=== PATIENT | female | born 1930 | race Caucasian/White ===

== ENCOUNTER 2017-07-15 10:01 | Inpatient (IN) | payer MEDICARE, BC ==
[~2017-07-15] VITALS: Ht 157.5 cm; Wt 65.0 kg
[2017-07-15 10:48] VITALS: BP 175/85
[2017-07-15] MEDS ORDERED: METHYL SALICYLATE/MENTHOL TOPICAL OINTMENT 29GM TUBE. TP PRN (11:00)
[2017-07-15] MEDS ORDERED: MAG HYDROX/AL HYDROX/SIMETH 30 ML ORAL.SUSP PO PRN (11:00)
[2017-07-15] MEDS ORDERED: MAGNESIUM HYDROXIDE 2,400 MG/30 ML ORAL.SUSP. PO PRN (11:00)
[2017-07-15] MEDS ORDERED: ACETAMINOPHEN 325 MG TABLET PO PRN (11:00)
[2017-07-15 11:19] LABS: BASO # 0.1 x10^3/uL (0.0-0.2); BASO % 1 % (0-3); EOS # 0.1 x10^3/uL (0.0-0.7); EOS % 3 % (0-3); HEMOGLOBIN 14.7 g/dL (12.0-15.5); LYMPH # 0.6 x10^3/uL (1.0-4.8); LYMPH % 11 % (24-48); MEAN CORPUSCULAR HEMOGLOBIN 31 pg (25-35); MEAN CORPUSCULAR HGB CONC 35 g/dL (31-37); MEAN CORPUSCULAR VOLUME 88 fL (79-100); MONO # 0.6 x10^3/uL (0.0-1.1); MONO % 12 % (0-9); NEUT % 74 % (31-73); PLATELET COUNT 193 x10^3/uL (140-400); RED BLOOD COUNT 4.79 x10^6/uL (3.50-5.40); RED CELL DISTRIBUTION WIDTH 14.1 % (11.5-14.5); WHITE BLOOD COUNT 5.5 x10^3/uL (4.0-11.0)
[2017-07-15] MEDS ORDERED: ATOR40TA59 PO (11:47)
[2017-07-15] MEDS ORDERED: CALC-157 PO (11:47)
[2017-07-15] MEDS ORDERED: VALS320T2 PO (11:47)
[2017-07-15] MEDS ORDERED: HYDR12.58 PO (11:47)
[2017-07-15] MEDS ORDERED: METO-247 PO (11:47)
[2017-07-15] MEDS ORDERED: RISE35TA3 PO (11:47)
[2017-07-15] MEDS ORDERED: SUCR1TAB PO (11:47)
[2017-07-15] MEDS ORDERED: VENL37.56 PO (11:47)
[2017-07-15] MEDS ORDERED: CLON0.5T3 PO (11:47)
[2017-07-15] MEDS ORDERED: CELE200C PO (11:47)
[2017-07-15] MEDS ORDERED: ASPI-630 PO (11:47)
[2017-07-15] MEDS ORDERED: DICL100G18 TP (11:47)
[2017-07-15] MEDS ORDERED: ACET500T68 PO (11:47)
--- NOTE | 2017-07-15 11:55 | NUR ---
Admission Note with Justification for Admission to [facility] Patient admitted to [facility] for protective oversight for emergency stabilization of acute psychiatric crisis. Pt admitted from: Home where she lives alone, with home health services. Mode of arrival: POV accompanied by grand daughter who is a nurse. Accompanied By: Family grand daughter and son came later. Precipitating behaviors that initiated intake and admission: Patient has been not eating, contributing to weight loss. Also "zoning out", obsessed with dying and staring at wall. Patient is "afraid to " and has not been sleeping well, staying up all night. This morning patient called an ambulance and was transported to [facility] where she was treated for stomach pain and released. Family is concerned that patient is not taking her medications appropriately. Patient is seen by Dr. Kothari in private practice and her PCP is Dr. Hancock. Description of failure of out patient attempts at stabilization in previous setting list behavior and medication trials: medication change, home health services in the home. Behaviors and assessment findings upon admission: Patient arrived in [facility], having just come from [facility]. Accompanied by grand daughter. Patient is alert and oriented x4, signed her own consents. Physical exam WNL, patient has pacemaker and history of osteoarthritis. Denies pain, vital signs obtained. Medication list provided by family member. Meal ordered and belongings inventoried. Patient calm and appropriate. Plan: Admit for protective oversight for adjustment and stabilization of medications, behaviors and mood. Intense treatment regimen including groups, medication adjustments, therapy, consistent regimen for ADL's, self care, and sleep hygiene. Daily monitoring by Inpatient staff, Psychiatry, and Medical Physician.
[2017-07-15 12:15] LABS: ALBUMIN 3.8 g/dL (3.4-5.0); ALBUMIN/GLOBULIN RATIO 1.2 (1.0-1.7); CALCIUM 9.1 mg/dL (8.5-10.1); CREATININE 0.9 mg/dL (0.6-1.0); GFR 59.1; POTASSIUM 3.5 mmol/L (3.5-5.1); TOTAL BILIRUBIN 0.4 mg/dL (0.2-1.0)
--- NOTE | 2017-07-15 12:35 | PDOC1 ---
History of Present Illness Reason for Visit: Behaviors History of Present Illness Pt was seen on 07/15/17 over the lunchtime. Discussed w/ nursing staff. She was brought to [facility] ER this morning with concerns of worsening depression and "feeling like I'm going to ." Pt is a longstanding patient of Dr. Miller alvarez, and was contacted by pt's daughter regarding the concerns. Pt was medically cleared in the ER at [facility] and sent for evaluation of depression at [facility] unit. Pt has no complaints and is currently eating lunch. Per nursing she had been complaining of losing her appetite. Allergies: Coded Allergies: No Known Drug Allergies (Unverified , 07/15/17) Review of Systems Review Of Systems Fourteen system , review of systems has been reviewed. See HPI for pertinent positives and negative responses, other ramsey all other systems are negative, non pertinent or non contributory Allergies: Coded Allergies: No Known Drug Allergies (Unverified , 07/15/17) Medications Current Medications Acetaminophen (Tylenol) 650 mg PRN Q6HRS PRN PO PAIN / TEMP; Start 07/15/17 at 11:00 Multi-Ingredient Ointment (Analgesic [place]) 1 navin PRN QID PRN TP MUSCLE PAIN; Start 07/15/17 at 11:00 Al Hydroxide/Mg Hydroxide (Mylanta Plus Xs) 15 ml PRN AFTMEALHC PRN PO DYSPEPSIA; Start 07/15/17 at 11:00 Magnesium Hydroxide (Milk Of Magnesia) 2,400 mg PRN QHS PRN PO CONSTIPATION; Start 07/15/17 at 11:00 Clonazepam (KlonoPIN) 0.5 mg PRN DAILY PRN PO ANXIETY / AGITATION; Start at 12:00 Venlafaxine HCl (Effexor) 37.5 mg DAILY PO ; Start 07/16/17 at 09:00 Active Scripts Active Reported Venlafaxine Hcl 37.5 Mg Tablet 37.5 Mg PO DAILY Diovan (Valsartan) 320 Mg Tablet 320 Mg PO DAILY Actonel (Risedronate Sodium) 35 Mg Tablet 35 Mg PO WEEKLY Metoprolol Succinate ( Xl ) (Metoprolol Succinate) 100 Mg Tab.er.24h 100 Mg PO DAILY Hydrochlorothiazide Tablet (Hydrochlorothiazide) 12.5 Mg Tablet 12.5 Mg PO DAILY Voltaren (Diclofenac Sodium) 100 Gm Gel..gram. 100 Gm TP PRN QID PRN Clonazepam 0.5 Mg Tablet 0.5 Mg PO PRN DAILY PRN Celebrex (Celecoxib) 200 Mg Capsule 200 Mg PO DAILY Calcium 500 + Vit D 200 Tablet (Calcium Carbonate/Vitamin D3) 1 Each Tablet 1 Each PO DAILY Atorvastatin Calcium 40 Mg Tablet 40 Mg PO DAILY Aspirin 81 Mg Tab.chew 81 Mg PO DAILY Sucralfate 1 Gm Tablet 1 Gm PO QIDACHS Acetaminophen 500 Mg Tablet 500 Mg PO PRN Q6HRS PRN Exam Vital Signs Vital Signs Date Time Temp Pulse Resp B/P (MAP) Pulse Ox O2 Delivery O2 Flow Rate FiO2 07/15/17 10:48 97.9 99 20 175/85 (115) 97 Room Air General Appearance: Alert, Cooperative, No acute distress HEENT: Atraumatic, PERRLA, EOMI, Mucous membr. moist/pink Respiratory: Clear to auscultation, Normal air movement Heart: Regular rate, Normal S1, Normal S2, No murmurs Abdominal: Soft, No tenderness, No hepatospenomegaly, No masses Extremities: No edema, Normal pulses Skin: No rashes Neuro: Normal tone, Cranial nerves 3-12 NL Psych/Mental Status: Other (Stable psych exam) Assessment/Plan Assessment/Plan 1. Depression, acute, severe: Per Dr. Kothari 2. Osteoarthritis: Cont home meds. 3. DVT proph: Pt ambulatory, no indication for Lovenox. 4. HTN: Cont home meds. 5. GERD: Continue carafate. COURSE Allergies Coded Allergies Type Severity Reaction Last Updated Verified No Known Drug Allergies 07/15/17 No Laboratory Tests Test 07/15/17 11:07 White Blood Count 5.5 x10^3/uL (4.0-11.0) Red Blood Count 4.79 x10^6/uL (3.50-5.40) Hemoglobin 14.7 g/dL (12.0-15.5) Hematocrit 42.0 % (36.0-47.0) Mean Corpuscular Volume 88 fL (79-100) Mean Corpuscular Hemoglobin 31 pg (25-35) Mean Corpuscular Hemoglobin Concent 35 g/dL (31-37) Red Cell Distribution Width 14.1 % (11.5-14.5) Platelet Count 193 x10^3/uL (140-400) Neutrophils (%) (Auto) 74 % (31-73) Lymphocytes (%) (Auto) 11 % (24-48) Monocytes (%) (Auto) 12 % (0-9) Eosinophils (%) (Auto) 3 % (0-3) Basophils (%) (Auto) 1 % (0-3) Neutrophils # (Auto) 4.0 x10^3uL (1.8-7.7) Lymphocytes # (Auto) 0.6 x10^3/uL (1.0-4.8) Monocytes # (Auto) 0.6 x10^3/uL (0.0-1.1) Eosinophils # (Auto) 0.1 x10^3/uL (0.0-0.7) Basophils # (Auto) 0.1 x10^3/uL (0.0-0.2) Sodium Level 131 mmol/L (136-145) Potassium Level 3.5 mmol/L (3.5-5.1) Chloride Level 93 mmol/L (98-107) Carbon Dioxide Level 28 mmol/L (21-32) Anion Gap 10 (6-14) Blood Urea Nitrogen 13 mg/dL (7-20) Creatinine 0.9 mg/dL (0.6-1.0) Estimated GFR (Cockcroft-Gault) 59.1 BUN/Creatinine Ratio 14 (6-20) Glucose Level 115 mg/dL (70-99) Calcium Level 9.1 mg/dL (8.5-10.1) Total Bilirubin 0.4 mg/dL (0.2-1.0) Aspartate Amino Transf (AST/SGOT) 22 U/L (15-37) Alanine Aminotransferase (ALT/SGPT) 30 U/L (14-59) Alkaline Phosphatase 80 U/L (46-116) Total Protein 7.0 g/dL (6.4-8.2) Albumin 3.8 g/dL (3.4-5.0) Albumin/Globulin Ratio 1.2 (1.0-1.7) Current Medications Medications (Trade) Dose Ordered Sig/John Route PRN Reason Start Time Stop Time Status Last Admin Dose Admin Acetaminophen (Tylenol) 650 mg PRN Q6HRS PRN PO PAIN / TEMP 07/15/17 11:00 Multi-Ingredient Ointment (Analgesic [place]) 1 navin PRN QID PRN TP MUSCLE PAIN 07/15/17 11:00 Al Hydroxide/Mg Hydroxide (Mylanta Plus Xs) 15 ml PRN AFTMEALHC PRN PO DYSPEPSIA 07/15/17 11:00 Magnesium Hydroxide (Milk Of Magnesia) 2,400 mg PRN QHS PRN PO CONSTIPATION 07/15/17 11:00 Clonazepam (KlonoPIN) 0.5 mg PRN DAILY PRN PO ANXIETY / AGITATION 07/15/17 12:00 Venlafaxine HCl (Effexor) 37.5 mg DAILY PO 07/16/17 09:00 Vital Signs Date Time Temp Pulse Resp B/P (MAP) Pulse Ox O2 Delivery O2 Flow Rate FiO2 07/15/17 10:48 97.9 99 20 175/85 (115) 97 Room Air ANALI RUBIN MD Jul 15, 2017 12:35
[2017-07-15] MEDS ORDERED: DICLOFENAC SODIUM 1% TOPICAL GEL 100GM TUBE. TP PRN (12:45)
[2017-07-15 13:47] LABS: THYROID STIM HORMONE (TSH) 1.35 uIU/mL (0.358-3.740)
[2017-07-15 15:53] VITALS: BP 142/78
[2017-07-15] MEDS: SUCRALFATE 1 GM TABLET. PO SCH ×2 (17:17→20:52)
--- NOTE | 2017-07-15 17:45 | NUR ---
patients son, Paolo Escalante, asked for exception to visiting hours due to his profession. Allowed to come [phone] today. Advised him to ask social work if he needs further accommodation.
--- NOTE | 2017-07-15 17:47 | NUR ---
Behavior Intervention Response and Plan: BIRP Note: Behavior: Assumed Care of patient, patient located in Patient Room at shift change. Patient exhibited the following behavior Withdrawn, Calm, Cooperative. Brief assessment on rounds of vital signs, medication needs, lab studies, and pain. Treatment plan problems 1 and 2. Intervention: Patient assessed and the following interventions initiated safety checks 15 Minute Checks Cognitive Assessment , Head to toe Assessment , Medications. Response: After interactions and interventions patient responded in the following manner, Calm , Appropriate ,Cooperative. Continue to assess behaviors and condition will continue to monitor throughout the shift as needed. Patient educated on ADL's, and hand hygiene. Plan: Continue to monitor Master Treatment Plan for patient's progress toward short term goals of Decreased Anxiety, Improved Mood, senior care goals to return to previous living setting vs placement. Continue to assess patient for changes in above assessment. Monitor for medication needs, pain, and safety concerns. Hourly rounding performed to ensure safe environment.
[2017-07-15] MEDS ORDERED: traZODone 50 MG TABLET. PO PRN (19:15)
[2017-07-15] MEDS ORDERED: traZODone 50 MG TABLET. PO SCH (19:15)
--- NOTE | 2017-07-15 20:25 | PDOC ---
Exam Note: Aj Note: Please also refer to the separate dictated note~for this date of service dictated separately.~Patient seen individually. Discussed the patient with Nursing staff reviewed the chart.~Reviewed interim history and current functioning. Reviewed vital signs,~Labs/ Radiology~and current medications noted below. Continue current treatment with the changes noted in the dictated addendum note Assessment: Vital Signs: Vital Signs Date Time Temp Pulse Resp B/P (MAP) Pulse Ox O2 Delivery O2 Flow Rate FiO2 07/15/17 15:53 97.1 99 20 142/78 (99) 99 07/15/17 10:48 Room Air Labs: Laboratory Tests Test 07/15/17 11:07 White Blood Count 5.5 x10^3/uL (4.0-11.0) Red Blood Count 4.79 x10^6/uL (3.50-5.40) Hemoglobin 14.7 g/dL (12.0-15.5) Hematocrit 42.0 % (36.0-47.0) Mean Corpuscular Volume 88 fL (79-100) Mean Corpuscular Hemoglobin 31 pg (25-35) Mean Corpuscular Hemoglobin Concent 35 g/dL (31-37) Red Cell Distribution Width 14.1 % (11.5-14.5) Platelet Count 193 x10^3/uL (140-400) Neutrophils (%) (Auto) 74 % (31-73) H Lymphocytes (%) (Auto) 11 % (24-48) L Monocytes (%) (Auto) 12 % (0-9) H Eosinophils (%) (Auto) 3 % (0-3) Basophils (%) (Auto) 1 % (0-3) Neutrophils # (Auto) 4.0 x10^3uL (1.8-7.7) Lymphocytes # (Auto) 0.6 x10^3/uL (1.0-4.8) L Monocytes # (Auto) 0.6 x10^3/uL (0.0-1.1) Eosinophils # (Auto) 0.1 x10^3/uL (0.0-0.7) Basophils # (Auto) 0.1 x10^3/uL (0.0-0.2) Sodium Level 131 mmol/L (136-145) L Potassium Level 3.5 mmol/L (3.5-5.1) Chloride Level 93 mmol/L (98-107) L Carbon Dioxide Level 28 mmol/L (21-32) Anion Gap 10 (6-14) Blood Urea Nitrogen 13 mg/dL (7-20) Creatinine 0.9 mg/dL (0.6-1.0) Estimated GFR (Cockcroft-Gault) 59.1 BUN/Creatinine Ratio 14 (6-20) Glucose Level 115 mg/dL (70-99) H Calcium Level 9.1 mg/dL (8.5-10.1) Iron Level 82 ug/dL (50-170) Total Iron Binding Capacity 278 ug/dL (250-450) Iron Saturation 29 % (15-34) Total Bilirubin 0.4 mg/dL (0.2-1.0) Aspartate Amino Transferase (AST) 22 U/L (15-37) Alanine Aminotransferase (ALT) 30 U/L (14-59) Alkaline Phosphatase 80 U/L (46-116) Total Protein 7.0 g/dL (6.4-8.2) Albumin 3.8 g/dL (3.4-5.0) Albumin/Globulin Ratio 1.2 (1.0-1.7) Triglycerides Level 81 mg/dL (0-150) Cholesterol Level 137 mg/dL (0-200) LDL Cholesterol, Calculated 50 mg/dL (0-100) VLDL Cholesterol, Calculated 16 mg/dL (0-40) Non-HDL Cholesterol Calculated 66 mg/dL (0-129) HDL Cholesterol 71 mg/dL (40-60) H Cholesterol/HDL Ratio 1.0 Vitamin B12 Level 553 pg/mL (247-911) 25-Hydroxy Vitamin D Total 24.5 ng/mL (30-100) L Thyroid Stimulating Hormone (TSH) 1.350 uIU/mL (0.358-3.740) Current Medications: Meds: Current Medications Acetaminophen (Tylenol) 650 mg PRN Q6HRS PRN PO PAIN / TEMP; Start 07/15/17 at 11:00; Stop 07/15/17 at 19:09; Status DC Multi-Ingredient Ointment (Analgesic [place]) 1 navin PRN QID PRN TP MUSCLE PAIN; Start 07/15/17 at 11:00 Al Hydroxide/Mg Hydroxide (Mylanta Plus Xs) 15 ml PRN AFTMEALHC PRN PO DYSPEPSIA; Start 07/15/17 at 11:00 Magnesium Hydroxide (Milk Of Magnesia) 2,400 mg PRN QHS PRN PO CONSTIPATION; Start 07/15/17 at 11:00 Clonazepam (KlonoPIN) 0.5 mg PRN DAILY PRN PO ANXIETY / AGITATION; Start at 12:00 Venlafaxine HCl (Effexor) 37.5 mg DAILY PO ; Start 07/16/17 at 09:00; Stop 07/16 at 09:00; Status DC Acetaminophen (Tylenol) 500 mg PRN Q6HRS PRN PO PAIN; Start 07/15/17 at 12:45 Aspirin (Children'S Aspirin) 81 mg DAILY PO ; Start 07/16/17 at 09:00 Calcium Carbonate/ Glycine (Oscal) 500 mg DAILY PO ; Start 07/16/17 at 09:00 Celecoxib (CeleBREX) 200 mg DAILY PO ; Start 07/16/17 at 09:00 Diclofenac Sodium (Voltaren) 100 navin PRN QID PRN TP MUSCLE PAIN; Start at 12:45 Sucralfate (Carafate) 1 gm QIDACHS PO Last administered on 07/15/17t 17:17; Start 07/15/17 at 16:30 Atorvastatin Calcium (Lipitor) 40 mg DAILY PO ; Start 07/16/17 at 09:00 Metoprolol Succinate (Toprol Xl) 100 mg DAILY PO ; Start 07/16/17 at 09:00 Alendronate Sodium (Fosamax) 70 mg Q7D PO ; Start 07/22/17 at 06:00 Losartan Potassium (Cozaar) 100 mg DAILY PO ; Start 07/16/17 at 09:00 Duloxetine HCl (Cymbalta) 30 mg DAILY PO ; Start 07/16/17 at 09:00 Trazodone HCl (Desyrel) 25 mg PRN QHS PRN PO INSOMNIA, MAY REPEAT X1; Start at 19:15 Trazodone HCl (Desyrel) 25 mg PRN QHS PO ; Start 07/15/17 at 19:15; Status UNV Active Scripts Active Reported Venlafaxine Hcl 37.5 Mg Tablet 37.5 Mg PO DAILY Diovan (Valsartan) 320 Mg Tablet 320 Mg PO DAILY Actonel (Risedronate Sodium) 35 Mg Tablet 35 Mg PO WEEKLY Metoprolol Succinate ( Xl ) (Metoprolol Succinate) 100 Mg Tab.er.24h 100 Mg PO DAILY Hydrochlorothiazide Tablet (Hydrochlorothiazide) 12.5 Mg Tablet 12.5 Mg PO DAILY Voltaren (Diclofenac Sodium) 100 Gm Gel..gram. 100 Gm TP PRN QID PRN Clonazepam 0.5 Mg Tablet 0.5 Mg PO PRN DAILY PRN Celebrex (Celecoxib) 200 Mg Capsule 200 Mg PO DAILY Calcium 500 + Vit D 200 Tablet (Calcium Carbonate/Vitamin D3) 1 Each Tablet 1 Each PO DAILY Atorvastatin Calcium 40 Mg Tablet 40 Mg PO DAILY Aspirin 81 Mg Tab.chew 81 Mg PO DAILY Sucralfate 1 Gm Tablet 1 Gm PO QIDACHS Acetaminophen 500 Mg Tablet 500 Mg PO PRN Q6HRS PRN I have reviewed the current psychotropics carefully including drug interactions. Risk benefit ratio favors no change other than as noted in my dictated progress note. Diagnosis: Problems: (1) LISSET (generalized anxiety disorder) (2) MDD (major depressive disorder) CHANTELLE HECTOR MD Jul 15, 2017 20:25
[2017-07-15 23:10] LABS: HEMOGLOBIN A1C 5.7 % (4.8-5.6)
--- NOTE | 2017-07-16 02:10 | NUR ---
Behavior Intervention Response and Plan: BIRP Note: Behavior: Assumed Care of patient, patient located in Patient Room at shift change. Patient exhibited the following behavior Withdrawn, Calm, Compliant. Brief assessment on rounds of vital signs, medication needs, lab studies, and pain. Treatment plan problems Altered Nutrition, Sleep Pattern Disturbance, Fall Risk. Intervention: Patient assessed and the following interventions initiated safety checks 15 Minute Checks Cognitive Assessment , Medications , Oral Hydration. Response: After interactions and interventions patient responded in the following manner, Calm , Compliant ,Withdrawn. Continue to assess behaviors and condition will continue to monitor throughout the shift as needed. Patient educated on ADL's, and hand hygiene. 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 Continue to assess patient for changes in above assessment. Monitor for medication needs, pain, and safety concerns. Hourly rounding performed to ensure safe environment.
[2017-07-16 06:08] VITALS: BP 176/82
[2017-07-16] MEDS: SUCRALFATE 1 GM TABLET. PO SCH ×4 (08:32→19:55)
[2017-07-16] MEDS: CELECOXIB 200 MG CAPSULE PO SCH (08:32)
[2017-07-16] MEDS: LOSARTAN 50 MG TABLET. PO SCH (08:33)
[2017-07-16] MEDS: METOPROLOL SUCC 24HR ER 50 MG TAB.ER.24H. PO SCH (08:34)
[2017-07-16] MEDS: DULoxetine HCL 30 MG CAPSULE.DR PO SCH (08:34)
[2017-07-16] MEDS: CALCIUM CARBONATE 500 MG TABLET PO SCH (08:34)
[2017-07-16] MEDS: ASPIRIN 81 MG TAB.CHEW PO SCH (08:34)
[2017-07-16] MEDS: ATORVASTATIN CALCIUM 20 MG TABLET PO SCH (08:34)
[2017-07-16] MEDS ORDERED: VENLAFAXINE 37.5 MG TABLET. PO SCH (09:00)
[2017-07-16 09:08] LABS: T3 TOTAL 73 ng/dL (71-180); THYROXINE 7.1 ug/dL (4.5-12.0)
--- NOTE | 2017-07-16 11:12 | NUR ---
Behavior Intervention Response and Plan: BIRP Note: Behavior: Assumed Care of patient, patient located in Hallway at time of vital signs, medication needs, lab studies, and pain. Treatment plan problems Depression, Sleep Pattern Disturbance, Fall Risk. Intervention: Patient assessed and the following interventions initiated safety checks 15 Minute Checks Cognitive Assessment , Medications , Oral Hydration. Response: After interactions and interventions patient responded in the following manner, Anxious , Compliant ,Withdrawn. Continue to assess behaviors and condition will continue to monitor throughout the shift as needed. Patient educated on ADL's, and hand hygiene. 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 Continue to assess patient for changes in above assessment. Monitor for medication needs, pain, and safety concerns. Hourly rounding performed to ensure safe environment.
--- NOTE | 2017-07-16 13:06 | EKG ---
[address] [address] Test Date: 2017-07-15 Test Time: 16:38:21 Pat Name: NANCY DE LEON Department: Room: [facility] Gender: Carbonizer Tester: : [id number] Requested By: CHANTELLE HECTOR Order Number: [id number] Reading MD: Sawyer Block MD Measurements Intervals [place] Rate: P: [place]: QRS: QRSD: T: QT: QTc: Interpretive Statements SR Electronically Signed On 07-20-2017 16:46:21 HOT BALLER by Sawyer Block MD
--- NOTE | 2017-07-16 16:00 | NUR ---
Damaris Escalante Admitted: 25 Jul 2017Assessed: 16 Jul 2017 @1600 Activity Therapy Assessment: Based on observation and interview. Patient is able to remember where she is from family, current location, and age. Patient was well organized and her appearance was clean while she sat upright in her bed. Her impulses and temper were controlled and she had a very calm presentation. Client stated that she uses both the wheel chair and walker to be ambulatory. Patient enjoys music, shopping, bingo, and massages her body whenever it aches to relieve stress. Initial treatment goal will be aimed to increase her and maintain her socialization, time management, and leisure awareness by attending one group per day.
[2017-07-16 16:30] VITALS: BP 175/86
--- NOTE | 2017-07-16 21:50 | PDOC ---
Exam Note: Aj Note: Please also refer to the separate dictated note~for this date of service dictated separately.~Patient seen individually. Discussed the patient with Nursing staff reviewed the chart.~Reviewed interim history and current functioning. Reviewed vital signs,~Labs/ Radiology~and current medications noted below. Continue current treatment with the changes noted in the dictated addendum note Assessment: Vital Signs: Vital Signs Date Time Temp Pulse Resp B/P (MAP) Pulse Ox O2 Delivery O2 Flow Rate FiO2 07/16/17 16:30 97.2 73 18 175/86 (115) 96 07/15/17 10:48 Room Air I&O Intake and Output 07/16/17 07:00 Intake Total 480 ml Balance 480 ml Intake Oral 480 ml Current Medications: Meds: Current Medications Acetaminophen (Tylenol) 650 mg PRN Q6HRS PRN PO PAIN / TEMP; Start 07/15/17 at 11:00; Stop 07/15/17 at 19:09; Status DC Multi-Ingredient Ointment (Analgesic [place]) 1 navin PRN QID PRN TP MUSCLE PAIN; Start 07/15/17 at 11:00 Al Hydroxide/Mg Hydroxide (Mylanta Plus Xs) 15 ml PRN AFTMEALHC PRN PO DYSPEPSIA; Start 07/15/17 at 11:00 Magnesium Hydroxide (Milk Of Magnesia) 2,400 mg PRN QHS PRN PO CONSTIPATION; Start 07/15/17 at 11:00 Clonazepam (KlonoPIN) 0.5 mg PRN DAILY PRN PO ANXIETY / AGITATION; Start at 12:00 Venlafaxine HCl (Effexor) 37.5 mg DAILY PO ; Start 07/16/17 at 09:00; Stop 07/16 at 09:00; Status DC Acetaminophen (Tylenol) 500 mg PRN Q6HRS PRN PO PAIN; Start 07/15/17 at 12:45 Aspirin (Children'S Aspirin) 81 mg DAILY PO Last administered on 07/16/17 08: 34; Start 07/16/17 at 09:00 Calcium Carbonate/ Glycine (Oscal) 500 mg DAILY PO Last administered on 08:34; Start 07/16/17 at 09:00 Celecoxib (CeleBREX) 200 mg DAILY PO Last administered on 07/16/17 08:32; Start 07/16/17 at 09:00 Diclofenac Sodium (Voltaren) 100 navin PRN QID PRN TP MUSCLE PAIN; Start at 12:45 Sucralfate (Carafate) 1 gm QIDACHS PO Last administered on 07/16/17 19:55; Start 07/15/17 at 16:30 Atorvastatin Calcium (Lipitor) 40 mg DAILY PO Last administered on 07/16/17 08 :34; Start 07/16/17 at 09:00 Metoprolol Succinate (Toprol Xl) 100 mg DAILY PO Last administered on 08:34; Start 07/16/17 at 09:00 Alendronate Sodium (Fosamax) 70 mg Q7D PO ; Start 07/22/17 at 06:00 Losartan Potassium (Cozaar) 100 mg DAILY PO Last administered on 07/16/17 08: 33; Start 07/16/17 at 09:00 Duloxetine HCl (Cymbalta) 30 mg DAILY PO Last administered on 07/16/17 08:34; Start 07/16/17 at 09:00 Trazodone HCl (Desyrel) 25 mg PRN QHS PRN PO INSOMNIA, MAY REPEAT X1; Start at 19:15 Trazodone HCl (Desyrel) 25 mg PRN QHS PO ; Start 07/15/17 at 19:15; Status UNV Active Scripts Active Reported Venlafaxine Hcl 37.5 Mg Tablet 37.5 Mg PO DAILY Diovan (Valsartan) 320 Mg Tablet 320 Mg PO DAILY Actonel (Risedronate Sodium) 35 Mg Tablet 35 Mg PO WEEKLY Metoprolol Succinate ( Xl ) (Metoprolol Succinate) 100 Mg Tab.er.24h 100 Mg PO DAILY Hydrochlorothiazide Tablet (Hydrochlorothiazide) 12.5 Mg Tablet 12.5 Mg PO DAILY Voltaren (Diclofenac Sodium) 100 Gm Gel..gram. 100 Gm TP PRN QID PRN Clonazepam 0.5 Mg Tablet 0.5 Mg PO PRN DAILY PRN Celebrex (Celecoxib) 200 Mg Capsule 200 Mg PO DAILY Calcium 500 + Vit D 200 Tablet (Calcium Carbonate/Vitamin D3) 1 Each Tablet 1 Each PO DAILY Atorvastatin Calcium 40 Mg Tablet 40 Mg PO DAILY Aspirin 81 Mg Tab.chew 81 Mg PO DAILY Sucralfate 1 Gm Tablet 1 Gm PO QIDACHS Acetaminophen 500 Mg Tablet 500 Mg PO PRN Q6HRS PRN I have reviewed the current psychotropics carefully including drug interactions. Risk benefit ratio favors no change other than as noted in my dictated progress note. Diagnosis: Problems: (1) LISSET (generalized anxiety disorder) (2) MDD (major depressive disorder) CHANTELLE HECTOR MD Jul 16, 2017 21:50
[2017-07-16 22:11] LABS: BACTERIA,URINE 0 /HPF (0-FEW); BILIRUBIN,URINE NEG (NEG); CLARITY,URINE CLEAR; COLOR,URINE STRAW; GLUCOSE,URINE NEG (NEG); NITRITE,URINE NEG (NEG); RBC,URINE OCC /HPF (0-2); SQUAMOUS EPITHELIAL CELL,UR FEW /LPF; UROBILINOGEN,URINE 0.2 mg/dL (0.2 mg/dL)
--- NOTE | 2017-07-17 00:16 | NUR ---
Behavior Intervention Response and Plan: BIRP Note: Behavior: Assumed Care of patient, patient located in Patient Room at shift change. Patient exhibited the following behavior Calm, Withdrawn, Cooperative. Brief assessment on rounds of vital signs, medication needs, lab studies, and pain. Treatment plan problems 1 and 2. Intervention: Patient assessed and the following interventions initiated safety checks 15 Minute Checks Cognitive Assessment , Head to toe Assessment , Medications. Response: After interactions and interventions patient responded in the following manner, Calm , Compliant ,Cooperative. Continue to assess behaviors and condition will continue to monitor throughout the shift as needed. Patient educated on ADL's, and hand hygiene. 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 Continue to assess patient for changes in above assessment. Monitor for medication needs, pain, and safety concerns. Hourly rounding performed to ensure safe environment.
[2017-07-17 05:55] VITALS: BP 141/73
[2017-07-17] MEDS: CELECOXIB 200 MG CAPSULE PO SCH (08:07)
[2017-07-17] MEDS: CALCIUM CARBONATE 500 MG TABLET PO SCH (08:07)
[2017-07-17] MEDS: METOPROLOL SUCC 24HR ER 50 MG TAB.ER.24H. PO SCH (08:07)
[2017-07-17] MEDS: SUCRALFATE 1 GM TABLET. PO SCH ×4 (08:07→20:08)
[2017-07-17] MEDS: ASPIRIN 81 MG TAB.CHEW PO SCH (08:08)
[2017-07-17] MEDS: LOSARTAN 50 MG TABLET. PO SCH (08:08)
[2017-07-17] MEDS: ATORVASTATIN CALCIUM 20 MG TABLET PO SCH (08:08)
[2017-07-17] MEDS: DULoxetine HCL 30 MG CAPSULE.DR PO SCH (08:08)
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
--- NOTE | 2017-07-17 14:01 | HP ---
ADMIT DATE: 07/15/2017 PSYCHIATRIC ADMISSION HISTORY/EVALUATION IDENTIFYING DATA: The patient is an 86-year-old female, who I had followed at my office for the past 15 or 20 years for diagnoses of depression, anxiety. She is referred to us for inpatient psychiatric stabilization from the Emergency Room at [facility] in [facility]. After she presented there once she called the ambulance on account of being afraid she is going to . She refused eating, was depressed, obsessed with dying, marked insomnia, staring at the patel, having panic attacks. The patient's daughter from [place] had called in and was extremely concerned about the patient's welfare. Fact that she lives by herself in her home, unable to function, having failed outpatient psychiatric treatment for her marked worsening of depression, anxiety. She was admitted for inpatient psychiatric stabilization. CHIEF COMPLAINT: "I am just getting worse." HISTORY OF PRESENT ILLNESS: The patient has a long history of depression, but has been stable for the past many years on Effexor. Over the past several weeks, she has been increasingly depressed, feeling hopeless, helpless, worthless with marked insomnia, preoccupied with and dying, extremely anxious, having panic attacks, marked somatic symptoms. She has been seeing a primary care physician, Dr. Hancock for somatic symptoms and Ultram and reportedly other medications were added with no relief. No clear history of bipolar disorder. She denies active suicidal ideation, but has passive suicidal ideation, no homicidal ideation. No clear psychotic symptoms. PAST PSYCHIATRIC HISTORY: As above. MEDICAL HISTORY: Osteoarthritis, hard of hearing, pacemaker in place, hypertension. ACCU-CHEKS: None. DRUG ALLERGIES: Negative. Walks with a walker. UA collected sent for testing. CURRENT PSYCHOTROPICS: Effexor ER 75 mg a day, Klonopin 0.5 mg daily p.r.n., trazodone 25 mg at bedtime p.r.n., may repeat x 1. Slept 6-1/4 hours previous evening. REVIEW OF SYSTEMS: Hard of hearing. Ambulation impaired with walker. Complains of heartburn. No CV, , pulmonary, eye system symptoms on review. MENTAL STATUS EXAM: The patient was seen individually evening of 07/15/2017. She is well oriented, hard of hearing. Speech is coherent, depressed, hopeless, helpless, worthless, extremely anxious, restless. Cognitively reasonably intact, well oriented. No active suicidal or homicidal ideation. Mood is depressed, anxious. Affect is mood congruent. Attention span short. Language function intact. LABORATORY DATA: Reviewed. IMPRESSION: Major depressive disorder, recurrent, severe panic disorder with agoraphobia, anxiety disorder, unspecified. Rest as above. PLAN: Admit to Geropsychiatry Unit at [facility]. I will see the patient daily individually. Medical followup with Dr. Galeano/Dr. Tom. Continue the patient on her current psychotropics. We will change the Effexor to Cymbalta 30 mg a day, which might also help some of her pain symptoms and somatic preoccupation. Make further adjustments as clinically indicated. MAN Val HECTOR MD DR: CONOR/valente JOB#: [id number] / [id number]
--- NOTE | 2017-07-17 16:10 | NUR ---
Behavior Intervention Response and Plan: BIRP Note: Behavior: Assumed Care of patient, patient located in cafeteria at time of vital signs, medication needs, lab studies, and pain. Treatment plan problems Depression, Sleep Pattern Disturbance, Fall Risk. Intervention: Patient assessed and the following interventions initiated safety checks 15 Minute Checks Cognitive Assessment , Medications , Oral Hydration. Response: After interactions and interventions patient responded in the following manner, calm , Compliant ,interactive. Continue to assess behaviors and condition will continue to monitor throughout the shift as needed. Patient educated on ADL's, and hand hygiene. Plan: Continue to monitor Master Treatment Plan for patient's progress toward short term goals of Decreased Anxiety, Improved Mood, intermodal customer service goals to return to previous living setting vs placement. Continue to assess patient for changes in above assessment. Monitor for medication needs, pain, and safety concerns. Hourly rounding performed to ensure safe environment.
[2017-07-17 16:15] VITALS: BP 122/70
--- NOTE | 2017-07-17 19:16 | PN ---
DATE: 07/16/2017 This is a late entry 07/16/2017 covers elements not covered in my initial note 07/16/2017. I met with the patient evening of 07/16/2017, she slept 6-1/4 hours previous evening, still complains of heartburn from her medications, anxious, restless, complains of insomnia due to her washing machine being turned on next to her room most of the previous evening. Still anxious, depressed. REVIEW OF SYSTEMS: Hard of hearing. Impaired ambulation. No CV, , pulmonary, eye system symptoms on review. MENTAL STATUS EXAM: Reasonably oriented. Speech is coherent, abstraction fair, computation impaired, language function intact. Mood and affect depressed, anxious, withdrawn. No active suicidal or homicidal ideation, but passive suicidal ideations are evident. IMPRESSION: Major depressive disorder, recurrent. Panic disorder with agoraphobia. Anxiety disorder, unspecified. Rest unchanged from admission. PLAN: Continue Cymbalta 30 mg a day, trazodone p.r.n., Klonopin p.r.n. May need to increase Cymbalta. Consider Seroquel only if needed to augment the Cymbalta. Rest unchanged from initial note. CHANTELLE HECTOR MD DR: CONOR/valente JOB#: [id number] / [id number]
--- NOTE | 2017-07-17 20:05 | PDOC ---
Exam Note: Aj Note: Please also refer to the separate dictated note~for this date of service dictated separately.~Patient seen individually. Discussed the patient with Nursing staff reviewed the chart.~Reviewed interim history and current functioning. Reviewed vital signs,~Labs/ Radiology~and current medications noted below. Continue current treatment with the changes noted in the dictated addendum note Assessment: Vital Signs: Vital Signs Date Time Temp Pulse Resp B/P (MAP) Pulse Ox O2 Delivery O2 Flow Rate FiO2 07/17/17 16:15 98.3 84 18 122/70 (87) 98 07/15/17 10:48 Room Air I&O Intake and Output 07/17/17 07:00 Intake Total 820 ml Balance 820 ml Intake Oral 820 ml Current Medications: Meds: Current Medications Acetaminophen (Tylenol) 650 mg PRN Q6HRS PRN PO PAIN / TEMP; Start 07/15/17 at 11:00; Stop 07/15/17 at 19:09; Status DC Multi-Ingredient Ointment (Analgesic [place]) 1 navin PRN QID PRN TP MUSCLE PAIN; Start 07/15/17 at 11:00 Al Hydroxide/Mg Hydroxide (Mylanta Plus Xs) 15 ml PRN AFTMEALHC PRN PO DYSPEPSIA; Start 07/15/17 at 11:00 Magnesium Hydroxide (Milk Of Magnesia) 2,400 mg PRN QHS PRN PO CONSTIPATION; Start 07/15/17 at 11:00 Clonazepam (KlonoPIN) 0.5 mg PRN DAILY PRN PO ANXIETY / AGITATION; Start at 12:00 Venlafaxine HCl (Effexor) 37.5 mg DAILY PO ; Start 07/16/17 at 09:00; Stop 07/16 at 09:00; Status DC Acetaminophen (Tylenol) 500 mg PRN Q6HRS PRN PO PAIN; Start 07/15/17 at 12:45 Aspirin (Children'S Aspirin) 81 mg DAILY PO Last administered on 07/17/17 08: 08; Start 07/16/17 at 09:00 Calcium Carbonate/ Glycine (Oscal) 500 mg DAILY PO Last administered on 08:07; Start 07/16/17 at 09:00 Celecoxib (CeleBREX) 200 mg DAILY PO Last administered on 07/17/17 08:07; Start 07/16/17 at 09:00 Diclofenac Sodium (Voltaren) 100 navin PRN QID PRN TP MUSCLE PAIN; Start at 12:45 Sucralfate (Carafate) 1 gm QIDACHS PO Last administered on 07/17/17 16:30; Start 07/15/17 at 16:30 Atorvastatin Calcium (Lipitor) 40 mg DAILY PO Last administered on 07/17/17 08 :08; Start 07/16/17 at 09:00 Metoprolol Succinate (Toprol Xl) 100 mg DAILY PO Last administered on 08:07; Start 07/16/17 at 09:00 Alendronate Sodium (Fosamax) 70 mg Q7D PO ; Start 07/22/17 at 06:00 Losartan Potassium (Cozaar) 100 mg DAILY PO Last administered on 07/17/17 08: 08; Start 07/16/17 at 09:00 Duloxetine HCl (Cymbalta) 30 mg DAILY PO Last administered on 07/17/17 08:08; Start 07/16/17 at 09:00 Trazodone HCl (Desyrel) 25 mg PRN QHS PRN PO INSOMNIA, MAY REPEAT X1 Last administered on 07/16/17 23:04; Start 07/15/17 at 19:15 Trazodone HCl (Desyrel) 25 mg PRN QHS PO ; Start 07/15/17 at 19:15; Status UNV Active Scripts Active Reported Venlafaxine Hcl 37.5 Mg Tablet 37.5 Mg PO DAILY Diovan (Valsartan) 320 Mg Tablet 320 Mg PO DAILY Actonel (Risedronate Sodium) 35 Mg Tablet 35 Mg PO WEEKLY Metoprolol Succinate ( Xl ) (Metoprolol Succinate) 100 Mg Tab.er.24h 100 Mg PO DAILY Hydrochlorothiazide Tablet (Hydrochlorothiazide) 12.5 Mg Tablet 12.5 Mg PO DAILY Voltaren (Diclofenac Sodium) 100 Gm Gel..gram. 100 Gm TP PRN QID PRN Clonazepam 0.5 Mg Tablet 0.5 Mg PO PRN DAILY PRN Celebrex (Celecoxib) 200 Mg Capsule 200 Mg PO DAILY Calcium 500 + Vit D 200 Tablet (Calcium Carbonate/Vitamin D3) 1 Each Tablet 1 Each PO DAILY Atorvastatin Calcium 40 Mg Tablet 40 Mg PO DAILY Aspirin 81 Mg Tab.chew 81 Mg PO DAILY Sucralfate 1 Gm Tablet 1 Gm PO QIDACHS Acetaminophen 500 Mg Tablet 500 Mg PO PRN Q6HRS PRN I have reviewed the current psychotropics carefully including drug interactions. Risk benefit ratio favors no change other than as noted in my dictated progress note. Diagnosis: Problems: (1) LISSET (generalized anxiety disorder) (2) MDD (major depressive disorder) CHANTELLE HECTOR MD Jul 17, 2017 20:05
--- NOTE | 2017-07-18 00:07 | NUR ---
Behavior Intervention Response and Plan: BIRP Note: Behavior: Assumed Care of patient, patient located in Patient Room at shift change. Patient exhibited the following behavior Calm, Cooperative, Withdrawn. Brief assessment on rounds of vital signs, medication needs, lab studies, and pain. Treatment plan problems 1 and 2. Intervention: Patient assessed and the following interventions initiated safety checks 15 Minute Checks Cognitive Assessment , Head to toe Assessment , Medications. Response: After interactions and interventions patient responded in the following manner, Calm , Compliant ,Cooperative. Continue to assess behaviors and condition will continue to monitor throughout the shift as needed. Patient educated on ADL's, and hand hygiene. Plan: Continue to monitor Master Treatment Plan for patient's progress toward short term goals of Improved Mood, Decreased Anxiety, half-way goals to return to previous living setting vs placement. Continue to assess patient for changes in above assessment. Monitor for medication needs, pain, and safety concerns. Hourly rounding performed to ensure safe environment.
[2017-07-18] MEDS: ACETAMINOPHEN 500 MG TABLET PO PRN (05:25)
[2017-07-18 05:56] VITALS: BP 161/84
[2017-07-18] MEDS: CELECOXIB 200 MG CAPSULE PO SCH (07:59)
[2017-07-18] MEDS: ATORVASTATIN CALCIUM 20 MG TABLET PO SCH (07:59)
[2017-07-18] MEDS: DULoxetine HCL 30 MG CAPSULE.DR PO SCH (08:01)
[2017-07-18] MEDS: CALCIUM CARBONATE 500 MG TABLET PO SCH (08:01)
[2017-07-18] MEDS: SUCRALFATE 1 GM TABLET. PO SCH ×4 (08:01→19:45)
[2017-07-18] MEDS: LOSARTAN 50 MG TABLET. PO SCH (08:01)
[2017-07-18] MEDS: METOPROLOL SUCC 24HR ER 50 MG TAB.ER.24H. PO SCH (08:02)
[2017-07-18] MEDS: ASPIRIN 81 MG TAB.CHEW PO SCH (08:02)
--- NOTE | 2017-07-18 09:20 | NUR ---
Behavior Intervention Response and Plan: BIRP Note: Behavior: Assumed Care of patient, patient located in Patient Room at shift change. Patient exhibited the following behavior Restless, Disorganized, Withdrawn. Brief assessment on rounds of vital signs, medication needs, lab studies, and pain. Treatment plan problems 1 & 2. Intervention: Patient assessed and the following interventions initiated safety checks 15 Minute Checks Cognitive Assessment , Head to toe Assessment , Medications. Response: After interactions and interventions patient responded in the following manner, Calm , Appropriate ,Compliant. Continue to assess behaviors and condition will continue to monitor throughout the shift as needed. Patient educated on ADL's, and hand hygiene. Plan: Continue to monitor Master Treatment Plan for patient's progress toward short term goals of Decreased Anxiety, No harm To self/ others, terminal superintendent goals to return to previous living setting vs placement. Continue to assess patient for changes in above assessment. Monitor for medication needs, pain, and safety concerns. Hourly rounding performed to ensure safe environment.
--- NOTE | 2017-07-18 11:30 | NUR ---
Patient complains of increased anxiety with no cause. Assisted patient to her room and provided PRN meds as per eMAR. Will continue to monitor.
[2017-07-18] MEDS: clonazePAM 0.5 MG TABLET PO PRN (11:33)
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
--- NOTE | 2017-07-18 12:15 | NUR ---
Patient states she is feeling much better. Will continue to monitor. patient states she is missing several items of clothing. All items located except a pair of flakita pants that are not on her inventory.
[2017-07-18 16:01] VITALS: BP 183/86
[2017-07-18] MEDS ORDERED: CHOLECALCIFEROL (VITAMIN D3) 50,000 UNIT CAPSULE PO SCH (20:00)
--- NOTE | 2017-07-18 20:02 | PDOC ---
Exam Note: Aj Note: Please also refer to the separate dictated note~for this date of service dictated separately.~Patient seen individually. Discussed the patient with Nursing staff reviewed the chart.~Reviewed interim history and current functioning. Reviewed vital signs,~Labs/ Radiology~and current medications noted below. Continue current treatment with the changes noted in the dictated addendum note Assessment: Vital Signs: Vital Signs Date Time Temp Pulse Resp B/P (MAP) Pulse Ox O2 Delivery O2 Flow Rate FiO2 07/18/17 16:01 97.2 76 18 183/86 (118) 95 07/15/17 10:48 Room Air I&O Intake and Output 07/18/17 07:00 Intake Total 1200 ml Balance 1200 ml Intake Oral 1200 ml Current Medications: Meds: Current Medications Acetaminophen (Tylenol) 650 mg PRN Q6HRS PRN PO PAIN / TEMP; Start 07/15/17 at 11:00; Stop 07/15/17 at 19:09; Status DC Multi-Ingredient Ointment (Analgesic [place]) 1 navin PRN QID PRN TP MUSCLE PAIN; Start 07/15/17 at 11:00 Al Hydroxide/Mg Hydroxide (Mylanta Plus Xs) 15 ml PRN AFTMEALHC PRN PO DYSPEPSIA; Start 07/15/17 at 11:00 Magnesium Hydroxide (Milk Of Magnesia) 2,400 mg PRN QHS PRN PO CONSTIPATION Last administered on 07/17/17 22:04; Start 07/15/17 at 11:00 Clonazepam (KlonoPIN) 0.5 mg PRN DAILY PRN PO ANXIETY / AGITATION Last administered on 07/18/17 11:33; Start 07/15/17 at 12:00 Venlafaxine HCl (Effexor) 37.5 mg DAILY PO ; Start 07/16/17 at 09:00; Stop 07/16 at 09:00; Status DC Acetaminophen (Tylenol) 500 mg PRN Q6HRS PRN PO PAIN Last administered on 05:25; Start 07/15/17 at 12:45 Aspirin (Children'S Aspirin) 81 mg DAILY PO Last administered on 07/18/17 08: 02; Start 07/16/17 at 09:00 Calcium Carbonate/ Glycine (Oscal) 500 mg DAILY PO Last administered on 08:01; Start 07/16/17 at 09:00 Celecoxib (CeleBREX) 200 mg DAILY PO Last administered on 07/18/17 07:59; Start 07/16/17 at 09:00 Diclofenac Sodium (Voltaren) 100 navin PRN QID PRN TP MUSCLE PAIN; Start at 12:45 Sucralfate (Carafate) 1 gm QIDACHS PO Last administered on 07/18/17 19:45; Start 07/15/17 at 16:30 Atorvastatin Calcium (Lipitor) 40 mg DAILY PO Last administered on 07/18/17 07 :59; Start 07/16/17 at 09:00 Metoprolol Succinate (Toprol Xl) 100 mg DAILY PO Last administered on 08:02; Start 07/16/17 at 09:00 Alendronate Sodium (Fosamax) 70 mg Q7D PO ; Start 07/22/17 at 06:00 Losartan Potassium (Cozaar) 100 mg DAILY PO Last administered on 07/18/17 08: 01; Start 07/16/17 at 09:00 Duloxetine HCl (Cymbalta) 30 mg DAILY PO Last administered on 07/18/17 08:01; Start 07/16/17 at 09:00 Trazodone HCl (Desyrel) 25 mg PRN QHS PRN PO INSOMNIA, MAY REPEAT X1 Last administered on 07/16/17 23:04; Start 07/15/17 at 19:15 Trazodone HCl (Desyrel) 25 mg PRN QHS PO ; Start 07/15/17 at 19:15; Status UNV Vitamin D (Vitamin D3) 50,000 unit WEEKLY PO Last administered on 07/18/17 19: 45; Start 07/18/17 at 20:00 Docusate Calcium (Surfak) 240 mg DAILY PO ; Start 07/19/17 at 09:00 Active Scripts Active Reported Venlafaxine Hcl 37.5 Mg Tablet 37.5 Mg PO DAILY Diovan (Valsartan) 320 Mg Tablet 320 Mg PO DAILY Actonel (Risedronate Sodium) 35 Mg Tablet 35 Mg PO WEEKLY Metoprolol Succinate ( Xl ) (Metoprolol Succinate) 100 Mg Tab.er.24h 100 Mg PO DAILY Hydrochlorothiazide Tablet (Hydrochlorothiazide) 12.5 Mg Tablet 12.5 Mg PO DAILY Voltaren (Diclofenac Sodium) 100 Gm Gel..gram. 100 Gm TP PRN QID PRN Clonazepam 0.5 Mg Tablet 0.5 Mg PO PRN DAILY PRN Celebrex (Celecoxib) 200 Mg Capsule 200 Mg PO DAILY Calcium 500 + Vit D 200 Tablet (Calcium Carbonate/Vitamin D3) 1 Each Tablet 1 Each PO DAILY Atorvastatin Calcium 40 Mg Tablet 40 Mg PO DAILY Aspirin 81 Mg Tab.chew 81 Mg PO DAILY Sucralfate 1 Gm Tablet 1 Gm PO QIDACHS Acetaminophen 500 Mg Tablet 500 Mg PO PRN Q6HRS PRN I have reviewed the current psychotropics carefully including drug interactions. Risk benefit ratio favors no change other than as noted in my dictated progress note. Diagnosis: Problems: (1) LISSET (generalized anxiety disorder) (2) MDD (major depressive disorder) CHANTELLE HECTOR MD Jul 18, 2017 20:02
--- NOTE | 2017-07-18 21:13 | NUR ---
Behavior Intervention Response and Plan: BIRP Note: Behavior: Assumed Care of patient, patient located in Patient Room at shift change. Patient exhibited the following behavior Calm, Interactive, Able to Focus on Task. Brief assessment on rounds of vital signs, medication needs, lab studies, and pain. Treatment plan problems .1&2 Intervention: Patient assessed and the following interventions initiated safety checks 15 Minute Checks Cognitive Assessment , Head to toe Assessment , Medications. Response: After interactions and interventions patient responded in the following manner, Appropriate , Compliant ,Cooperative. Continue to assess behaviors and condition will continue to monitor throughout the shift as needed. Patient educated on ADL's, and hand hygiene. Plan: Continue to monitor Master Treatment Plan for patient's progress toward short term goals of Decreased Anxiety, Improved Mood, fpc goals to return to previous living setting vs placement. Continue to assess patient for changes in above assessment. Monitor for medication needs, pain, and safety concerns. Hourly rounding performed to ensure safe environment.
[2017-07-19 06:27] VITALS: BP 152/77
--- NOTE | 2017-07-19 07:06 | PN ---
DATE: 07/17/2017 PSYCHIATRIC PROGRESS NOTE This late entry for 07/17/2017 covers elements not covered in my initial note of 07/17/2017. SUBJECTIVE: I met with the patient evening of 07/17/2017. The patient slept 5-3/4 hours previous evening, has had a good day, fairly pleasant, still anxious. Her son visited. REVIEW OF SYSTEMS: Hard of hearing. No CV, , pulmonary, eye system symptoms on review. MENTAL STATUS EXAM: Reasonably oriented. Speech coherent, abstraction fair, computation impaired, language function intact, attention span short. Mood and affect quite anxious at times, dysphoric. No suicidal or homicidal ideation. LABORATORY DATA: Reviewed. IMPRESSION: Unchanged from initial note. PLAN: Continue psychotropics mentioned in my initial note. MAN Val HECTOR MD DR: CONOR/valente JOB#: [id number] / [id number]
[2017-07-19] MEDS: ATORVASTATIN CALCIUM 20 MG TABLET PO SCH (07:35)
[2017-07-19] MEDS: CELECOXIB 200 MG CAPSULE PO SCH (07:36)
[2017-07-19] MEDS: DULoxetine HCL 30 MG CAPSULE.DR PO SCH (07:36)
[2017-07-19] MEDS: LOSARTAN 50 MG TABLET. PO SCH (07:36)
[2017-07-19] MEDS: SUCRALFATE 1 GM TABLET. PO SCH ×4 (07:37→19:40)
[2017-07-19] MEDS: CALCIUM CARBONATE 500 MG TABLET PO SCH (07:37)
[2017-07-19] MEDS: METOPROLOL SUCC 24HR ER 50 MG TAB.ER.24H. PO SCH (07:37)
[2017-07-19] MEDS: ASPIRIN 81 MG TAB.CHEW PO SCH (07:37)
[2017-07-19] MEDS: DOCUSATE CALCIUM 240 MG CAPSULE PO SCH (07:40)
--- NOTE | 2017-07-19 08:30 | NUR ---
Behavior Intervention Response and Plan: BIRP Note: Behavior: Assumed Care of patient, patient located in Dining Room at shift change. Patient exhibited the following behavior Withdrawn, Disorganized, Interactive. Brief assessment on rounds of vital signs, medication needs, lab studies, and pain. Treatment plan problems 1 & 2. Intervention: Patient assessed and the following interventions initiated safety checks 15 Minute Checks Cognitive Assessment , Head to toe Assessment , Medications. Response: After interactions and interventions patient responded in the following manner, Calm , Appropriate ,Compliant. Continue to assess behaviors and condition will continue to monitor throughout the shift as needed. Patient educated on ADL's, and hand hygiene. Plan: Continue to monitor Master Treatment Plan for patient's progress toward short term goals of Decreased Anxiety, Improved Mood, terminal operations supervisor goals to return to previous living setting vs placement. Continue to assess patient for changes in above assessment. Monitor for medication needs, pain, and safety concerns. Hourly rounding performed to ensure safe environment.
[2017-07-19 15:13] VITALS: BP 163/78
--- NOTE | 2017-07-19 16:09 | NUR ---
SW met with pt one on one, pt states she has assistance at home and at times she "feels really down", however then talked about having friends come by and see her, pt states she also has individuals in the home 7 days a week and her son has been coming by at least daily. Pt was very general in her discussion with SW and when asked if something was bothering her, she would rub her hip stating that is the cause of her pain. Pt states she has a "fear", however did not discuss this with this tech writer at this time. GILLIAN will continue to meet with pt one on one.
--- NOTE | 2017-07-19 20:02 | PDOC ---
Exam Note: Aj Note: Please also refer to the separate dictated note~for this date of service dictated separately.~Patient seen individually. Discussed the patient with Nursing staff reviewed the chart.~Reviewed interim history and current functioning. Reviewed vital signs,~Labs/ Radiology~and current medications noted below. Continue current treatment with the changes noted in the dictated addendum note Assessment: Vital Signs: Vital Signs Date Time Temp Pulse Resp B/P (MAP) Pulse Ox O2 Delivery O2 Flow Rate FiO2 07/19/17 15:13 97.5 83 18 163/78 (106) 98 07/15/17 10:48 Room Air I&O Intake and Output 07/19/17 07:00 Intake Total 1200 ml Balance 1200 ml Intake Oral 1200 ml Current Medications: Meds: Current Medications Acetaminophen (Tylenol) 650 mg PRN Q6HRS PRN PO PAIN / TEMP; Start 07/15/17 at 11:00; Stop 07/15/17 at 19:09; Status DC Multi-Ingredient Ointment (Analgesic [place]) 1 navin PRN QID PRN TP MUSCLE PAIN; Start 07/15/17 at 11:00 Al Hydroxide/Mg Hydroxide (Mylanta Plus Xs) 15 ml PRN AFTMEALHC PRN PO DYSPEPSIA; Start 07/15/17 at 11:00 Magnesium Hydroxide (Milk Of Magnesia) 2,400 mg PRN QHS PRN PO CONSTIPATION Last administered on 07/17/17 22:04; Start 07/15/17 at 11:00 Clonazepam (KlonoPIN) 0.5 mg PRN DAILY PRN PO ANXIETY / AGITATION Last administered on 07/18/17 11:33; Start 07/15/17 at 12:00 Venlafaxine HCl (Effexor) 37.5 mg DAILY PO ; Start 07/16/17 at 09:00; Stop 07/16 at 09:00; Status DC Acetaminophen (Tylenol) 500 mg PRN Q6HRS PRN PO PAIN Last administered on 05:25; Start 07/15/17 at 12:45 Aspirin (Children'S Aspirin) 81 mg DAILY PO Last administered on 07/19/17 07: 37; Start 07/16/17 at 09:00 Calcium Carbonate/ Glycine (Oscal) 500 mg DAILY PO Last administered on 07:37; Start 07/16/17 at 09:00 Celecoxib (CeleBREX) 200 mg DAILY PO Last administered on 07/19/17 07:36; Start 07/16/17 at 09:00 Diclofenac Sodium (Voltaren) 100 navin PRN QID PRN TP MUSCLE PAIN; Start at 12:45 Sucralfate (Carafate) 1 gm QIDACHS PO Last administered on 07/19/17 19:40; Start 07/15/17 at 16:30 Atorvastatin Calcium (Lipitor) 40 mg DAILY PO Last administered on 07/19/17 07 :35; Start 07/16/17 at 09:00 Metoprolol Succinate (Toprol Xl) 100 mg DAILY PO Last administered on 07:37; Start 07/16/17 at 09:00 Alendronate Sodium (Fosamax) 70 mg Q7D PO ; Start 07/22/17 at 06:00 Losartan Potassium (Cozaar) 100 mg DAILY PO Last administered on 07/19/17 07: 36; Start 07/16/17 at 09:00 Duloxetine HCl (Cymbalta) 30 mg DAILY PO Last administered on 07/19/17 07:36; Start 07/16/17 at 09:00 Trazodone HCl (Desyrel) 25 mg PRN QHS PRN PO INSOMNIA, MAY REPEAT X1 Last administered on 07/16/17 23:04; Start 07/15/17 at 19:15 Trazodone HCl (Desyrel) 25 mg PRN QHS PO ; Start 07/15/17 at 19:15; Status UNV Vitamin D (Vitamin D3) 50,000 unit WEEKLY PO Last administered on 07/18/17 19: 45; Start 07/18/17 at 20:00 Docusate Calcium (Surfak) 240 mg DAILY PO Last administered on 07/19/17 07:40 ; Start 07/19/17 at 09:00 Active Scripts Active Reported Venlafaxine Hcl 37.5 Mg Tablet 37.5 Mg PO DAILY Diovan (Valsartan) 320 Mg Tablet 320 Mg PO DAILY Actonel (Risedronate Sodium) 35 Mg Tablet 35 Mg PO WEEKLY Metoprolol Succinate ( Xl ) (Metoprolol Succinate) 100 Mg Tab.er.24h 100 Mg PO DAILY Hydrochlorothiazide Tablet (Hydrochlorothiazide) 12.5 Mg Tablet 12.5 Mg PO DAILY Voltaren (Diclofenac Sodium) 100 Gm Gel..gram. 100 Gm TP PRN QID PRN Clonazepam 0.5 Mg Tablet 0.5 Mg PO PRN DAILY PRN Celebrex (Celecoxib) 200 Mg Capsule 200 Mg PO DAILY Calcium 500 + Vit D 200 Tablet (Calcium Carbonate/Vitamin D3) 1 Each Tablet 1 Each PO DAILY Atorvastatin Calcium 40 Mg Tablet 40 Mg PO DAILY Aspirin 81 Mg Tab.chew 81 Mg PO DAILY Sucralfate 1 Gm Tablet 1 Gm PO QIDACHS Acetaminophen 500 Mg Tablet 500 Mg PO PRN Q6HRS PRN I have reviewed the current psychotropics carefully including drug interactions. Risk benefit ratio favors no change other than as noted in my dictated progress note. Diagnosis: Problems: (1) LISSET (generalized anxiety disorder) (2) MDD (major depressive disorder) CHANTELLE HECTOR MD Jul 19, 2017 20:02
--- NOTE | 2017-07-19 20:44 | NUR ---
Behavior Intervention Response and Plan: BIRP Note: Behavior: Assumed Care of patient, patient located in Patient Room at shift change. Patient exhibited the following behavior Calm, Interactive, Able to Focus on Task. Brief assessment on rounds of vital signs, medication needs, lab studies, and pain. Treatment plan problems .1&2 Intervention: Patient assessed and the following interventions initiated safety checks 15 Minute Checks Cognitive Assessment , Head to toe Assessment , Medications. Response: After interactions and interventions patient responded in the following manner, Appropriate , Compliant ,Cooperative. Continue to assess behaviors and condition will continue to monitor throughout the shift as needed. Patient educated on ADL's, and hand hygiene. Plan: Continue to monitor Master Treatment Plan for patient's progress toward short term goals of Improved Mood, Decreased Anxiety, shelter goals to return to previous living setting vs placement. Continue to assess patient for changes in above assessment. Monitor for medication needs, pain, and safety concerns. Hourly rounding performed to ensure safe environment.
[2017-07-20] MEDS: ACETAMINOPHEN 500 MG TABLET PO PRN ×2 (04:11→14:40)
[2017-07-20 06:32] VITALS: BP 134/73
[2017-07-20] MEDS: ATORVASTATIN CALCIUM 20 MG TABLET PO SCH (07:59)
[2017-07-20] MEDS: DOCUSATE CALCIUM 240 MG CAPSULE PO SCH (07:59)
[2017-07-20] MEDS: METOPROLOL SUCC 24HR ER 50 MG TAB.ER.24H. PO SCH (08:00)
[2017-07-20] MEDS: LOSARTAN 50 MG TABLET. PO SCH (08:00)
[2017-07-20] MEDS: DULoxetine HCL 30 MG CAPSULE.DR PO SCH (08:00)
[2017-07-20] MEDS: SUCRALFATE 1 GM TABLET. PO SCH ×4 (08:00→19:58)
[2017-07-20] MEDS: CALCIUM CARBONATE 500 MG TABLET PO SCH (08:00)
[2017-07-20] MEDS: CELECOXIB 200 MG CAPSULE PO SCH (08:01)
[2017-07-20] MEDS: ASPIRIN 81 MG TAB.CHEW PO SCH (08:01)
--- NOTE | 2017-07-20 09:30 | NUR ---
Behavior Intervention Response and Plan: BIRP Note: Behavior: Assumed Care of patient, patient located in Patient Room at shift change. Patient exhibited the following behavior Disorganized, Withdrawn, Interactive. Brief assessment on rounds of vital signs, medication needs, lab studies, and pain. Treatment plan problems 1 & 2. Intervention: Patient assessed and the following interventions initiated safety checks 15 Minute Checks Cognitive Assessment , Head to toe Assessment , Medications. Response: After interactions and interventions patient responded in the following manner, Calm , Appropriate ,Compliant. Continue to assess behaviors and condition will continue to monitor throughout the shift as needed. Patient educated on ADL's, and hand hygiene. 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 Continue to assess patient for changes in above assessment. Monitor for medication needs, pain, and safety concerns. Hourly rounding performed to ensure safe environment.
--- NOTE | 2017-07-20 09:59 | NUR ---
SWS spoke one on one with pt in her room. Pt said her hip was hurting this morning, but other than that she is doing well and is ready to go back home. Pt said she has two women who come into her home to assist with psychology assistant and medication. SWS will follow up with pt later to discuss different hobbies or activities for pt to engage in when at home.
--- NOTE | 2017-07-20 12:20 | PN ---
DATE: 07/18/2017 PSYCHIATRIC PROGRESS NOTE This is a late entry for 07/18/2017 covers elements not covered in my initial of 07/18/2017. SUBJECTIVE: I met with the patient evening of 07/18/2017. The patient has been withdrawn, somewhat more anxious at 11:30, but better by lunch time. REVIEW OF SYSTEMS: Hard of hearing, had to talk loudly into her ear, but this typical for her. Ambulation somewhat impaired with a walker, wheelchair at times. REVIEW OF SYSTEMS: No CV, , pulmonary, eye system symptoms on review. MENTAL STATUS EXAM: Reasonably oriented. Speech coherent, abstraction fair, computation somewhat impaired, language function intact, attention span short. Mood and affect still withdrawn, depressed, anxious, but better than before. IMPRESSION: Unchanged from initial note. PLAN: Continue psychotropics mentioned in my initial note, may need to increase Cymbalta in due course. CHANTELLE HECTOR MD DR: CONOR/valente JOB#: [id number] / [id number]
--- NOTE | 2017-07-20 14:40 | NUR ---
Patient complains of hip pain; prn med provided per eMAR. notified that PRN is not providing adequate relief.
--- NOTE | 2017-07-20 15:00 | NUR ---
WEEKLY THERAPEUTIC RECREATION NOTE Date of Admission: 07/15/2017 Date of AT Assessment: 07/16/2017 Goal aimed: to increase her and maintain her socialization, time management, and leisure awareness Initial goal: Pt. will participate in at least one group a day Weekly progress towards goal: did not achieve Group participation level: minimal but increasing as the week is going on Behaviors observed: in room alone most of time, turns down invitiation, pleasant to talk to Plan: no changes to goal at this time. Potentially change goal to: Pt. will participate in all groups she is invited to.
[2017-07-20 16:31] VITALS: BP 151/83
--- NOTE | 2017-07-20 20:46 | NUR ---
Behavior Intervention Response and Plan: BIRP Note: Behavior: Assumed Care of patient, patient located in Patient Room at shift change. Patient exhibited the following behavior Able to Focus on Task, Withdrawn, Interactive. Brief assessment on rounds of vital signs, medication needs, lab studies, and pain. Treatment plan problems .1&2 Intervention: Patient assessed and the following interventions initiated safety checks 15 Minute Checks Cognitive Assessment , Head to toe Assessment , Medications. Response: After interactions and interventions patient responded in the following manner, Appropriate , Compliant ,Cooperative. Continue to assess behaviors and condition will continue to monitor throughout the shift as needed. Patient educated on ADL's, and hand hygiene. 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 Continue to assess patient for changes in above assessment. Monitor for medication needs, pain, and safety concerns. Hourly rounding performed to ensure safe environment.
--- NOTE | 2017-07-20 21:13 | PDOC ---
Exam Note: Aj Note: Please also refer to the separate dictated note~for this date of service dictated separately.~Patient seen individually. Discussed the patient with Nursing staff reviewed the chart.~Reviewed interim history and current functioning. Reviewed vital signs,~Labs/ Radiology~and current medications noted below. Continue current treatment with the changes noted in the dictated addendum note Assessment: Vital Signs: Vital Signs Date Time Temp Pulse Resp B/P (MAP) Pulse Ox O2 Delivery O2 Flow Rate FiO2 07/20/17 16:31 97.3 82 18 151/83 (105) 96 Room Air I&O Intake and Output 07/20/17 07:00 Intake Total 960 ml Balance 960 ml Intake Oral 960 ml Current Medications: Meds: Current Medications Acetaminophen (Tylenol) 650 mg PRN Q6HRS PRN PO PAIN / TEMP; Start 07/15/17 at 11:00; Stop 07/15/17 at 19:09; Status DC Multi-Ingredient Ointment (Analgesic [place]) 1 navin PRN QID PRN TP MUSCLE PAIN; Start 07/15/17 at 11:00 Al Hydroxide/Mg Hydroxide (Mylanta Plus Xs) 15 ml PRN AFTMEALHC PRN PO DYSPEPSIA; Start 07/15/17 at 11:00 Magnesium Hydroxide (Milk Of Magnesia) 2,400 mg PRN QHS PRN PO CONSTIPATION Last administered on 07/17/17 22:04; Start 07/15/17 at 11:00 Clonazepam (KlonoPIN) 0.5 mg PRN DAILY PRN PO ANXIETY / AGITATION Last administered on 07/18/17 11:33; Start 07/15/17 at 12:00 Venlafaxine HCl (Effexor) 37.5 mg DAILY PO ; Start 07/16/17 at 09:00; Stop 07/16 at 09:00; Status DC Acetaminophen (Tylenol) 500 mg PRN Q6HRS PRN PO PAIN Last administered on 14:40; Start 07/15/17 at 12:45 Aspirin (Children'S Aspirin) 81 mg DAILY PO Last administered on 07/20/17 08: 01; Start 07/16/17 at 09:00 Calcium Carbonate/ Glycine (Oscal) 500 mg DAILY PO Last administered on 08:00; Start 07/16/17 at 09:00 Celecoxib (CeleBREX) 200 mg DAILY PO Last administered on 07/20/17 08:01; Start 07/16/17 at 09:00 Diclofenac Sodium (Voltaren) 100 navin PRN QID PRN TP MUSCLE PAIN; Start at 12:45 Sucralfate (Carafate) 1 gm QIDACHS PO Last administered on 07/20/17 19:58; Start 07/15/17 at 16:30 Atorvastatin Calcium (Lipitor) 40 mg DAILY PO Last administered on 07/20/17 07 :59; Start 07/16/17 at 09:00 Metoprolol Succinate (Toprol Xl) 100 mg DAILY PO Last administered on 08:00; Start 07/16/17 at 09:00 Alendronate Sodium (Fosamax) 70 mg Q7D PO ; Start 07/22/17 at 06:00 Losartan Potassium (Cozaar) 100 mg DAILY PO Last administered on 07/20/17 08: 00; Start 07/16/17 at 09:00 Duloxetine HCl (Cymbalta) 30 mg DAILY PO Last administered on 07/20/17 08:00; Start 07/16/17 at 09:00; Stop 07/20/17 at 18:42; Status DC Trazodone HCl (Desyrel) 25 mg PRN QHS PRN PO INSOMNIA, MAY REPEAT X1 Last administered on 07/16/17 23:04; Start 07/15/17 at 19:15 Trazodone HCl (Desyrel) 25 mg PRN QHS PO ; Start 07/15/17 at 19:15; Status UNV Vitamin D (Vitamin D3) 50,000 unit WEEKLY PO Last administered on 07/18/17 19: 45; Start 07/18/17 at 20:00 Docusate Calcium (Surfak) 240 mg DAILY PO Last administered on 07/20/17 07:59 ; Start 07/19/17 at 09:00 Meloxicam (Mobic) 7.5 mg DAILY PO ; Start 07/21/17 at 09:00 Duloxetine HCl (Cymbalta) 40 mg DAILY PO ; Start 07/21/17 at 09:00 Active Scripts Active Reported Venlafaxine Hcl 37.5 Mg Tablet 37.5 Mg PO DAILY Diovan (Valsartan) 320 Mg Tablet 320 Mg PO DAILY Actonel (Risedronate Sodium) 35 Mg Tablet 35 Mg PO WEEKLY Metoprolol Succinate ( Xl ) (Metoprolol Succinate) 100 Mg Tab.er.24h 100 Mg PO DAILY Hydrochlorothiazide Tablet (Hydrochlorothiazide) 12.5 Mg Tablet 12.5 Mg PO DAILY Voltaren (Diclofenac Sodium) 100 Gm Gel..gram. 100 Gm TP PRN QID PRN Clonazepam 0.5 Mg Tablet 0.5 Mg PO PRN DAILY PRN Celebrex (Celecoxib) 200 Mg Capsule 200 Mg PO DAILY Calcium 500 + Vit D 200 Tablet (Calcium Carbonate/Vitamin D3) 1 Each Tablet 1 Each PO DAILY Atorvastatin Calcium 40 Mg Tablet 40 Mg PO DAILY Aspirin 81 Mg Tab.chew 81 Mg PO DAILY Sucralfate 1 Gm Tablet 1 Gm PO QIDACHS Acetaminophen 500 Mg Tablet 500 Mg PO PRN Q6HRS PRN I have reviewed the current psychotropics carefully including drug interactions. Risk benefit ratio favors no change other than as noted in my dictated progress note. Diagnosis: Problems: (1) LISSET (generalized anxiety disorder) (2) MDD (major depressive disorder) CHANTELLE HECTOR MD Jul 20, 2017 21:13
[2017-07-21 05:54] VITALS: BP 178/83
--- NOTE | 2017-07-21 07:10 | PN ---
DATE: 07/19/2017 This is a late entry for date of service 07/19/2017 and covers elements not covered in my initial note of 07/19/2017. I met with the patient in her room at some length. The patient has been somewhat withdrawn, spends much time in her room, but less anxious. She came out for the [employer] in the evening. REVIEW OF SYSTEMS: Hard of hearing. No CV, , pulmonary, eye system symptoms on review. MENTAL STATUS EXAM: Oriented to herself and situation. Speech is coherent, abstraction fair, computation impaired, language function intact, still somewhat anxious, dysphoric, but improved. No suicidal or homicidal ideation. LABORATORY DATA: Reviewed. IMPRESSION: Unchanged from initial note. PLAN: Continue current psychotropics, may need to increase Cymbalta in due course. MAN Val HECTOR MD DR: CONOR/valente JOB#: [id number] / [id number]
[2017-07-21] MEDS: SUCRALFATE 1 GM TABLET. PO SCH ×4 (07:30→19:52)
[2017-07-21 08:26] LABS: BASO # 0.1 x10^3/uL (0.0-0.2); BASO % 1 % (0-3); EOS # 0.5 x10^3/uL (0.0-0.7); EOS % 7 % (0-3); HEMATOCRIT 40.7 % (36.0-47.0); LYMPH # 0.8 x10^3/uL (1.0-4.8); LYMPH % 11 % (24-48); MEAN CORPUSCULAR HEMOGLOBIN 31 pg (25-35); MEAN CORPUSCULAR HGB CONC 34 g/dL (31-37); MEAN CORPUSCULAR VOLUME 89 fL (79-100); MONO # 0.6 x10^3/uL (0.0-1.1); MONO % 9 % (0-9); NEUT # 5.1 x10^3uL (1.8-7.7); NEUT % 72 % (31-73); PLATELET COUNT 250 x10^3/uL (140-400); RED BLOOD COUNT 4.57 x10^6/uL (3.50-5.40); RED CELL DISTRIBUTION WIDTH 14.6 % (11.5-14.5); WHITE BLOOD COUNT 7.2 x10^3/uL (4.0-11.0)
[2017-07-21 08:39] LABS: ALBUMIN 3.6 g/dL (3.4-5.0); CALCIUM 9.3 mg/dL (8.5-10.1); GFR 52.3; MAGNESIUM 1.6 mg/dL (1.8-2.4); POTASSIUM 4.4 mmol/L (3.5-5.1); TOTAL BILIRUBIN 0.4 mg/dL (0.2-1.0); TOTAL PROTEIN 7.1 g/dL (6.4-8.2)
[2017-07-21] MEDS ORDERED: MELOXICAM 7.5 MG TABLET PO SCH (09:00)
[2017-07-21] MEDS: CALCIUM CARBONATE 500 MG TABLET PO SCH (10:57)
[2017-07-21] MEDS: ASPIRIN 81 MG TAB.CHEW PO SCH (10:57)
[2017-07-21] MEDS: ATORVASTATIN CALCIUM 20 MG TABLET PO SCH (10:57)
[2017-07-21] MEDS: METOPROLOL SUCC 24HR ER 50 MG TAB.ER.24H. PO SCH (10:57)
[2017-07-21] MEDS: CELECOXIB 200 MG CAPSULE PO SCH (10:58)
[2017-07-21] MEDS: LOSARTAN 50 MG TABLET. PO SCH (10:58)
[2017-07-21] MEDS: DOCUSATE CALCIUM 240 MG CAPSULE PO SCH (10:58)
[2017-07-21] MEDS: DULoxetine HCL 20 MG CAPSULE.DR PO SCH (10:59)
--- NOTE | 2017-07-21 11:40 | NUR ---
SWS and pt talked as pt was walking in the [place]. Pt said she was feeling anxious so she wanted to get up and take a walk. Pt said she might be anxious from reading a sad article in a magazine. Pt is looking forward to leaving and spending time with her son. SWS provided pt with more positive and light hearted magazines.
[2017-07-21] MEDS: ACETAMINOPHEN 325 MG TABLET PO SCH ×2 (14:40→19:52)
--- NOTE | 2017-07-21 15:31 | NUR ---
Behavior Intervention Response and Plan: BIRP Note: Behavior: Assumed Care of patient, patient located in Patient Room at shift change. Patient exhibited the following behavior Calm, Interactive, Able to Focus on Task. Brief assessment on rounds of vital signs, medication needs, lab studies, and pain. Treatment plan problems 1-2. Intervention: Patient assessed and the following interventions initiated safety checks 15 Minute Checks Cognitive Assessment , Head to toe Assessment , Medications. Response: After interactions and interventions patient responded in the following manner, Calm , Compliant ,Cooperative. Continue to assess behaviors and condition will continue to monitor throughout the shift as needed. Patient educated on ADL's, and hand hygiene. Plan: Continue to monitor Master Treatment Plan for patient's progress toward short term goals of No harm To self/ others, Improved Mood, retirement goals to return to previous living setting vs placement. Continue to assess patient for changes in above assessment. Monitor for medication needs, pain, and safety concerns. Hourly rounding performed to ensure safe environment.
[2017-07-21 16:12] VITALS: BP 147/94
--- NOTE | 2017-07-21 19:56 | PDOC ---
Exam Note: Aj Note: Please also refer to the separate dictated note~for this date of service dictated separately.~Patient seen individually. Discussed the patient with Nursing staff reviewed the chart.~Reviewed interim history and current functioning. Reviewed vital signs,~Labs/ Radiology~and current medications noted below. Continue current treatment with the changes noted in the dictated addendum note Assessment: Vital Signs: Vital Signs Date Time Temp Pulse Resp B/P (MAP) Pulse Ox O2 Delivery O2 Flow Rate FiO2 07/21/17 16:34 97.0 76 16 07/21/17 16:12 147/94 (111) 07/21/17 05:54 98 Room Air I&O Intake and Output 07/21/17 07:00 Intake Total 1080 ml Balance 1080 ml Intake Oral 1080 ml Labs: Laboratory Tests Test 07/21/17 08:03 White Blood Count 7.2 x10^3/uL (4.0-11.0) Red Blood Count 4.57 x10^6/uL (3.50-5.40) Hemoglobin 14.0 g/dL (12.0-15.5) Hematocrit 40.7 % (36.0-47.0) Mean Corpuscular Volume 89 fL (79-100) Mean Corpuscular Hemoglobin 31 pg (25-35) Mean Corpuscular Hemoglobin Concent 34 g/dL (31-37) Red Cell Distribution Width 14.6 % (11.5-14.5) H Platelet Count 250 x10^3/uL (140-400) Neutrophils (%) (Auto) 72 % (31-73) Lymphocytes (%) (Auto) 11 % (24-48) L Monocytes (%) (Auto) 9 % (0-9) Eosinophils (%) (Auto) 7 % (0-3) H Basophils (%) (Auto) 1 % (0-3) Neutrophils # (Auto) 5.1 x10^3uL (1.8-7.7) Lymphocytes # (Auto) 0.8 x10^3/uL (1.0-4.8) L Monocytes # (Auto) 0.6 x10^3/uL (0.0-1.1) Eosinophils # (Auto) 0.5 x10^3/uL (0.0-0.7) Basophils # (Auto) 0.1 x10^3/uL (0.0-0.2) Sodium Level 139 mmol/L (136-145) Potassium Level 4.4 mmol/L (3.5-5.1) Chloride Level 102 mmol/L (98-107) Carbon Dioxide Level 29 mmol/L (21-32) Anion Gap 8 (6-14) Blood Urea Nitrogen 17 mg/dL (7-20) Creatinine 1.0 mg/dL (0.6-1.0) Estimated GFR (Cockcroft-Gault) 52.3 BUN/Creatinine Ratio 17 (6-20) Glucose Level 103 mg/dL (70-99) H Calcium Level 9.3 mg/dL (8.5-10.1) Magnesium Level 1.6 mg/dL (1.8-2.4) L Total Bilirubin 0.4 mg/dL (0.2-1.0) Aspartate Amino Transferase (AST) 22 U/L (15-37) Alanine Aminotransferase (ALT) 31 U/L (14-59) Alkaline Phosphatase 71 U/L (46-116) Total Protein 7.1 g/dL (6.4-8.2) Albumin 3.6 g/dL (3.4-5.0) Albumin/Globulin Ratio 1.0 (1.0-1.7) Current Medications: Meds: Current Medications Acetaminophen (Tylenol) 650 mg PRN Q6HRS PRN PO PAIN / TEMP; Start 07/15/17 at 11:00; Stop 07/15/17 at 19:09; Status DC Multi-Ingredient Ointment (Analgesic [place]) 1 navin PRN QID PRN TP MUSCLE PAIN; Start 07/15/17 at 11:00 Al Hydroxide/Mg Hydroxide (Mylanta Plus Xs) 15 ml PRN AFTMEALHC PRN PO DYSPEPSIA; Start 07/15/17 at 11:00 Magnesium Hydroxide (Milk Of Magnesia) 2,400 mg PRN QHS PRN PO CONSTIPATION Last administered on 07/17/17 22:04; Start 07/15/17 at 11:00 Clonazepam (KlonoPIN) 0.5 mg PRN DAILY PRN PO ANXIETY / AGITATION Last administered on 07/18/17 11:33; Start 07/15/17 at 12:00 Venlafaxine HCl (Effexor) 37.5 mg DAILY PO ; Start 07/16/17 at 09:00; Stop 07/16 at 09:00; Status DC Acetaminophen (Tylenol) 500 mg PRN Q6HRS PRN PO PAIN Last administered on 14:40; Start 07/15/17 at 12:45 Aspirin (Children'S Aspirin) 81 mg DAILY PO Last administered on 07/21/17 10: 57; Start 07/16/17 at 09:00 Calcium Carbonate/ Glycine (Oscal) 500 mg DAILY PO Last administered on 10:57; Start 07/16/17 at 09:00 Celecoxib (CeleBREX) 200 mg DAILY PO Last administered on 07/21/17 10:58; Start 07/16/17 at 09:00; Stop 07/21/17 at 13:29; Status DC Diclofenac Sodium (Voltaren) 100 navin PRN QID PRN TP MUSCLE PAIN; Start at 12:45 Sucralfate (Carafate) 1 gm QIDACHS PO Last administered on 07/21/17 19:52; Start 07/15/17 at 16:30 Atorvastatin Calcium (Lipitor) 40 mg DAILY PO Last administered on 07/21/17 10 :57; Start 07/16/17 at 09:00 Metoprolol Succinate (Toprol Xl) 100 mg DAILY PO Last administered on 10:57; Start 07/16/17 at 09:00 Alendronate Sodium (Fosamax) 70 mg Q7D PO ; Start 07/22/17 at 06:00 Losartan Potassium (Cozaar) 100 mg DAILY PO Last administered on 07/21/17 10: 58; Start 07/16/17 at 09:00 Duloxetine HCl (Cymbalta) 30 mg DAILY PO Last administered on 07/20/17 08:00; Start 07/16/17 at 09:00; Stop 07/20/17 at 18:42; Status DC Trazodone HCl (Desyrel) 25 mg PRN QHS PRN PO INSOMNIA, MAY REPEAT X1 Last administered on 07/16/17 23:04; Start 07/15/17 at 19:15 Trazodone HCl (Desyrel) 25 mg PRN QHS PO ; Start 07/15/17 at 19:15; Status UNV Vitamin D (Vitamin D3) 50,000 unit WEEKLY PO Last administered on 07/18/17 19: 45; Start 07/18/17 at 20:00 Docusate Calcium (Surfak) 240 mg DAILY PO Last administered on 07/21/17 10:58 ; Start 07/19/17 at 09:00 Meloxicam (Mobic) 7.5 mg DAILY PO Last administered on 07/21/17 11:00; Start 07/21/17 at 09:00; Stop 07/21/17 at 13:29; Status DC Duloxetine HCl (Cymbalta) 40 mg DAILY PO Last administered on 07/21/17 10:59; Start 07/21/17 at 09:00 Acetaminophen (Tylenol) 650 mg TID PO Last administered on 07/21/17 19:52; Start 07/21/17 at 14:00 Active Scripts Active Reported Venlafaxine Hcl 37.5 Mg Tablet 37.5 Mg PO DAILY Diovan (Valsartan) 320 Mg Tablet 320 Mg PO DAILY Actonel (Risedronate Sodium) 35 Mg Tablet 35 Mg PO WEEKLY Metoprolol Succinate ( Xl ) (Metoprolol Succinate) 100 Mg Tab.er.24h 100 Mg PO DAILY Hydrochlorothiazide Tablet (Hydrochlorothiazide) 12.5 Mg Tablet 12.5 Mg PO DAILY Voltaren (Diclofenac Sodium) 100 Gm Gel..gram. 100 Gm TP PRN QID PRN Clonazepam 0.5 Mg Tablet 0.5 Mg PO PRN DAILY PRN Celebrex (Celecoxib) 200 Mg Capsule 200 Mg PO DAILY Calcium 500 + Vit D 200 Tablet (Calcium Carbonate/Vitamin D3) 1 Each Tablet 1 Each PO DAILY Atorvastatin Calcium 40 Mg Tablet 40 Mg PO DAILY Aspirin 81 Mg Tab.chew 81 Mg PO DAILY Sucralfate 1 Gm Tablet 1 Gm PO QIDACHS Acetaminophen 500 Mg Tablet 500 Mg PO PRN Q6HRS PRN I have reviewed the current psychotropics carefully including drug interactions. Risk benefit ratio favors no change other than as noted in my dictated progress note. Diagnosis: Problems: (1) LISSET (generalized anxiety disorder) (2) MDD (major depressive disorder) CHANTELLE HECTOR MD Jul 21, 2017 19:56
--- NOTE | 2017-07-21 22:36 | NUR ---
Behavior Intervention Response and Plan: BIRP Note: Behavior: Assumed Care of patient, patient located in Day Room at shift change. Patient exhibited the following behavior Calm, Interactive, Social. Brief assessment on rounds of vital signs, medication needs, lab studies, and pain. Treatment plan problems 1 and 2. Intervention: Patient assessed and the following interventions initiated safety checks 15 Minute Checks Cognitive Assessment , Head to toe Assessment , Medications. Response: After interactions and interventions patient responded in the following manner, Calm , Compliant ,Cooperative. Continue to assess behaviors and condition will continue to monitor throughout the shift as needed. Patient educated on ADL's, and hand hygiene. Plan: Continue to monitor Master Treatment Plan for patient's progress toward short term goals of Improved Mood, Decreased Anxiety, intermediate goals to return to previous living setting vs placement. Continue to assess patient for changes in above assessment. Monitor for medication needs, pain, and safety concerns. Hourly rounding performed to ensure safe environment.
--- NOTE | 2017-07-21 22:59 | PN ---
DATE: 07/20/2017 This late entry for 07/20/2017 covers elements not covered in my initial note of 07/20/2017. SUBJECTIVE: I met with the patient in the evening of 07/20/2017 in her room. Overall, she complains of pain in her left hip and is quite hard of hearing. She was started on Mobic for the pain consequent to Dr. Tom. REVIEW OF SYSTEMS: Otherwise, no CV, , pulmonary, eye system symptoms on review. MENTAL STATUS EXAM: Reasonably oriented. Speech coherent, abstraction fair, computation impaired, language function intact. Mood and affect still somewhat anxious, but less depressed. No active suicidal or homicidal ideation. Attention span short. Language function intact. Intellect average. Insight good. Judgment intact. LABORATORY DATA: Reviewed. IMPRESSION: Major depressive disorder, recurrent and generalized anxiety disorder. Rest unchanged. PLAN: Continue current psychotropics, increase Cymbalta from 30 mg a day to 40 mg a day. Maintain trazodone along with Klonopin p.r.n. Adjust further as clinically indicated. CHANTELLE HECTOR MD DR: CONOR/valente JOB#: [id number] / [id number]
[2017-07-22 05:48] VITALS: BP 172/90
[2017-07-22] MEDS ORDERED: ALENDRONATE SODIUM 35 MG TABLET PO SCH (06:00)
[2017-07-22] MEDS: SUCRALFATE 1 GM TABLET. PO SCH ×4 (07:51→20:01)
[2017-07-22] MEDS: ASPIRIN 81 MG TAB.CHEW PO SCH (08:33)
[2017-07-22] MEDS: ATORVASTATIN CALCIUM 20 MG TABLET PO SCH (08:33)
[2017-07-22] MEDS: DOCUSATE CALCIUM 240 MG CAPSULE PO SCH (08:33)
[2017-07-22] MEDS: METOPROLOL SUCC 24HR ER 50 MG TAB.ER.24H. PO SCH (08:33)
[2017-07-22] MEDS: DULoxetine HCL 20 MG CAPSULE.DR PO SCH (08:33)
[2017-07-22] MEDS: CALCIUM CARBONATE 500 MG TABLET PO SCH (08:34)
[2017-07-22] MEDS: LOSARTAN 50 MG TABLET. PO SCH (08:34)
[2017-07-22] MEDS: ACETAMINOPHEN 325 MG TABLET PO SCH ×5 (08:34→21:00)
--- NOTE | 2017-07-22 10:31 | NUR ---
Behavior Intervention Response and Plan: BIRP Note: Behavior: Assumed Care of patient, patient located in Dining Room at shift change. Patient exhibited the following behavior Calm, Compliant, Cooperative. Brief assessment on rounds of vital signs, medication needs, lab studies, and pain. Treatment plan problems 1-2. Intervention: Patient assessed and the following interventions initiated safety checks 15 Minute Checks Cognitive Assessment , Head to toe Assessment , Medications. Response: After interactions and interventions patient responded in the following manner, Calm , Able to Focus on Task ,Compliant. Continue to assess behaviors and condition will continue to monitor throughout the shift as needed. Patient educated on ADL's, and hand hygiene. 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 Continue to assess patient for changes in above assessment. Monitor for medication needs, pain, and safety concerns. Hourly rounding performed to ensure safe environment.
--- NOTE | 2017-07-22 14:22 | NUR ---
[facility] Social Work Discharge Planning Form Patient Name NANCY DE LEON Admit Date: 07/15/17 DISCHARGE PLAN Discharge Destination: Home Care Assessment: Not Needed Transportation:Son Special Instructions/Notes: PCP: Dr. Hancock Psychiatrist: Dr. Kothari DISCHARGE TO HOME: Address: [address] [place] [address] Responsible Democrat: Self Pharmacy [facility] [place] Contact Information [phone] Psychiatrist/Mental Health Follow Up with Dr. Kothari 09/22/17 Primary Care Follow Up with Dr. Hancock August 01 at 1:15 pm Contact [phone]
--- NOTE | 2017-07-22 15:47 | NUR ---
GILLIAN weekly note: Pt will return home with services, pt son is a support to pt. Pt has in- home caregivers, as well as individuals who clean her house. Pt will have follow up appts with her PCP as well as Dr. Kothari for outpt services.
[2017-07-22 16:06] VITALS: BP 153/84
--- NOTE | 2017-07-22 19:53 | PDOC ---
Exam Note: Aj Note: Please also refer to the separate dictated note~for this date of service dictated separately.~Patient seen individually. Discussed the patient with Nursing staff reviewed the chart.~Reviewed interim history and current functioning. Reviewed vital signs,~Labs/ Radiology~and current medications noted below. Continue current treatment with the changes noted in the dictated addendum note Assessment: Vital Signs: Vital Signs Date Time Temp Pulse Resp B/P (MAP) Pulse Ox O2 Delivery O2 Flow Rate FiO2 07/22/17 16:06 98.4 79 20 153/84 (107) 99 07/21/17 05:54 Room Air I&O Intake and Output 07/22/17 07:00 Intake Total 860 ml Balance 860 ml Intake Oral 860 ml # Voids 1 # Bowel Movements 3 Current Medications: Meds: Current Medications Acetaminophen (Tylenol) 650 mg PRN Q6HRS PRN PO PAIN / TEMP; Start 07/15/17 at 11:00; Stop 07/15/17 at 19:09; Status DC Multi-Ingredient Ointment (Analgesic Stem) 1 navin PRN QID PRN TP MUSCLE PAIN; Start 07/15/17 at 11:00 Al Hydroxide/Mg Hydroxide (Mylanta Plus Xs) 15 ml PRN AFTMEALHC PRN PO DYSPEPSIA; Start 07/15/17 at 11:00 Magnesium Hydroxide (Milk Of Magnesia) 2,400 mg PRN QHS PRN PO CONSTIPATION Last administered on 07/17/17 22:04; Start 07/15/17 at 11:00 Clonazepam (KlonoPIN) 0.5 mg PRN DAILY PRN PO ANXIETY / AGITATION Last administered on 07/18/17 11:33; Start 07/15/17 at 12:00 Venlafaxine HCl (Effexor) 37.5 mg DAILY PO ; Start 07/16/17 at 09:00; Stop 07/16 at 09:00; Status DC Acetaminophen (Tylenol) 500 mg PRN Q6HRS PRN PO PAIN Last administered on 14:40; Start 07/15/17 at 12:45 Aspirin (Children'S Aspirin) 81 mg DAILY PO Last administered on 07/22/17 08: 33; Start 07/16/17 at 09:00 Calcium Carbonate/ Glycine (Oscal) 500 mg DAILY PO Last administered on 08:34; Start 07/16/17 at 09:00 Celecoxib (CeleBREX) 200 mg DAILY PO Last administered on 07/21/17 10:58; Start 07/16/17 at 09:00; Stop 07/21/17 at 13:29; Status DC Diclofenac Sodium (Voltaren) 100 navin PRN QID PRN TP MUSCLE PAIN; Start at 12:45 Sucralfate (Carafate) 1 gm QIDACHS PO Last administered on 07/22/17 16:20; Start 07/15/17 at 16:30 Atorvastatin Calcium (Lipitor) 40 mg DAILY PO Last administered on 07/22/17 08 :33; Start 07/16/17 at 09:00 Metoprolol Succinate (Toprol Xl) 100 mg DAILY PO Last administered on 08:33; Start 07/16/17 at 09:00 Alendronate Sodium (Fosamax) 70 mg Q7D PO Last administered on 07/22/17 05:27 ; Start 07/22/17 at 06:00 Losartan Potassium (Cozaar) 100 mg DAILY PO Last administered on 07/22/17 08: 34; Start 07/16/17 at 09:00 Duloxetine HCl (Cymbalta) 30 mg DAILY PO Last administered on 07/20/17 08:00; Start 07/16/17 at 09:00; Stop 07/20/17 at 18:42; Status DC Trazodone HCl (Desyrel) 25 mg PRN QHS PRN PO INSOMNIA, MAY REPEAT X1 Last administered on 07/16/17 23:04; Start 07/15/17 at 19:15 Trazodone HCl (Desyrel) 25 mg PRN QHS PO ; Start 07/15/17 at 19:15; Status UNV Vitamin D (Vitamin D3) 50,000 unit WEEKLY PO Last administered on 07/18/17 19: 45; Start 07/18/17 at 20:00 Docusate Calcium (Surfak) 240 mg DAILY PO Last administered on 07/22/17 08:33 ; Start 07/19/17 at 09:00 Meloxicam (Mobic) 7.5 mg DAILY PO Last administered on 07/21/17 11:00; Start 07/21/17 at 09:00; Stop 07/21/17 at 13:29; Status DC Duloxetine HCl (Cymbalta) 40 mg DAILY PO Last administered on 07/22/17 08:33; Start 07/21/17 at 09:00 Acetaminophen (Tylenol) 650 mg TID PO Last administered on 07/22/17 08:34; Start 07/21/17 at 14:00 Active Scripts Active Reported Venlafaxine Hcl 37.5 Mg Tablet 37.5 Mg PO DAILY Diovan (Valsartan) 320 Mg Tablet 320 Mg PO DAILY Actonel (Risedronate Sodium) 35 Mg Tablet 35 Mg PO WEEKLY Metoprolol Succinate ( Xl ) (Metoprolol Succinate) 100 Mg Tab.er.24h 100 Mg PO DAILY Hydrochlorothiazide Tablet (Hydrochlorothiazide) 12.5 Mg Tablet 12.5 Mg PO DAILY Voltaren (Diclofenac Sodium) 100 Gm Gel..gram. 100 Gm TP PRN QID PRN Clonazepam 0.5 Mg Tablet 0.5 Mg PO PRN DAILY PRN Celebrex (Celecoxib) 200 Mg Capsule 200 Mg PO DAILY Calcium 500 + Vit D 200 Tablet (Calcium Carbonate/Vitamin D3) 1 Each Tablet 1 Each PO DAILY Atorvastatin Calcium 40 Mg Tablet 40 Mg PO DAILY Aspirin 81 Mg Tab.chew 81 Mg PO DAILY Sucralfate 1 Gm Tablet 1 Gm PO QIDACHS Acetaminophen 500 Mg Tablet 500 Mg PO PRN Q6HRS PRN I have reviewed the current psychotropics carefully including drug interactions. Risk benefit ratio favors no change other than as noted in my dictated progress note. Diagnosis: Problems: (1) LISSET (generalized anxiety disorder) (2) MDD (major depressive disorder) CHANTELLE HECTOR MD Jul 22, 2017 19:53
--- NOTE | 2017-07-22 21:14 | NUR ---
Behavior Intervention Response and Plan: BIRP Note: Behavior: Assumed Care of patient, patient located in Patient Room at shift change. Patient exhibited the following behavior Calm, Cooperative, Withdrawn. Brief assessment on rounds of vital signs, medication needs, lab studies, and pain. Treatment plan problems 1 and 2. Intervention: Patient assessed and the following interventions initiated safety checks 15 Minute Checks Cognitive Assessment , Head to toe Assessment , Medications. Response: After interactions and interventions patient responded in the following manner, Calm , Compliant ,Cooperative. Continue to assess behaviors and condition will continue to monitor throughout the shift as needed. Patient educated on ADL's, and hand hygiene. Plan: Continue to monitor Master Treatment Plan for patient's progress toward short term goals of Decreased Anxiety, Improved Mood, senior living goals to return to previous living setting vs placement. Continue to assess patient for changes in above assessment. Monitor for medication needs, pain, and safety concerns. Hourly rounding performed to ensure safe environment.
[2017-07-22] MEDS ORDERED: ACET325T9 PO (21:40)
[2017-07-22] MEDS ORDERED: CHOL500021 PO (21:41)
[2017-07-22] MEDS ORDERED: DOCU240C13 PO (21:42)
[2017-07-22] MEDS ORDERED: TRAZ50TA15 PO (21:43)
[2017-07-22] MEDS ORDERED: DULO20CA50 PO (21:43)
--- NOTE | 2017-07-23 04:27 | PN ---
DATE: 07/21/2017 PSYCHIATRIC PROGRESS NOTE This late entry 07/21/2017, covers elements not covered in my initial note 07/21/2017. I met with the patient evening of 07/21/2017. The patient was staffed at a treatment team meeting with the entire team morning of 07/21/2017. Overall, the patient remains somewhat depressed, withdrawn, but better than before, less anxious. REVIEW OF SYSTEMS: Hard of hearing. No CV, , pulmonary, eye system symptoms on review. I had to talk loudly to communicate with her. MENTAL STATUS EXAM: Reasonably oriented. Speech is coherent, has some latency, abstraction fair, computation impaired, language function intact, attention span short. Mood and affect still depressed, anxious, but better than before. No active suicidal or homicidal ideation. LABORATORY DATA: Reviewed. IMPRESSION: Unchanged from initial note. PLAN: Continue current psychotropics including Cymbalta 40 mg a day. Adjust further as clinically indicated. CHANTELLE HECTOR MD DR: CONOR/valente JOB#: [id number] / [id number]
[2017-07-23 05:56] VITALS: BP 188/83
[2017-07-23] MEDS: ACETAMINOPHEN 325 MG TABLET PO SCH (06:08)
[2017-07-23] MEDS: CALCIUM CARBONATE 500 MG TABLET PO SCH (07:49)
[2017-07-23] MEDS: DOCUSATE CALCIUM 240 MG CAPSULE PO SCH (07:49)
[2017-07-23] MEDS: DULoxetine HCL 20 MG CAPSULE.DR PO SCH (07:49)
[2017-07-23] MEDS: METOPROLOL SUCC 24HR ER 50 MG TAB.ER.24H. PO SCH (07:49)
[2017-07-23] MEDS: ATORVASTATIN CALCIUM 20 MG TABLET PO SCH (07:49)
[2017-07-23] MEDS: SUCRALFATE 1 GM TABLET. PO SCH (07:49)
[2017-07-23] MEDS: ASPIRIN 81 MG TAB.CHEW PO SCH (07:49)
[2017-07-23 07:50] VITALS: BP 188/83
[2017-07-23] MEDS: LOSARTAN 50 MG TABLET. PO SCH (07:50)
--- NOTE | 2017-07-23 08:00 | NUR ---
Behavior Intervention Response and Plan: BIRP Note: Behavior: Assumed Care of patient, patient located in Patient Room at shift change. Patient exhibited the following behavior Calm, Interactive, Able to Focus on Task. Brief assessment on rounds of vital signs, medication needs, lab studies, and pain. Treatment plan problems . Intervention: Patient assessed and the following interventions initiated safety checks 15 Minute Checks Head to toe Assessment , Cognitive Assessment , Medications. Response: After interactions and interventions patient responded in the following manner, Compliant , Cooperative ,Anxious. Continue to assess behaviors and condition will continue to monitor throughout the shift as needed. Patient educated on ADL's, and hand hygiene. 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 Continue to assess patient for changes in above assessment. Monitor for medication needs, pain, and safety concerns. Hourly rounding performed to ensure safe environment.
[2017-07-23] MEDS ORDERED: CALC500T PO (09:22)
[2017-07-23] MEDS: clonazePAM 0.5 MG TABLET PO PRN (10:42)
--- NOTE | 2017-07-23 11:15 | NUR ---
Transition Record was faxed to follow-up provider with the following elements: Reason for admission, procedures, tests, principal diagnosis, pending studies, patient instructions, 07/03 contact information for unit, phone number to obtain pending test results, plan for follow-up care, physician follow-up, advanced directive information, and medication list with dose, duration and instructions. This information was included in the following documents: History and physical, lab results, study results, progress notes, social work planning form, DC instruction form, patient visit summary, and medication reconciliation form. Date & time record faxed: 07/23/17 [id number] Record faxed to: Dr. Bingham's office Record discussed with/ report given to: Patients
--- NOTE | 2017-07-23 18:54 | PDOC ---
Exam Note: Aj Note: Please also refer to the separate dictated note~for this date of service dictated separately.~Patient seen individually. Discussed the patient with Nursing staff reviewed the chart.~Reviewed interim history and current functioning. Reviewed vital signs,~Labs/ Radiology~and current medications noted below. Continue current treatment with the changes noted in the dictated addendum note Assessment: Vital Signs: Vital Signs Date Time Temp Pulse Resp B/P (MAP) Pulse Ox O2 Delivery O2 Flow Rate FiO2 07/23/17 07:50 73 188/83 07/23/17 05:56 97.2 16 95 Room Air I&O Intake and Output 07/23/17 07:00 Intake Total 840 ml Balance 840 ml Intake Oral 840 ml # Voids 1 Current Medications: Meds: Current Medications Acetaminophen (Tylenol) 650 mg PRN Q6HRS PRN PO PAIN / TEMP; Start 07/15/17 at 11:00; Stop 07/15/17 at 19:09; Status DC Multi-Ingredient Ointment (Analgesic [place]) 1 navin PRN QID PRN TP MUSCLE PAIN; Start 07/15/17 at 11:00; Stop 07/23/17 at 11:28; Status DC Al Hydroxide/Mg Hydroxide (Mylanta Plus Xs) 15 ml PRN AFTMEALHC PRN PO DYSPEPSIA; Start 07/15/17 at 11:00; Stop 07/23/17 at 11:28; Status DC Magnesium Hydroxide (Milk Of Magnesia) 2,400 mg PRN QHS PRN PO CONSTIPATION Last administered on 07/17/17 22:04; Start 07/15/17 at 11:00; Stop 07/23/17 at 11:28; Status DC Clonazepam (KlonoPIN) 0.5 mg PRN DAILY PRN PO ANXIETY / AGITATION Last administered on 07/23/17 10:42; Start 07/15/17 at 12:00; Stop 07/23/17 at 11:28 ; Status DC Venlafaxine HCl (Effexor) 37.5 mg DAILY PO ; Start 07/16/17 at 09:00; Stop 07/16 at 09:00; Status DC Acetaminophen (Tylenol) 500 mg PRN Q6HRS PRN PO PAIN Last administered on 14:40; Start 07/15/17 at 12:45; Stop 07/23/17 at 11:28; Status DC Aspirin (Children'S Aspirin) 81 mg DAILY PO Last administered on 07/23/17 07: 49; Start 07/16/17 at 09:00; Stop 07/23/17 at 11:28; Status DC Calcium Carbonate/ Glycine (Oscal) 500 mg DAILY PO Last administered on 07:49; Start 07/16/17 at 09:00; Stop 07/23/17 at 11:28; Status DC Celecoxib (CeleBREX) 200 mg DAILY PO Last administered on 07/21/17 10:58; Start 07/16/17 at 09:00; Stop 07/21/17 at 13:29; Status DC Diclofenac Sodium (Voltaren) 100 navin PRN QID PRN TP MUSCLE PAIN; Start at 12:45; Stop 07/23/17 at 11:28; Status DC Sucralfate (Carafate) 1 gm QIDACHS PO Last administered on 07/23/17 07:49; Start 07/15/17 at 16:30; Stop 07/23/17 at 11:28; Status DC Atorvastatin Calcium (Lipitor) 40 mg DAILY PO Last administered on 07/23/17 07 :49; Start 07/16/17 at 09:00; Stop 07/23/17 at 11:28; Status DC Metoprolol Succinate (Toprol Xl) 100 mg DAILY PO Last administered on 07:49; Start 07/16/17 at 09:00; Stop 07/23/17 at 11:28; Status DC Alendronate Sodium (Fosamax) 70 mg Q7D PO Last administered on 07/22/17 05:27 ; Start 07/22/17 at 06:00; Stop 07/23/17 at 11:28; Status DC Losartan Potassium (Cozaar) 100 mg DAILY PO Last administered on 07/23/17 07: 50; Start 07/16/17 at 09:00; Stop 07/23/17 at 11:28; Status DC Duloxetine HCl (Cymbalta) 30 mg DAILY PO Last administered on 07/20/17 08:00; Start 07/16/17 at 09:00; Stop 07/20/17 at 18:42; Status DC Trazodone HCl (Desyrel) 25 mg PRN QHS PRN PO INSOMNIA, MAY REPEAT X1 Last administered on 07/16/17 23:04; Start 07/15/17 at 19:15; Stop 07/23/17 at 11:28 ; Status DC Trazodone HCl (Desyrel) 25 mg PRN QHS PO ; Start 07/15/17 at 19:15; Status UNV Vitamin D (Vitamin D3) 50,000 unit WEEKLY PO Last administered on 07/18/17 19: 45; Start 07/18/17 at 20:00; Stop 07/23/17 at 11:28; Status DC Docusate Calcium (Surfak) 240 mg DAILY PO Last administered on 07/23/17 07:49 ; Start 07/19/17 at 09:00; Stop 07/23/17 at 11:28; Status DC Meloxicam (Mobic) 7.5 mg DAILY PO Last administered on 07/21/17 11:00; Start 07/21/17 at 09:00; Stop 07/21/17 at 13:29; Status DC Duloxetine HCl (Cymbalta) 40 mg DAILY PO Last administered on 07/23/17 07:49; Start 07/21/17 at 09:00; Stop 07/23/17 at 11:28; Status DC Acetaminophen (Tylenol) 650 mg TID PO Last administered on 07/23/17 06:08; Start 07/21/17 at 14:00; Stop 07/23/17 at 11:28; Status DC Active Scripts Active Reported Calcium Carbonate 500 Mg Tablet 500 Mg PO DAILY Trazodone Hcl 50 Mg Tablet 25 Mg PO PRN QHS PRN Cymbalta (Duloxetine Hcl) 20 Mg Capsule.dr 40 Mg PO DAILY Docusate Calcium 240 Mg Capsule 240 Mg PO DAILY D3-50 (Cholecalciferol (Vitamin D3)) 50,000 Unit Capsule 50,000 Unit PO WEEKLY Tylenol (Acetaminophen) 325 Mg Tablet 650 Mg PO TID Diovan (Valsartan) 320 Mg Tablet 320 Mg PO DAILY Actonel (Risedronate Sodium) 35 Mg Tablet 35 Mg PO WEEKLY Metoprolol Succinate ( Xl ) (Metoprolol Succinate) 100 Mg Tab.er.24h 100 Mg PO DAILY Clonazepam 0.5 Mg Tablet 0.5 Mg PO PRN DAILY PRN Atorvastatin Calcium 40 Mg Tablet 40 Mg PO DAILY Aspirin 81 Mg Tab.chew 81 Mg PO DAILY Sucralfate 1 Gm Tablet 1 Gm PO QIDACHS I have reviewed the current psychotropics carefully including drug interactions. Risk benefit ratio favors no change other than as noted in my dictated progress note. Diagnosis: Problems: (1) MDD (major depressive disorder) (2) LISSET (generalized anxiety disorder) CHANTELLE HECTOR MD Jul 23, 2017 18:54
--- NOTE | 2017-07-24 10:54 | DS ---
DATE OF DISCHARGE: 07/23/2017 DISCHARGE SUMMARY/PSYCHIATRIC PROGRESS NOTE This late entry, 07/23/2017, covers elements not covered in my initial note of 07/23/2017. REASON FOR ADMISSION: Please refer to the admission history for details. Briefly, the patient is an 86-year-old female referred to us from [facility] Emergency Room where she presented after she called the ambulance on account of worsening anxiety, being afraid she would , staring at the wall, not eating, obsessed with dying, marked insomnia. She had failed significant outpatient intensive treatment with hi and her primary care physician, Dr. Hancock. Daughter called me as an emergency and she was admitted for inpatient psychiatric stabilization. SIGNIFICANT FINDINGS AND CLINICAL COURSE: Following admission, the patient was seen daily individually by myself, followed medically per Dr. Galeano/Dr Tom. The patient remained quite depressed, withdrawn, anxious. Being hard of hearing further compromised her communication. Adjustments were made in her psychotropics. She seemed to respond to a combination of Cymbalta 40 mg a day, Klonopin p.r.n., trazodone 25 mg at bedtime p.r.n., may repeat x 1. Gradually mood appeared to improve. No suicidal or homicidal ideation. She was more comfortable returning back home to outpatient treatment and discharged on 07/23/2017. REVIEW OF SYSTEMS: Prior to discharge, hard of hearing, impaired ambulation with walker. No CV, , pulmonary, eye system symptoms on review. MENTAL STATUS EXAM: Reasonably oriented. Speech coherent, has some latency, often responses monosyllabic. Abstraction fair, computation impaired, language function intact. Mood and affect showing improvement, less anxious. No suicidal or homicidal ideation. FINAL DIAGNOSES: Major depressive disorder, recurrent, in partial remission, panic disorder, anxiety disorder, unspecified, hard of hearing. Rest diagnoses unchanged from admission. DISCHARGE MEDICATIONS: Please refer to the MRAD. DISCHARGE INSTRUCTIONS: Outpatient psychiatric followup with myself at the office, medical followup with her primary care physician, Dr. Hancock. Time for discharge day management greater than 30 minutes. MAN Val HECTOR MD DR: CONOR/valente JOB#: [id number] / [id number]
--- NOTE | 2017-07-24 13:41 | PN ---
DATE: 07/22/2017 PSYCHIATRIC PROGRESS NOTE This is a late entry 07/22/2017, covers elements not covered in my initial note 07/22/2017. SUBJECTIVE: I met with the patient the evening of 07/22/2017. Per nursing report, the patient has been anxious about discharge plans. As I met with her, she was questioning whether she needed the Carafate on a regular basis, wants just discontinued, but we will defer this to her outpatient primary care physician, Dr. Hancock. REVIEW OF SYSTEMS: Hard of hearing, impaired ambulation with walker. No CV, , pulmonary, eye system symptoms on review. MENTAL STATUS EXAM: Reasonably oriented. Speech has some latency, coherent. Abstraction fair, computation impaired, language function intact, still somewhat depressed, anxious, but better than before. No suicidal or homicidal ideation. IMPRESSION: Unchanged from initial note. PLAN: Continue psychotropics mentioned in my initial note. Transition home to outpatient treatment starting 07/23/2017. CHANTELLE HECTOR MD DR: CONOR/valente JOB#: [id number] / [id number]
== END 2017-07-23 11:15 | disposition home health service (06) | DRG 885 ==
LOC: GEROPSY 10:01
PROVIDERS: ADMIT Psychiatry & Neurology Psychiatry; ATTEND Psychiatry & Neurology Psychiatry
DX: F33.2 Major depressive disorder, recurrent severe without psychotic features (principal); F40.01 Agoraphobia with panic disorder; F41.1 Generalized anxiety disorder; G47.00 Insomnia, unspecified; H91.90 Unspecified hearing loss, unspecified ear; I10 Essential (primary) hypertension; K21.9 Gastro-esophageal reflux disease without esophagitis; R12 Heartburn; K59.00 Constipation, unspecified; M19.90 Unspecified osteoarthritis, unspecified site; Z95.0 Presence of cardiac pacemaker
CPT/HCPCS: 36415; 80053; 80061; 81001; 82306; 82607; 83036; 83540; 83550; 83735; 84436; 84443; 84480; 85025; 86592; 86593; 87086; 93005; 97110; 97530; 97535

== ENCOUNTER 2017-10-14 20:44 | Inpatient (IN) | payer MEDICARE, BC ==
[~2017-10-14] VITALS: Ht 157.5 cm; Wt 58.1 kg
[~2017-10-14 20:44] MED LIST: ACET325T9 PO; ACET500T68 PO; ASPI-630 PO; ATOR40TA59 PO; CALC-157 PO; CALC500T PO; CELE200C PO; CHOL500021 PO; CLON0.5T3 PO; DICL100G18 TP; DOCU240C13 PO; DULO20CA50 PO; HYDR12.58 PO; METO-247 PO; RISE35TA3 PO; SUCR1TAB PO; TRAZ50TA15 PO; VALS320T2 PO; VENL37.56 PO
[2017-10-14] MEDS ORDERED: METOPROLOL TARTRATE 5 MG/5 ML VIAL. IV ONE (21:15)
--- NOTE | 2017-10-14 21:36 | PHYS DOC ---
General Chief Complaint: HYPERTENSION Stated Complaint: PHSYCH EVAL,POSS UTI AND DEHYDRATION Time Seen by MD: 21:04 Source: patient, family (patient's son), old records Exam Limitations: clinical condition Problems: History of Present Illness Initial Comments 78-year-old female brought to the ED by her son for psychiatric evaluation and elevated blood pressure. Patient's son states that the patient resides at [facility], states that she's had some recent behavior changes. She's been refusing to eat or drink as well as to take her medications and apparently had no blood pressure medications today. She's been paranoid expressing suspicion regarding the nursing staff complaining of seeing spots. In the emergency department I observed the patient to be hallucinating and talking to individuals not actually present. The patient is alert to self and understands that she's in a healthcare facility if she's unaware of the date or the name of the president. When asked she denies any physical complaints, BP markedly elevated on arrival at 201/104 and Lopressor 5 mg IV given. Timing/Duration: other Severity: severe Modifying Factors: improves with other Associated Symptoms: denies symptoms Allergies: Coded Allergies: No Known Drug Allergies (Unverified , 07/15/17) Past Medical History Medical History: other (depression, hypertension, osteoarthritis, hyperlipidemia, GERD, hard of hearing, anxiety, dementia) Surgical History: other (pacemaker) Social History Smoker: non-smoker Alcohol: none Drugs: none Review of Systems All Other Systems: Reviewed and Negative (review of systems is as per history of present illness, patient is a poor historian) Physical Exam General Appearance: WD/WN, no apparent distress Ear, Nose, Throat: normal ENT inspection (hard of hearing), normal pharynx, other (normocephalic atraumatic negative Galvez sign negative raccoon eyes no ear or nose discharge no fluid behind TMs) Neck: non-tender, supple Respiratory: normal breath sounds, no respiratory distress Cardiovascular: normal peripheral pulses, regular rate, rhythm Gastrointestinal: non tender, soft Back: no CVA tenderness, no vertebral tenderness Extremities: non-tender, normal inspection Neurologic/Psychiatric: jinriksha driver II-XII nml as tested, no motor/sensory deficits, alert, other (mildly anxious on arrival but does settle down, confused, at times hallucinating) Skin: normal color, warm/dry Orders, Labs, Meds EKG: Normal sinus rhythm at 81 bpm, incomplete right bundle branch block no ST segment elevation interpreted by me. An additional 0.1 mg clonidine given by mouth, blood pressure improved to 132/ 68 and the patient remains asymptomatic of physical complaints. Labs and urine studies are unremarkable AP chest: Pacemaker noted, no acute cardiopulmonary process interpreted by me. [facility] reports that they will accept the patient pending negative CT of the head. They report that the patient apparently fell at the alf yesterday, the patient did not reveal this information and the patient's son was unaware as well. CT ordered and pending. PATIENT: NANCY DE LEON ACCOUNT: [id number] : 1930 LOCATION: ER AGE: 86 SEX: F EXAM STATUS: REG ER ORD. PHYSICIAN: ROBERTH JOSE DO REASON: FALL, ams PROCEDURE: CT HEAD AND CERVICAL SPINE WO CT HEAD AND CERVICAL SPINE WO dated 10/15/2017 12:58 AM Indication: Head and neck pain, fallFall, AMS. Unable to remove earrings due to pt mental status. Comparison: No comparison is available. Technique: Contiguous axial imaging the head was performed from skull base to vertex. No contrast administered. In addition, axial imaging of the cervical spine acquired with thin cut coronal and sagittal reconstruction. One or more of the following individualized dose reduction techniques were utilized for this examination: 1. Automated exposure control 2. Adjustment of the mA and/or kV according to patient size 3. Use of iterative reconstruction technique Findings: Ventricles and sulci are mildly prominent for age. No midline shift or mass effect. Moderate patchy low density in the deep/subcortical periventricular white matter. No hemorrhage or extra-axial collection. Posterior fossa and brainstem unremarkable. Mild mucosal thickening right maxillary sinus. The visually paranasal sinuses and mastoid air cells are otherwise clear. No apparent calvarial abnormality. Images of the cervical spine were acquired skull base to T2. Slight anterolisthesis of C4 on C5 and C5 on C6. Sagittal alignment is otherwise anatomic. Vertebral body heights are maintained. No prevertebral soft tissue swelling. Posterior elements are intact. No apparent fracture. Mild hypertrophic change of the endplates with multilevel uncovertebral spurring. Moderate disc space narrowing at C5-C6 with moderate to severe bilateral facet arthropathy. Severe right foraminal stenosis at C4-C5 and C5-C6 with milder degrees of foraminal narrowing at the remaining levels. No apparent central canal compromise. Visualized soft tissue structures unremarkable. Limited images of lung apices are clear. IMPRESSION HEAD: 1. No evidence of acute intracranial abnormality. Impression cervical spine: 1. No evidence of fracture or malalignment. 2. Moderate to severe multilevel spondylosis. Electronically signed by: Bj Catherine MD (10/15/2017 1:43 AM) [id number] DICTATED AND SIGNED BY: BJ CATHERINE MD DATE: 10/15/17 0140 CC: ROBERTH JOSE DO; TARIQ MCLEOD MD ~ Patient accepted for [facility] admission Impressions: Delirium unspecified Uncontrolled hypertension (patient refused meds today) Medical clearance for psychiatric admission Departure Time of Disposition: 02:39 Disposition: 09 ADMITTED INPATIENT Condition: IMPROVED ROBERTH JOSE DO Oct 14, 2017 21:36
[2017-10-14 21:39] LABS: BASO # 0.1 x10^3/uL (0.0-0.2); BASO % 1 % (0-3); EOS # 0.5 x10^3/uL (0.0-0.7); EOS % 7 % (0-3); HEMOGLOBIN 14.8 g/dL (12.0-15.5); LYMPH % 13 % (24-48); MEAN CORPUSCULAR HEMOGLOBIN 32 pg (25-35); MEAN CORPUSCULAR HGB CONC 34 g/dL (31-37); MEAN CORPUSCULAR VOLUME 92 fL (79-100); MONO # 0.6 x10^3/uL (0.0-1.1); MONO % 8 % (0-9); NEUT # 5.5 x10^3uL (1.8-7.7); NEUT % 71 % (31-73); PLATELET COUNT 231 x10^3/uL (140-400); RED BLOOD COUNT 4.69 x10^6/uL (3.50-5.40); RED CELL DISTRIBUTION WIDTH 13.5 % (11.5-14.5); WHITE BLOOD COUNT 7.6 x10^3/uL (4.0-11.0)
[2017-10-14 21:53] LABS: ALBUMIN 3.8 g/dL (3.4-5.0); ALBUMIN/GLOBULIN RATIO 1.2 (1.0-1.7); CALCIUM 8.9 mg/dL (8.5-10.1); CREATININE 0.9 mg/dL (0.6-1.0); GFR 59.1; TOTAL BILIRUBIN 0.4 mg/dL (0.2-1.0); TOTAL PROTEIN 6.9 g/dL (6.4-8.2)
[2017-10-14 21:54] LABS: POTASSIUM 3.6 mmol/L (3.5-5.1)
[2017-10-14] MEDS ORDERED: cloNIDine HCL 0.1 MG TABLET PO ONE (23:00)
[2017-10-14 23:53] LABS: BACTERIA,URINE FEW /HPF (0-FEW); BILIRUBIN,URINE NEG (NEG); CLARITY,URINE CLEAR; COLOR,URINE STRAW; GLUCOSE,URINE NEG (NEG); NITRITE,URINE NEG (NEG); RBC,URINE RARE /HPF (0-2); SQUAMOUS EPITHELIAL CELL,UR FEW /LPF; UROBILINOGEN,URINE 0.2 mg/dL (0.2 mg/dL); WBC,URINE 0 /HPF (0-4)
--- NOTE | 2017-10-15 01:46 | RAD ---
CT HEAD AND CERVICAL SPINE WO dated 10/15/2017 12:58 AM Indication: Head and neck pain, fallFall, AMS. Unable to remove earrings due to pt mental status. Comparison: No comparison is available. Technique: Contiguous axial imaging the head was performed from skull base to vertex. No contrast administered. In addition, axial imaging of the cervical spine acquired with thin cut coronal and sagittal reconstruction. One or more of the following individualized dose reduction techniques were utilized for this examination: 1. Automated exposure control 2. Adjustment of the mA and/or kV according to patient size 3. Use of iterative reconstruction technique Findings: Ventricles and sulci are mildly prominent for age. No midline shift or mass effect. Moderate patchy low density in the deep/subcortical periventricular white matter. No hemorrhage or extra-axial collection. Posterior fossa and brainstem unremarkable. Mild mucosal thickening right maxillary sinus. The visually paranasal sinuses and mastoid air cells are otherwise clear. No apparent calvarial abnormality. Images of the cervical spine were acquired skull base to T2. Slight anterolisthesis of C4 on C5 and C5 on C6. Sagittal alignment is otherwise anatomic. Vertebral body heights are maintained. No prevertebral soft tissue swelling. Posterior elements are intact. No apparent fracture. Mild hypertrophic change of the endplates with multilevel uncovertebral spurring. Moderate disc space narrowing at C5-C6 with moderate to severe bilateral facet arthropathy. Severe right foraminal stenosis at C4-C5 and C5-C6 with milder degrees of foraminal narrowing at the remaining levels. No apparent central canal compromise. Visualized soft tissue structures unremarkable. Limited images of lung apices are clear. IMPRESSION HEAD: 1. No evidence of acute intracranial abnormality. Impression cervical spine: 1. No evidence of fracture or malalignment. 2. Moderate to severe multilevel spondylosis. Electronically signed by: Bj Catherine MD (10/15/2017 1:43 AM) [facility]
[2017-10-15] MEDS ORDERED: ACET500T33 PO (02:15)
[2017-10-15] MEDS ORDERED: CALC600T23 PO (02:15)
[2017-10-15] MEDS ORDERED: CARB15DR58 EACH EAR (02:15)
[2017-10-15] MEDS ORDERED: CLON0.5T3 PO (02:15)
[2017-10-15] MEDS ORDERED: DOCU-109 PO (02:15)
[2017-10-15] MEDS ORDERED: LOPE2CAP88 PO (02:15)
[2017-10-15] MEDS ORDERED: GUAI237L83 PO (02:15)
[2017-10-15] MEDS ORDERED: PHEN26CR RC (02:15)
[2017-10-15] MEDS ORDERED: SUCR1ORA5 PO (02:15)
[2017-10-15] MEDS ORDERED: MAGN400O7 PO (02:15)
[2017-10-15] MEDS ORDERED: LIDO1ADH51 TP (02:15)
[2017-10-15] MEDS ORDERED: MAG HYDROX/AL HYDROX/SIMETH 30 ML ORAL.SUSP PO PRN (02:30)
[2017-10-15] MEDS ORDERED: METHYL SALICYLATE/MENTHOL TOPICAL OINTMENT 29GM TUBE. TP PRN (02:30)
[2017-10-15] MEDS ORDERED: traZODone 50 MG TABLET. PO PRN (02:30)
[2017-10-15] MEDS ORDERED: clonazePAM 0.5 MG TABLET PO PRN (02:30)
[2017-10-15 02:39] VITALS: BP 189/83
[2017-10-15] MEDS ORDERED: LOPERAMIDE 2 MG CAPSULE PO PRN (02:45)
[2017-10-15] MEDS ORDERED: PHENYLEPHRINE SUPP.RECT. PR PRN (02:45)
[2017-10-15] MEDS ORDERED: guaiFENesin DM 200MG/20MG 10 ML SYRUP PO PRN (02:45)
[2017-10-15] MEDS ORDERED: MAGNESIUM HYDROXIDE 2,400 MG/30 ML ORAL.SUSP. PO PRN (02:45)
[2017-10-15] MEDS: METOPROLOL SUCC 24HR ER 50 MG TAB.ER.24H. PO SCH (05:30)
[2017-10-15] MEDS: LOSARTAN 50 MG TABLET. PO SCH (05:31)
[2017-10-15 06:34] VITALS: BP 210/108
[2017-10-15] MEDS: SUCRALFATE 1 GM/10 ML ORAL.SUSP. PO SCH ×4 (07:59→20:59)
[2017-10-15] MEDS: clonazePAM 0.5 MG TABLET PO SCH (08:00)
[2017-10-15] MEDS: DULoxetine HCL 20 MG CAPSULE.DR PO SCH (08:00)
[2017-10-15] MEDS: ASPIRIN 81 MG TAB.CHEW PO SCH ×2 (08:00→09:00)
[2017-10-15] MEDS: ACETAMINOPHEN 500 MG TABLET PO SCH ×3 (08:00→20:59)
[2017-10-15] MEDS: DOCUSATE SODIUM 100 MG CAPSULE PO SCH ×2 (08:00→09:00)
[2017-10-15] MEDS: CALCIUM CARBONATE 500 MG TABLET PO SCH (08:00)
--- NOTE | 2017-10-15 08:22 | RAD ---
Portable AP upright view CXR: Clinical indications: Hypertension. Comparison: June 06, 2006 Findings: Chronic scarring of the right lung base is seen. No acute lung infiltrate or pleural effusion or pulmonary edema or lung mass or pneumothorax is seen. Atrial-ventricular pacemaker is again evident. The heart size, pulmonary vasculature, mediastinum and both smitha are stable. Impression: No acute radiographic abnormality is seen.
[2017-10-15] MEDS ORDERED: LOSARTAN 50 MG TABLET. PO SCH (09:00)
[2017-10-15] MEDS ORDERED: METOPROLOL SUCC 24HR ER 50 MG TAB.ER.24H. PO SCH (09:00)
[2017-10-15 13:16] LABS: T3 TOTAL 87 ng/dL (71-180); THYROXINE 7.8 ug/dL (4.5-12.0)
[2017-10-15 16:41] VITALS: BP 155/65
--- NOTE | 2017-10-15 21:08 | PDOC ---
Exam Note: Aj Note: Please also refer to the separate dictated note~for this date of service dictated separately.~Patient seen individually. Discussed the patient with Nursing staff reviewed the chart.~Reviewed interim history and current functioning. Reviewed vital signs,~Labs/ Radiology~and current medications noted below. Continue current treatment with the changes noted in the dictated addendum note Assessment: Vital Signs: Vital Signs Date Time Temp Pulse Resp B/P (MAP) Pulse Ox O2 Delivery O2 Flow Rate FiO2 10/15/17 16:41 97.7 77 18 155/65 (95) 98 Room Air Labs: Laboratory Tests Test 10/14/17 21:16 10/14/17 23:35 10/15/17 07:00 White Blood Count 7.6 x10^3/uL (4.0-11.0) Red Blood Count 4.69 x10^6/uL (3.50-5.40) Hemoglobin 14.8 g/dL (12.0-15.5) Hematocrit 43.0 % (36.0-47.0) Mean Corpuscular Volume 92 fL (79-100) Mean Corpuscular Hemoglobin 32 pg (25-35) Mean Corpuscular Hemoglobin Concent 34 g/dL (31-37) Red Cell Distribution Width 13.5 % (11.5-14.5) Platelet Count 231 x10^3/uL (140-400) Neutrophils (%) (Auto) 71 % (31-73) Lymphocytes (%) (Auto) 13 % (24-48) L Monocytes (%) (Auto) 8 % (0-9) Eosinophils (%) (Auto) 7 % (0-3) H Basophils (%) (Auto) 1 % (0-3) Neutrophils # (Auto) 5.5 x10^3uL (1.8-7.7) Lymphocytes # (Auto) 1.0 x10^3/uL (1.0-4.8) Monocytes # (Auto) 0.6 x10^3/uL (0.0-1.1) Eosinophils # (Auto) 0.5 x10^3/uL (0.0-0.7) Basophils # (Auto) 0.1 x10^3/uL (0.0-0.2) Prothrombin Time 10.5 SEC (9.4-11.4) Prothrombin Time INR 1.0 (0.9-1.1) PTT 24 SEC (23-33) Sodium Level 140 mmol/L (136-145) Potassium Level 3.6 mmol/L (3.5-5.1) Chloride Level 101 mmol/L (98-107) Carbon Dioxide Level 29 mmol/L (21-32) Anion Gap 10 (6-14) Blood Urea Nitrogen 17 mg/dL (7-20) Creatinine 0.9 mg/dL (0.6-1.0) Estimated GFR (Cockcroft-Gault) 59.1 BUN/Creatinine Ratio 19 (6-20) Glucose Level 176 mg/dL (70-99) H Calcium Level 8.9 mg/dL (8.5-10.1) Total Bilirubin 0.4 mg/dL (0.2-1.0) Aspartate Amino Transferase (AST) 26 U/L (15-37) Alanine Aminotransferase (ALT) 27 U/L (14-59) Alkaline Phosphatase 60 U/L (46-116) Troponin I Quantitative < 0.017 ng/mL (0-0.055) DS-Lit-N-Type Natriuretic Peptide 224 pg/mL (0-449) Total Protein 6.9 g/dL (6.4-8.2) Albumin 3.8 g/dL (3.4-5.0) Albumin/Globulin Ratio 1.2 (1.0-1.7) Urine Collection Type Unknown Urine Color Straw Urine Clarity Clear Urine pH 7.0 Urine Specific Eugene 1.015 Urine Protein Trace (NEG-TRACE) Urine Glucose (UA) Neg mg/dL (NEG) Urine Ketones (Stick) Neg mg/dL (NEG) Urine Blood Neg (NEG) Urine Nitrite Neg (NEG) Urine Bilirubin Neg (NEG) Urine Urobilinogen Dipstick 0.2 mg/dL (0.2 mg/dL) Urine Leukocyte Esterase Neg (NEG) Urine RBC Rare /HPF (0-2) Urine WBC 0 /HPF (0-4) Urine Squamous Epithelial Cells Few /LPF Urine Bacteria Few /HPF (0-FEW) Magnesium Level 1.8 mg/dL (1.8-2.4) Iron Level 63 ug/dL (50-170) Total Iron Binding Capacity 291 ug/dL (250-450) Iron Saturation 22 % (15-34) Triglycerides Level 120 mg/dL (0-150) Cholesterol Level 169 mg/dL (0-200) LDL Cholesterol, Calculated 60 mg/dL (0-100) VLDL Cholesterol, Calculated 24 mg/dL (0-40) Non-HDL Cholesterol Calculated 84 mg/dL (0-129) HDL Cholesterol 85 mg/dL (40-60) H Cholesterol/HDL Ratio 1.0 Thyroid Stimulating Hormone (TSH) 1.724 uIU/mL (0.358-3.740) Thyroxine (T4) 7.8 ug/dL (4.5-12.0) Total Triiodothyronine (TT3) 87 ng/dL (71-180) Rapid Plasma Reagin Pending Current Medications: Meds: Current Medications Metoprolol Tartrate (Lopressor Vial) 5 mg 1X ONCE IV Last administered on at 21:21; Start 10/14/17 at 21:15; Stop 10/14/17 at 21:16; Status DC Clonidine HCl (Catapres) 0.1 mg 1X ONCE PO Last administered on 10/14/17at 22:51 ; Start 10/14/17 at 23:00; Stop 10/14/17 at 23:01; Status DC Multi-Ingredient Ointment (Analgesic [place]) 1 tonya PRN QID PRN TP MUSCLE PAIN; Start 10/15/17 at 02:30 Al Hydroxide/Mg Hydroxide (Mylanta Plus Xs) 15 ml PRN AFTMEALHC PRN PO DYSPEPSIA; Start 10/15/17 at 02:30 Clonazepam (KlonoPIN) 0.5 mg PRN DAILY PRN PO ANXIETY / AGITATION; Start at 02:30 Clonazepam (KlonoPIN) 0.5 mg QHS PO Last administered on 10/15/17at 08:00; Start 10/15/17 at 21:00 Duloxetine HCl (Cymbalta) 40 mg DAILY PO Last administered on 10/15/17at 08:00; Start 10/15/17 at 09:00 Trazodone HCl (Desyrel) 50 mg PRN QHS PRN PO INSOMNIA; Start 10/15/17 at 02:30 Acetaminophen (Tylenol) 1,000 mg BID PO Last administered on 10/15/17at 20:59; Start 10/15/17 at 09:00 Acetaminophen (Tylenol) 650 mg PRN Q4HRS PRN PO MILD PAIN / TEMP; Start at 02:45 Aspirin (Children'S Aspirin) 81 mg DAILY PO ; Start 10/15/17 at 09:00 Carbamide Peroxide (Debrox) 5 drop WEEKLY AU ; Start 10/15/17 at 21:00 Docusate Sodium (Colace) 100 mg DAILY PO ; Start 10/15/17 at 09:00 Loperamide HCl (Imodium) 2 mg PRN Q4HRS PRN PO DIARRHEA; Start 10/15/17 at 02:45 Magnesium Hydroxide (Milk Of Magnesia) 2,400 mg PRN QHS PRN PO CONSTIPATION; Start 10/15/17 at 02:45 Sucralfate (Carafate) 1 gm QIDACHS PO Last administered on 10/15/17at 20:59; Start 10/15/17 at 07:30 Atorvastatin Calcium (Lipitor) 40 mg QHS PO ; Start 10/15/17 at 21:00 Calcium Carbonate/ Glycine (Oscal) 500 mg DAILYWBKFT PO ; Start 10/15/17 at 08:00 Guaifenesin (Robitussin Dm) 10 ml PRN Q6HRS PRN PO COUGH; Start 10/15/17 at 02: 45 Lidocaine (Lidoderm) 1 patch PRN DAILY PRN TD CHRONIC PAIN; Start 10/15/17 at 09 :00 Metoprolol Succinate (Toprol Xl) 100 mg DAILY PO ; Start 10/15/17 at 09:00; Stop 10/15/17 at 09:00; Status DC Phenylephrine HCl (Hemorrhoidal) 1 supp PRN Q6HRS PRN CO RECTAL PAIN; Start 10/15/17 at 02:45 Alendronate Sodium (Fosamax) 70 mg WEEKLYAC PO ; Start 10/16/17 at 07:00 Losartan Potassium (Cozaar) 100 mg DAILY PO ; Start 10/15/17 at 09:00; Stop at 09:00; Status DC Losartan Potassium (Cozaar) 100 mg DAILY PO Last administered on 10/15/17at 05:31 ; Start 10/15/17 at 05:30 Metoprolol Succinate (Toprol Xl) 100 mg DAILY PO Last administered on 10/15/17at 05:30; Start 10/15/17 at 05:30 Active Scripts Active Reported Icy Hot 4%-1% Patch (Lidocaine/Menthol) 1 Each Adh..patch 1 Patch TP PRN DAILY PRN Robitussin Cough-Chest Dm Liq (Guaifenesin/Dextromethorphan) 237 Ml Liquid 10 Ml PO PRN Q4HRS PRN Carbamide Peroxide 15 Ml Drops 5 Drop EACH EAR WEEKLY Carafate (Sucralfate) 1 Gm/10 Ml Oral.susp 1 Gm PO QIDACHS Tylenol Extra Strength (Acetaminophen) 500 Mg Tablet 1,000 Mg PO BID Clonazepam 0.5 Mg Tablet 0.5 Mg PO QHS Preparation H Cream (Phenyleph/Pramoxin/Glycr/W.pet) 26 Gm Cream..g. 1 Tonya RC PRN Q6HRS PRN Colace (Docusate Sodium) 100 Mg Capsule 100 Mg PO DAILY Imodium A-D (Loperamide HCl) 2 Mg Capsule 2 Mg PO PRN Q4HRS PRN Milk Of Magnesia (Magnesium Hydroxide) 400 Mg/5 Ml Oral.susp 2,400 Mg PO PRN QHS PRN Calcium Carbonate 600 Mg Tablet 600 Mg PO DAILY Trazodone Hcl 50 Mg Tablet 50 Mg PO PRN QHS PRN Cymbalta (Duloxetine Hcl) 20 Mg Capsule.dr 40 Mg PO DAILY Tylenol (Acetaminophen) 325 Mg Tablet 650 Mg PO PRN Q4HRS PRN Diovan (Valsartan) 320 Mg Tablet 320 Mg PO DAILY Actonel (Risedronate Sodium) 35 Mg Tablet 35 Mg PO WEEKLY Metoprolol Succinate ( Xl ) (Metoprolol Succinate) 100 Mg Tab.er.24h 100 Mg PO DAILY Clonazepam 0.5 Mg Tablet 0.5 Mg PO PRN DAILY PRN Atorvastatin Calcium 40 Mg Tablet 40 Mg PO QHS Aspirin 81 Mg Tab.chew 81 Mg PO DAILY I have reviewed the current psychotropics carefully including drug interactions. Risk benefit ratio favors no change other than as noted in my dictated progress note. Diagnosis: Problems: (1) LISSET (generalized anxiety disorder) (2) MDD (major depressive disorder) (3) Hypertensive urgency (4) Medical clearance for psychiatric admission (5) Delirium CHANTELLE HECTOR MD Oct 15, 2017 21:08
[2017-10-15] MEDS: QUEtiapine 25 MG TABLET. PO SCH (21:16)
[2017-10-15] MEDS: CARBAMIDE PEROXIDE 6.5% OTIC SOLUTION 15ML BOTTLE. AU SCH (21:16)
[2017-10-15] MEDS: ATORVASTATIN CALCIUM 20 MG TABLET PO SCH (21:16)
--- NOTE | 2017-10-15 22:51 | CONS ---
DATE OF CONSULTATION: 10/15/2017 REASON FOR CONSULTATION: Medical management. HISTORY OF PRESENT ILLNESS: The patient is an 86-year-old female patient, a resident at [facility] [place], who was brought by her son to the Emergency Room on the account of increasing confusion, psychosis, agitation, hallucination, refusing to eat, paranoid, thinks the facility is burning here, thinks the staff cut her phone line, all this in a background of dementia. She apparently was here in July of last year. At that time she was admitted on the account of being afraid, she is going to . She refused eating, she was depressed, obsessed with dying, marked insomnia, staring at the patel, having panic attack. PAST MEDICAL HISTORY: Significant for osteoarthritis, sensorineural deafness, sick sinus syndrome, and hypertension. PAST SURGICAL HISTORY: Significant for pacemaker placement. ALLERGIES: She has no known drug allergies. MEDICATIONS: She was on the following medications: Tylenol 650 mg every 4 hours as needed, aspirin 81 mg once a day, atorvastatin calcium 40 mg at bedtime, calcium carbonate 600 mg daily, Debrox 5 drops to both ears weekly, clonazepam 0.5 mg daily, clonazepam 0.5 mg at bedtime, docusate sodium 100 mg daily, duloxetine for Cymbalta 40 mg daily, Robitussin-DM 10 mL every 4 hours as needed for dry cough, patch topically daily p.r.n. for chronic pain. She is on loperamide 2 mg every 4 hours as needed, milk of magnesia 30 mL p.o. daily p.r.n. for constipation, metoprolol succinate 100 mg once a day, Preparation-H cream applied rectally p.r.n. every 6 hours for hemorrhoids and bleeding, risedronate sodium Actonel 35 mg weekly, sucralfate 1 g 4 times a day for gastroesophageal reflux disease, trazodone 50 mg at bedtime daily for insomnia, and valsartan 320 mg once a day. FAMILY HISTORY: Unremarkable. SOCIAL HISTORY: She is a resident at [facility]. She apparently does not smoke, drink alcohol or use any recreational drugs. REVIEW OF SYSTEMS: As per history of present illness. PHYSICAL EXAMINATION GENERAL: When I saw her this afternoon, she was sitting in the dining room, looked well nourished, well developed, in no apparent respiratory distress. She was pale, but no jaundice, cyanosis, or thyromegaly. No jugular venous distension. No lower limb edema. VITAL SIGNS: Her heart rate was 68, blood pressure 155/65, temperature was 97.7, respiratory rate was 18, and oxygen saturation was 98% on room air. HEAD, EYES, EARS, NOSE AND THROAT: Showed normocephalic, atraumatic. NECK: Supple. HEART: Showed normal first and second heart sounds. No gallop, rub or murmur. CHEST: Clear to auscultation. No crepitation or rhonchi. ABDOMEN: Distended, soft, nontender. No guarding or rigidity. No organomegaly. Hernial orifices intact. Bowel sounds normal. NEUROLOGIC: She is awake, alert, confused. All her cranial nerves are intact. She ambulates without assistance or assistive devices. LABORATORY DATA: On arrival showed her white cell count to be 7600, hemoglobin 15, hematocrit 43, MCV 92, and platelet count 231,000, with normal manual differential. Her chemistry showed that her serum sodium was 140, potassium 3.6, chloride 101, bicarbonate 29, anion gap of 10, BUN 17, creatinine 0.9, estimated GFR was 59 mL per minute. Her glucose 176, calcium was 8.9. Total bilirubin, AST, ALT, alkaline phosphatase were normal. Her total protein was 6.9, albumin 3.8. Her TSH, total T4, and total T3 are within normal range. Her triglycerides were 120. Total cholesterol 169, LDL cholesterol was 60, VLDL was 20, and HDL cholesterol was 85, and the ratio 1. Her magnesium was 1.8. Serum iron 63, TIBC was 291, and percent saturation was 22. IMPRESSION: In summary, this is an 86-year-old female patient with a past medical history significant for dementia as well as depression, who was admitted with increasing confusion, psychosis, agitation, hallucination, refusing to eat, paranoia, thinks the facility is burning here, thinks the staff cut her phone line. She is here for inpatient psychiatric stabilization. She has multiple medical problems including osteoporosis, hypertension, hyperlipidemia, Raynaud's syndrome, gastroesophageal reflux disease, chronic constipation, and vitamin deficiency. All in all, the patient seems to be stable except that her blood pressure is suboptimally controlled. She should continue on her metoprolol and Diovan. If better control is not achieved, they might have to start a clonidine patch. Thank you again, Dr. Kothari for allowing me to participate in the care of this patient. TYRONE ZIMMERMAN MD DR: MARIA A/valente JOB#: [id number] / [id number]
[2017-10-16 00:06] LABS: HEMOGLOBIN A1C 4.8 % (4.8-5.6)
[2017-10-16] MEDS: ALENDRONATE SODIUM 35 MG TABLET PO SCH (05:44)
[2017-10-16 06:26] VITALS: BP 140/80
[2017-10-16] MEDS: SUCRALFATE 1 GM/10 ML ORAL.SUSP. PO SCH ×4 (07:31→19:32)
[2017-10-16] MEDS: METOPROLOL SUCC 24HR ER 50 MG TAB.ER.24H. PO SCH (07:32)
[2017-10-16] MEDS: ASPIRIN 81 MG TAB.CHEW PO SCH (07:32)
[2017-10-16] MEDS: CALCIUM CARBONATE 500 MG TABLET PO SCH (07:32)
[2017-10-16] MEDS: DULoxetine HCL 20 MG CAPSULE.DR PO SCH (07:32)
[2017-10-16] MEDS: ACETAMINOPHEN 500 MG TABLET PO SCH ×2 (07:32→19:34)
[2017-10-16] MEDS: DOCUSATE SODIUM 100 MG CAPSULE PO SCH (07:32)
[2017-10-16] MEDS: LOSARTAN 50 MG TABLET. PO SCH (07:33)
[2017-10-16] MEDS: clonazePAM 0.5 MG TABLET PO SCH (07:38)
--- NOTE | 2017-10-16 10:59 | HP ---
ADMIT DATE: 10/15/2017 This is a late entry for 10/15/2017 and covers elements not covered in my initial note of 10/15/2017. IDENTIFYING DATA: The patient is an 86-year-old female who was brought to the Emergency Room from [facility] by her son on account of worsening confusion, psychosis, agitation, hallucinations, worsening symptoms of depression, refusing to eat, paranoid thinking staff were poisoning her, thinking staff cutting out her phone line. The patient has been unmanageable, nonfunctional at the facility, as a consequence of this has failed outpatient psychiatric interventions; due to her dangerous behaviors, admitted for inpatient psychiatric stabilization. CHIEF COMPLAINT: "Yes, They have been doing this." The patient is quite hard of hearing, I had to talk loudly into her ear. HISTORY OF PRESENT ILLNESS: The patient has a history of major depressive disorder, but in the recent past, she has been appearing more confused, paranoid. She has had sleep and appetite changes, convinced people trying to poison her. No active suicidal or homicidal ideation. She is progressively appeared more confused as well. No clear symptoms of bipolar disorder. PAST PSYCHIATRIC HISTORY: As above. MEDICAL HISTORY: Osteoporosis, hypertension, hyperlipidemia, Raynaud's syndrome, hallux rigidus, GERD, dysphagia, CA of colon, chronic constipation, spondylolisthesis, vitamin D deficiency. Diet is regular. Takes her medications whole. Ambulates by herself. DRUG ALLERGIES: Negative. CODE STATUS: Full code. FAMILY HISTORY: Noncontributory. CURRENT PSYCHOTROPICS: Cymbalta 40 mg a day, trazodone 50 mg at bedtime, Klonopin 0.5 mg daily p.r.n. plus 0.5 mg daily. SOCIAL HISTORY: The patient lives at [facility]. Her lives in the area and is involved in her care and her daughter is in [place] and talks with the patient almost daily on the telephone. No alcohol or drug abuse, physical, sexual or elder abuse history is noted. Not known to be a perpetrator. MENTAL STATUS EXAMINATION: The patient was seen individually evening of 10/15/2017. I have known the patient for several years and she was a little confused, unsure who I was at one point, later able to recognize me. She is quite anxious, restless, extremely hard of hearing, I had to talk loudly into her. Speech has moderate latency. Abstraction fair, computation impaired, language function intact. Attention span short. No active suicidal or homicidal ideation. Intellect average. LABORATORY DATA: Reviewed. IMPRESSION: Major depressive disorder with psychotic features; cognitive disorder, unspecified versus delirium, unspecified; anxiety disorder, unspecified; impulse control disorder, unspecified; hard of hearing. Rest diagnoses as above. PLAN: Admit to geropsychiatry unit at [facility]. I will see the patient daily individually from a psychiatric standpoint, medical followup per Dr. Galeano/Dr. Tom. Continue current psychotropics, observe the patient's baseline, then adjust as clinically indicated. MAN Val HECTOR MD DR: CONOR/nts JOB#: [id number] / [id number]
--- NOTE | 2017-10-16 11:23 | EKG ---
[address] [address] Test Date: 2017-10-14 Test Time: 21:20:27 Pat Name: NANCY DE LEON Department: Room: [address] [place] [address] Gender: F [employer] Clerk: NELLI : [id number] Requested By: ROBERTH JOSE Order Number: [id number] Reading MD: Francisco Pascual Measurements Intervals [place] Rate: 81 P: 32 CT: 174 QRS: 4 QRSD: 88 T: 28 QT: 370 QTc: 435 Interpretive Statements SINUS RHYTHM INCOMPLETE RIGHT BUNDLE BRANCH BLOCK Electronically Signed On 10-28-2017 13:50:25 CDT by Francisco Pascual
[2017-10-16 16:14] VITALS: BP 149/82
[2017-10-16] MEDS: ATORVASTATIN CALCIUM 20 MG TABLET PO SCH (19:32)
[2017-10-16] MEDS: QUEtiapine 25 MG TABLET. PO SCH (19:35)
--- NOTE | 2017-10-16 20:11 | PDOC ---
Exam Note: Aj Note: Please also refer to the separate dictated note~for this date of service dictated separately.~Patient seen individually. Discussed the patient with Nursing staff reviewed the chart.~Reviewed interim history and current functioning. Reviewed vital signs,~Labs/ Radiology~and current medications noted below. Continue current treatment with the changes noted in the dictated addendum note Assessment: Vital Signs: Vital Signs Date Time Temp Pulse Resp B/P (MAP) Pulse Ox O2 Delivery O2 Flow Rate FiO2 10/16/17 16:14 96.8 87 18 149/82 (104) 93 10/15/17 16:41 Room Air I&O Intake and Output 10/16/17 07:00 Intake Total 640 ml Balance 640 ml Intake Oral 640 ml Current Medications: Meds: Current Medications Metoprolol Tartrate (Lopressor Vial) 5 mg 1X ONCE IV Last administered on at 21:21; Start 10/14/17 at 21:15; Stop 10/14/17 at 21:16; Status DC Clonidine HCl (Catapres) 0.1 mg 1X ONCE PO Last administered on 10/14/17at 22:51 ; Start 10/14/17 at 23:00; Stop 10/14/17 at 23:01; Status DC Multi-Ingredient Ointment (Analgesic [place]) 1 tonya PRN QID PRN TP MUSCLE PAIN; Start 10/15/17 at 02:30 Al Hydroxide/Mg Hydroxide (Mylanta Plus Xs) 15 ml PRN AFTMEALHC PRN PO DYSPEPSIA; Start 10/15/17 at 02:30 Clonazepam (KlonoPIN) 0.5 mg PRN DAILY PRN PO ANXIETY / AGITATION; Start at 02:30 Clonazepam (KlonoPIN) 0.5 mg QHS PO Last administered on 10/16/17at 07:38; Start 10/15/17 at 21:00 Duloxetine HCl (Cymbalta) 40 mg DAILY PO Last administered on 10/16/17at 07:32; Start 10/15/17 at 09:00 Trazodone HCl (Desyrel) 50 mg PRN QHS PRN PO INSOMNIA; Start 10/15/17 at 02:30 Acetaminophen (Tylenol) 1,000 mg BID PO Last administered on 10/16/17at 19:34; Start 10/15/17 at 09:00 Acetaminophen (Tylenol) 650 mg PRN Q4HRS PRN PO MILD PAIN / TEMP; Start at 02:45 Aspirin (Children'S Aspirin) 81 mg DAILY PO Last administered on 10/16/17 07:32 ; Start 10/15/17 at 09:00 Carbamide Peroxide (Debrox) 5 drop WEEKLY AU Last administered on 10/15/17at 21: 16; Start 10/15/17 at 21:00 Docusate Sodium (Colace) 100 mg DAILY PO Last administered on 10/16/17at 07:32; Start 10/15/17 at 09:00 Loperamide HCl (Imodium) 2 mg PRN Q4HRS PRN PO DIARRHEA; Start 10/15/17 at 02:45 Magnesium Hydroxide (Milk Of Magnesia) 2,400 mg PRN QHS PRN PO CONSTIPATION; Start 10/15/17 at 02:45 Sucralfate (Carafate) 1 gm QIDACHS PO Last administered on 10/16/17at 19:32; Start 10/15/17 at 07:30 Atorvastatin Calcium (Lipitor) 40 mg QHS PO Last administered on 10/16/17 19:32 ; Start 10/15/17 at 21:00 Calcium Carbonate/ Glycine (Oscal) 500 mg DAILYWBKFT PO Last administered on 10/16/17at 07:32; Start 10/15/17 at 08:00 Guaifenesin (Robitussin Dm) 10 ml PRN Q6HRS PRN PO COUGH; Start 10/15/17 at 02: 45 Lidocaine (Lidoderm) 1 patch PRN DAILY PRN TD CHRONIC PAIN; Start 10/15/17 at 09 :00 Metoprolol Succinate (Toprol Xl) 100 mg DAILY PO ; Start 10/15/17 at 09:00; Stop 10/15/17 at 09:00; Status DC Phenylephrine HCl (Hemorrhoidal) 1 supp PRN Q6HRS PRN [place] RECTAL PAIN; Start 10/15/17 at 02:45 Alendronate Sodium (Fosamax) 70 mg WEEKLYAC PO Last administered on 10/16/17at 05 :44; Start 10/16/17 at 07:00 Losartan Potassium (Cozaar) 100 mg DAILY PO ; Start 10/15/17 at 09:00; Stop at 09:00; Status DC Losartan Potassium (Cozaar) 100 mg DAILY PO Last administered on 10/16/17at 07:33 ; Start 10/15/17 at 05:30 Metoprolol Succinate (Toprol Xl) 100 mg DAILY PO Last administered on 10/16/17at 07:32; Start 10/15/17 at 05:30 Quetiapine Fumarate (SEROquel) 12.5 mg QHS PO Last administered on 10/16/17at 19: 35; Start 10/15/17 at 21:00 Active Scripts Active Reported Icy Hot 4%-1% Patch (Lidocaine/Menthol) 1 Each Adh..patch 1 Patch TP PRN DAILY PRN Robitussin Cough-Chest Dm Liq (Guaifenesin/Dextromethorphan) 237 Ml Liquid 10 Ml PO PRN Q4HRS PRN Carbamide Peroxide 15 Ml Drops 5 Drop EACH EAR WEEKLY Carafate (Sucralfate) 1 Gm/10 Ml Oral.susp 1 Gm PO QIDACHS Tylenol Extra Strength (Acetaminophen) 500 Mg Tablet 1,000 Mg PO BID Clonazepam 0.5 Mg Tablet 0.5 Mg PO QHS Preparation H Cream (Phenyleph/Pramoxin/Glycr/W.pet) 26 Gm Cream..g. 1 Tonya RC PRN Q6HRS PRN Colace (Docusate Sodium) 100 Mg Capsule 100 Mg PO DAILY Imodium A-D (Loperamide HCl) 2 Mg Capsule 2 Mg PO PRN Q4HRS PRN Milk Of Magnesia (Magnesium Hydroxide) 400 Mg/5 Ml Oral.susp 2,400 Mg PO PRN QHS PRN Calcium Carbonate 600 Mg Tablet 600 Mg PO DAILY Trazodone Hcl 50 Mg Tablet 50 Mg PO PRN QHS PRN Cymbalta (Duloxetine Hcl) 20 Mg Capsule.dr 40 Mg PO DAILY Tylenol (Acetaminophen) 325 Mg Tablet 650 Mg PO PRN Q4HRS PRN Diovan (Valsartan) 320 Mg Tablet 320 Mg PO DAILY Actonel (Risedronate Sodium) 35 Mg Tablet 35 Mg PO WEEKLY Metoprolol Succinate ( Xl ) (Metoprolol Succinate) 100 Mg Tab.er.24h 100 Mg PO DAILY Clonazepam 0.5 Mg Tablet 0.5 Mg PO PRN DAILY PRN Atorvastatin Calcium 40 Mg Tablet 40 Mg PO QHS Aspirin 81 Mg Tab.chew 81 Mg PO DAILY I have reviewed the current psychotropics carefully including drug interactions. Risk benefit ratio favors no change other than as noted in my dictated progress note. Diagnosis: Problems: (1) Delirium (2) LISSET (generalized anxiety disorder) (3) Hypertensive urgency (4) MDD (major depressive disorder) (5) Mild cognitive disorder (6) Medical clearance for psychiatric admission CHANTELLE HECTOR MD Oct 16, 2017 20:11
[2017-10-17] MEDS: ACETAMINOPHEN 325 MG TABLET PO PRN (00:59)
[2017-10-17 06:26] VITALS: BP 185/75
[2017-10-17] MEDS: SUCRALFATE 1 GM/10 ML ORAL.SUSP. PO SCH ×4 (09:08→21:00)
[2017-10-17] MEDS: METOPROLOL SUCC 24HR ER 50 MG TAB.ER.24H. PO SCH (09:09)
[2017-10-17] MEDS: ASPIRIN 81 MG TAB.CHEW PO SCH (09:09)
[2017-10-17] MEDS: LOSARTAN 50 MG TABLET. PO SCH (09:09)
[2017-10-17] MEDS: CALCIUM CARBONATE 500 MG TABLET PO SCH (09:09)
[2017-10-17] MEDS: DULoxetine HCL 20 MG CAPSULE.DR PO SCH (09:09)
[2017-10-17] MEDS: ACETAMINOPHEN 500 MG TABLET PO SCH ×2 (09:09→19:19)
[2017-10-17] MEDS: DOCUSATE SODIUM 100 MG CAPSULE PO SCH (09:09)
[2017-10-17 16:26] VITALS: BP 157/80
[2017-10-17] MEDS: QUEtiapine 25 MG TABLET. PO SCH (19:19)
[2017-10-17] MEDS: clonazePAM 0.5 MG TABLET PO SCH (19:20)
[2017-10-17] MEDS: ATORVASTATIN CALCIUM 20 MG TABLET PO SCH (19:21)
[2017-10-17] MEDS: MIRTAZAPINE 7.5 MG TABLET. PO SCH (19:31)
--- NOTE | 2017-10-17 20:00 | PDOC ---
Exam Note: Aj Note: Please also refer to the separate dictated note~for this date of service dictated separately.~Patient seen individually. Discussed the patient with Nursing staff reviewed the chart.~Reviewed interim history and current functioning. Reviewed vital signs,~Labs/ Radiology~and current medications noted below. Continue current treatment with the changes noted in the dictated addendum note Assessment: Vital Signs: Vital Signs Date Time Temp Pulse Resp B/P (MAP) Pulse Ox O2 Delivery O2 Flow Rate FiO2 10/17/17 16:26 97.7 78 18 157/80 (105) 97 10/15/17 16:41 Room Air I&O Intake and Output 10/17/17 07:00 Intake Total 1440 ml Balance 1440 ml Intake Oral 1440 ml Current Medications: Meds: Current Medications Metoprolol Tartrate (Lopressor Vial) 5 mg 1X ONCE IV Last administered on at 21:21; Start 10/14/17 at 21:15; Stop 10/14/17 at 21:16; Status DC Clonidine HCl (Catapres) 0.1 mg 1X ONCE PO Last administered on 10/14/17at 22:51 ; Start 10/14/17 at 23:00; Stop 10/14/17 at 23:01; Status DC Multi-Ingredient Ointment (Analgesic [place]) 1 tonya PRN QID PRN TP MUSCLE PAIN; Start 10/15/17 at 02:30 Al Hydroxide/Mg Hydroxide (Mylanta Plus Xs) 15 ml PRN AFTMEALHC PRN PO DYSPEPSIA; Start 10/15/17 at 02:30 Clonazepam (KlonoPIN) 0.5 mg PRN DAILY PRN PO ANXIETY / AGITATION; Start at 02:30 Clonazepam (KlonoPIN) 0.5 mg QHS PO Last administered on 10/16/17at 07:38; Start 10/15/17 at 21:00; Stop 10/17/17 at 18:11; Status DC Duloxetine HCl (Cymbalta) 40 mg DAILY PO Last administered on 10/17/17at 09:09; Start 10/15/17 at 09:00 Trazodone HCl (Desyrel) 50 mg PRN QHS PRN PO INSOMNIA; Start 10/15/17 at 02:30 Acetaminophen (Tylenol) 1,000 mg BID PO Last administered on 10/17/17 19:19; Start 10/15/17 at 09:00 Acetaminophen (Tylenol) 650 mg PRN Q4HRS PRN PO MILD PAIN / TEMP Last administered on 10/17/17 00:59; Start 10/15/17 at 02:45 Aspirin (Children'S Aspirin) 81 mg DAILY PO Last administered on 10/17/17 09:09 ; Start 10/15/17 at 09:00 Carbamide Peroxide (Debrox) 5 drop WEEKLY AU Last administered on 10/15/17 21: 16; Start 10/15/17 at 21:00 Docusate Sodium (Colace) 100 mg DAILY PO Last administered on 10/17/17 09:09; Start 10/15/17 at 09:00 Loperamide HCl (Imodium) 2 mg PRN Q4HRS PRN PO DIARRHEA; Start 10/15/17 at 02:45 Magnesium Hydroxide (Milk Of Magnesia) 2,400 mg PRN QHS PRN PO CONSTIPATION; Start 10/15/17 at 02:45 Sucralfate (Carafate) 1 gm QIDACHS PO Last administered on 10/17/17 16:26; Start 10/15/17 at 07:30 Atorvastatin Calcium (Lipitor) 40 mg QHS PO Last administered on 10/17/17 19:21 ; Start 10/15/17 at 21:00 Calcium Carbonate/ Glycine (Oscal) 500 mg DAILYWBKFT PO Last administered on 09:09; Start 10/15/17 at 08:00 Guaifenesin (Robitussin Dm) 10 ml PRN Q6HRS PRN PO COUGH; Start 10/15/17 at 02: 45 Lidocaine (Lidoderm) 1 patch PRN DAILY PRN TD CHRONIC PAIN; Start 10/15/17 at 09 :00 Metoprolol Succinate (Toprol Xl) 100 mg DAILY PO ; Start 10/15/17 at 09:00; Stop 10/15/17 at 09:00; Status DC Phenylephrine HCl (Hemorrhoidal) 1 supp PRN Q6HRS PRN [place] RECTAL PAIN; Start 10/15/17 at 02:45 Alendronate Sodium (Fosamax) 70 mg WEEKLYAC PO Last administered on 10/16/17at 05 :44; Start 10/16/17 at 07:00 Losartan Potassium (Cozaar) 100 mg DAILY PO ; Start 10/15/17 at 09:00; Stop at 09:00; Status DC Losartan Potassium (Cozaar) 100 mg DAILY PO Last administered on 10/17/17at 09:09 ; Start 10/15/17 at 05:30 Metoprolol Succinate (Toprol Xl) 100 mg DAILY PO Last administered on 10/17/17at 09:09; Start 10/15/17 at 05:30 Quetiapine Fumarate (SEROquel) 12.5 mg QHS PO Last administered on 10/17/17 19: 19; Start 10/15/17 at 21:00 Clonazepam (KlonoPIN) 0.25 mg QHS PO Last administered on 10/17/17 19:20; Start 10/17/17 at 21:00; Stop 10/19/17 at 21:00 Mirtazapine (Remeron) 7.5 mg QHS PO Last administered on 10/17/17at 19:31; Start 10/17/17 at 21:00 Active Scripts Active Reported Icy Hot 4%-1% Patch (Lidocaine/Menthol) 1 Each Adh..patch 1 Patch TP PRN DAILY PRN Robitussin Cough-Chest Dm Liq (Guaifenesin/Dextromethorphan) 237 Ml Liquid 10 Ml PO PRN Q4HRS PRN Carbamide Peroxide 15 Ml Drops 5 Drop EACH EAR WEEKLY Carafate (Sucralfate) 1 Gm/10 Ml Oral.susp 1 Gm PO QIDACHS Tylenol Extra Strength (Acetaminophen) 500 Mg Tablet 1,000 Mg PO BID Clonazepam 0.5 Mg Tablet 0.5 Mg PO QHS Preparation H Cream (Phenyleph/Pramoxin/Glycr/W.pet) 26 Gm Cream..g. 1 Tonya RC PRN Q6HRS PRN Colace (Docusate Sodium) 100 Mg Capsule 100 Mg PO DAILY Imodium A-D (Loperamide HCl) 2 Mg Capsule 2 Mg PO PRN Q4HRS PRN Milk Of Magnesia (Magnesium Hydroxide) 400 Mg/5 Ml Oral.susp 2,400 Mg PO PRN QHS PRN Calcium Carbonate 600 Mg Tablet 600 Mg PO DAILY Trazodone Hcl 50 Mg Tablet 50 Mg PO PRN QHS PRN Cymbalta (Duloxetine Hcl) 20 Mg Capsule.dr 40 Mg PO DAILY Tylenol (Acetaminophen) 325 Mg Tablet 650 Mg PO PRN Q4HRS PRN Diovan (Valsartan) 320 Mg Tablet 320 Mg PO DAILY Actonel (Risedronate Sodium) 35 Mg Tablet 35 Mg PO WEEKLY Metoprolol Succinate ( Xl ) (Metoprolol Succinate) 100 Mg Tab.er.24h 100 Mg PO DAILY Clonazepam 0.5 Mg Tablet 0.5 Mg PO PRN DAILY PRN Atorvastatin Calcium 40 Mg Tablet 40 Mg PO QHS Aspirin 81 Mg Tab.chew 81 Mg PO DAILY I have reviewed the current psychotropics carefully including drug interactions. Risk benefit ratio favors no change other than as noted in my dictated progress note. Diagnosis: Problems: (1) Delirium (2) LISSET (generalized anxiety disorder) (3) Hypertensive urgency (4) MDD (major depressive disorder) (5) Medical clearance for psychiatric admission (6) Mild cognitive disorder CHANTELLE HECTOR MD Oct 17, 2017 20:00
[2017-10-18] MEDS: ACETAMINOPHEN 325 MG TABLET PO PRN (04:56)
[2017-10-18] MEDS: LIDOCAINE (700MG/PATCH) PATCH. TD PRN (04:56)
[2017-10-18] MEDS: LOSARTAN 50 MG TABLET. PO SCH (05:07)
[2017-10-18] MEDS: METOPROLOL SUCC 24HR ER 50 MG TAB.ER.24H. PO SCH (05:08)
[2017-10-18 06:06] VITALS: BP 200/94
[2017-10-18] MEDS: CALCIUM CARBONATE 500 MG TABLET PO SCH (08:32)
[2017-10-18] MEDS: DOCUSATE SODIUM 100 MG CAPSULE PO SCH (08:32)
[2017-10-18] MEDS: DULoxetine HCL 20 MG CAPSULE.DR PO SCH (08:32)
[2017-10-18] MEDS: ACETAMINOPHEN 500 MG TABLET PO SCH ×2 (08:32→20:56)
[2017-10-18] MEDS: ASPIRIN 81 MG TAB.CHEW PO SCH (08:32)
[2017-10-18] MEDS: SUCRALFATE 1 GM/10 ML ORAL.SUSP. PO SCH ×4 (08:34→20:56)
[2017-10-18 08:50] VITALS: BP 191/71
--- NOTE | 2017-10-18 09:36 | PN ---
DATE: 10/16/2017 This is a late entry for 10/16/2017, covers elements not covered in my initial note of 10/16/2017. SUBJECTIVE: I met with the patient the evening of 10/16/2017. Overall, per nursing report, the patient is doing better, seems more lucid. BP was somewhat high. I will defer to Dr. Galeano/Dr. Tom. CT head showed no acute changes. She has had some stressors in the recent past including losing a close friend of hers, which might have prompted a relapse in her mood symptoms and confusion. REVIEW OF SYSTEMS: Hard of hearing, had to talk loudly into her ear. Impaired ambulation. No CV, , pulmonary, eye system symptoms on review. MENTAL STATUS EXAMINATION: Oriented to herself and situation. Speech is coherent, has some latency. Abstraction fair, computation impaired, language function intact, attention span short. Mood and affect still depressed, anxious, but showing improvement. LABORATORY DATA: Reviewed. 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 PLAN: Continue psychotropics mentioned in my initial note, Cymbalta, Seroquel, Klonopin p.r.n. and scheduled and we may discontinue the scheduled Klonopin as it could worsen her cognition. CHANTELLE HECTOR MD DR: CONOR/valente JOB#: [id number] / [id number]
[2017-10-18] MEDS ORDERED: cloNIDine HCL 0.1 MG TABLET PO ONE (13:45)
[2017-10-18] MEDS ORDERED: cloNIDine HCL 0.1 MG TABLET PO PRN (13:45)
[2017-10-18 13:46] VITALS: BP 179/91
[2017-10-18] MEDS: amLODIPine BESYLATE 10 MG TABLET PO SCH (13:47)
[2017-10-18 15:56] VITALS: BP 111/72
--- NOTE | 2017-10-18 19:55 | PDOC ---
Exam Note: Aj Note: Please also refer to the separate dictated note~for this date of service dictated separately.~Patient seen individually. Discussed the patient with Nursing staff reviewed the chart.~Reviewed interim history and current functioning. Reviewed vital signs,~Labs/ Radiology~and current medications noted below. Continue current treatment with the changes noted in the dictated addendum note Assessment: Vital Signs: Vital Signs Date Time Temp Pulse Resp B/P (MAP) Pulse Ox O2 Delivery O2 Flow Rate FiO2 10/18/17 15:56 97.6 73 18 111/72 (85) 96 10/15/17 16:41 Room Air I&O Intake and Output 10/18/17 07:00 Intake Total 920 ml Balance 920 ml Intake Oral 920 ml # Voids 1 Current Medications: Meds: Current Medications Metoprolol Tartrate (Lopressor Vial) 5 mg 1X ONCE IV Last administered on at 21:21; Start 10/14/17 at 21:15; Stop 10/14/17 at 21:16; Status DC Clonidine HCl (Catapres) 0.1 mg 1X ONCE PO Last administered on 10/14/17at 22:51 ; Start 10/14/17 at 23:00; Stop 10/14/17 at 23:01; Status DC Multi-Ingredient Ointment (Analgesic [place]) 1 tonya PRN QID PRN TP MUSCLE PAIN; Start 10/15/17 at 02:30 Al Hydroxide/Mg Hydroxide (Mylanta Plus Xs) 15 ml PRN AFTMEALHC PRN PO DYSPEPSIA; Start 10/15/17 at 02:30 Clonazepam (KlonoPIN) 0.5 mg PRN DAILY PRN PO ANXIETY / AGITATION; Start at 02:30 Clonazepam (KlonoPIN) 0.5 mg QHS PO Last administered on 10/16/17at 07:38; Start 10/15/17 at 21:00; Stop 10/17/17 at 18:11; Status DC Duloxetine HCl (Cymbalta) 40 mg DAILY PO Last administered on 10/18/17at 08:32; Start 10/15/17 at 09:00 Trazodone HCl (Desyrel) 50 mg PRN QHS PRN PO INSOMNIA; Start 10/15/17 at 02:30 Acetaminophen (Tylenol) 1,000 mg BID PO Last administered on 10/18/17 08:32; Start 10/15/17 at 09:00 Acetaminophen (Tylenol) 650 mg PRN Q4HRS PRN PO MILD PAIN / TEMP Last administered on 10/18/17 04:56; Start 10/15/17 at 02:45 Aspirin (Children'S Aspirin) 81 mg DAILY PO Last administered on 10/18/17 08:32 ; Start 10/15/17 at 09:00 Carbamide Peroxide (Debrox) 5 drop WEEKLY AU Last administered on 10/15/17 21: 16; Start 10/15/17 at 21:00 Docusate Sodium (Colace) 100 mg DAILY PO Last administered on 10/18/17 08:32; Start 10/15/17 at 09:00 Loperamide HCl (Imodium) 2 mg PRN Q4HRS PRN PO DIARRHEA; Start 10/15/17 at 02:45 Magnesium Hydroxide (Milk Of Magnesia) 2,400 mg PRN QHS PRN PO CONSTIPATION; Start 10/15/17 at 02:45 Sucralfate (Carafate) 1 gm QIDACHS PO Last administered on 10/18/17 17:03; Start 10/15/17 at 07:30 Atorvastatin Calcium (Lipitor) 40 mg QHS PO Last administered on 10/17/17 19:21 ; Start 10/15/17 at 21:00 Calcium Carbonate/ Glycine (Oscal) 500 mg DAILYWBKFT PO Last administered on 08:32; Start 10/15/17 at 08:00 Guaifenesin (Robitussin Dm) 10 ml PRN Q6HRS PRN PO COUGH; Start 10/15/17 at 02: 45 Lidocaine (Lidoderm) 1 patch PRN DAILY PRN TD CHRONIC PAIN Last administered on 10/18/17 04:56; Start 10/15/17 at 09:00 Metoprolol Succinate (Toprol Xl) 100 mg DAILY PO ; Start 10/15/17 at 09:00; Stop 10/15/17 at 09:00; Status DC Phenylephrine HCl (Hemorrhoidal) 1 supp PRN Q6HRS PRN [place] RECTAL PAIN; Start 10/15/17 at 02:45 Alendronate Sodium (Fosamax) 70 mg WEEKLYAC PO Last administered on 10/16/17at 05 :44; Start 10/16/17 at 07:00 Losartan Potassium (Cozaar) 100 mg DAILY PO ; Start 10/15/17 at 09:00; Stop at 09:00; Status DC Losartan Potassium (Cozaar) 100 mg DAILY PO Last administered on 10/18/17at 05:07 ; Start 10/15/17 at 05:30 Metoprolol Succinate (Toprol Xl) 100 mg DAILY PO Last administered on 10/18/17at 05:08; Start 10/15/17 at 05:30 Quetiapine Fumarate (SEROquel) 12.5 mg QHS PO Last administered on 10/17/17at 19: 19; Start 10/15/17 at 21:00; Stop 10/18/17 at 18:06; Status DC Clonazepam (KlonoPIN) 0.25 mg QHS PO Last administered on 10/17/17at 19:20; Start 10/17/17 at 21:00; Stop 10/19/17 at 21:00 Mirtazapine (Remeron) 7.5 mg QHS PO Last administered on 10/17/17at 19:31; Start 10/17/17 at 21:00 Vitamin D (Vitamin D3) 2,000 unit DAILY PO ; Start 10/19/17 at 09:00 Amlodipine Besylate (Norvasc) 10 mg DAILY PO Last administered on 10/18/17at 13: 47; Start 10/18/17 at 13:30 Clonidine HCl (Catapres) 0.1 mg PRN Q1HR PRN PO HYPERTENSION, SEE COMMENTS; Start 10/18/17 at 13:45 Clonidine HCl (Catapres) 0.1 mg 1X ONCE PO Last administered on 10/18/17at 13:47 ; Start 10/18/17 at 13:45; Stop 10/18/17 at 13:46; Status DC Quetiapine Fumarate (SEROquel) 25 mg QHS PO ; Start 10/18/17 at 21:00 Active Scripts Active Reported Icy Hot 4%-1% Patch (Lidocaine/Menthol) 1 Each Adh..patch 1 Patch TP PRN DAILY PRN Robitussin Cough-Chest Dm Liq (Guaifenesin/Dextromethorphan) 237 Ml Liquid 10 Ml PO PRN Q4HRS PRN Carbamide Peroxide 15 Ml Drops 5 Drop EACH EAR WEEKLY Carafate (Sucralfate) 1 Gm/10 Ml Oral.susp 1 Gm PO QIDACHS Tylenol Extra Strength (Acetaminophen) 500 Mg Tablet 1,000 Mg PO BID Clonazepam 0.5 Mg Tablet 0.5 Mg PO QHS Preparation H Cream (Phenyleph/Pramoxin/Glycr/W.pet) 26 Gm Cream..g. 1 Tonya RC PRN Q6HRS PRN Colace (Docusate Sodium) 100 Mg Capsule 100 Mg PO DAILY Imodium A-D (Loperamide HCl) 2 Mg Capsule 2 Mg PO PRN Q4HRS PRN Milk Of Magnesia (Magnesium Hydroxide) 400 Mg/5 Ml Oral.susp 2,400 Mg PO PRN QHS PRN Calcium Carbonate 600 Mg Tablet 600 Mg PO DAILY Trazodone Hcl 50 Mg Tablet 50 Mg PO PRN QHS PRN Cymbalta (Duloxetine Hcl) 20 Mg Capsule.dr 40 Mg PO DAILY Tylenol (Acetaminophen) 325 Mg Tablet 650 Mg PO PRN Q4HRS PRN Diovan (Valsartan) 320 Mg Tablet 320 Mg PO DAILY Actonel (Risedronate Sodium) 35 Mg Tablet 35 Mg PO WEEKLY Metoprolol Succinate ( Xl ) (Metoprolol Succinate) 100 Mg Tab.er.24h 100 Mg PO DAILY Clonazepam 0.5 Mg Tablet 0.5 Mg PO PRN DAILY PRN Atorvastatin Calcium 40 Mg Tablet 40 Mg PO QHS Aspirin 81 Mg Tab.chew 81 Mg PO DAILY I have reviewed the current psychotropics carefully including drug interactions. Risk benefit ratio favors no change other than as noted in my dictated progress note. Diagnosis: Problems: (1) Medical clearance for psychiatric admission (2) Mild cognitive disorder CHANTELLE HECTOR MD Oct 18, 2017 19:55
[2017-10-18] MEDS: clonazePAM 0.5 MG TABLET PO SCH (20:55)
[2017-10-18] MEDS: MIRTAZAPINE 7.5 MG TABLET. PO SCH (20:56)
[2017-10-18] MEDS: ATORVASTATIN CALCIUM 20 MG TABLET PO SCH (20:56)
[2017-10-18] MEDS: QUEtiapine 25 MG TABLET. PO SCH (21:01)
[2017-10-19 06:15] VITALS: BP 200/79
[2017-10-19 08:32] VITALS: BP 169/87
[2017-10-19] MEDS: DOCUSATE SODIUM 100 MG CAPSULE PO SCH (08:33)
[2017-10-19] MEDS: ASPIRIN 81 MG TAB.CHEW PO SCH (08:33)
[2017-10-19] MEDS: CALCIUM CARBONATE 500 MG TABLET PO SCH (08:33)
[2017-10-19] MEDS: DULoxetine HCL 20 MG CAPSULE.DR PO SCH (08:33)
[2017-10-19] MEDS: ACETAMINOPHEN 500 MG TABLET PO SCH ×2 (08:34→19:24)
[2017-10-19] MEDS: LOSARTAN 50 MG TABLET. PO SCH (08:34)
[2017-10-19] MEDS: METOPROLOL SUCC 24HR ER 50 MG TAB.ER.24H. PO SCH (08:35)
[2017-10-19] MEDS: amLODIPine BESYLATE 10 MG TABLET PO SCH (08:35)
[2017-10-19] MEDS: SUCRALFATE 1 GM/10 ML ORAL.SUSP. PO SCH ×4 (08:36→19:25)
[2017-10-19] MEDS: CHOLECALCIFEROL (VITAMIN D3) 1,000 UNIT TABLET PO SCH (08:38)
--- NOTE | 2017-10-19 09:10 | PN ---
DATE: 10/17/2017 This is a late entry, 10/17/2017, covers the elements not covered in my initial note, 10/17/2017. SUBJECTIVE: I met with the patient evening of 10/17/2017. I also met with the patient's son, discussed the circumstances prompting admission, the patient's diagnosis, treatment plan. The patient slept 6-3/4 hours previous evening quite hard of hearing, I met with her in her room, more confused. Appetite fair, wandering, exit seeking, wanting to be discharged and I processed this with her. MENTAL STATUS EXAM: Oriented to herself. Insight, judgment, recent memory is impaired. Language function intact. Attention span short. Mood and affect somewhat anxious, labile. LABORATORY DATA: Reviewed. IMPRESSION: Major depressive disorder with psychotic features; cognitive disorder, unspecified. Rest unchanged. PLAN: Taper and stop the Klonopin 0.5 mg at bedtime. We will reduce to 0.25 mg at bedtime for 2 days, and discontinue; start Remeron 7.5 mg at bedtime to help with the insomnia in place of the Klonopin. Continue Cymbalta, Seroquel for now along with trazodone as needed. CHANTELLE HECTOR MD DR: CONOR/valente JOB#: [id number] / [id number]
[2017-10-19 16:22] VITALS: BP 136/72
[2017-10-19] MEDS: QUEtiapine 25 MG TABLET. PO SCH (19:21)
[2017-10-19] MEDS: MIRTAZAPINE 7.5 MG TABLET. PO SCH (19:22)
[2017-10-19] MEDS: ATORVASTATIN CALCIUM 20 MG TABLET PO SCH (19:24)
[2017-10-19] MEDS: clonazePAM 0.5 MG TABLET PO SCH (19:27)
--- NOTE | 2017-10-19 19:57 | PDOC ---
Exam Note: Aj Note: Please also refer to the separate dictated note~for this date of service dictated separately.~Patient seen individually. Discussed the patient with Nursing staff reviewed the chart.~Reviewed interim history and current functioning. Reviewed vital signs,~Labs/ Radiology~and current medications noted below. Continue current treatment with the changes noted in the dictated addendum note Assessment: Vital Signs: Vital Signs Date Time Temp Pulse Resp B/P (MAP) Pulse Ox O2 Delivery O2 Flow Rate FiO2 10/19/17 16:22 98.4 78 20 136/72 (93) 95 10/15/17 16:41 Room Air I&O Intake and Output 10/19/17 07:00 Intake Total 960 ml Balance 960 ml Intake Oral 960 ml # Voids 1 Current Medications: Meds: Current Medications Metoprolol Tartrate (Lopressor Vial) 5 mg 1X ONCE IV Last administered on at 21:21; Start 10/14/17 at 21:15; Stop 10/14/17 at 21:16; Status DC Clonidine HCl (Catapres) 0.1 mg 1X ONCE PO Last administered on 10/14/17at 22:51 ; Start 10/14/17 at 23:00; Stop 10/14/17 at 23:01; Status DC Multi-Ingredient Ointment (Analgesic [place]) 1 tonya PRN QID PRN TP MUSCLE PAIN; Start 10/15/17 at 02:30 Al Hydroxide/Mg Hydroxide (Mylanta Plus Xs) 15 ml PRN AFTMEALHC PRN PO DYSPEPSIA; Start 10/15/17 at 02:30 Clonazepam (KlonoPIN) 0.5 mg PRN DAILY PRN PO ANXIETY / AGITATION; Start at 02:30 Clonazepam (KlonoPIN) 0.5 mg QHS PO Last administered on 10/16/17at 07:38; Start 10/15/17 at 21:00; Stop 10/17/17 at 18:11; Status DC Duloxetine HCl (Cymbalta) 40 mg DAILY PO Last administered on 10/19/17at 08:33; Start 10/15/17 at 09:00 Trazodone HCl (Desyrel) 50 mg PRN QHS PRN PO INSOMNIA; Start 10/15/17 at 02:30 Acetaminophen (Tylenol) 1,000 mg BID PO Last administered on 10/19/17 19:24; Start 10/15/17 at 09:00 Acetaminophen (Tylenol) 650 mg PRN Q4HRS PRN PO MILD PAIN / TEMP Last administered on 10/18/17 04:56; Start 10/15/17 at 02:45 Aspirin (Children'S Aspirin) 81 mg DAILY PO Last administered on 10/19/17 08:33 ; Start 10/15/17 at 09:00 Carbamide Peroxide (Debrox) 5 drop WEEKLY AU Last administered on 10/15/17 21: 16; Start 10/15/17 at 21:00 Docusate Sodium (Colace) 100 mg DAILY PO Last administered on 10/19/17 08:33; Start 10/15/17 at 09:00 Loperamide HCl (Imodium) 2 mg PRN Q4HRS PRN PO DIARRHEA; Start 10/15/17 at 02:45 Magnesium Hydroxide (Milk Of Magnesia) 2,400 mg PRN QHS PRN PO CONSTIPATION; Start 10/15/17 at 02:45 Sucralfate (Carafate) 1 gm QIDACHS PO Last administered on 10/19/17 19:25; Start 10/15/17 at 07:30 Atorvastatin Calcium (Lipitor) 40 mg QHS PO Last administered on 10/19/17 19:24 ; Start 10/15/17 at 21:00 Calcium Carbonate/ Glycine (Oscal) 500 mg DAILYWBKFT PO Last administered on 08:33; Start 10/15/17 at 08:00 Guaifenesin (Robitussin Dm) 10 ml PRN Q6HRS PRN PO COUGH; Start 10/15/17 at 02: 45 Lidocaine (Lidoderm) 1 patch PRN DAILY PRN TD CHRONIC PAIN Last administered on 10/18/17 04:56; Start 10/15/17 at 09:00 Metoprolol Succinate (Toprol Xl) 100 mg DAILY PO ; Start 10/15/17 at 09:00; Stop 10/15/17 at 09:00; Status DC Phenylephrine HCl (Hemorrhoidal) 1 supp PRN Q6HRS PRN [place] RECTAL PAIN; Start 10/15/17 at 02:45 Alendronate Sodium (Fosamax) 70 mg WEEKLYAC PO Last administered on 10/16/17 05 :44; Start 10/16/17 at 07:00 Losartan Potassium (Cozaar) 100 mg DAILY PO ; Start 10/15/17 at 09:00; Stop at 09:00; Status DC Losartan Potassium (Cozaar) 100 mg DAILY PO Last administered on 10/19/17 08:34 ; Start 10/15/17 at 05:30 Metoprolol Succinate (Toprol Xl) 100 mg DAILY PO Last administered on 10/19/17 08:35; Start 10/15/17 at 05:30 Quetiapine Fumarate (SEROquel) 12.5 mg QHS PO Last administered on 10/17/17 19: 19; Start 10/15/17 at 21:00; Stop 10/18/17 at 18:06; Status DC Clonazepam (KlonoPIN) 0.25 mg QHS PO Last administered on 10/19/17 19:27; Start 10/17/17 at 21:00; Stop 10/19/17 at 21:00 Mirtazapine (Remeron) 7.5 mg QHS PO Last administered on 10/19/17 19:22; Start 10/17/17 at 21:00 Vitamin D (Vitamin D3) 2,000 unit DAILY PO Last administered on 10/19/17 08:38 ; Start 10/19/17 at 09:00 Amlodipine Besylate (Norvasc) 10 mg DAILY PO Last administered on 10/19/17 08: 35; Start 10/18/17 at 13:30 Clonidine HCl (Catapres) 0.1 mg PRN Q1HR PRN PO HYPERTENSION, SEE COMMENTS; Start 10/18/17 at 13:45 Clonidine HCl (Catapres) 0.1 mg 1X ONCE PO Last administered on 10/18/17at 13:47 ; Start 10/18/17 at 13:45; Stop 10/18/17 at 13:46; Status DC Quetiapine Fumarate (SEROquel) 25 mg QHS PO Last administered on 10/19/17 19:21 ; Start 10/18/17 at 21:00 Active Scripts Active Reported Icy Hot 4%-1% Patch (Lidocaine/Menthol) 1 Each Adh..patch 1 Patch TP PRN DAILY PRN Robitussin Cough-Chest Dm Liq (Guaifenesin/Dextromethorphan) 237 Ml Liquid 10 Ml PO PRN Q4HRS PRN Carbamide Peroxide 15 Ml Drops 5 Drop EACH EAR WEEKLY Carafate (Sucralfate) 1 Gm/10 Ml Oral.susp 1 Gm PO QIDACHS Tylenol Extra Strength (Acetaminophen) 500 Mg Tablet 1,000 Mg PO BID Clonazepam 0.5 Mg Tablet 0.5 Mg PO QHS Preparation H Cream (Phenyleph/Pramoxin/Glycr/W.pet) 26 Gm Cream..g. 1 Tonya RC PRN Q6HRS PRN Colace (Docusate Sodium) 100 Mg Capsule 100 Mg PO DAILY Imodium A-D (Loperamide HCl) 2 Mg Capsule 2 Mg PO PRN Q4HRS PRN Milk Of Magnesia (Magnesium Hydroxide) 400 Mg/5 Ml Oral.susp 2,400 Mg PO PRN QHS PRN Calcium Carbonate 600 Mg Tablet 600 Mg PO DAILY Trazodone Hcl 50 Mg Tablet 50 Mg PO PRN QHS PRN Cymbalta (Duloxetine Hcl) 20 Mg Capsule.dr 40 Mg PO DAILY Tylenol (Acetaminophen) 325 Mg Tablet 650 Mg PO PRN Q4HRS PRN Diovan (Valsartan) 320 Mg Tablet 320 Mg PO DAILY Actonel (Risedronate Sodium) 35 Mg Tablet 35 Mg PO WEEKLY Metoprolol Succinate ( Xl ) (Metoprolol Succinate) 100 Mg Tab.er.24h 100 Mg PO DAILY Clonazepam 0.5 Mg Tablet 0.5 Mg PO PRN DAILY PRN Atorvastatin Calcium 40 Mg Tablet 40 Mg PO QHS Aspirin 81 Mg Tab.chew 81 Mg PO DAILY I have reviewed the current psychotropics carefully including drug interactions. Risk benefit ratio favors no change other than as noted in my dictated progress note. Diagnosis: Problems: (1) Delirium (2) LISSET (generalized anxiety disorder) (3) Hypertensive urgency (4) MDD (major depressive disorder) (5) Medical clearance for psychiatric admission (6) Mild cognitive disorder CHANTELLE HECTOR MD Oct 19, 2017 19:57
[2017-10-20 06:13] VITALS: BP 185/89
[2017-10-20] MEDS: ACETAMINOPHEN 500 MG TABLET PO SCH ×2 (07:21→19:46)
[2017-10-20] MEDS: SUCRALFATE 1 GM/10 ML ORAL.SUSP. PO SCH ×4 (07:21→19:46)
[2017-10-20] MEDS: DOCUSATE SODIUM 100 MG CAPSULE PO SCH (08:34)
[2017-10-20] MEDS: CALCIUM CARBONATE 500 MG TABLET PO SCH (08:34)
[2017-10-20] MEDS: ASPIRIN 81 MG TAB.CHEW PO SCH (08:34)
[2017-10-20] MEDS: LOSARTAN 50 MG TABLET. PO SCH (08:35)
[2017-10-20] MEDS: CHOLECALCIFEROL (VITAMIN D3) 1,000 UNIT TABLET PO SCH (08:35)
[2017-10-20] MEDS: DULoxetine HCL 20 MG CAPSULE.DR PO SCH (08:35)
[2017-10-20] MEDS: amLODIPine BESYLATE 10 MG TABLET PO SCH (08:36)
[2017-10-20] MEDS: METOPROLOL SUCC 24HR ER 50 MG TAB.ER.24H. PO SCH (08:36)
--- NOTE | 2017-10-20 11:08 | PN ---
DATE: 10/18/2017 This late entry 10/18/2017 covers elements not covered in my initial note 10/18/2017. Met with the patient in the evening of 10/18/2017. The patient slept 7-1/2 hours previous evening, less obsessive regarding discharge. Compliant with medications, paranoid, confused, quite anxious, has a fear of dying, and at the facility, she was asking the staff whether they arranged a casket for her and told her family that in fact the casket had been arranged in preparation for her passing away. Remains somewhat psychotic. REVIEW OF SYSTEMS: Hard of hearing. No CV, , pulmonary, eye system symptoms on review. MENTAL STATUS EXAM: Oriented to herself and situation. Speech has some latency, coherent. Abstraction fair, computation impaired, language function intact. Mood and affect somewhat withdrawn. LABORATORY DATA: Reviewed. IMPRESSION: Major depressive disorder with psychotic features; cognitive disorder, unspecified. PLAN: Increase Seroquel to 25 mg at bedtime. Continue rest unchanged per initial note. MAN Val HECTOR MD DR: CONOR/valente JOB#: [id number] / [id number]
[2017-10-20] MEDS: LIDOCAINE (700MG/PATCH) PATCH. TD PRN (12:01)
[2017-10-20 16:19] VITALS: BP 145/80
[2017-10-20] MEDS: QUEtiapine 25 MG TABLET. PO SCH (19:46)
[2017-10-20] MEDS: MIRTAZAPINE 7.5 MG TABLET. PO SCH (19:46)
[2017-10-20] MEDS: ATORVASTATIN CALCIUM 20 MG TABLET PO SCH (19:46)
--- NOTE | 2017-10-20 20:01 | PDOC ---
Exam Note: Aj Note: Please also refer to the separate dictated note~for this date of service dictated separately.~Patient seen individually. Discussed the patient with Nursing staff reviewed the chart.~Reviewed interim history and current functioning. Reviewed vital signs,~Labs/ Radiology~and current medications noted below. Continue current treatment with the changes noted in the dictated addendum note Assessment: Vital Signs: Vital Signs Date Time Temp Pulse Resp B/P (MAP) Pulse Ox O2 Delivery O2 Flow Rate FiO2 10/20/17 16:19 98.4 87 18 145/80 (101) 97 10/15/17 16:41 Room Air I&O Intake and Output 10/20/17 07:00 Intake Total 600 ml Balance 600 ml Intake Oral 600 ml Current Medications: Meds: Current Medications Metoprolol Tartrate (Lopressor Vial) 5 mg 1X ONCE IV Last administered on at 21:21; Start 10/14/17 at 21:15; Stop 10/14/17 at 21:16; Status DC Clonidine HCl (Catapres) 0.1 mg 1X ONCE PO Last administered on 10/14/17at 22:51 ; Start 10/14/17 at 23:00; Stop 10/14/17 at 23:01; Status DC Multi-Ingredient Ointment (Analgesic [place]) 1 tonya PRN QID PRN TP MUSCLE PAIN; Start 10/15/17 at 02:30 Al Hydroxide/Mg Hydroxide (Mylanta Plus Xs) 15 ml PRN AFTMEALHC PRN PO DYSPEPSIA; Start 10/15/17 at 02:30 Clonazepam (KlonoPIN) 0.5 mg PRN DAILY PRN PO ANXIETY / AGITATION; Start at 02:30 Clonazepam (KlonoPIN) 0.5 mg QHS PO Last administered on 10/16/17at 07:38; Start 10/15/17 at 21:00; Stop 10/17/17 at 18:11; Status DC Duloxetine HCl (Cymbalta) 40 mg DAILY PO Last administered on 10/20/17at 08:35; Start 10/15/17 at 09:00 Trazodone HCl (Desyrel) 50 mg PRN QHS PRN PO INSOMNIA; Start 10/15/17 at 02:30 Acetaminophen (Tylenol) 1,000 mg BID PO Last administered on 10/20/17 19:46; Start 10/15/17 at 09:00 Acetaminophen (Tylenol) 650 mg PRN Q4HRS PRN PO MILD PAIN / TEMP Last administered on 10/18/17 04:56; Start 10/15/17 at 02:45 Aspirin (Children'S Aspirin) 81 mg DAILY PO Last administered on 10/20/17 08:34 ; Start 10/15/17 at 09:00 Carbamide Peroxide (Debrox) 5 drop WEEKLY AU Last administered on 10/15/17 21: 16; Start 10/15/17 at 21:00 Docusate Sodium (Colace) 100 mg DAILY PO Last administered on 10/20/17 08:34; Start 10/15/17 at 09:00 Loperamide HCl (Imodium) 2 mg PRN Q4HRS PRN PO DIARRHEA; Start 10/15/17 at 02:45 Magnesium Hydroxide (Milk Of Magnesia) 2,400 mg PRN QHS PRN PO CONSTIPATION; Start 10/15/17 at 02:45 Sucralfate (Carafate) 1 gm QIDACHS PO Last administered on 10/20/17 19:46; Start 10/15/17 at 07:30 Atorvastatin Calcium (Lipitor) 40 mg QHS PO Last administered on 10/20/17 19:46 ; Start 10/15/17 at 21:00 Calcium Carbonate/ Glycine (Oscal) 500 mg DAILYWBKFT PO Last administered on 08:34; Start 10/15/17 at 08:00 Guaifenesin (Robitussin Dm) 10 ml PRN Q6HRS PRN PO COUGH; Start 10/15/17 at 02: 45 Lidocaine (Lidoderm) 1 patch PRN DAILY PRN TD CHRONIC PAIN Last administered on 10/20/17 12:01; Start 10/15/17 at 09:00 Metoprolol Succinate (Toprol Xl) 100 mg DAILY PO ; Start 10/15/17 at 09:00; Stop 10/15/17 at 09:00; Status DC Phenylephrine HCl (Hemorrhoidal) 1 supp PRN Q6HRS PRN [place] RECTAL PAIN; Start 10/15/17 at 02:45 Alendronate Sodium (Fosamax) 70 mg WEEKLYAC PO Last administered on 3/4/18at 05 :44; Start 10/16/17 at 07:00 Losartan Potassium (Cozaar) 100 mg DAILY PO ; Start 10/15/17 at 09:00; Stop at 09:00; Status DC Losartan Potassium (Cozaar) 100 mg DAILY PO Last administered on 10/20/17 08:35 ; Start 10/15/17 at 05:30 Metoprolol Succinate (Toprol Xl) 100 mg DAILY PO Last administered on 10/20/17 08:36; Start 10/15/17 at 05:30 Quetiapine Fumarate (SEROquel) 12.5 mg QHS PO Last administered on 10/17/17 19: 19; Start 10/15/17 at 21:00; Stop 10/18/17 at 18:06; Status DC Clonazepam (KlonoPIN) 0.25 mg QHS PO Last administered on 10/19/17 19:27; Start 10/17/17 at 21:00; Stop 10/19/17 at 21:00; Status DC Mirtazapine (Remeron) 7.5 mg QHS PO Last administered on 10/20/17 19:46; Start 10/17/17 at 21:00 Vitamin D (Vitamin D3) 2,000 unit DAILY PO Last administered on 10/20/17 08:35 ; Start 10/19/17 at 09:00 Amlodipine Besylate (Norvasc) 10 mg DAILY PO Last administered on 10/20/17 08: 36; Start 10/18/17 at 13:30 Clonidine HCl (Catapres) 0.1 mg PRN Q1HR PRN PO HYPERTENSION, SEE COMMENTS; Start 10/18/17 at 13:45 Clonidine HCl (Catapres) 0.1 mg 1X ONCE PO Last administered on 10/18/17 13:47 ; Start 10/18/17 at 13:45; Stop 10/18/17 at 13:46; Status DC Quetiapine Fumarate (SEROquel) 25 mg QHS PO Last administered on 10/20/17 19:46 ; Start 10/18/17 at 21:00 Active Scripts Active Reported Icy Hot 4%-1% Patch (Lidocaine/Menthol) 1 Each Adh..patch 1 Patch TP PRN DAILY PRN Robitussin Cough-Chest Dm Liq (Guaifenesin/Dextromethorphan) 237 Ml Liquid 10 Ml PO PRN Q4HRS PRN Carbamide Peroxide 15 Ml Drops 5 Drop EACH EAR WEEKLY Carafate (Sucralfate) 1 Gm/10 Ml Oral.susp 1 Gm PO QIDACHS Tylenol Extra Strength (Acetaminophen) 500 Mg Tablet 1,000 Mg PO BID Clonazepam 0.5 Mg Tablet 0.5 Mg PO QHS Preparation H Cream (Phenyleph/Pramoxin/Glycr/W.pet) 26 Gm Cream..g. 1 Tonya RC PRN Q6HRS PRN Colace (Docusate Sodium) 100 Mg Capsule 100 Mg PO DAILY Imodium A-D (Loperamide HCl) 2 Mg Capsule 2 Mg PO PRN Q4HRS PRN Milk Of Magnesia (Magnesium Hydroxide) 400 Mg/5 Ml Oral.susp 2,400 Mg PO PRN QHS PRN Calcium Carbonate 600 Mg Tablet 600 Mg PO DAILY Trazodone Hcl 50 Mg Tablet 50 Mg PO PRN QHS PRN Cymbalta (Duloxetine Hcl) 20 Mg Capsule.dr 40 Mg PO DAILY Tylenol (Acetaminophen) 325 Mg Tablet 650 Mg PO PRN Q4HRS PRN Diovan (Valsartan) 320 Mg Tablet 320 Mg PO DAILY Actonel (Risedronate Sodium) 35 Mg Tablet 35 Mg PO WEEKLY Metoprolol Succinate ( Xl ) (Metoprolol Succinate) 100 Mg Tab.er.24h 100 Mg PO DAILY Clonazepam 0.5 Mg Tablet 0.5 Mg PO PRN DAILY PRN Atorvastatin Calcium 40 Mg Tablet 40 Mg PO QHS Aspirin 81 Mg Tab.chew 81 Mg PO DAILY I have reviewed the current psychotropics carefully including drug interactions. Risk benefit ratio favors no change other than as noted in my dictated progress note. Diagnosis: Problems: (1) Delirium (2) LISSET (generalized anxiety disorder) (3) Hypertensive urgency (4) MDD (major depressive disorder) (5) Medical clearance for psychiatric admission (6) Mild cognitive disorder CHANTELLE HECTOR MD Oct 20, 2017 20:01
[2017-10-21 06:14] VITALS: BP 173/84
[2017-10-21 07:26] LABS: BASO # 0.1 x10^3/uL (0.0-0.2); BASO % 1 % (0-3); EOS # 0.2 x10^3/uL (0.0-0.7); EOS % 2 % (0-3); HEMATOCRIT 42.4 % (36.0-47.0); HEMOGLOBIN 14.5 g/dL (12.0-15.5); LYMPH # 1.2 x10^3/uL (1.0-4.8); LYMPH % 13 % (24-48); MEAN CORPUSCULAR HEMOGLOBIN 31 pg (25-35); MEAN CORPUSCULAR HGB CONC 34 g/dL (31-37); MEAN CORPUSCULAR VOLUME 92 fL (79-100); MONO # 0.7 x10^3/uL (0.0-1.1); MONO % 7 % (0-9); NEUT # 6.9 x10^3uL (1.8-7.7); NEUT % 76 % (31-73); PLATELET COUNT 282 x10^3/uL (140-400); RED BLOOD COUNT 4.61 x10^6/uL (3.50-5.40); RED CELL DISTRIBUTION WIDTH 13.9 % (11.5-14.5); WHITE BLOOD COUNT 9.1 x10^3/uL (4.0-11.0)
[2017-10-21] MEDS: SUCRALFATE 1 GM/10 ML ORAL.SUSP. PO SCH ×4 (07:37→20:06)
[2017-10-21 07:41] LABS: ALBUMIN 3.7 g/dL (3.4-5.0); ALBUMIN/GLOBULIN RATIO 1.1 (1.0-1.7); CALCIUM 9.2 mg/dL (8.5-10.1); CREATININE 0.9 mg/dL (0.6-1.0); GFR 59.1; MAGNESIUM 1.7 mg/dL (1.8-2.4); TOTAL BILIRUBIN 0.4 mg/dL (0.2-1.0); TOTAL PROTEIN 7.1 g/dL (6.4-8.2)
[2017-10-21] MEDS: ASPIRIN 81 MG TAB.CHEW PO SCH (07:57)
[2017-10-21] MEDS: CALCIUM CARBONATE 500 MG TABLET PO SCH (07:57)
[2017-10-21] MEDS: ACETAMINOPHEN 500 MG TABLET PO SCH ×2 (07:57→20:07)
[2017-10-21] MEDS: DOCUSATE SODIUM 100 MG CAPSULE PO SCH (07:57)
[2017-10-21] MEDS: DULoxetine HCL 20 MG CAPSULE.DR PO SCH (07:57)
[2017-10-21] MEDS: METOPROLOL SUCC 24HR ER 50 MG TAB.ER.24H. PO SCH (07:58)
[2017-10-21] MEDS: CHOLECALCIFEROL (VITAMIN D3) 1,000 UNIT TABLET PO SCH (07:58)
[2017-10-21] MEDS: LOSARTAN 50 MG TABLET. PO SCH (07:59)
[2017-10-21] MEDS: amLODIPine BESYLATE 10 MG TABLET PO SCH (07:59)
[2017-10-21] MEDS ORDERED: POTASSIUM CHLORIDE 20 MEQ TABLET.ER. PO ONE (12:30)
[2017-10-21 16:29] VITALS: BP 136/68
[2017-10-21] MEDS: MAGNESIUM OXIDE 400 MG TABLET PO SCH (16:45)
--- NOTE | 2017-10-21 19:58 | PDOC ---
Exam Note: Aj Note: Please also refer to the separate dictated note~for this date of service dictated separately.~Patient seen individually. Discussed the patient with Nursing staff reviewed the chart.~Reviewed interim history and current functioning. Reviewed vital signs,~Labs/ Radiology~and current medications noted below. Continue current treatment with the changes noted in the dictated addendum note Assessment: Vital Signs: Vital Signs Date Time Temp Pulse Resp B/P (MAP) Pulse Ox O2 Delivery O2 Flow Rate FiO2 10/21/17 16:29 98.1 87 18 136/68 (90) 97 10/15/17 16:41 Room Air I&O Intake and Output 10/21/17 07:00 Intake Total 1140 ml Balance 1140 ml Intake Oral 1140 ml Labs: Laboratory Tests Test 10/21/17 07:11 White Blood Count 9.1 x10^3/uL (4.0-11.0) Red Blood Count 4.61 x10^6/uL (3.50-5.40) Hemoglobin 14.5 g/dL (12.0-15.5) Hematocrit 42.4 % (36.0-47.0) Mean Corpuscular Volume 92 fL (79-100) Mean Corpuscular Hemoglobin 31 pg (25-35) Mean Corpuscular Hemoglobin Concent 34 g/dL (31-37) Red Cell Distribution Width 13.9 % (11.5-14.5) Platelet Count 282 x10^3/uL (140-400) Neutrophils (%) (Auto) 76 % (31-73) H Lymphocytes (%) (Auto) 13 % (24-48) L Monocytes (%) (Auto) 7 % (0-9) Eosinophils (%) (Auto) 2 % (0-3) Basophils (%) (Auto) 1 % (0-3) Neutrophils # (Auto) 6.9 x10^3uL (1.8-7.7) Lymphocytes # (Auto) 1.2 x10^3/uL (1.0-4.8) Monocytes # (Auto) 0.7 x10^3/uL (0.0-1.1) Eosinophils # (Auto) 0.2 x10^3/uL (0.0-0.7) Basophils # (Auto) 0.1 x10^3/uL (0.0-0.2) Sodium Level 141 mmol/L (136-145) Potassium Level 3.0 mmol/L (3.5-5.1) L Chloride Level 103 mmol/L (98-107) Carbon Dioxide Level 30 mmol/L (21-32) Anion Gap 8 (6-14) Blood Urea Nitrogen 18 mg/dL (7-20) Creatinine 0.9 mg/dL (0.6-1.0) Estimated GFR (Cockcroft-Gault) 59.1 BUN/Creatinine Ratio 20 (6-20) Glucose Level 121 mg/dL (70-99) H Calcium Level 9.2 mg/dL (8.5-10.1) Magnesium Level 1.7 mg/dL (1.8-2.4) L Total Bilirubin 0.4 mg/dL (0.2-1.0) Aspartate Amino Transferase (AST) 18 U/L (15-37) Alanine Aminotransferase (ALT) 22 U/L (14-59) Alkaline Phosphatase 60 U/L (46-116) Total Protein 7.1 g/dL (6.4-8.2) Albumin 3.7 g/dL (3.4-5.0) Albumin/Globulin Ratio 1.1 (1.0-1.7) Current Medications: Meds: Current Medications Metoprolol Tartrate (Lopressor Vial) 5 mg 1X ONCE IV Last administered on at 21:21; Start 10/14/17 at 21:15; Stop 10/14/17 at 21:16; Status DC Clonidine HCl (Catapres) 0.1 mg 1X ONCE PO Last administered on 10/14/17at 22:51 ; Start 10/14/17 at 23:00; Stop 10/14/17 at 23:01; Status DC Multi-Ingredient Ointment (Analgesic [place]) 1 tonya PRN QID PRN TP MUSCLE PAIN; Start 10/15/17 at 02:30 Al Hydroxide/Mg Hydroxide (Mylanta Plus Xs) 15 ml PRN AFTMEALHC PRN PO DYSPEPSIA; Start 10/15/17 at 02:30 Clonazepam (KlonoPIN) 0.5 mg PRN DAILY PRN PO ANXIETY / AGITATION; Start at 02:30 Clonazepam (KlonoPIN) 0.5 mg QHS PO Last administered on 3/4/18at 07:38; Start 10/15/17 at 21:00; Stop 10/17/17 at 18:11; Status DC Duloxetine HCl (Cymbalta) 40 mg DAILY PO Last administered on 10/21/17 07:57; Start 10/15/17 at 09:00 Trazodone HCl (Desyrel) 50 mg PRN QHS PRN PO INSOMNIA; Start 10/15/17 at 02:30 Acetaminophen (Tylenol) 1,000 mg BID PO Last administered on 10/21/17 07:57; Start 10/15/17 at 09:00 Acetaminophen (Tylenol) 650 mg PRN Q4HRS PRN PO MILD PAIN / TEMP Last administered on 10/18/17 04:56; Start 10/15/17 at 02:45 Aspirin (Children'S Aspirin) 81 mg DAILY PO Last administered on 10/21/17 07:57 ; Start 10/15/17 at 09:00 Carbamide Peroxide (Debrox) 5 drop WEEKLY AU Last administered on 10/15/17 21: 16; Start 10/15/17 at 21:00 Docusate Sodium (Colace) 100 mg DAILY PO Last administered on 10/21/17 07:57; Start 10/15/17 at 09:00 Loperamide HCl (Imodium) 2 mg PRN Q4HRS PRN PO DIARRHEA; Start 10/15/17 at 02:45 Magnesium Hydroxide (Milk Of Magnesia) 2,400 mg PRN QHS PRN PO CONSTIPATION; Start 10/15/17 at 02:45 Sucralfate (Carafate) 1 gm QIDACHS PO Last administered on 10/21/17 16:45; Start 10/15/17 at 07:30 Atorvastatin Calcium (Lipitor) 40 mg QHS PO Last administered on 10/20/17 19:46 ; Start 10/15/17 at 21:00 Calcium Carbonate/ Glycine (Oscal) 500 mg DAILYWBKFT PO Last administered on 07:57; Start 10/15/17 at 08:00 Guaifenesin (Robitussin Dm) 10 ml PRN Q6HRS PRN PO COUGH; Start 10/15/17 at 02: 45 Lidocaine (Lidoderm) 1 patch PRN DAILY PRN TD CHRONIC PAIN Last administered on 10/20/17at 12:01; Start 10/15/17 at 09:00 Metoprolol Succinate (Toprol Xl) 100 mg DAILY PO ; Start 10/15/17 at 09:00; Stop 10/15/17 at 09:00; Status DC Phenylephrine HCl (Hemorrhoidal) 1 supp PRN Q6HRS PRN [place] RECTAL PAIN; Start 10/15/17 at 02:45 Alendronate Sodium (Fosamax) 70 mg WEEKLYAC PO Last administered on 10/16/17at 05 :44; Start 10/16/17 at 07:00 Losartan Potassium (Cozaar) 100 mg DAILY PO ; Start 10/15/17 at 09:00; Stop at 09:00; Status DC Losartan Potassium (Cozaar) 100 mg DAILY PO Last administered on 10/21/17at 07:59 ; Start 10/15/17 at 05:30 Metoprolol Succinate (Toprol Xl) 100 mg DAILY PO Last administered on 10/21/17at 07:58; Start 10/15/17 at 05:30 Quetiapine Fumarate (SEROquel) 12.5 mg QHS PO Last administered on 10/17/17 19: 19; Start 10/15/17 at 21:00; Stop 10/18/17 at 18:06; Status DC Clonazepam (KlonoPIN) 0.25 mg QHS PO Last administered on 10/19/17at 19:27; Start 10/17/17 at 21:00; Stop 10/19/17 at 21:00; Status DC Mirtazapine (Remeron) 7.5 mg QHS PO Last administered on 10/20/17at 19:46; Start 10/17/17 at 21:00 Vitamin D (Vitamin D3) 2,000 unit DAILY PO Last administered on 10/21/17at 07:58 ; Start 10/19/17 at 09:00 Amlodipine Besylate (Norvasc) 10 mg DAILY PO Last administered on 10/21/17at 07: 59; Start 10/18/17 at 13:30 Clonidine HCl (Catapres) 0.1 mg PRN Q1HR PRN PO HYPERTENSION, SEE COMMENTS; Start 10/18/17 at 13:45 Clonidine HCl (Catapres) 0.1 mg 1X ONCE PO Last administered on 10/18/17at 13:47 ; Start 10/18/17 at 13:45; Stop 10/18/17 at 13:46; Status DC Quetiapine Fumarate (SEROquel) 25 mg QHS PO Last administered on 10/20/17at 19:46 ; Start 10/18/17 at 21:00 Magnesium Oxide (Magnesium Oxide) 400 mg DAILYBFRSUP PO Last administered on 10/21/17at 16:45; Start 10/21/17 at 17:00 Potassium Chloride (Klor-Con) 20 meq BIDACBL PO ; Start 10/22/17 at 07:30 Potassium Chloride (Klor-Con) 40 meq 1X ONCE PO Last administered on 10/21/17at 12:34; Start 10/21/17 at 12:30; Stop 10/21/17 at 12:31; Status DC Active Scripts Active Reported Icy Hot 4%-1% Patch (Lidocaine/Menthol) 1 Each Adh..patch 1 Patch TP PRN DAILY PRN Robitussin Cough-Chest Dm Liq (Guaifenesin/Dextromethorphan) 237 Ml Liquid 10 Ml PO PRN Q4HRS PRN Carbamide Peroxide 15 Ml Drops 5 Drop EACH EAR WEEKLY Carafate (Sucralfate) 1 Gm/10 Ml Oral.susp 1 Gm PO QIDACHS Tylenol Extra Strength (Acetaminophen) 500 Mg Tablet 1,000 Mg PO BID Clonazepam 0.5 Mg Tablet 0.5 Mg PO QHS Preparation H Cream (Phenyleph/Pramoxin/Glycr/W.pet) 26 Gm Cream..g. 1 Tonya RC PRN Q6HRS PRN Colace (Docusate Sodium) 100 Mg Capsule 100 Mg PO DAILY Imodium A-D (Loperamide HCl) 2 Mg Capsule 2 Mg PO PRN Q4HRS PRN Milk Of Magnesia (Magnesium Hydroxide) 400 Mg/5 Ml Oral.susp 2,400 Mg PO PRN QHS PRN Calcium Carbonate 600 Mg Tablet 600 Mg PO DAILY Trazodone Hcl 50 Mg Tablet 50 Mg PO PRN QHS PRN Cymbalta (Duloxetine Hcl) 20 Mg Capsule.dr 40 Mg PO DAILY Tylenol (Acetaminophen) 325 Mg Tablet 650 Mg PO PRN Q4HRS PRN Diovan (Valsartan) 320 Mg Tablet 320 Mg PO DAILY Actonel (Risedronate Sodium) 35 Mg Tablet 35 Mg PO WEEKLY Metoprolol Succinate ( Xl ) (Metoprolol Succinate) 100 Mg Tab.er.24h 100 Mg PO DAILY Clonazepam 0.5 Mg Tablet 0.5 Mg PO PRN DAILY PRN Atorvastatin Calcium 40 Mg Tablet 40 Mg PO QHS Aspirin 81 Mg Tab.chew 81 Mg PO DAILY I have reviewed the current psychotropics carefully including drug interactions. Risk benefit ratio favors no change other than as noted in my dictated progress note. Diagnosis: Problems: (1) LISSET (generalized anxiety disorder) (2) Hypertensive urgency (3) MDD (major depressive disorder) (4) Medical clearance for psychiatric admission (5) Mild cognitive disorder CHANTELLE HECTOR MD Oct 21, 2017 19:58
[2017-10-21] MEDS: MIRTAZAPINE 7.5 MG TABLET. PO SCH (20:07)
[2017-10-21] MEDS: QUEtiapine 25 MG TABLET. PO SCH (20:07)
[2017-10-21] MEDS: ATORVASTATIN CALCIUM 20 MG TABLET PO SCH (20:07)
[2017-10-22] MEDS: ACETAMINOPHEN 325 MG TABLET PO PRN (05:46)
[2017-10-22 07:09] VITALS: BP 190/88
[2017-10-22] MEDS: POTASSIUM CHLORIDE 20 MEQ TABLET.ER. PO SCH ×2 (07:57→12:19)
[2017-10-22] MEDS: SUCRALFATE 1 GM/10 ML ORAL.SUSP. PO SCH ×4 (07:57→19:24)
[2017-10-22] MEDS: CALCIUM CARBONATE 500 MG TABLET PO SCH (08:24)
[2017-10-22] MEDS: DULoxetine HCL 20 MG CAPSULE.DR PO SCH (08:24)
[2017-10-22] MEDS: DOCUSATE SODIUM 100 MG CAPSULE PO SCH (08:24)
[2017-10-22] MEDS: ACETAMINOPHEN 500 MG TABLET PO SCH ×2 (08:25→19:25)
[2017-10-22] MEDS: CHOLECALCIFEROL (VITAMIN D3) 1,000 UNIT TABLET PO SCH (08:25)
[2017-10-22] MEDS: ASPIRIN 81 MG TAB.CHEW PO SCH (08:25)
[2017-10-22] MEDS: amLODIPine BESYLATE 10 MG TABLET PO SCH (08:26)
[2017-10-22] MEDS: LOSARTAN 50 MG TABLET. PO SCH (08:26)
[2017-10-22] MEDS: METOPROLOL SUCC 24HR ER 50 MG TAB.ER.24H. PO SCH (08:26)
[2017-10-22] MEDS: CARBAMIDE PEROXIDE 6.5% OTIC SOLUTION 15ML BOTTLE. AU SCH ×2 (08:42→09:00)
[2017-10-22 16:25] VITALS: BP 130/69
[2017-10-22] MEDS: MAGNESIUM OXIDE 400 MG TABLET PO SCH (16:45)
[2017-10-22] MEDS: MIRTAZAPINE 7.5 MG TABLET. PO SCH (19:24)
[2017-10-22] MEDS: ATORVASTATIN CALCIUM 20 MG TABLET PO SCH (19:24)
[2017-10-22] MEDS: QUEtiapine 50 MG TABLET. PO SCH (19:30)
--- NOTE | 2017-10-22 21:13 | PDOC ---
Exam Note: Aj Note: Please also refer to the separate dictated note~for this date of service dictated separately.~Patient seen individually. Discussed the patient with Nursing staff reviewed the chart.~Reviewed interim history and current functioning. Reviewed vital signs,~Labs/ Radiology~and current medications noted below. Continue current treatment with the changes noted in the dictated addendum note Assessment: Vital Signs: Vital Signs Date Time Temp Pulse Resp B/P (MAP) Pulse Ox O2 Delivery O2 Flow Rate FiO2 10/22/17 16:25 97.6 94 20 130/69 (89) 97 Room Air I&O Intake and Output 10/22/17 07:00 Intake Total 960 ml Balance 960 ml Intake Oral 960 ml Current Medications: Meds: Current Medications Metoprolol Tartrate (Lopressor Vial) 5 mg 1X ONCE IV Last administered on at 21:21; Start 10/14/17 at 21:15; Stop 10/14/17 at 21:16; Status DC Clonidine HCl (Catapres) 0.1 mg 1X ONCE PO Last administered on 10/14/17at 22:51 ; Start 10/14/17 at 23:00; Stop 10/14/17 at 23:01; Status DC Multi-Ingredient Ointment (Analgesic [place]) 1 tonya PRN QID PRN TP MUSCLE PAIN; Start 10/15/17 at 02:30 Al Hydroxide/Mg Hydroxide (Mylanta Plus Xs) 15 ml PRN AFTMEALHC PRN PO DYSPEPSIA; Start 10/15/17 at 02:30 Clonazepam (KlonoPIN) 0.5 mg PRN DAILY PRN PO ANXIETY / AGITATION; Start at 02:30 Clonazepam (KlonoPIN) 0.5 mg QHS PO Last administered on 10/16/17at 07:38; Start 10/15/17 at 21:00; Stop 10/17/17 at 18:11; Status DC Duloxetine HCl (Cymbalta) 40 mg DAILY PO Last administered on 10/22/17at 08:24; Start 10/15/17 at 09:00 Trazodone HCl (Desyrel) 50 mg PRN QHS PRN PO INSOMNIA; Start 10/15/17 at 02:30 Acetaminophen (Tylenol) 1,000 mg BID PO Last administered on 10/22/17at 19:25; Start 10/15/17 at 09:00 Acetaminophen (Tylenol) 650 mg PRN Q4HRS PRN PO MILD PAIN / TEMP Last administered on 10/22/17 05:46; Start 10/15/17 at 02:45 Aspirin (Children'S Aspirin) 81 mg DAILY PO Last administered on 10/22/17 08: 25; Start 10/15/17 at 09:00 Carbamide Peroxide (Debrox) 5 drop WEEKLY AU Last administered on 10/15/17at 21: 16; Start 10/15/17 at 21:00 Docusate Sodium (Colace) 100 mg DAILY PO Last administered on 10/22/17 08:24; Start 10/15/17 at 09:00 Loperamide HCl (Imodium) 2 mg PRN Q4HRS PRN PO DIARRHEA; Start 10/15/17 at 02:45 Magnesium Hydroxide (Milk Of Magnesia) 2,400 mg PRN QHS PRN PO CONSTIPATION; Start 10/15/17 at 02:45 Sucralfate (Carafate) 1 gm QIDACHS PO Last administered on 10/22/17 19:24; Start 10/15/17 at 07:30 Atorvastatin Calcium (Lipitor) 40 mg QHS PO Last administered on 10/22/17 19: 24; Start 10/15/17 at 21:00 Calcium Carbonate/ Glycine (Oscal) 500 mg DAILYWBKFT PO Last administered on 08:24; Start 10/15/17 at 08:00 Guaifenesin (Robitussin Dm) 10 ml PRN Q6HRS PRN PO COUGH; Start 10/15/17 at 02: 45 Lidocaine (Lidoderm) 1 patch PRN DAILY PRN TD CHRONIC PAIN Last administered on 10/20/17 12:01; Start 10/15/17 at 09:00 Metoprolol Succinate (Toprol Xl) 100 mg DAILY PO ; Start 10/15/17 at 09:00; Stop 10/15/17 at 09:00; Status DC Phenylephrine HCl (Hemorrhoidal) 1 supp PRN Q6HRS PRN WI RECTAL PAIN; Start 10/15/17 at 02:45 Alendronate Sodium (Fosamax) 70 mg WEEKLYAC PO Last administered on 10/16/17at 05 :44; Start 10/16/17 at 07:00 Losartan Potassium (Cozaar) 100 mg DAILY PO ; Start 10/15/17 at 09:00; Stop at 09:00; Status DC Losartan Potassium (Cozaar) 100 mg DAILY PO Last administered on 10/22/17 08: 26; Start 10/15/17 at 05:30 Metoprolol Succinate (Toprol Xl) 100 mg DAILY PO Last administered on 08:26; Start 10/15/17 at 05:30 Quetiapine Fumarate (SEROquel) 12.5 mg QHS PO Last administered on 10/17/17 19: 19; Start 10/15/17 at 21:00; Stop 10/18/17 at 18:06; Status DC Clonazepam (KlonoPIN) 0.25 mg QHS PO Last administered on 10/19/17 19:27; Start 10/17/17 at 21:00; Stop 10/19/17 at 21:00; Status DC Mirtazapine (Remeron) 7.5 mg QHS PO Last administered on 10/22/17 19:24; Start 10/17/17 at 21:00 Vitamin D (Vitamin D3) 2,000 unit DAILY PO Last administered on 10/22/17 08:25 ; Start 10/19/17 at 09:00 Amlodipine Besylate (Norvasc) 10 mg DAILY PO Last administered on 10/22/17 08: 26; Start 10/18/17 at 13:30 Clonidine HCl (Catapres) 0.1 mg PRN Q1HR PRN PO HYPERTENSION, SEE COMMENTS; Start 10/18/17 at 13:45 Clonidine HCl (Catapres) 0.1 mg 1X ONCE PO Last administered on 10/18/17at 13:47 ; Start 10/18/17 at 13:45; Stop 10/18/17 at 13:46; Status DC Quetiapine Fumarate (SEROquel) 25 mg QHS PO Last administered on 10/21/17at 20:07 ; Start 10/18/17 at 21:00; Stop 10/22/17 at 16:39; Status DC Magnesium Oxide (Magnesium Oxide) 400 mg DAILYBFRSUP PO Last administered on 06/01at 16:45; Start 10/21/17 at 17:00 Potassium Chloride (Klor-Con) 20 meq BIDACBL PO Last administered on 10/22/17at 12:19; Start 10/22/17 at 07:30 Potassium Chloride (Klor-Con) 40 meq 1X ONCE PO Last administered on 10/21/17at 12:34; Start 10/21/17 at 12:30; Stop 10/21/17 at 12:31; Status DC Quetiapine Fumarate (SEROquel) 50 mg QHS PO Last administered on 10/22/17at 19: 30; Start 10/22/17 at 21:00 Active Scripts Active Reported Icy Hot 4%-1% Patch (Lidocaine/Menthol) 1 Each Adh..patch 1 Patch TP PRN DAILY PRN Robitussin Cough-Chest Dm Liq (Guaifenesin/Dextromethorphan) 237 Ml Liquid 10 Ml PO PRN Q4HRS PRN Carbamide Peroxide 15 Ml Drops 5 Drop EACH EAR WEEKLY Carafate (Sucralfate) 1 Gm/10 Ml Oral.susp 1 Gm PO QIDACHS Tylenol Extra Strength (Acetaminophen) 500 Mg Tablet 1,000 Mg PO BID Clonazepam 0.5 Mg Tablet 0.5 Mg PO QHS Preparation H Cream (Phenyleph/Pramoxin/Glycr/W.pet) 26 Gm Cream..g. 1 Tonya RC PRN Q6HRS PRN Colace (Docusate Sodium) 100 Mg Capsule 100 Mg PO DAILY Imodium A-D (Loperamide HCl) 2 Mg Capsule 2 Mg PO PRN Q4HRS PRN Milk Of Magnesia (Magnesium Hydroxide) 400 Mg/5 Ml Oral.susp 2,400 Mg PO PRN QHS PRN Calcium Carbonate 600 Mg Tablet 600 Mg PO DAILY Trazodone Hcl 50 Mg Tablet 50 Mg PO PRN QHS PRN Cymbalta (Duloxetine Hcl) 20 Mg Capsule.dr 40 Mg PO DAILY Tylenol (Acetaminophen) 325 Mg Tablet 650 Mg PO PRN Q4HRS PRN Diovan (Valsartan) 320 Mg Tablet 320 Mg PO DAILY Actonel (Risedronate Sodium) 35 Mg Tablet 35 Mg PO WEEKLY Metoprolol Succinate ( Xl ) (Metoprolol Succinate) 100 Mg Tab.er.24h 100 Mg PO DAILY Clonazepam 0.5 Mg Tablet 0.5 Mg PO PRN DAILY PRN Atorvastatin Calcium 40 Mg Tablet 40 Mg PO QHS Aspirin 81 Mg Tab.chew 81 Mg PO DAILY I have reviewed the current psychotropics carefully including drug interactions. Risk benefit ratio favors no change other than as noted in my dictated progress note. Diagnosis: Problems: (1) Delirium (2) LISSET (generalized anxiety disorder) (3) Hypertensive urgency (4) MDD (major depressive disorder) (5) Medical clearance for psychiatric admission (6) Mild cognitive disorder CHANTELLE HECTOR MD Oct 22, 2017 21:13
[2017-10-23] MEDS: LIDOCAINE (700MG/PATCH) PATCH. TD PRN (03:58)
[2017-10-23 06:26] VITALS: BP 181/65
[2017-10-23] MEDS: ALENDRONATE SODIUM 35 MG TABLET PO SCH (07:00)
[2017-10-23] MEDS: CALCIUM CARBONATE 500 MG TABLET PO SCH (08:20)
[2017-10-23] MEDS: ASPIRIN 81 MG TAB.CHEW PO SCH (08:20)
[2017-10-23] MEDS: SUCRALFATE 1 GM/10 ML ORAL.SUSP. PO SCH ×4 (08:20→19:40)
[2017-10-23] MEDS: POTASSIUM CHLORIDE 20 MEQ TABLET.ER. PO SCH ×2 (08:20→12:39)
[2017-10-23] MEDS: DOCUSATE SODIUM 100 MG CAPSULE PO SCH (08:20)
[2017-10-23] MEDS: CHOLECALCIFEROL (VITAMIN D3) 1,000 UNIT TABLET PO SCH (08:21)
[2017-10-23] MEDS: METOPROLOL SUCC 24HR ER 50 MG TAB.ER.24H. PO SCH (08:21)
[2017-10-23] MEDS: DULoxetine HCL 20 MG CAPSULE.DR PO SCH (08:21)
[2017-10-23] MEDS: ACETAMINOPHEN 500 MG TABLET PO SCH ×2 (08:21→19:40)
[2017-10-23] MEDS: amLODIPine BESYLATE 10 MG TABLET PO SCH (08:22)
[2017-10-23] MEDS: LOSARTAN 50 MG TABLET. PO SCH (08:22)
--- NOTE | 2017-10-23 14:41 | PN ---
DATE: 10/21/2017 This late entry 10/21/2017 covers elements not covered in my initial note 10/21/2017. Met with the patient evening of 10/21/2017. The patient slept 4-1/4 hours previous evening, spitting her medications at night, paranoid, suspicious, believes staff is trying to kill her. Got out of bed at 2:00 a.m., did receive trazodone to help with insomnia. REVIEW OF SYSTEMS: Hard of hearing, had to talk loudly into her ear. No CV, , pulmonary, eye system symptoms on review. Gait unsteady. MENTAL STATUS EXAM: Oriented to herself, pleasant, smiling, unaware of the year. Speech moderate latency, often responses monosyllabic. Abstraction fair, computation impaired, language function intact. Mood and affect somewhat withdrawn. IMPRESSION: Major depressive disorder with psychotic features; major neurocognitive disorder, Alzheimer, vascular with delusion, depression. PLAN: Continue psychotropics mentioned in my initial note, Cymbalta along with Seroquel, which was adjusted. Klonopin is being tapered. Remeron for insomnia, anxiety. MAN Val HECTOR MD DR: CONOR/valente JOB#: [id number] / [id number]
[2017-10-23 16:20] VITALS: BP 170/76
[2017-10-23] MEDS: MAGNESIUM OXIDE 400 MG TABLET PO SCH (17:26)
[2017-10-23] MEDS: ACETAMINOPHEN 325 MG TABLET PO PRN (17:27)
--- NOTE | 2017-10-23 19:23 | PN ---
DATE: 10/22/2017 This is a late entry for 10/22/2017 and covers the elements not covered in my initial note of 10/22/2017. SUBJECTIVE: I met with the patient in the evening of 10/22/2017. Discussed with Dr. Gonzales, Neurology consult with no acute changes to account for her cognitive decline, which seems to be part of her progressive dementia. Family shared with us that their conversation with the patient as indicated, she is still quite delusional, paranoid, believes there are gangs on the unit, is suspicious, afraid of dying. REVIEW OF SYSTEMS: Hard of hearing. Impaired ambulation. No CV, , pulmonary, eye system symptoms on review. MENTAL STATUS EXAM: Oriented to herself and situation. Speech moderate latency, often responses monosyllabic. Abstraction fair, computation impaired, language function intact, attention span short. Mood and affect withdrawn. IMPRESSION: Unchanged from initial note. PLAN: Continue current psychotropics, increase Seroquel from 25 mg at bedtime to 50 mg at bedtime. Rest unchanged. MAN Val HECTOR MD DR: CONOR/valente JOB#: [id number] / [id number]
[2017-10-23] MEDS: MIRTAZAPINE 7.5 MG TABLET. PO SCH (19:40)
[2017-10-23] MEDS: QUEtiapine 50 MG TABLET. PO SCH (19:40)
[2017-10-23] MEDS: ATORVASTATIN CALCIUM 20 MG TABLET PO SCH (19:41)
--- NOTE | 2017-10-23 21:09 | PDOC ---
Exam Note: Aj Note: Please also refer to the separate dictated note~for this date of service dictated separately.~Patient seen individually. Discussed the patient with Nursing staff reviewed the chart.~Reviewed interim history and current functioning. Reviewed vital signs,~Labs/ Radiology~and current medications noted below. Continue current treatment with the changes noted in the dictated addendum note Assessment: Vital Signs: Vital Signs Date Time Temp Pulse Resp B/P (MAP) Pulse Ox O2 Delivery O2 Flow Rate FiO2 10/23/17 16:20 97.4 70 20 170/76 (107) 96 10/22/17 16:25 Room Air I&O Intake and Output 10/23/17 07:00 Intake Total 560 ml Balance 560 ml Intake Oral 560 ml Current Medications: Meds: Current Medications Metoprolol Tartrate (Lopressor Vial) 5 mg 1X ONCE IV Last administered on at 21:21; Start 10/14/17 at 21:15; Stop 10/14/17 at 21:16; Status DC Clonidine HCl (Catapres) 0.1 mg 1X ONCE PO Last administered on 10/14/17at 22:51 ; Start 10/14/17 at 23:00; Stop 10/14/17 at 23:01; Status DC Multi-Ingredient Ointment (Analgesic [place]) 1 tonya PRN QID PRN TP MUSCLE PAIN; Start 10/15/17 at 02:30 Al Hydroxide/Mg Hydroxide (Mylanta Plus Xs) 15 ml PRN AFTMEALHC PRN PO DYSPEPSIA; Start 10/15/17 at 02:30 Clonazepam (KlonoPIN) 0.5 mg PRN DAILY PRN PO ANXIETY / AGITATION; Start at 02:30 Clonazepam (KlonoPIN) 0.5 mg QHS PO Last administered on 10/16/17at 07:38; Start 10/15/17 at 21:00; Stop 10/17/17 at 18:11; Status DC Duloxetine HCl (Cymbalta) 40 mg DAILY PO Last administered on 10/23/17at 08:21; Start 10/15/17 at 09:00 Trazodone HCl (Desyrel) 50 mg PRN QHS PRN PO INSOMNIA; Start 10/15/17 at 02:30 Acetaminophen (Tylenol) 1,000 mg BID PO Last administered on 10/23/17 19:40; Start 10/15/17 at 09:00 Acetaminophen (Tylenol) 650 mg PRN Q4HRS PRN PO MILD PAIN / TEMP Last administered on 10/23/17 17:27; Start 10/15/17 at 02:45 Aspirin (Children'S Aspirin) 81 mg DAILY PO Last administered on 10/23/17 08: 20; Start 10/15/17 at 09:00 Carbamide Peroxide (Debrox) 5 drop WEEKLY AU Last administered on 10/15/17 21: 16; Start 10/15/17 at 21:00 Docusate Sodium (Colace) 100 mg DAILY PO Last administered on 10/23/17 08:20; Start 10/15/17 at 09:00 Loperamide HCl (Imodium) 2 mg PRN Q4HRS PRN PO DIARRHEA; Start 10/15/17 at 02:45 Magnesium Hydroxide (Milk Of Magnesia) 2,400 mg PRN QHS PRN PO CONSTIPATION; Start 10/15/17 at 02:45 Sucralfate (Carafate) 1 gm QIDACHS PO Last administered on 10/23/17 19:40; Start 10/15/17 at 07:30 Atorvastatin Calcium (Lipitor) 40 mg QHS PO Last administered on 10/23/17 19: 41; Start 10/15/17 at 21:00 Calcium Carbonate/ Glycine (Oscal) 500 mg DAILYWBKFT PO Last administered on 08:20; Start 10/15/17 at 08:00 Guaifenesin (Robitussin Dm) 10 ml PRN Q6HRS PRN PO COUGH; Start 10/15/17 at 02: 45 Lidocaine (Lidoderm) 1 patch PRN DAILY PRN TD CHRONIC PAIN Last administered on 10/23/17 03:58; Start 10/15/17 at 09:00 Metoprolol Succinate (Toprol Xl) 100 mg DAILY PO ; Start 10/15/17 at 09:00; Stop 10/15/17 at 09:00; Status DC Phenylephrine HCl (Hemorrhoidal) 1 supp PRN Q6HRS PRN [place] RECTAL PAIN; Start 10/15/17 at 02:45 Alendronate Sodium (Fosamax) 70 mg WEEKLYAC PO Last administered on 3/4/18at 05 :44; Start 10/16/17 at 07:00; Stop 10/23/17 at 15:50; Status DC Losartan Potassium (Cozaar) 100 mg DAILY PO ; Start 10/15/17 at 09:00; Stop at 09:00; Status DC Losartan Potassium (Cozaar) 100 mg DAILY PO Last administered on 10/23/17at 08: 22; Start 10/15/17 at 05:30 Metoprolol Succinate (Toprol Xl) 100 mg DAILY PO Last administered on at 08:21; Start 10/15/17 at 05:30 Quetiapine Fumarate (SEROquel) 12.5 mg QHS PO Last administered on 10/17/17 19: 19; Start 10/15/17 at 21:00; Stop 10/18/17 at 18:06; Status DC Clonazepam (KlonoPIN) 0.25 mg QHS PO Last administered on 10/19/17at 19:27; Start 10/17/17 at 21:00; Stop 10/19/17 at 21:00; Status DC Mirtazapine (Remeron) 7.5 mg QHS PO Last administered on 10/23/17at 19:40; Start 10/17/17 at 21:00 Vitamin D (Vitamin D3) 2,000 unit DAILY PO Last administered on 10/23/17at 08:21 ; Start 10/19/17 at 09:00 Amlodipine Besylate (Norvasc) 10 mg DAILY PO Last administered on 10/23/17at 08: 22; Start 10/18/17 at 13:30 Clonidine HCl (Catapres) 0.1 mg PRN Q1HR PRN PO HYPERTENSION, SEE COMMENTS; Start 10/18/17 at 13:45 Clonidine HCl (Catapres) 0.1 mg 1X ONCE PO Last administered on 10/18/17at 13:47 ; Start 10/18/17 at 13:45; Stop 10/18/17 at 13:46; Status DC Quetiapine Fumarate (SEROquel) 25 mg QHS PO Last administered on 10/21/17at 20:07 ; Start 10/18/17 at 21:00; Stop 10/22/17 at 16:39; Status DC Magnesium Oxide (Magnesium Oxide) 400 mg DAILYBFRSUP PO Last administered on 07/02at 17:26; Start 10/21/17 at 17:00 Potassium Chloride (Klor-Con) 20 meq BIDACBL PO Last administered on 10/23/17at 12:39; Start 10/22/17 at 07:30 Potassium Chloride (Klor-Con) 40 meq 1X ONCE PO Last administered on 10/21/17at 12:34; Start 10/21/17 at 12:30; Stop 10/21/17 at 12:31; Status DC Quetiapine Fumarate (SEROquel) 50 mg QHS PO Last administered on 10/23/17at 19: 40; Start 10/22/17 at 21:00 Alendronate Sodium (Fosamax) 70 mg WEEKLYAC PO ; Start 10/25/17 at 07:00 Active Scripts Active Reported Icy Hot 4%-1% Patch (Lidocaine/Menthol) 1 Each Adh..patch 1 Patch TP PRN DAILY PRN Robitussin Cough-Chest Dm Liq (Guaifenesin/Dextromethorphan) 237 Ml Liquid 10 Ml PO PRN Q4HRS PRN Carbamide Peroxide 15 Ml Drops 5 Drop EACH EAR WEEKLY Carafate (Sucralfate) 1 Gm/10 Ml Oral.susp 1 Gm PO QIDACHS Tylenol Extra Strength (Acetaminophen) 500 Mg Tablet 1,000 Mg PO BID Clonazepam 0.5 Mg Tablet 0.5 Mg PO QHS Preparation H Cream (Phenyleph/Pramoxin/Glycr/W.pet) 26 Gm Cream..g. 1 Tonya RC PRN Q6HRS PRN Colace (Docusate Sodium) 100 Mg Capsule 100 Mg PO DAILY Imodium A-D (Loperamide HCl) 2 Mg Capsule 2 Mg PO PRN Q4HRS PRN Milk Of Magnesia (Magnesium Hydroxide) 400 Mg/5 Ml Oral.susp 2,400 Mg PO PRN QHS PRN Calcium Carbonate 600 Mg Tablet 600 Mg PO DAILY Trazodone Hcl 50 Mg Tablet 50 Mg PO PRN QHS PRN Cymbalta (Duloxetine Hcl) 20 Mg Capsule.dr 40 Mg PO DAILY Tylenol (Acetaminophen) 325 Mg Tablet 650 Mg PO PRN Q4HRS PRN Diovan (Valsartan) 320 Mg Tablet 320 Mg PO DAILY Actonel (Risedronate Sodium) 35 Mg Tablet 35 Mg PO WEEKLY Metoprolol Succinate ( Xl ) (Metoprolol Succinate) 100 Mg Tab.er.24h 100 Mg PO DAILY Clonazepam 0.5 Mg Tablet 0.5 Mg PO PRN DAILY PRN Atorvastatin Calcium 40 Mg Tablet 40 Mg PO QHS Aspirin 81 Mg Tab.chew 81 Mg PO DAILY I have reviewed the current psychotropics carefully including drug interactions. Risk benefit ratio favors no change other than as noted in my dictated progress note. Diagnosis: Problems: (1) Delirium (2) LISSET (generalized anxiety disorder) (3) Hypertensive urgency (4) MDD (major depressive disorder) (5) Medical clearance for psychiatric admission (6) Mild cognitive disorder CHANTELLE HECTOR MD Oct 23, 2017 21:09
--- NOTE | 2017-10-24 02:13 | PN ---
DATE: 10/19/2017 This is a late entry, 10/19/2017, covers the elements not covered in my initial note, 10/19/2017. SUBJECTIVE: I met with the patient evening of 10/19/2017. I met with her son as well who was visiting her. She slept 7-1/2 hours the previous evening, compliant with medications, did well the previous night, confused, felt the year was 1770, as I asked her, refused dinner, but drank some Boost. REVIEW OF SYSTEMS: Hard of hearing, impaired ambulation with walker. No CV, , pulmonary, eye system symptoms on review. Reliability poor. MENTAL STATUS EXAM: Oriented to herself and situation. Speech moderate latency, often responses monosyllabic. Abstraction fair, computation impaired, language function intact, attention span short. Mood and affect withdrawn, anxious, at times labile. LABORATORY DATA: Reviewed. IMPRESSION: Major neurocognitive disorder, Alzheimer, vascular with delusion, major depressive disorder with psychotic features. PLAN: Continue current psychotropics as mentioned in my initial note, Klonopin is being tapered. We may need to increase the Seroquel. MAN Val HECTOR MD DR: CONOR/valente JOB#: [id number] / [id number]
[2017-10-24 05:57] VITALS: BP 151/66
--- NOTE | 2017-10-24 09:33 | PN ---
DATE: 10/20/2017 This is a late entry, 10/20/2017, covers the elements not covered in my initial note, 10/20/2017. SUBJECTIVE: I met with the patient in the evening of 10/20/2017, staffed at a treatment team meeting with the entire team morning of 10/20/2017, with the patient's daughter, Mara attending. Reviewed the patient's history, progress, level of confusion. Neurology consult has been requested with Dr. Gonzales, sleeping about 6-3/4 hours. Appetite 70%. REVIEW OF SYSTEMS: Hard of hearing. Ambulation with a walker. No CV, , pulmonary, eye system symptoms on review, somewhat withdrawn, compliant with meds, minimal participation, unable to participate with completing slums. Hard of hearing, impaired ambulation with a walker. MENTAL STATUS EXAM: Oriented to herself and situation. Speech moderate latency, often responses monosyllabic. Abstraction fair, computation impaired, language function intact. Mood and affect withdrawn. LABORATORY DATA: Reviewed. IMPRESSION: Major depressive disorder with psychotic features; major neurocognitive disorder, Alzheimer, vascular with delusion, depression. PLAN: Continue psychotropics as mentioned in my initial note, adjust as indicated. CHANTELLE HECTOR MD DR: CONRO/valente JOB#: [id number] / [id number]
[2017-10-24] MEDS: CHOLECALCIFEROL (VITAMIN D3) 1,000 UNIT TABLET PO SCH (09:57)
[2017-10-24] MEDS: amLODIPine BESYLATE 10 MG TABLET PO SCH (09:57)
[2017-10-24] MEDS: ACETAMINOPHEN 500 MG TABLET PO SCH ×3 (09:57→20:19)
[2017-10-24] MEDS: POTASSIUM CHLORIDE 20 MEQ TABLET.ER. PO SCH ×2 (09:58→11:51)
[2017-10-24] MEDS: SUCRALFATE 1 GM/10 ML ORAL.SUSP. PO SCH ×4 (09:58→20:19)
[2017-10-24] MEDS: METOPROLOL SUCC 24HR ER 50 MG TAB.ER.24H. PO SCH (09:58)
[2017-10-24] MEDS: DULoxetine HCL 20 MG CAPSULE.DR PO SCH (09:58)
[2017-10-24] MEDS: LOSARTAN 50 MG TABLET. PO SCH (09:59)
[2017-10-24] MEDS: DOCUSATE SODIUM 100 MG CAPSULE PO SCH (09:59)
[2017-10-24] MEDS: ASPIRIN 81 MG TAB.CHEW PO SCH (09:59)
[2017-10-24] MEDS: CALCIUM CARBONATE 500 MG TABLET PO SCH (09:59)
[2017-10-24 16:09] VITALS: BP 133/70
[2017-10-24] MEDS: MAGNESIUM OXIDE 400 MG TABLET PO SCH (17:27)
[2017-10-24] MEDS: ATORVASTATIN CALCIUM 20 MG TABLET PO SCH (20:19)
[2017-10-24] MEDS: QUEtiapine 50 MG TABLET. PO SCH (20:19)
[2017-10-24] MEDS: MIRTAZAPINE 7.5 MG TABLET. PO SCH (20:19)
--- NOTE | 2017-10-24 20:33 | PDOC ---
Exam Note: Aj Note: Please also refer to the separate dictated note~for this date of service dictated separately.~Patient seen individually. Discussed the patient with Nursing staff reviewed the chart.~Reviewed interim history and current functioning. Reviewed vital signs,~Labs/ Radiology~and current medications noted below. Continue current treatment with the changes noted in the dictated addendum note Assessment: Vital Signs: Vital Signs Date Time Temp Pulse Resp B/P (MAP) Pulse Ox O2 Delivery O2 Flow Rate FiO2 10/24/17 16:09 98.6 73 16 133/70 (91) 96 10/22/17 16:25 Room Air I&O Intake and Output 10/24/17 07:00 Intake Total 960 ml Balance 960 ml Intake Oral 960 ml Current Medications: Meds: Current Medications Metoprolol Tartrate (Lopressor Vial) 5 mg 1X ONCE IV Last administered on at 21:21; Start 10/14/17 at 21:15; Stop 10/14/17 at 21:16; Status DC Clonidine HCl (Catapres) 0.1 mg 1X ONCE PO Last administered on 10/14/17at 22:51 ; Start 10/14/17 at 23:00; Stop 10/14/17 at 23:01; Status DC Multi-Ingredient Ointment (Analgesic [place]) 1 tonya PRN QID PRN TP MUSCLE PAIN; Start 10/15/17 at 02:30 Al Hydroxide/Mg Hydroxide (Mylanta Plus Xs) 15 ml PRN AFTMEALHC PRN PO DYSPEPSIA; Start 10/15/17 at 02:30 Clonazepam (KlonoPIN) 0.5 mg PRN DAILY PRN PO ANXIETY / AGITATION; Start at 02:30 Clonazepam (KlonoPIN) 0.5 mg QHS PO Last administered on 10/16/17at 07:38; Start 10/15/17 at 21:00; Stop 10/17/17 at 18:11; Status DC Duloxetine HCl (Cymbalta) 40 mg DAILY PO Last administered on 10/24/17at 09:58; Start 10/15/17 at 09:00 Trazodone HCl (Desyrel) 50 mg PRN QHS PRN PO INSOMNIA; Start 10/15/17 at 02:30 Acetaminophen (Tylenol) 1,000 mg BID PO Last administered on 10/24/17 20:19; Start 10/15/17 at 09:00 Acetaminophen (Tylenol) 650 mg PRN Q4HRS PRN PO MILD PAIN / TEMP Last administered on 10/23/17 17:27; Start 10/15/17 at 02:45 Aspirin (Children'S Aspirin) 81 mg DAILY PO Last administered on 10/24/17 09: 59; Start 10/15/17 at 09:00 Carbamide Peroxide (Debrox) 5 drop WEEKLY AU Last administered on 10/15/17 21: 16; Start 10/15/17 at 21:00 Docusate Sodium (Colace) 100 mg DAILY PO Last administered on 10/24/17 09:59; Start 10/15/17 at 09:00 Loperamide HCl (Imodium) 2 mg PRN Q4HRS PRN PO DIARRHEA; Start 10/15/17 at 02:45 Magnesium Hydroxide (Milk Of Magnesia) 2,400 mg PRN QHS PRN PO CONSTIPATION; Start 10/15/17 at 02:45 Sucralfate (Carafate) 1 gm QIDACHS PO Last administered on 10/24/17 20:19; Start 10/15/17 at 07:30 Atorvastatin Calcium (Lipitor) 40 mg QHS PO Last administered on 10/24/17 20: 19; Start 10/15/17 at 21:00 Calcium Carbonate/ Glycine (Oscal) 500 mg DAILYWBKFT PO Last administered on 09:59; Start 10/15/17 at 08:00 Guaifenesin (Robitussin Dm) 10 ml PRN Q6HRS PRN PO COUGH; Start 10/15/17 at 02: 45 Lidocaine (Lidoderm) 1 patch PRN DAILY PRN TD CHRONIC PAIN Last administered on 10/23/17 03:58; Start 10/15/17 at 09:00 Metoprolol Succinate (Toprol Xl) 100 mg DAILY PO ; Start 10/15/17 at 09:00; Stop 10/15/17 at 09:00; Status DC Phenylephrine HCl (Hemorrhoidal) 1 supp PRN Q6HRS PRN [place] RECTAL PAIN; Start 10/15/17 at 02:45 Alendronate Sodium (Fosamax) 70 mg WEEKLYAC PO Last administered on 3/4/18at 05 :44; Start 10/16/17 at 07:00; Stop 10/23/17 at 15:50; Status DC Losartan Potassium (Cozaar) 100 mg DAILY PO ; Start 10/15/17 at 09:00; Stop at 09:00; Status DC Losartan Potassium (Cozaar) 100 mg DAILY PO Last administered on 10/24/17at 09: 59; Start 10/15/17 at 05:30 Metoprolol Succinate (Toprol Xl) 100 mg DAILY PO Last administered on at 09:58; Start 10/15/17 at 05:30 Quetiapine Fumarate (SEROquel) 12.5 mg QHS PO Last administered on 10/17/17at 19: 19; Start 10/15/17 at 21:00; Stop 10/18/17 at 18:06; Status DC Clonazepam (KlonoPIN) 0.25 mg QHS PO Last administered on 10/19/17at 19:27; Start 10/17/17 at 21:00; Stop 10/19/17 at 21:00; Status DC Mirtazapine (Remeron) 7.5 mg QHS PO Last administered on 10/24/17 20:19; Start 10/17/17 at 21:00 Vitamin D (Vitamin D3) 2,000 unit DAILY PO Last administered on 10/24/17at 09:57 ; Start 10/19/17 at 09:00 Amlodipine Besylate (Norvasc) 10 mg DAILY PO Last administered on 10/24/17at 09: 57; Start 10/18/17 at 13:30 Clonidine HCl (Catapres) 0.1 mg PRN Q1HR PRN PO HYPERTENSION, SEE COMMENTS; Start 10/18/17 at 13:45 Clonidine HCl (Catapres) 0.1 mg 1X ONCE PO Last administered on 10/18/17at 13:47 ; Start 10/18/17 at 13:45; Stop 10/18/17 at 13:46; Status DC Quetiapine Fumarate (SEROquel) 25 mg QHS PO Last administered on 10/21/17at 20:07 ; Start 10/18/17 at 21:00; Stop 10/22/17 at 16:39; Status DC Magnesium Oxide (Magnesium Oxide) 400 mg DAILYBFRSUP PO Last administered on 08/01at 17:27; Start 10/21/17 at 17:00 Potassium Chloride (Klor-Con) 20 meq BIDACBL PO Last administered on 10/24/17at 11:51; Start 10/22/17 at 07:30 Potassium Chloride (Klor-Con) 40 meq 1X ONCE PO Last administered on 10/21/17at 12:34; Start 10/21/17 at 12:30; Stop 10/21/17 at 12:31; Status DC Quetiapine Fumarate (SEROquel) 50 mg QHS PO Last administered on 10/24/17at 20: 19; Start 10/22/17 at 21:00 Alendronate Sodium (Fosamax) 70 mg WEEKLYAC PO ; Start 10/25/17 at 07:00 Active Scripts Active Reported Icy Hot 4%-1% Patch (Lidocaine/Menthol) 1 Each Adh..patch 1 Patch TP PRN DAILY PRN Robitussin Cough-Chest Dm Liq (Guaifenesin/Dextromethorphan) 237 Ml Liquid 10 Ml PO PRN Q4HRS PRN Carbamide Peroxide 15 Ml Drops 5 Drop EACH EAR WEEKLY Carafate (Sucralfate) 1 Gm/10 Ml Oral.susp 1 Gm PO QIDACHS Tylenol Extra Strength (Acetaminophen) 500 Mg Tablet 1,000 Mg PO BID Clonazepam 0.5 Mg Tablet 0.5 Mg PO QHS Preparation H Cream (Phenyleph/Pramoxin/Glycr/W.pet) 26 Gm Cream..g. 1 Tonya RC PRN Q6HRS PRN Colace (Docusate Sodium) 100 Mg Capsule 100 Mg PO DAILY Imodium A-D (Loperamide HCl) 2 Mg Capsule 2 Mg PO PRN Q4HRS PRN Milk Of Magnesia (Magnesium Hydroxide) 400 Mg/5 Ml Oral.susp 2,400 Mg PO PRN QHS PRN Calcium Carbonate 600 Mg Tablet 600 Mg PO DAILY Trazodone Hcl 50 Mg Tablet 50 Mg PO PRN QHS PRN Cymbalta (Duloxetine Hcl) 20 Mg Capsule.dr 40 Mg PO DAILY Tylenol (Acetaminophen) 325 Mg Tablet 650 Mg PO PRN Q4HRS PRN Diovan (Valsartan) 320 Mg Tablet 320 Mg PO DAILY Actonel (Risedronate Sodium) 35 Mg Tablet 35 Mg PO WEEKLY Metoprolol Succinate ( Xl ) (Metoprolol Succinate) 100 Mg Tab.er.24h 100 Mg PO DAILY Clonazepam 0.5 Mg Tablet 0.5 Mg PO PRN DAILY PRN Atorvastatin Calcium 40 Mg Tablet 40 Mg PO QHS Aspirin 81 Mg Tab.chew 81 Mg PO DAILY I have reviewed the current psychotropics carefully including drug interactions. Risk benefit ratio favors no change other than as noted in my dictated progress note. Diagnosis: Problems: (1) Delirium (2) LISSET (generalized anxiety disorder) (3) Hypertensive urgency (4) MDD (major depressive disorder) (5) Medical clearance for psychiatric admission (6) Mild cognitive disorder CHANTELLE HECTOR MD Oct 24, 2017 20:33
--- NOTE | 2017-10-24 21:59 | PN ---
DATE: 10/23/2017 PSYCHIATRIC PROGRESS NOTE This is a late entry for 10/23/2017, covers elements not covered in my initial note of 10/23/2017. SUBJECTIVE: I met with the patient in the evening of 10/23/2017. The patient has been somewhat withdrawn, less delusional, slept 8-1/4 hours previous evening, confused, unaware of the year or even where she was as I questioned her. REVIEW OF SYSTEMS: Hard of hearing, had to talk loudly into her ear. Impaired ambulation. No CV, , pulmonary, eye system symptoms on review. MENTAL STATUS EXAM: Oriented to herself. Insight, judgment, recent and remote memory, attention, concentration, fund of knowledge poor, consistent with her diagnosis mentioned in my initial note. PLAN: Continue current psychotropics. Adjust as clinically indicated. MAN Val HECTOR MD DR: CONOR/valente JOB#: [id number] / [id number]
[2017-10-25 06:03] VITALS: BP 161/76
[2017-10-25] MEDS: LOSARTAN 50 MG TABLET. PO SCH (09:50)
[2017-10-25] MEDS: DULoxetine HCL 20 MG CAPSULE.DR PO SCH (09:50)
[2017-10-25] MEDS: ACETAMINOPHEN 500 MG TABLET PO SCH (09:50)
[2017-10-25] MEDS: METOPROLOL SUCC 24HR ER 50 MG TAB.ER.24H. PO SCH (09:50)
[2017-10-25] MEDS: ASPIRIN 81 MG TAB.CHEW PO SCH (09:51)
[2017-10-25] MEDS: DOCUSATE SODIUM 100 MG CAPSULE PO SCH (09:51)
[2017-10-25] MEDS: amLODIPine BESYLATE 10 MG TABLET PO SCH (09:51)
[2017-10-25] MEDS: SUCRALFATE 1 GM/10 ML ORAL.SUSP. PO SCH ×4 (09:51→19:41)
[2017-10-25] MEDS: POTASSIUM CHLORIDE 20 MEQ TABLET.ER. PO SCH ×2 (09:51→12:27)
[2017-10-25] MEDS: CHOLECALCIFEROL (VITAMIN D3) 1,000 UNIT TABLET PO SCH (09:51)
[2017-10-25] MEDS: CALCIUM CARBONATE 500 MG TABLET PO SCH (09:51)
[2017-10-25] MEDS: ALENDRONATE SODIUM 35 MG TABLET PO SCH (09:53)
[2017-10-25] MEDS: LIDOCAINE (700MG/PATCH) PATCH. TD PRN (09:58)
[2017-10-25 16:00] VITALS: BP 121/79
[2017-10-25] MEDS: MAGNESIUM OXIDE 400 MG TABLET PO SCH (17:16)
[2017-10-25] MEDS: QUEtiapine 50 MG TABLET. PO SCH (19:42)
[2017-10-25] MEDS: ATORVASTATIN CALCIUM 20 MG TABLET PO SCH (19:42)
[2017-10-25] MEDS: MIRTAZAPINE 7.5 MG TABLET. PO SCH (19:43)
[2017-10-25] MEDS: ACETAMINOPHEN 325 MG TABLET PO PRN (19:52)
--- NOTE | 2017-10-25 22:26 | PDOC ---
Exam Note: Aj Note: Please also refer to the separate dictated note~for this date of service dictated separately.~Patient seen individually. Discussed the patient with Nursing staff reviewed the chart.~Reviewed interim history and current functioning. Reviewed vital signs,~Labs/ Radiology~and current medications noted below. Continue current treatment with the changes noted in the dictated addendum note Assessment: Vital Signs: Vital Signs Date Time Temp Pulse Resp B/P (MAP) Pulse Ox O2 Delivery O2 Flow Rate FiO2 10/25/17 16:00 98.8 90 16 121/79 (93) 97 10/22/17 16:25 Room Air I&O Intake and Output 10/25/17 07:00 Intake Total 740 ml Balance 740 ml Intake Oral 740 ml # Voids 1 Current Medications: Meds: Current Medications Metoprolol Tartrate (Lopressor Vial) 5 mg 1X ONCE IV Last administered on at 21:21; Start 10/14/17 at 21:15; Stop 10/14/17 at 21:16; Status DC Clonidine HCl (Catapres) 0.1 mg 1X ONCE PO Last administered on 10/14/17at 22:51 ; Start 10/14/17 at 23:00; Stop 10/14/17 at 23:01; Status DC Multi-Ingredient Ointment (Analgesic [place]) 1 tonya PRN QID PRN TP MUSCLE PAIN; Start 10/15/17 at 02:30 Al Hydroxide/Mg Hydroxide (Mylanta Plus Xs) 15 ml PRN AFTMEALHC PRN PO DYSPEPSIA; Start 10/15/17 at 02:30 Clonazepam (KlonoPIN) 0.5 mg PRN DAILY PRN PO ANXIETY / AGITATION; Start at 02:30 Clonazepam (KlonoPIN) 0.5 mg QHS PO Last administered on 10/16/17at 07:38; Start 10/15/17 at 21:00; Stop 10/17/17 at 18:11; Status DC Duloxetine HCl (Cymbalta) 40 mg DAILY PO Last administered on 10/25/17at 09:50; Start 10/15/17 at 09:00 Trazodone HCl (Desyrel) 50 mg PRN QHS PRN PO INSOMNIA; Start 10/15/17 at 02:30 Acetaminophen (Tylenol) 1,000 mg BID PO Last administered on 10/25/17 09:50; Start 10/15/17 at 09:00 Acetaminophen (Tylenol) 650 mg PRN Q4HRS PRN PO MILD PAIN / TEMP Last administered on 10/25/17 19:52; Start 10/15/17 at 02:45 Aspirin (Children'S Aspirin) 81 mg DAILY PO Last administered on 10/25/17 09: 51; Start 10/15/17 at 09:00 Carbamide Peroxide (Debrox) 5 drop WEEKLY AU Last administered on 10/15/17 21: 16; Start 10/15/17 at 21:00 Docusate Sodium (Colace) 100 mg DAILY PO Last administered on 10/25/17 09:51; Start 10/15/17 at 09:00 Loperamide HCl (Imodium) 2 mg PRN Q4HRS PRN PO DIARRHEA; Start 10/15/17 at 02:45 Magnesium Hydroxide (Milk Of Magnesia) 2,400 mg PRN QHS PRN PO CONSTIPATION; Start 10/15/17 at 02:45 Sucralfate (Carafate) 1 gm QIDACHS PO Last administered on 10/25/17 19:41; Start 10/15/17 at 07:30 Atorvastatin Calcium (Lipitor) 40 mg QHS PO Last administered on 10/25/17 19: 42; Start 10/15/17 at 21:00 Calcium Carbonate/ Glycine (Oscal) 500 mg DAILYWBKFT PO Last administered on 09:51; Start 10/15/17 at 08:00 Guaifenesin (Robitussin Dm) 10 ml PRN Q6HRS PRN PO COUGH; Start 10/15/17 at 02: 45 Lidocaine (Lidoderm) 1 patch PRN DAILY PRN TD CHRONIC PAIN Last administered on 10/25/17 09:58; Start 10/15/17 at 09:00; Stop 10/25/17 at 15:14; Status DC Metoprolol Succinate (Toprol Xl) 100 mg DAILY PO ; Start 10/15/17 at 09:00; Stop 10/15/17 at 09:00; Status DC Phenylephrine HCl (Hemorrhoidal) 1 supp PRN Q6HRS PRN [place] RECTAL PAIN; Start 10/15/17 at 02:45 Alendronate Sodium (Fosamax) 70 mg WEEKLYAC PO Last administered on 10/16/17 05 :44; Start 10/16/17 at 07:00; Stop 10/23/17 at 15:50; Status DC Losartan Potassium (Cozaar) 100 mg DAILY PO ; Start 10/15/17 at 09:00; Stop at 09:00; Status DC Losartan Potassium (Cozaar) 100 mg DAILY PO Last administered on 10/25/17at 09: 50; Start 10/15/17 at 05:30 Metoprolol Succinate (Toprol Xl) 100 mg DAILY PO Last administered on 09:50; Start 10/15/17 at 05:30 Quetiapine Fumarate (SEROquel) 12.5 mg QHS PO Last administered on 10/17/17 19: 19; Start 10/15/17 at 21:00; Stop 10/18/17 at 18:06; Status DC Clonazepam (KlonoPIN) 0.25 mg QHS PO Last administered on 10/19/17at 19:27; Start 10/17/17 at 21:00; Stop 10/19/17 at 21:00; Status DC Mirtazapine (Remeron) 7.5 mg QHS PO Last administered on 10/25/17 19:43; Start 10/17/17 at 21:00 Vitamin D (Vitamin D3) 2,000 unit DAILY PO Last administered on 10/25/17 09:51 ; Start 10/19/17 at 09:00 Amlodipine Besylate (Norvasc) 10 mg DAILY PO Last administered on 10/25/17 09: 51; Start 10/18/17 at 13:30 Clonidine HCl (Catapres) 0.1 mg PRN Q1HR PRN PO HYPERTENSION, SEE COMMENTS; Start 10/18/17 at 13:45 Clonidine HCl (Catapres) 0.1 mg 1X ONCE PO Last administered on 10/18/17at 13:47 ; Start 10/18/17 at 13:45; Stop 10/18/17 at 13:46; Status DC Quetiapine Fumarate (SEROquel) 25 mg QHS PO Last administered on 10/21/17 20:07 ; Start 10/18/17 at 21:00; Stop 10/22/17 at 16:39; Status DC Magnesium Oxide (Magnesium Oxide) 400 mg DAILYBFRSUP PO Last administered on at 17:16; Start 10/21/17 at 17:00 Potassium Chloride (Klor-Con) 20 meq BIDACBL PO Last administered on 10/25/17at 12:27; Start 10/22/17 at 07:30 Potassium Chloride (Klor-Con) 40 meq 1X ONCE PO Last administered on 10/21/17at 12:34; Start 10/21/17 at 12:30; Stop 10/21/17 at 12:31; Status DC Quetiapine Fumarate (SEROquel) 50 mg QHS PO Last administered on 10/25/17at 19: 42; Start 10/22/17 at 21:00 Alendronate Sodium (Fosamax) 70 mg WEEKLYAC PO Last administered on 10/25/17at 09:53; Start 10/25/17 at 07:00 Lidocaine (Lidoderm) 1 patch DAILY TD ; Start 10/26/17 at 09:00 Active Scripts Active Reported Icy Hot 4%-1% Patch (Lidocaine/Menthol) 1 Each Adh..patch 1 Patch TP PRN DAILY PRN Robitussin Cough-Chest Dm Liq (Guaifenesin/Dextromethorphan) 237 Ml Liquid 10 Ml PO PRN Q4HRS PRN Carbamide Peroxide 15 Ml Drops 5 Drop EACH EAR WEEKLY Carafate (Sucralfate) 1 Gm/10 Ml Oral.susp 1 Gm PO QIDACHS Tylenol Extra Strength (Acetaminophen) 500 Mg Tablet 1,000 Mg PO BID Clonazepam 0.5 Mg Tablet 0.5 Mg PO QHS Preparation H Cream (Phenyleph/Pramoxin/Glycr/W.pet) 26 Gm Cream..g. 1 Tonya RC PRN Q6HRS PRN Colace (Docusate Sodium) 100 Mg Capsule 100 Mg PO DAILY Imodium A-D (Loperamide HCl) 2 Mg Capsule 2 Mg PO PRN Q4HRS PRN Milk Of Magnesia (Magnesium Hydroxide) 400 Mg/5 Ml Oral.susp 2,400 Mg PO PRN QHS PRN Calcium Carbonate 600 Mg Tablet 600 Mg PO DAILY Trazodone Hcl 50 Mg Tablet 50 Mg PO PRN QHS PRN Cymbalta (Duloxetine Hcl) 20 Mg Capsule.dr 40 Mg PO DAILY Tylenol (Acetaminophen) 325 Mg Tablet 650 Mg PO PRN Q4HRS PRN Diovan (Valsartan) 320 Mg Tablet 320 Mg PO DAILY Actonel (Risedronate Sodium) 35 Mg Tablet 35 Mg PO WEEKLY Metoprolol Succinate ( Xl ) (Metoprolol Succinate) 100 Mg Tab.er.24h 100 Mg PO DAILY Clonazepam 0.5 Mg Tablet 0.5 Mg PO PRN DAILY PRN Atorvastatin Calcium 40 Mg Tablet 40 Mg PO QHS Aspirin 81 Mg Tab.chew 81 Mg PO DAILY I have reviewed the current psychotropics carefully including drug interactions. Risk benefit ratio favors no change other than as noted in my dictated progress note. Diagnosis: Problems: (1) LISSET (generalized anxiety disorder) (2) Hypertensive urgency (3) MDD (major depressive disorder) (4) Medical clearance for psychiatric admission (5) Mild cognitive disorder CHANTELLE HECTOR MD Oct 25, 2017 22:26
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
[2017-10-26 06:07] VITALS: BP 156/80
[2017-10-26 07:51] LABS: BASO # 0.1 x10^3/uL (0.0-0.2); BASO % 2 % (0-3); EOS # 0.6 x10^3/uL (0.0-0.7); EOS % 9 % (0-3); HEMATOCRIT 41.8 % (36.0-47.0); HEMOGLOBIN 14.1 g/dL (12.0-15.5); LYMPH # 1.4 x10^3/uL (1.0-4.8); LYMPH % 20 % (24-48); MEAN CORPUSCULAR HEMOGLOBIN 31 pg (25-35); MEAN CORPUSCULAR HGB CONC 34 g/dL (31-37); MEAN CORPUSCULAR VOLUME 92 fL (79-100); MONO # 0.9 x10^3/uL (0.0-1.1); MONO % 12 % (0-9); NEUT # 3.9 x10^3uL (1.8-7.7); NEUT % 57 % (31-73); PLATELET COUNT 259 x10^3/uL (140-400); RED BLOOD COUNT 4.54 x10^6/uL (3.50-5.40); RED CELL DISTRIBUTION WIDTH 13.7 % (11.5-14.5)
[2017-10-26 08:04] LABS: ALBUMIN 3.3 g/dL (3.4-5.0); ALBUMIN/GLOBULIN RATIO 1.1 (1.0-1.7); CALCIUM 8.8 mg/dL (8.5-10.1); CREATININE 0.8 mg/dL (0.6-1.0); GFR 67.7; POTASSIUM 4.3 mmol/L (3.5-5.1); TOTAL BILIRUBIN 0.4 mg/dL (0.2-1.0); TOTAL PROTEIN 6.4 g/dL (6.4-8.2)
[2017-10-26] MEDS: ACETAMINOPHEN 500 MG TABLET PO SCH ×2 (08:27→19:40)
[2017-10-26] MEDS: SUCRALFATE 1 GM/10 ML ORAL.SUSP. PO SCH ×4 (08:27→19:39)
[2017-10-26] MEDS: LOSARTAN 50 MG TABLET. PO SCH (08:28)
[2017-10-26] MEDS: CHOLECALCIFEROL (VITAMIN D3) 1,000 UNIT TABLET PO SCH (08:28)
[2017-10-26] MEDS: METOPROLOL SUCC 24HR ER 50 MG TAB.ER.24H. PO SCH (08:28)
[2017-10-26] MEDS: amLODIPine BESYLATE 10 MG TABLET PO SCH (08:29)
[2017-10-26] MEDS: DOCUSATE SODIUM 100 MG CAPSULE PO SCH (08:29)
[2017-10-26] MEDS: DULoxetine HCL 20 MG CAPSULE.DR PO SCH (08:29)
[2017-10-26] MEDS: ASPIRIN 81 MG TAB.CHEW PO SCH (08:29)
[2017-10-26] MEDS: CALCIUM CARBONATE 500 MG TABLET PO SCH (08:29)
[2017-10-26] MEDS: MAGNESIUM OXIDE 400 MG TABLET PO SCH (08:29)
[2017-10-26] MEDS: POTASSIUM CHLORIDE 20 MEQ TABLET.ER. PO SCH ×2 (08:29→11:44)
[2017-10-26] MEDS: LIDOCAINE (700MG/PATCH) PATCH. TD SCH (08:31)
[2017-10-26] MEDS: SENNOSIDES 8.6 MG TABLET PO PRN (12:30)
[2017-10-26 16:33] VITALS: BP 101/65
[2017-10-26] MEDS: MIRTAZAPINE 7.5 MG TABLET. PO SCH (19:40)
[2017-10-26] MEDS: QUEtiapine 50 MG TABLET. PO SCH (19:40)
[2017-10-26] MEDS: ATORVASTATIN CALCIUM 20 MG TABLET PO SCH (19:40)
--- NOTE | 2017-10-26 20:49 | PDOC ---
Exam Note: Aj Note: Please also refer to the separate dictated note~for this date of service dictated separately.~Patient seen individually. Discussed the patient with Nursing staff reviewed the chart.~Reviewed interim history and current functioning. Reviewed vital signs,~Labs/ Radiology~and current medications noted below. Continue current treatment with the changes noted in the dictated addendum note Assessment: Vital Signs: Vital Signs Date Time Temp Pulse Resp B/P (MAP) Pulse Ox O2 Delivery O2 Flow Rate FiO2 10/26/17 16:33 97.4 95 18 101/65 (77) 94 10/22/17 16:25 Room Air I&O Intake and Output 10/26/17 07:00 Intake Total 480 ml Balance 480 ml Intake Oral 480 ml # Voids 1 Labs: Laboratory Tests Test 10/26/17 07:06 White Blood Count 7.0 x10^3/uL (4.0-11.0) Red Blood Count 4.54 x10^6/uL (3.50-5.40) Hemoglobin 14.1 g/dL (12.0-15.5) Hematocrit 41.8 % (36.0-47.0) Mean Corpuscular Volume 92 fL (79-100) Mean Corpuscular Hemoglobin 31 pg (25-35) Mean Corpuscular Hemoglobin Concent 34 g/dL (31-37) Red Cell Distribution Width 13.7 % (11.5-14.5) Platelet Count 259 x10^3/uL (140-400) Neutrophils (%) (Auto) 57 % (31-73) Lymphocytes (%) (Auto) 20 % (24-48) L Monocytes (%) (Auto) 12 % (0-9) H Eosinophils (%) (Auto) 9 % (0-3) H Basophils (%) (Auto) 2 % (0-3) Neutrophils # (Auto) 3.9 x10^3uL (1.8-7.7) Lymphocytes # (Auto) 1.4 x10^3/uL (1.0-4.8) Monocytes # (Auto) 0.9 x10^3/uL (0.0-1.1) Eosinophils # (Auto) 0.6 x10^3/uL (0.0-0.7) Basophils # (Auto) 0.1 x10^3/uL (0.0-0.2) Sodium Level 138 mmol/L (136-145) Potassium Level 4.3 mmol/L (3.5-5.1) Chloride Level 104 mmol/L (98-107) Carbon Dioxide Level 28 mmol/L (21-32) Anion Gap 6 (6-14) Blood Urea Nitrogen 19 mg/dL (7-20) Creatinine 0.8 mg/dL (0.6-1.0) Estimated GFR (Cockcroft-Gault) 67.7 BUN/Creatinine Ratio 24 (6-20) H Glucose Level 91 mg/dL (70-99) Calcium Level 8.8 mg/dL (8.5-10.1) Magnesium Level 2.0 mg/dL (1.8-2.4) Total Bilirubin 0.4 mg/dL (0.2-1.0) Aspartate Amino Transferase (AST) 20 U/L (15-37) Alanine Aminotransferase (ALT) 22 U/L (14-59) Alkaline Phosphatase 57 U/L (46-116) Total Protein 6.4 g/dL (6.4-8.2) Albumin 3.3 g/dL (3.4-5.0) L Albumin/Globulin Ratio 1.1 (1.0-1.7) Current Medications: Meds: Current Medications Metoprolol Tartrate (Lopressor Vial) 5 mg 1X ONCE IV Last administered on at 21:21; Start 10/14/17 at 21:15; Stop 10/14/17 at 21:16; Status DC Clonidine HCl (Catapres) 0.1 mg 1X ONCE PO Last administered on 10/14/17at 22:51 ; Start 10/14/17 at 23:00; Stop 10/14/17 at 23:01; Status DC Multi-Ingredient Ointment (Analgesic [place]) 1 tonya PRN QID PRN TP MUSCLE PAIN; Start 10/15/17 at 02:30 Al Hydroxide/Mg Hydroxide (Mylanta Plus Xs) 15 ml PRN AFTMEALHC PRN PO DYSPEPSIA; Start 10/15/17 at 02:30 Clonazepam (KlonoPIN) 0.5 mg PRN DAILY PRN PO ANXIETY / AGITATION; Start at 02:30 Clonazepam (KlonoPIN) 0.5 mg QHS PO Last administered on 3/4/18at 07:38; Start 10/15/17 at 21:00; Stop 10/17/17 at 18:11; Status DC Duloxetine HCl (Cymbalta) 40 mg DAILY PO Last administered on 10/26/17 08:29; Start 10/15/17 at 09:00 Trazodone HCl (Desyrel) 50 mg PRN QHS PRN PO INSOMNIA; Start 10/15/17 at 02:30 Acetaminophen (Tylenol) 1,000 mg BID PO Last administered on 10/26/17 19:40; Start 10/15/17 at 09:00 Acetaminophen (Tylenol) 650 mg PRN Q4HRS PRN PO MILD PAIN / TEMP Last administered on 10/25/17 19:52; Start 10/15/17 at 02:45 Aspirin (Children'S Aspirin) 81 mg DAILY PO Last administered on 10/26/17 08: 29; Start 10/15/17 at 09:00 Carbamide Peroxide (Debrox) 5 drop WEEKLY AU Last administered on 10/15/17 21: 16; Start 10/15/17 at 21:00 Docusate Sodium (Colace) 100 mg DAILY PO Last administered on 10/26/17 08:29; Start 10/15/17 at 09:00 Loperamide HCl (Imodium) 2 mg PRN Q4HRS PRN PO DIARRHEA; Start 10/15/17 at 02:45 Magnesium Hydroxide (Milk Of Magnesia) 2,400 mg PRN QHS PRN PO CONSTIPATION; Start 10/15/17 at 02:45 Sucralfate (Carafate) 1 gm QIDACHS PO Last administered on 10/26/17 19:39; Start 10/15/17 at 07:30 Atorvastatin Calcium (Lipitor) 40 mg QHS PO Last administered on 10/26/17 19: 40; Start 10/15/17 at 21:00 Calcium Carbonate/ Glycine (Oscal) 500 mg DAILYWBKFT PO Last administered on 08:29; Start 10/15/17 at 08:00 Guaifenesin (Robitussin Dm) 10 ml PRN Q6HRS PRN PO COUGH; Start 10/15/17 at 02: 45 Lidocaine (Lidoderm) 1 patch PRN DAILY PRN TD CHRONIC PAIN Last administered on 10/25/17at 09:58; Start 10/15/17 at 09:00; Stop 10/25/17 at 15:14; Status DC Metoprolol Succinate (Toprol Xl) 100 mg DAILY PO ; Start 10/15/17 at 09:00; Stop 10/15/17 at 09:00; Status DC Phenylephrine HCl (Hemorrhoidal) 1 supp PRN Q6HRS PRN [place] RECTAL PAIN; Start 10/15/17 at 02:45 Alendronate Sodium (Fosamax) 70 mg WEEKLYAC PO Last administered on 10/16/17at 05 :44; Start 10/16/17 at 07:00; Stop 10/23/17 at 15:50; Status DC Losartan Potassium (Cozaar) 100 mg DAILY PO ; Start 10/15/17 at 09:00; Stop at 09:00; Status DC Losartan Potassium (Cozaar) 100 mg DAILY PO Last administered on 10/26/17at 08: 28; Start 10/15/17 at 05:30 Metoprolol Succinate (Toprol Xl) 100 mg DAILY PO Last administered on at 08:28; Start 10/15/17 at 05:30 Quetiapine Fumarate (SEROquel) 12.5 mg QHS PO Last administered on 10/17/17at 19: 19; Start 10/15/17 at 21:00; Stop 10/18/17 at 18:06; Status DC Clonazepam (KlonoPIN) 0.25 mg QHS PO Last administered on 10/19/17at 19:27; Start 10/17/17 at 21:00; Stop 10/19/17 at 21:00; Status DC Mirtazapine (Remeron) 7.5 mg QHS PO Last administered on 10/26/17at 19:40; Start 10/17/17 at 21:00 Vitamin D (Vitamin D3) 2,000 unit DAILY PO Last administered on 10/26/17at 08:28 ; Start 10/19/17 at 09:00 Amlodipine Besylate (Norvasc) 10 mg DAILY PO Last administered on 10/26/17at 08: 29; Start 10/18/17 at 13:30 Clonidine HCl (Catapres) 0.1 mg PRN Q1HR PRN PO HYPERTENSION, SEE COMMENTS; Start 10/18/17 at 13:45 Clonidine HCl (Catapres) 0.1 mg 1X ONCE PO Last administered on 10/18/17at 13:47 ; Start 10/18/17 at 13:45; Stop 10/18/17 at 13:46; Status DC Quetiapine Fumarate (SEROquel) 25 mg QHS PO Last administered on 10/21/17at 20:07 ; Start 10/18/17 at 21:00; Stop 10/22/17 at 16:39; Status DC Magnesium Oxide (Magnesium Oxide) 400 mg DAILYBFRSUP PO Last administered on 08:29; Start 10/21/17 at 17:00 Potassium Chloride (Klor-Con) 20 meq BIDACBL PO Last administered on 10/26/17at 11:44; Start 10/22/17 at 07:30 Potassium Chloride (Klor-Con) 40 meq 1X ONCE PO Last administered on 10/21/17at 12:34; Start 10/21/17 at 12:30; Stop 10/21/17 at 12:31; Status DC Quetiapine Fumarate (SEROquel) 50 mg QHS PO Last administered on 10/26/17at 19: 40; Start 10/22/17 at 21:00 Alendronate Sodium (Fosamax) 70 mg WEEKLYAC PO Last administered on 10/25/17at 09:53; Start 10/25/17 at 07:00 Lidocaine (Lidoderm) 1 patch DAILY TD Last administered on 10/26/17at 08:31; Start 10/26/17 at 09:00 Sennosides (Senna) 8.6 mg PRN BID PRN PO CONSTIPATION Last administered on 10/26at 12:30; Start 10/26/17 at 12:00 Active Scripts Active Reported Icy Hot 4%-1% Patch (Lidocaine/Menthol) 1 Each Adh..patch 1 Patch TP PRN DAILY PRN Robitussin Cough-Chest Dm Liq (Guaifenesin/Dextromethorphan) 237 Ml Liquid 10 Ml PO PRN Q4HRS PRN Carbamide Peroxide 15 Ml Drops 5 Drop EACH EAR WEEKLY Carafate (Sucralfate) 1 Gm/10 Ml Oral.susp 1 Gm PO QIDACHS Tylenol Extra Strength (Acetaminophen) 500 Mg Tablet 1,000 Mg PO BID Clonazepam 0.5 Mg Tablet 0.5 Mg PO QHS Preparation H Cream (Phenyleph/Pramoxin/Glycr/W.pet) 26 Gm Cream..g. 1 Tonya RC PRN Q6HRS PRN Colace (Docusate Sodium) 100 Mg Capsule 100 Mg PO DAILY Imodium A-D (Loperamide HCl) 2 Mg Capsule 2 Mg PO PRN Q4HRS PRN Milk Of Magnesia (Magnesium Hydroxide) 400 Mg/5 Ml Oral.susp 2,400 Mg PO PRN QHS PRN Calcium Carbonate 600 Mg Tablet 600 Mg PO DAILY Trazodone Hcl 50 Mg Tablet 50 Mg PO PRN QHS PRN Cymbalta (Duloxetine Hcl) 20 Mg Capsule.dr 40 Mg PO DAILY Tylenol (Acetaminophen) 325 Mg Tablet 650 Mg PO PRN Q4HRS PRN Diovan (Valsartan) 320 Mg Tablet 320 Mg PO DAILY Actonel (Risedronate Sodium) 35 Mg Tablet 35 Mg PO WEEKLY Metoprolol Succinate ( Xl ) (Metoprolol Succinate) 100 Mg Tab.er.24h 100 Mg PO DAILY Clonazepam 0.5 Mg Tablet 0.5 Mg PO PRN DAILY PRN Atorvastatin Calcium 40 Mg Tablet 40 Mg PO QHS Aspirin 81 Mg Tab.chew 81 Mg PO DAILY I have reviewed the current psychotropics carefully including drug interactions. Risk benefit ratio favors no change other than as noted in my dictated progress note. Diagnosis: Problems: (1) LISSET (generalized anxiety disorder) (2) Hypertensive urgency (3) MDD (major depressive disorder) (4) Medical clearance for psychiatric admission (5) Mild cognitive disorder (6) Delirium CHANTELLE HECTOR MD Oct 26, 2017 20:49
[2017-10-27 06:22] VITALS: BP 139/69
[2017-10-27 07:28] LABS: HEMATOCRIT 40.4 % (36.0-47.0); HEMOGLOBIN 13.7 g/dL (12.0-15.5); RED BLOOD COUNT 4.39 x10^6/uL (3.50-5.40); RED CELL DISTRIBUTION WIDTH 13.4 % (11.5-14.5); WHITE BLOOD COUNT 7.3 x10^3/uL (4.0-11.0)
[2017-10-27] MEDS: CHOLECALCIFEROL (VITAMIN D3) 1,000 UNIT TABLET PO SCH (07:43)
[2017-10-27] MEDS: DOCUSATE SODIUM 100 MG CAPSULE PO SCH (07:43)
[2017-10-27] MEDS: SUCRALFATE 1 GM/10 ML ORAL.SUSP. PO SCH ×4 (07:43→20:45)
[2017-10-27] MEDS: LOSARTAN 50 MG TABLET. PO SCH (07:43)
[2017-10-27] MEDS: DULoxetine HCL 20 MG CAPSULE.DR PO SCH (07:43)
[2017-10-27] MEDS: amLODIPine BESYLATE 10 MG TABLET PO SCH (07:44)
[2017-10-27] MEDS: ACETAMINOPHEN 500 MG TABLET PO SCH ×2 (07:44→20:46)
[2017-10-27] MEDS: CALCIUM CARBONATE 500 MG TABLET PO SCH (07:45)
[2017-10-27] MEDS: POTASSIUM CHLORIDE 20 MEQ TABLET.ER. PO SCH ×2 (07:45→12:18)
[2017-10-27] MEDS: METOPROLOL SUCC 24HR ER 50 MG TAB.ER.24H. PO SCH (07:45)
[2017-10-27] MEDS: ASPIRIN 81 MG TAB.CHEW PO SCH (07:45)
[2017-10-27] MEDS: LIDOCAINE (700MG/PATCH) PATCH. TD SCH (07:47)
[2017-10-27 16:30] VITALS: BP 126/69
[2017-10-27] MEDS: MAGNESIUM OXIDE 400 MG TABLET PO SCH (17:11)
[2017-10-27] MEDS: ACETAMINOPHEN 325 MG TABLET PO PRN (17:22)
--- NOTE | 2017-10-27 20:33 | PDOC ---
Exam Note: Aj Note: Please also refer to the separate dictated note~for this date of service dictated separately.~Patient seen individually. Discussed the patient with Nursing staff reviewed the chart.~Reviewed interim history and current functioning. Reviewed vital signs,~Labs/ Radiology~and current medications noted below. Continue current treatment with the changes noted in the dictated addendum note Assessment: Vital Signs: Vital Signs Date Time Temp Pulse Resp B/P (MAP) Pulse Ox O2 Delivery O2 Flow Rate FiO2 10/27/17 16:30 97.1 79 16 126/69 (88) 97 Room Air I&O Intake and Output 10/27/17 07:00 Intake Total 720 ml Balance 720 ml Intake Oral 720 ml # Voids 1 # Bowel Movements 3 Labs: Laboratory Tests Test 10/27/17 07:05 White Blood Count 7.3 x10^3/uL (4.0-11.0) Red Blood Count 4.39 x10^6/uL (3.50-5.40) Hemoglobin 13.7 g/dL (12.0-15.5) Hematocrit 40.4 % (36.0-47.0) Mean Corpuscular Volume 92 fL (79-100) Mean Corpuscular Hemoglobin 31 pg (25-35) Mean Corpuscular Hemoglobin Concent 34 g/dL (31-37) Red Cell Distribution Width 13.4 % (11.5-14.5) Platelet Count 252 x10^3/uL (140-400) Current Medications: Meds: Current Medications Metoprolol Tartrate (Lopressor Vial) 5 mg 1X ONCE IV Last administered on at 21:21; Start 10/14/17 at 21:15; Stop 10/14/17 at 21:16; Status DC Clonidine HCl (Catapres) 0.1 mg 1X ONCE PO Last administered on 10/14/17at 22:51 ; Start 10/14/17 at 23:00; Stop 10/14/17 at 23:01; Status DC Multi-Ingredient Ointment (Analgesic [place]) 1 tonya PRN QID PRN TP MUSCLE PAIN; Start 10/15/17 at 02:30 Al Hydroxide/Mg Hydroxide (Mylanta Plus Xs) 15 ml PRN AFTMEALHC PRN PO DYSPEPSIA; Start 10/15/17 at 02:30 Clonazepam (KlonoPIN) 0.5 mg PRN DAILY PRN PO ANXIETY / AGITATION; Start at 02:30 Clonazepam (KlonoPIN) 0.5 mg QHS PO Last administered on 10/16/17 07:38; Start 10/15/17 at 21:00; Stop 10/17/17 at 18:11; Status DC Duloxetine HCl (Cymbalta) 40 mg DAILY PO Last administered on 10/27/17 07:43; Start 10/15/17 at 09:00 Trazodone HCl (Desyrel) 50 mg PRN QHS PRN PO INSOMNIA; Start 10/15/17 at 02:30 Acetaminophen (Tylenol) 1,000 mg BID PO Last administered on 10/27/17 07:44; Start 10/15/17 at 09:00 Acetaminophen (Tylenol) 650 mg PRN Q4HRS PRN PO MILD PAIN / TEMP Last administered on 10/27/17 17:22; Start 10/15/17 at 02:45 Aspirin (Children'S Aspirin) 81 mg DAILY PO Last administered on 10/27/17 07: 45; Start 10/15/17 at 09:00 Carbamide Peroxide (Debrox) 5 drop WEEKLY AU Last administered on 10/15/17 21: 16; Start 10/15/17 at 21:00 Docusate Sodium (Colace) 100 mg DAILY PO Last administered on 10/27/17 07:43; Start 10/15/17 at 09:00 Loperamide HCl (Imodium) 2 mg PRN Q4HRS PRN PO DIARRHEA; Start 10/15/17 at 02:45 Magnesium Hydroxide (Milk Of Magnesia) 2,400 mg PRN QHS PRN PO CONSTIPATION; Start 10/15/17 at 02:45 Sucralfate (Carafate) 1 gm QIDACHS PO Last administered on 10/27/17 17:11; Start 10/15/17 at 07:30 Atorvastatin Calcium (Lipitor) 40 mg QHS PO Last administered on 10/26/17at 19: 40; Start 10/15/17 at 21:00 Calcium Carbonate/ Glycine (Oscal) 500 mg DAILYWBKFT PO Last administered on at 07:45; Start 10/15/17 at 08:00 Guaifenesin (Robitussin Dm) 10 ml PRN Q6HRS PRN PO COUGH; Start 10/15/17 at 02: 45 Lidocaine (Lidoderm) 1 patch PRN DAILY PRN TD CHRONIC PAIN Last administered on 10/25/17at 09:58; Start 10/15/17 at 09:00; Stop 10/25/17 at 15:14; Status DC Metoprolol Succinate (Toprol Xl) 100 mg DAILY PO ; Start 10/15/17 at 09:00; Stop 10/15/17 at 09:00; Status DC Phenylephrine HCl (Hemorrhoidal) 1 supp PRN Q6HRS PRN [place] RECTAL PAIN; Start 10/15/17 at 02:45 Alendronate Sodium (Fosamax) 70 mg WEEKLYAC PO Last administered on 10/16/17at 05 :44; Start 10/16/17 at 07:00; Stop 10/23/17 at 15:50; Status DC Losartan Potassium (Cozaar) 100 mg DAILY PO ; Start 10/15/17 at 09:00; Stop at 09:00; Status DC Losartan Potassium (Cozaar) 100 mg DAILY PO Last administered on 10/27/17at 07: 43; Start 10/15/17 at 05:30 Metoprolol Succinate (Toprol Xl) 100 mg DAILY PO Last administered on at 07:45; Start 10/15/17 at 05:30 Quetiapine Fumarate (SEROquel) 12.5 mg QHS PO Last administered on 10/17/17at 19: 19; Start 10/15/17 at 21:00; Stop 10/18/17 at 18:06; Status DC Clonazepam (KlonoPIN) 0.25 mg QHS PO Last administered on 10/19/17at 19:27; Start 10/17/17 at 21:00; Stop 10/19/17 at 21:00; Status DC Mirtazapine (Remeron) 7.5 mg QHS PO Last administered on 10/26/17at 19:40; Start 10/17/17 at 21:00 Vitamin D (Vitamin D3) 2,000 unit DAILY PO Last administered on 10/27/17at 07:43 ; Start 10/19/17 at 09:00 Amlodipine Besylate (Norvasc) 10 mg DAILY PO Last administered on 10/27/17at 07: 44; Start 10/18/17 at 13:30 Clonidine HCl (Catapres) 0.1 mg PRN Q1HR PRN PO HYPERTENSION, SEE COMMENTS; Start 10/18/17 at 13:45 Clonidine HCl (Catapres) 0.1 mg 1X ONCE PO Last administered on 10/18/17at 13:47 ; Start 10/18/17 at 13:45; Stop 10/18/17 at 13:46; Status DC Quetiapine Fumarate (SEROquel) 25 mg QHS PO Last administered on 10/21/17at 20:07 ; Start 10/18/17 at 21:00; Stop 10/22/17 at 16:39; Status DC Magnesium Oxide (Magnesium Oxide) 400 mg DAILYBFRSUP PO Last administered on at 17:11; Start 10/21/17 at 17:00 Potassium Chloride (Klor-Con) 20 meq BIDACBL PO Last administered on 10/27/17at 12:18; Start 10/22/17 at 07:30 Potassium Chloride (Klor-Con) 40 meq 1X ONCE PO Last administered on 10/21/17at 12:34; Start 10/21/17 at 12:30; Stop 10/21/17 at 12:31; Status DC Quetiapine Fumarate (SEROquel) 50 mg QHS PO Last administered on 10/26/17at 19: 40; Start 10/22/17 at 21:00; Stop 10/27/17 at 10:23; Status DC Alendronate Sodium (Fosamax) 70 mg WEEKLYAC PO Last administered on 10/25/17at 09:53; Start 10/25/17 at 07:00 Lidocaine (Lidoderm) 1 patch DAILY TD Last administered on 10/27/17at 07:47; Start 10/26/17 at 09:00 Sennosides (Senna) 8.6 mg PRN BID PRN PO CONSTIPATION Last administered on 10/26at 12:30; Start 10/26/17 at 12:00 Risperidone (RisperDAL) 0.25 mg QHS PO ; Start 10/27/17 at 21:00 Active Scripts Active Reported Icy Hot 4%-1% Patch (Lidocaine/Menthol) 1 Each Adh..patch 1 Patch TP PRN DAILY PRN Robitussin Cough-Chest Dm Liq (Guaifenesin/Dextromethorphan) 237 Ml Liquid 10 Ml PO PRN Q4HRS PRN Carbamide Peroxide 15 Ml Drops 5 Drop EACH EAR WEEKLY Carafate (Sucralfate) 1 Gm/10 Ml Oral.susp 1 Gm PO QIDACHS Tylenol Extra Strength (Acetaminophen) 500 Mg Tablet 1,000 Mg PO BID Clonazepam 0.5 Mg Tablet 0.5 Mg PO QHS Preparation H Cream (Phenyleph/Pramoxin/Glycr/W.pet) 26 Gm Cream..g. 1 Tonya RC PRN Q6HRS PRN Colace (Docusate Sodium) 100 Mg Capsule 100 Mg PO DAILY Imodium A-D (Loperamide HCl) 2 Mg Capsule 2 Mg PO PRN Q4HRS PRN Milk Of Magnesia (Magnesium Hydroxide) 400 Mg/5 Ml Oral.susp 2,400 Mg PO PRN QHS PRN Calcium Carbonate 600 Mg Tablet 600 Mg PO DAILY Trazodone Hcl 50 Mg Tablet 50 Mg PO PRN QHS PRN Cymbalta (Duloxetine Hcl) 20 Mg Capsule.dr 40 Mg PO DAILY Tylenol (Acetaminophen) 325 Mg Tablet 650 Mg PO PRN Q4HRS PRN Diovan (Valsartan) 320 Mg Tablet 320 Mg PO DAILY Actonel (Risedronate Sodium) 35 Mg Tablet 35 Mg PO WEEKLY Metoprolol Succinate ( Xl ) (Metoprolol Succinate) 100 Mg Tab.er.24h 100 Mg PO DAILY Clonazepam 0.5 Mg Tablet 0.5 Mg PO PRN DAILY PRN Atorvastatin Calcium 40 Mg Tablet 40 Mg PO QHS Aspirin 81 Mg Tab.chew 81 Mg PO DAILY I have reviewed the current psychotropics carefully including drug interactions. Risk benefit ratio favors no change other than as noted in my dictated progress note. Diagnosis: Problems: (1) Delirium (2) LISSET (generalized anxiety disorder) (3) Hypertensive urgency (4) MDD (major depressive disorder) (5) Medical clearance for psychiatric admission (6) Mild cognitive disorder CHANTELLE HECTOR MD Oct 27, 2017 20:33
[2017-10-27] MEDS: ATORVASTATIN CALCIUM 20 MG TABLET PO SCH (20:45)
[2017-10-27] MEDS: risperiDONE 0.25 MG TABLET. PO SCH (20:46)
[2017-10-27] MEDS: MIRTAZAPINE 7.5 MG TABLET. PO SCH (20:46)
--- NOTE | 2017-10-27 21:52 | PN ---
DATE: 10/25/2017 PSYCHIATRIC PROGRESS NOTE This is a late entry 10/25/2017 covers elements not covered in my initial note 10/25/2017. SUBJECTIVE: I met with the patient evening of 10/25/2017 in her room and also met with the patient's son who was visiting her. She appeared somewhat drowsy, confused. REVIEW OF SYSTEMS: Hard of hearing. Impaired ambulation. No CV, , pulmonary, eye system symptoms on review. MENTAL STATUS EXAM: Oriented to herself, did not know she was in the hospital, unaware of the year, more confused at night, paranoid. Speech coherent, abstraction fair, computation impaired, language function intact, attention span short. Mood and affect remain somewhat labile. LABORATORY DATA: Reviewed. IMPRESSION: Unchanged from initial note. PLAN: Continue current psychotropics. If psychotic symptoms persist, may change to Seroquel to Risperdal. Rest unchanged per the initial note. CHANTELLE HECTOR MD DR: CONOR/valente JOB#: [id number] / [id number]
[2017-10-28 06:07] VITALS: BP 167/74
[2017-10-28] MEDS: SUCRALFATE 1 GM/10 ML ORAL.SUSP. PO SCH ×4 (07:41→20:15)
[2017-10-28] MEDS: DULoxetine HCL 20 MG CAPSULE.DR PO SCH (07:41)
[2017-10-28] MEDS: ACETAMINOPHEN 500 MG TABLET PO SCH ×2 (07:42→20:16)
[2017-10-28] MEDS: amLODIPine BESYLATE 10 MG TABLET PO SCH (07:42)
[2017-10-28] MEDS: DOCUSATE SODIUM 100 MG CAPSULE PO SCH (07:42)
[2017-10-28] MEDS: CALCIUM CARBONATE 500 MG TABLET PO SCH (07:43)
[2017-10-28] MEDS: CHOLECALCIFEROL (VITAMIN D3) 1,000 UNIT TABLET PO SCH (07:43)
[2017-10-28] MEDS: ASPIRIN 81 MG TAB.CHEW PO SCH (07:43)
[2017-10-28] MEDS: LOSARTAN 50 MG TABLET. PO SCH (07:43)
[2017-10-28] MEDS: POTASSIUM CHLORIDE 20 MEQ TABLET.ER. PO SCH ×2 (07:45→12:23)
[2017-10-28] MEDS: METOPROLOL SUCC 24HR ER 50 MG TAB.ER.24H. PO SCH (07:45)
[2017-10-28] MEDS: LIDOCAINE (700MG/PATCH) PATCH. TD SCH (07:46)
[2017-10-28 16:07] VITALS: BP 129/67
[2017-10-28] MEDS: MAGNESIUM OXIDE 400 MG TABLET PO SCH (17:06)
[2017-10-28] MEDS: risperiDONE 0.25 MG TABLET. PO SCH (20:15)
[2017-10-28] MEDS: MIRTAZAPINE 7.5 MG TABLET. PO SCH (20:15)
[2017-10-28] MEDS: ATORVASTATIN CALCIUM 20 MG TABLET PO SCH (20:15)
--- NOTE | 2017-10-28 20:39 | PDOC ---
Exam Note: Aj Note: Please also refer to the separate dictated note~for this date of service dictated separately.~Patient seen individually. Discussed the patient with Nursing staff reviewed the chart.~Reviewed interim history and current functioning. Reviewed vital signs,~Labs/ Radiology~and current medications noted below. Continue current treatment with the changes noted in the dictated addendum note Assessment: Vital Signs: Vital Signs Date Time Temp Pulse Resp B/P (MAP) Pulse Ox O2 Delivery O2 Flow Rate FiO2 10/28/17 16:07 97.5 60 18 129/67 (87) 97 10/27/17 16:30 Room Air I&O Intake and Output 10/28/17 07:00 Intake Total 720 ml Balance 720 ml Intake Oral 720 ml # Voids 1 Current Medications: Meds: Current Medications Metoprolol Tartrate (Lopressor Vial) 5 mg 1X ONCE IV Last administered on at 21:21; Start 10/14/17 at 21:15; Stop 10/14/17 at 21:16; Status DC Clonidine HCl (Catapres) 0.1 mg 1X ONCE PO Last administered on 10/14/17at 22:51 ; Start 10/14/17 at 23:00; Stop 10/14/17 at 23:01; Status DC Multi-Ingredient Ointment (Analgesic [place]) 1 tonya PRN QID PRN TP MUSCLE PAIN Last administered on 10/27/17at 23:58; Start 10/15/17 at 02:30 Al Hydroxide/Mg Hydroxide (Mylanta Plus Xs) 15 ml PRN AFTMEALHC PRN PO DYSPEPSIA Last administered on 10/28/17at 02:26; Start 10/15/17 at 02:30 Clonazepam (KlonoPIN) 0.5 mg PRN DAILY PRN PO ANXIETY / AGITATION; Start at 02:30 Clonazepam (KlonoPIN) 0.5 mg QHS PO Last administered on 10/16/17at 07:38; Start 10/15/17 at 21:00; Stop 10/17/17 at 18:11; Status DC Duloxetine HCl (Cymbalta) 40 mg DAILY PO Last administered on 10/28/17at 07:41; Start 10/15/17 at 09:00 Trazodone HCl (Desyrel) 50 mg PRN QHS PRN PO INSOMNIA; Start 10/15/17 at 02:30 Acetaminophen (Tylenol) 1,000 mg BID PO Last administered on 10/28/17 20:16; Start 10/15/17 at 09:00 Acetaminophen (Tylenol) 650 mg PRN Q4HRS PRN PO MILD PAIN / TEMP Last administered on 10/27/17 17:22; Start 10/15/17 at 02:45 Aspirin (Children'S Aspirin) 81 mg DAILY PO Last administered on 10/28/17at 07: 43; Start 10/15/17 at 09:00 Carbamide Peroxide (Debrox) 5 drop WEEKLY AU Last administered on 10/15/17 21: 16; Start 10/15/17 at 21:00 Docusate Sodium (Colace) 100 mg DAILY PO Last administered on 10/28/17at 07:42; Start 10/15/17 at 09:00 Loperamide HCl (Imodium) 2 mg PRN Q4HRS PRN PO DIARRHEA; Start 10/15/17 at 02:45 Magnesium Hydroxide (Milk Of Magnesia) 2,400 mg PRN QHS PRN PO CONSTIPATION; Start 10/15/17 at 02:45 Sucralfate (Carafate) 1 gm QIDACHS PO Last administered on 10/28/17 20:15; Start 10/15/17 at 07:30 Atorvastatin Calcium (Lipitor) 40 mg QHS PO Last administered on 10/28/17 20: 15; Start 10/15/17 at 21:00 Calcium Carbonate/ Glycine (Oscal) 500 mg DAILYWBKFT PO Last administered on at 07:43; Start 10/15/17 at 08:00 Guaifenesin (Robitussin Dm) 10 ml PRN Q6HRS PRN PO COUGH; Start 10/15/17 at 02: 45 Lidocaine (Lidoderm) 1 patch PRN DAILY PRN TD CHRONIC PAIN Last administered on 10/25/17at 09:58; Start 10/15/17 at 09:00; Stop 10/25/17 at 15:14; Status DC Metoprolol Succinate (Toprol Xl) 100 mg DAILY PO ; Start 10/15/17 at 09:00; Stop 10/15/17 at 09:00; Status DC Phenylephrine HCl (Hemorrhoidal) 1 supp PRN Q6HRS PRN [place] RECTAL PAIN; Start 10/15/17 at 02:45 Alendronate Sodium (Fosamax) 70 mg WEEKLYAC PO Last administered on 10/16/17at 05 :44; Start 10/16/17 at 07:00; Stop 10/23/17 at 15:50; Status DC Losartan Potassium (Cozaar) 100 mg DAILY PO ; Start 10/15/17 at 09:00; Stop at 09:00; Status DC Losartan Potassium (Cozaar) 100 mg DAILY PO Last administered on 10/28/17at 07: 43; Start 10/15/17 at 05:30 Metoprolol Succinate (Toprol Xl) 100 mg DAILY PO Last administered on at 07:45; Start 10/15/17 at 05:30 Quetiapine Fumarate (SEROquel) 12.5 mg QHS PO Last administered on 10/17/17at 19: 19; Start 10/15/17 at 21:00; Stop 10/18/17 at 18:06; Status DC Clonazepam (KlonoPIN) 0.25 mg QHS PO Last administered on 10/19/17at 19:27; Start 10/17/17 at 21:00; Stop 10/19/17 at 21:00; Status DC Mirtazapine (Remeron) 7.5 mg QHS PO Last administered on 10/28/17at 20:15; Start 10/17/17 at 21:00 Vitamin D (Vitamin D3) 2,000 unit DAILY PO Last administered on 10/28/17at 07:43 ; Start 10/19/17 at 09:00 Amlodipine Besylate (Norvasc) 10 mg DAILY PO Last administered on 10/28/17at 07: 42; Start 10/18/17 at 13:30 Clonidine HCl (Catapres) 0.1 mg PRN Q1HR PRN PO HYPERTENSION, SEE COMMENTS; Start 10/18/17 at 13:45 Clonidine HCl (Catapres) 0.1 mg 1X ONCE PO Last administered on 10/18/17at 13:47 ; Start 10/18/17 at 13:45; Stop 10/18/17 at 13:46; Status DC Quetiapine Fumarate (SEROquel) 25 mg QHS PO Last administered on 10/21/17at 20:07 ; Start 10/18/17 at 21:00; Stop 10/22/17 at 16:39; Status DC Magnesium Oxide (Magnesium Oxide) 400 mg DAILYBFRSUP PO Last administered on 17:06; Start 10/21/17 at 17:00 Potassium Chloride (Klor-Con) 20 meq BIDACBL PO Last administered on 10/28/17 12:23; Start 10/22/17 at 07:30 Potassium Chloride (Klor-Con) 40 meq 1X ONCE PO Last administered on 10/21/17 12:34; Start 10/21/17 at 12:30; Stop 10/21/17 at 12:31; Status DC Quetiapine Fumarate (SEROquel) 50 mg QHS PO Last administered on 10/26/17 19: 40; Start 10/22/17 at 21:00; Stop 10/27/17 at 10:23; Status DC Alendronate Sodium (Fosamax) 70 mg WEEKLYAC PO Last administered on 10/25/17 09:53; Start 10/25/17 at 07:00 Lidocaine (Lidoderm) 1 patch DAILY TD Last administered on 10/28/17 07:46; Start 10/26/17 at 09:00 Sennosides (Senna) 8.6 mg PRN BID PRN PO CONSTIPATION Last administered on 10/26 12:30; Start 10/26/17 at 12:00 Risperidone (RisperDAL) 0.25 mg QHS PO Last administered on 10/28/17 20:15; Start 10/27/17 at 21:00 Active Scripts Active Reported Icy Hot 4%-1% Patch (Lidocaine/Menthol) 1 Each Adh..patch 1 Patch TP PRN DAILY PRN Robitussin Cough-Chest Dm Liq (Guaifenesin/Dextromethorphan) 237 Ml Liquid 10 Ml PO PRN Q4HRS PRN Carbamide Peroxide 15 Ml Drops 5 Drop EACH EAR WEEKLY Carafate (Sucralfate) 1 Gm/10 Ml Oral.susp 1 Gm PO QIDACHS Tylenol Extra Strength (Acetaminophen) 500 Mg Tablet 1,000 Mg PO BID Clonazepam 0.5 Mg Tablet 0.5 Mg PO QHS Preparation H Cream (Phenyleph/Pramoxin/Glycr/W.pet) 26 Gm Cream..g. 1 Tonya RC PRN Q6HRS PRN Colace (Docusate Sodium) 100 Mg Capsule 100 Mg PO DAILY Imodium A-D (Loperamide HCl) 2 Mg Capsule 2 Mg PO PRN Q4HRS PRN Milk Of Magnesia (Magnesium Hydroxide) 400 Mg/5 Ml Oral.susp 2,400 Mg PO PRN QHS PRN Calcium Carbonate 600 Mg Tablet 600 Mg PO DAILY Trazodone Hcl 50 Mg Tablet 50 Mg PO PRN QHS PRN Cymbalta (Duloxetine Hcl) 20 Mg Capsule.dr 40 Mg PO DAILY Tylenol (Acetaminophen) 325 Mg Tablet 650 Mg PO PRN Q4HRS PRN Diovan (Valsartan) 320 Mg Tablet 320 Mg PO DAILY Actonel (Risedronate Sodium) 35 Mg Tablet 35 Mg PO WEEKLY Metoprolol Succinate ( Xl ) (Metoprolol Succinate) 100 Mg Tab.er.24h 100 Mg PO DAILY Clonazepam 0.5 Mg Tablet 0.5 Mg PO PRN DAILY PRN Atorvastatin Calcium 40 Mg Tablet 40 Mg PO QHS Aspirin 81 Mg Tab.chew 81 Mg PO DAILY I have reviewed the current psychotropics carefully including drug interactions. Risk benefit ratio favors no change other than as noted in my dictated progress note. Diagnosis: Problems: (1) Delirium (2) LISSET (generalized anxiety disorder) (3) Hypertensive urgency (4) MDD (major depressive disorder) (5) Medical clearance for psychiatric admission (6) Mild cognitive disorder CHANTELLE HECTOR MD Oct 28, 2017 20:39
--- NOTE | 2017-10-29 01:14 | PN ---
DATE: 10/26/2017 This late entry 10/26/2017 covers elements not covered in my initial note 10/26/2017. Met with the patient in the evening of 10/26/2017 and with her son as well, who is visiting her. She is somewhat confused, delusional, believes she is in a hotel, has had some blood in her stool; defer to Dr. Tom. REVIEW OF SYSTEMS: Ambulation impaired with walker. Hard of hearing. No CV, , pulmonary, eye system symptoms on review. MENTAL STATUS EXAM: Oriented to herself, unaware of the year, not sure where she is. Speech coherent, pleasant, abstraction fair, computation impaired, language function intact. Mood and affect remains somewhat anxious, obsessive, depressed. No suicidal ideation. IMPRESSION: Unchanged from initial note. PLAN: Continue current psychotropics for now. MAN Val HECTOR MD DR: CONOR/valente JOB#: [id number] / [id number]
[2017-10-29 06:14] VITALS: BP 156/81
[2017-10-29] MEDS: POTASSIUM CHLORIDE 20 MEQ TABLET.ER. PO SCH ×2 (09:44→12:39)
[2017-10-29] MEDS: SUCRALFATE 1 GM/10 ML ORAL.SUSP. PO SCH ×4 (09:44→20:08)
[2017-10-29] MEDS: CALCIUM CARBONATE 500 MG TABLET PO SCH (09:44)
[2017-10-29] MEDS: ASPIRIN 81 MG TAB.CHEW PO SCH (09:45)
[2017-10-29] MEDS: DOCUSATE SODIUM 100 MG CAPSULE PO SCH (09:45)
[2017-10-29 09:53] VITALS: BP 158/74
[2017-10-29] MEDS: LOSARTAN 50 MG TABLET. PO SCH (09:54)
[2017-10-29] MEDS: DULoxetine HCL 20 MG CAPSULE.DR PO SCH (09:54)
[2017-10-29] MEDS: amLODIPine BESYLATE 10 MG TABLET PO SCH (09:55)
[2017-10-29] MEDS: LIDOCAINE (700MG/PATCH) PATCH. TD SCH (09:56)
[2017-10-29] MEDS: ACETAMINOPHEN 500 MG TABLET PO SCH ×2 (09:56→20:08)
[2017-10-29] MEDS: CHOLECALCIFEROL (VITAMIN D3) 1,000 UNIT TABLET PO SCH (09:56)
[2017-10-29] MEDS: METOPROLOL SUCC 24HR ER 50 MG TAB.ER.24H. PO SCH (09:56)
[2017-10-29] MEDS: CARBAMIDE PEROXIDE 6.5% OTIC SOLUTION 15ML BOTTLE. AU SCH (09:57)
[2017-10-29 16:04] VITALS: BP 130/64
[2017-10-29] MEDS: MAGNESIUM OXIDE 400 MG TABLET PO SCH (17:31)
[2017-10-29] MEDS: ATORVASTATIN CALCIUM 20 MG TABLET PO SCH (20:07)
[2017-10-29] MEDS: MIRTAZAPINE 7.5 MG TABLET. PO SCH (20:08)
[2017-10-29] MEDS: risperiDONE 0.25 MG TABLET. PO SCH (20:08)
--- NOTE | 2017-10-29 22:53 | PDOC ---
Exam Note: Aj Note: Please also refer to the separate dictated note~for this date of service dictated separately.~Patient seen individually. Discussed the patient with Nursing staff reviewed the chart.~Reviewed interim history and current functioning. Reviewed vital signs,~Labs/ Radiology~and current medications noted below. Continue current treatment with the changes noted in the dictated addendum note Assessment: Vital Signs: Vital Signs Date Time Temp Pulse Resp B/P (MAP) Pulse Ox O2 Delivery O2 Flow Rate FiO2 10/29/17 16:04 98.0 89 16 130/64 (86) 95 10/27/17 16:30 Room Air I&O Intake and Output 10/29/17 07:00 Intake Total 840 ml Balance 840 ml Intake Oral 840 ml Current Medications: Meds: Current Medications Metoprolol Tartrate (Lopressor Vial) 5 mg 1X ONCE IV Last administered on 21:21; Start 10/14/17 at 21:15; Stop 10/14/17 at 21:16; Status DC Clonidine HCl (Catapres) 0.1 mg 1X ONCE PO Last administered on 10/14/17at 22:51 ; Start 10/14/17 at 23:00; Stop 10/14/17 at 23:01; Status DC Multi-Ingredient Ointment (Analgesic [place]) 1 tonya PRN QID PRN TP MUSCLE PAIN Last administered on 10/27/17at 23:58; Start 10/15/17 at 02:30 Al Hydroxide/Mg Hydroxide (Mylanta Plus Xs) 15 ml PRN AFTMEALHC PRN PO DYSPEPSIA Last administered on 10/28/17at 02:26; Start 10/15/17 at 02:30 Clonazepam (KlonoPIN) 0.5 mg PRN DAILY PRN PO ANXIETY / AGITATION; Start at 02:30 Clonazepam (KlonoPIN) 0.5 mg QHS PO Last administered on 10/16/17at 07:38; Start 10/15/17 at 21:00; Stop 10/17/17 at 18:11; Status DC Duloxetine HCl (Cymbalta) 40 mg DAILY PO Last administered on 10/29/17at 09:54; Start 10/15/17 at 09:00 Trazodone HCl (Desyrel) 50 mg PRN QHS PRN PO INSOMNIA; Start 10/15/17 at 02:30 Acetaminophen (Tylenol) 1,000 mg BID PO Last administered on 10/29/17at 20:08; Start 10/15/17 at 09:00 Acetaminophen (Tylenol) 650 mg PRN Q4HRS PRN PO MILD PAIN / TEMP Last administered on 10/27/17 17:22; Start 10/15/17 at 02:45 Aspirin (Children'S Aspirin) 81 mg DAILY PO Last administered on 10/29/17at 09: 45; Start 10/15/17 at 09:00 Carbamide Peroxide (Debrox) 5 drop WEEKLY AU Last administered on 10/29/17at 09: 57; Start 10/15/17 at 21:00 Docusate Sodium (Colace) 100 mg DAILY PO Last administered on 10/29/17at 09:45; Start 10/15/17 at 09:00 Loperamide HCl (Imodium) 2 mg PRN Q4HRS PRN PO DIARRHEA; Start 10/15/17 at 02:45 Magnesium Hydroxide (Milk Of Magnesia) 2,400 mg PRN QHS PRN PO CONSTIPATION; Start 10/15/17 at 02:45 Sucralfate (Carafate) 1 gm QIDACHS PO Last administered on 10/29/17at 20:08; Start 10/15/17 at 07:30 Atorvastatin Calcium (Lipitor) 40 mg QHS PO Last administered on 10/29/17at 20: 07; Start 10/15/17 at 21:00 Calcium Carbonate/ Glycine (Oscal) 500 mg DAILYWBKFT PO Last administered on at 09:44; Start 10/15/17 at 08:00 Guaifenesin (Robitussin Dm) 10 ml PRN Q6HRS PRN PO COUGH; Start 10/15/17 at 02: 45 Lidocaine (Lidoderm) 1 patch PRN DAILY PRN TD CHRONIC PAIN Last administered on 10/25/17at 09:58; Start 10/15/17 at 09:00; Stop 10/25/17 at 15:14; Status DC Metoprolol Succinate (Toprol Xl) 100 mg DAILY PO ; Start 10/15/17 at 09:00; Stop 10/15/17 at 09:00; Status DC Phenylephrine HCl (Hemorrhoidal) [address] RECTAL PAIN; Start 10/15/17 at 02:45 Alendronate Sodium (Fosamax) 70 mg WEEKLYAC PO Last administered on 10/16/17at 05 :44; Start 10/16/17 at 07:00; Stop 10/23/17 at 15:50; Status DC Losartan Potassium (Cozaar) 100 mg DAILY PO ; Start 10/15/17 at 09:00; Stop at 09:00; Status DC Losartan Potassium (Cozaar) 100 mg DAILY PO Last administered on 10/29/17at 09: 54; Start 10/15/17 at 05:30 Metoprolol Succinate (Toprol Xl) 100 mg DAILY PO Last administered on at 09:56; Start 10/15/17 at 05:30 Quetiapine Fumarate (SEROquel) 12.5 mg QHS PO Last administered on 10/17/17at 19: 19; Start 10/15/17 at 21:00; Stop 10/18/17 at 18:06; Status DC Clonazepam (KlonoPIN) 0.25 mg QHS PO Last administered on 10/19/17at 19:27; Start 10/17/17 at 21:00; Stop 10/19/17 at 21:00; Status DC Mirtazapine (Remeron) 7.5 mg QHS PO Last administered on 10/29/17at 20:08; Start 10/17/17 at 21:00 Vitamin D (Vitamin D3) 2,000 unit DAILY PO Last administered on 10/29/17at 09:56 ; Start 10/19/17 at 09:00 Amlodipine Besylate (Norvasc) 10 mg DAILY PO Last administered on 10/29/17at 09: 55; Start 10/18/17 at 13:30 Clonidine HCl (Catapres) 0.1 mg PRN Q1HR PRN PO HYPERTENSION, SEE COMMENTS; Start 10/18/17 at 13:45 Clonidine HCl (Catapres) 0.1 mg 1X ONCE PO Last administered on 10/18/17at 13:47 ; Start 10/18/17 at 13:45; Stop 10/18/17 at 13:46; Status DC Quetiapine Fumarate (SEROquel) 25 mg QHS PO Last administered on 10/21/17at 20:07 ; Start 10/18/17 at 21:00; Stop 10/22/17 at 16:39; Status DC Magnesium Oxide (Magnesium Oxide) 400 mg DAILYBFRSUP PO Last administered on 17:31; Start 10/21/17 at 17:00 Potassium Chloride (Klor-Con) 20 meq BIDACBL PO Last administered on 10/29/17 12:39; Start 10/22/17 at 07:30 Potassium Chloride (Klor-Con) 40 meq 1X ONCE PO Last administered on 10/21/17 12:34; Start 10/21/17 at 12:30; Stop 10/21/17 at 12:31; Status DC Quetiapine Fumarate (SEROquel) 50 mg QHS PO Last administered on 10/26/17 19: 40; Start 10/22/17 at 21:00; Stop 10/27/17 at 10:23; Status DC Alendronate Sodium (Fosamax) 70 mg WEEKLYAC PO Last administered on 10/25/17 09:53; Start 10/25/17 at 07:00 Lidocaine (Lidoderm) 1 patch DAILY TD Last administered on 10/29/17 09:56; Start 10/26/17 at 09:00 Sennosides (Senna) 8.6 mg PRN BID PRN PO CONSTIPATION Last administered on 10/26 12:30; Start 10/26/17 at 12:00 Risperidone (RisperDAL) 0.25 mg QHS PO Last administered on 10/29/17 20:08; Start 10/27/17 at 21:00 Active Scripts Active Reported Icy Hot 4%-1% Patch (Lidocaine/Menthol) 1 Each Adh..patch 1 Patch TP PRN DAILY PRN Robitussin Cough-Chest Dm Liq (Guaifenesin/Dextromethorphan) 237 Ml Liquid 10 Ml PO PRN Q4HRS PRN Carbamide Peroxide 15 Ml Drops 5 Drop EACH EAR WEEKLY Carafate (Sucralfate) 1 Gm/10 Ml Oral.susp 1 Gm PO QIDACHS Tylenol Extra Strength (Acetaminophen) 500 Mg Tablet 1,000 Mg PO BID Clonazepam 0.5 Mg Tablet 0.5 Mg PO QHS Preparation H Cream (Phenyleph/Pramoxin/Glycr/W.pet) 26 Gm Cream..g. 1 Tonya RC PRN Q6HRS PRN Colace (Docusate Sodium) 100 Mg Capsule 100 Mg PO DAILY Imodium A-D (Loperamide HCl) 2 Mg Capsule 2 Mg PO PRN Q4HRS PRN Milk Of Magnesia (Magnesium Hydroxide) 400 Mg/5 Ml Oral.susp 2,400 Mg PO PRN QHS PRN Calcium Carbonate 600 Mg Tablet 600 Mg PO DAILY Trazodone Hcl 50 Mg Tablet 50 Mg PO PRN QHS PRN Cymbalta (Duloxetine Hcl) 20 Mg Capsule.dr 40 Mg PO DAILY Tylenol (Acetaminophen) 325 Mg Tablet 650 Mg PO PRN Q4HRS PRN Diovan (Valsartan) 320 Mg Tablet 320 Mg PO DAILY Actonel (Risedronate Sodium) 35 Mg Tablet 35 Mg PO WEEKLY Metoprolol Succinate ( Xl ) (Metoprolol Succinate) 100 Mg Tab.er.24h 100 Mg PO DAILY Clonazepam 0.5 Mg Tablet 0.5 Mg PO PRN DAILY PRN Atorvastatin Calcium 40 Mg Tablet 40 Mg PO QHS Aspirin 81 Mg Tab.chew 81 Mg PO DAILY I have reviewed the current psychotropics carefully including drug interactions. Risk benefit ratio favors no change other than as noted in my dictated progress note. Diagnosis: Problems: (1) Delirium (2) LISSET (generalized anxiety disorder) (3) Hypertensive urgency (4) MDD (major depressive disorder) (5) Medical clearance for psychiatric admission (6) Mild cognitive disorder CHANTELLE HECTOR MD Oct 29, 2017 22:52
--- NOTE | 2017-10-30 | PN ---
DATE: 10/27/2017 PSYCHIATRIC PROGRESS NOTE This is a late entry for 10/27/2017, covers elements not covered in my initial note of 10/27/2017. SUBJECTIVE: The patient was staffed at a treatment team meeting with the entire team in the morning and her daughter, Kym attended. This was a lengthy discussion and seen individually in the evening by myself. The patient barricaded herself in her room and tried to put the bed in front of the door, ____ with a chair, unsure the reason for this. She is somewhat paranoid, felt people were trying to enter her room, but if she has been successful, staff may not have been able to enter the room. Slept 7-1/2 hours. REVIEW OF SYSTEMS: Appetite 60%. Hard of hearing. No CV, , pulmonary, eye system symptoms on review. Gait unsteady. MENTAL STATUS EXAM: Oriented to herself. Insight, judgment, recent memory is impaired. Language function intact. Attention span short. Mood and affect somewhat withdrawn. LABORATORY DATA: Reviewed. IMPRESSION: Major neurocognitive disorder, Alzheimer, vascular with delusion, depression, major depressive disorder with psychotic features. Rest unchanged. PLAN: Change Seroquel to Risperdal 0.25 mg at bedtime. Rest unchanged per initial note. CHANTELLE HECTOR MD DR: CONOR/valente JOB#: [id number] / [id number]
[2017-10-30 06:06] VITALS: BP 132/69
--- NOTE | 2017-10-30 07:48 | PN ---
DATE: 10/28/2017 PSYCHIATRIC PROGRESS NOTE This is a late include 10/28/2017 covers elements not covered in my initial note of 10/28/2017. SUBJECTIVE: The patient is somewhat confused in the morning. Agitated previous night, took a medication slept 6-1/2 hours, more confused in the morning, paranoid, suspicious, snores. REVIEW OF SYSTEMS: Hard of hearing. Impaired ambulation. No CV, , pulmonary, eye system symptoms on review. MENTAL STATUS EXAM: Oriented to herself and situation. Speech moderate latency, often responses monosyllabic. Abstraction fair, computation impaired, language function intact, remain somewhat paranoid. LABORATORY DATA: Reviewed. IMPRESSION: Unchanged from initial note. PLAN: Seroquel has been changed to Risperdal 0.25 mg at bedtime. Continue rest unchanged. MAN Val HECTOR MD DR: CONOR/valente JOB#: [id number] / [id number]
[2017-10-30] MEDS: POTASSIUM CHLORIDE 20 MEQ TABLET.ER. PO SCH ×2 (08:23→12:02)
[2017-10-30] MEDS: CALCIUM CARBONATE 500 MG TABLET PO SCH (08:23)
[2017-10-30] MEDS: DULoxetine HCL 20 MG CAPSULE.DR PO SCH (08:24)
[2017-10-30] MEDS: LIDOCAINE (700MG/PATCH) PATCH. TD SCH (08:24)
[2017-10-30] MEDS: CHOLECALCIFEROL (VITAMIN D3) 1,000 UNIT TABLET PO SCH (08:24)
[2017-10-30] MEDS: DOCUSATE SODIUM 100 MG CAPSULE PO SCH (08:24)
[2017-10-30] MEDS: ACETAMINOPHEN 500 MG TABLET PO SCH ×2 (08:24→19:39)
[2017-10-30] MEDS: ASPIRIN 81 MG TAB.CHEW PO SCH (08:24)
[2017-10-30] MEDS: amLODIPine BESYLATE 10 MG TABLET PO SCH (08:25)
[2017-10-30] MEDS: METOPROLOL SUCC 24HR ER 50 MG TAB.ER.24H. PO SCH (08:25)
[2017-10-30] MEDS: LOSARTAN 50 MG TABLET. PO SCH (08:26)
[2017-10-30] MEDS: SUCRALFATE 1 GM/10 ML ORAL.SUSP. PO SCH ×4 (08:27→19:39)
[2017-10-30 16:08] VITALS: BP 125/77
[2017-10-30] MEDS: MAGNESIUM OXIDE 400 MG TABLET PO SCH (17:10)
[2017-10-30] MEDS: ATORVASTATIN CALCIUM 20 MG TABLET PO SCH (19:39)
[2017-10-30] MEDS: risperiDONE 0.25 MG TABLET. PO SCH (19:39)
[2017-10-30] MEDS: MIRTAZAPINE 7.5 MG TABLET. PO SCH (19:39)
--- NOTE | 2017-10-30 20:51 | PDOC ---
Exam Note: Aj Note: Please also refer to the separate dictated note~for this date of service dictated separately.~Patient seen individually. Discussed the patient with Nursing staff reviewed the chart.~Reviewed interim history and current functioning. Reviewed vital signs,~Labs/ Radiology~and current medications noted below. Continue current treatment with the changes noted in the dictated addendum note Assessment: Vital Signs: Vital Signs Date Time Temp Pulse Resp B/P (MAP) Pulse Ox O2 Delivery O2 Flow Rate FiO2 10/30/17 16:08 97.3 89 18 125/77 (93) 95 10/27/17 16:30 Room Air I&O Intake and Output 10/30/17 07:00 Intake Total 780 ml Balance 780 ml Intake Oral 780 ml Current Medications: Meds: Current Medications Metoprolol Tartrate (Lopressor Vial) 5 mg 1X ONCE IV Last administered on 21:21; Start 10/14/17 at 21:15; Stop 10/14/17 at 21:16; Status DC Clonidine HCl (Catapres) 0.1 mg 1X ONCE PO Last administered on 10/14/17at 22:51 ; Start 10/14/17 at 23:00; Stop 10/14/17 at 23:01; Status DC Multi-Ingredient Ointment (Analgesic [place]) 1 tonya PRN QID PRN TP MUSCLE PAIN Last administered on 10/27/17at 23:58; Start 10/15/17 at 02:30 Al Hydroxide/Mg Hydroxide (Mylanta Plus Xs) 15 ml PRN AFTMEALHC PRN PO DYSPEPSIA Last administered on 10/28/17at 02:26; Start 10/15/17 at 02:30 Clonazepam (KlonoPIN) 0.5 mg PRN DAILY PRN PO ANXIETY / AGITATION; Start at 02:30 Clonazepam (KlonoPIN) 0.5 mg QHS PO Last administered on 10/16/17at 07:38; Start 10/15/17 at 21:00; Stop 10/17/17 at 18:11; Status DC Duloxetine HCl (Cymbalta) 40 mg DAILY PO Last administered on 10/30/17at 08:24; Start 10/15/17 at 09:00 Trazodone HCl (Desyrel) 50 mg PRN QHS PRN PO INSOMNIA; Start 10/15/17 at 02:30 Acetaminophen (Tylenol) 1,000 mg BID PO Last administered on 10/30/17 19:39; Start 10/15/17 at 09:00 Acetaminophen (Tylenol) 650 mg PRN Q4HRS PRN PO MILD PAIN / TEMP Last administered on 10/27/17 17:22; Start 10/15/17 at 02:45 Aspirin (Children'S Aspirin) 81 mg DAILY PO Last administered on 10/30/17 08: 24; Start 10/15/17 at 09:00 Carbamide Peroxide (Debrox) 5 drop WEEKLY AU Last administered on 10/29/17 09: 57; Start 10/15/17 at 21:00 Docusate Sodium (Colace) 100 mg DAILY PO Last administered on 10/30/17 08:24; Start 10/15/17 at 09:00 Loperamide HCl (Imodium) 2 mg PRN Q4HRS PRN PO DIARRHEA; Start 10/15/17 at 02:45 Magnesium Hydroxide (Milk Of Magnesia) 2,400 mg PRN QHS PRN PO CONSTIPATION; Start 10/15/17 at 02:45 Sucralfate (Carafate) 1 gm QIDACHS PO Last administered on 10/30/17 19:39; Start 10/15/17 at 07:30 Atorvastatin Calcium (Lipitor) 40 mg QHS PO Last administered on 10/30/17at 19: 39; Start 10/15/17 at 21:00 Calcium Carbonate/ Glycine (Oscal) 500 mg DAILYWBKFT PO Last administered on at 08:23; Start 10/15/17 at 08:00 Guaifenesin (Robitussin Dm) 10 ml PRN Q6HRS PRN PO COUGH; Start 10/15/17 at 02: 45 Lidocaine (Lidoderm) 1 patch PRN DAILY PRN TD CHRONIC PAIN Last administered on 10/25/17at 09:58; Start 10/15/17 at 09:00; Stop 10/25/17 at 15:14; Status DC Metoprolol Succinate (Toprol Xl) 100 mg DAILY PO ; Start 10/15/17 at 09:00; Stop 10/15/17 at 09:00; Status DC Phenylephrine HCl (Hemorrhoidal) 1 supp PRN Q6HRS PRN [place] RECTAL PAIN; Start 10/15/17 at 02:45 Alendronate Sodium (Fosamax) 70 mg WEEKLYAC PO Last administered on 10/16/17at 05 :44; Start 10/16/17 at 07:00; Stop 10/23/17 at 15:50; Status DC Losartan Potassium (Cozaar) 100 mg DAILY PO ; Start 10/15/17 at 09:00; Stop at 09:00; Status DC Losartan Potassium (Cozaar) 100 mg DAILY PO Last administered on 10/30/17at 08: 26; Start 10/15/17 at 05:30 Metoprolol Succinate (Toprol Xl) 100 mg DAILY PO Last administered on at 08:25; Start 10/15/17 at 05:30 Quetiapine Fumarate (SEROquel) 12.5 mg QHS PO Last administered on 10/17/17at 19: 19; Start 10/15/17 at 21:00; Stop 10/18/17 at 18:06; Status DC Clonazepam (KlonoPIN) 0.25 mg QHS PO Last administered on 10/19/17at 19:27; Start 10/17/17 at 21:00; Stop 10/19/17 at 21:00; Status DC Mirtazapine (Remeron) 7.5 mg QHS PO Last administered on 10/30/17at 19:39; Start 10/17/17 at 21:00 Vitamin D (Vitamin D3) 2,000 unit DAILY PO Last administered on 10/30/17at 08:24 ; Start 10/19/17 at 09:00 Amlodipine Besylate (Norvasc) 10 mg DAILY PO Last administered on 10/30/17at 08: 25; Start 10/18/17 at 13:30 Clonidine HCl (Catapres) 0.1 mg PRN Q1HR PRN PO HYPERTENSION, SEE COMMENTS; Start 10/18/17 at 13:45 Clonidine HCl (Catapres) 0.1 mg 1X ONCE PO Last administered on 10/18/17at 13:47 ; Start 10/18/17 at 13:45; Stop 10/18/17 at 13:46; Status DC Quetiapine Fumarate (SEROquel) 25 mg QHS PO Last administered on 10/21/17at 20:07 ; Start 10/18/17 at 21:00; Stop 10/22/17 at 16:39; Status DC Magnesium Oxide (Magnesium Oxide) 400 mg DAILYBFRSUP PO Last administered on at 17:10; Start 10/21/17 at 17:00 Potassium Chloride (Klor-Con) 20 meq BIDACBL PO Last administered on 10/30/17 12:02; Start 10/22/17 at 07:30 Potassium Chloride (Klor-Con) 40 meq 1X ONCE PO Last administered on 10/21/17at 12:34; Start 10/21/17 at 12:30; Stop 10/21/17 at 12:31; Status DC Quetiapine Fumarate (SEROquel) 50 mg QHS PO Last administered on 10/26/17 19: 40; Start 10/22/17 at 21:00; Stop 10/27/17 at 10:23; Status DC Alendronate Sodium (Fosamax) 70 mg WEEKLYAC PO Last administered on 10/25/17 09:53; Start 10/25/17 at 07:00 Lidocaine (Lidoderm) 1 patch DAILY TD Last administered on 10/30/17 08:24; Start 10/26/17 at 09:00 Sennosides (Senna) 8.6 mg PRN BID PRN PO CONSTIPATION Last administered on 10/26 12:30; Start 10/26/17 at 12:00 Risperidone (RisperDAL) 0.25 mg QHS PO Last administered on 10/30/17 19:39; Start 10/27/17 at 21:00 Active Scripts Active Reported Icy Hot 4%-1% Patch (Lidocaine/Menthol) 1 Each Adh..patch 1 Patch TP PRN DAILY PRN Robitussin Cough-Chest Dm Liq (Guaifenesin/Dextromethorphan) 237 Ml Liquid 10 Ml PO PRN Q4HRS PRN Carbamide Peroxide 15 Ml Drops 5 Drop EACH EAR WEEKLY Carafate (Sucralfate) 1 Gm/10 Ml Oral.susp 1 Gm PO QIDACHS Tylenol Extra Strength (Acetaminophen) 500 Mg Tablet 1,000 Mg PO BID Clonazepam 0.5 Mg Tablet 0.5 Mg PO QHS Preparation H Cream (Phenyleph/Pramoxin/Glycr/W.pet) 26 Gm Cream..g. 1 Tonya RC PRN Q6HRS PRN Colace (Docusate Sodium) 100 Mg Capsule 100 Mg PO DAILY Imodium A-D (Loperamide HCl) 2 Mg Capsule 2 Mg PO PRN Q4HRS PRN Milk Of Magnesia (Magnesium Hydroxide) 400 Mg/5 Ml Oral.susp 2,400 Mg PO PRN QHS PRN Calcium Carbonate 600 Mg Tablet 600 Mg PO DAILY Trazodone Hcl 50 Mg Tablet 50 Mg PO PRN QHS PRN Cymbalta (Duloxetine Hcl) 20 Mg Capsule.dr 40 Mg PO DAILY Tylenol (Acetaminophen) 325 Mg Tablet 650 Mg PO PRN Q4HRS PRN Diovan (Valsartan) 320 Mg Tablet 320 Mg PO DAILY Actonel (Risedronate Sodium) 35 Mg Tablet 35 Mg PO WEEKLY Metoprolol Succinate ( Xl ) (Metoprolol Succinate) 100 Mg Tab.er.24h 100 Mg PO DAILY Clonazepam 0.5 Mg Tablet 0.5 Mg PO PRN DAILY PRN Atorvastatin Calcium 40 Mg Tablet 40 Mg PO QHS Aspirin 81 Mg Tab.chew 81 Mg PO DAILY I have reviewed the current psychotropics carefully including drug interactions. Risk benefit ratio favors no change other than as noted in my dictated progress note. Diagnosis: Problems: (1) Delirium (2) LISSET (generalized anxiety disorder) (3) Hypertensive urgency (4) MDD (major depressive disorder) (5) Medical clearance for psychiatric admission (6) Mild cognitive disorder CHANTELLE HECTOR MD Oct 30, 2017 20:51
--- NOTE | 2017-10-30 21:27 | PN ---
DATE: 10/29/2017 PSYCHIATRIC PROGRESS NOTE This is a late entry of 10/29/2017 covers elements not covered in the initial note of 10/29/2017. I met with the patient in the evening of 10/29/2017. The patient did well the previous evening and during the day of 10/29/2017. She remains somewhat delusional, states she was waiting for her to come, to take her home. Heart rate at one point was 104 and later was 82. Deferred to Dr[address] Tom. REVIEW OF SYSTEMS: Ambulation impaired with walker. Poor hearing. No CV, , pulmonary, eye system symptoms on review. MENTAL STATUS EXAM: Oriented to herself and at times situation. Speech has some latency, coherent. Abstraction fair, computation impaired, language function intact, attention span short. Mood and affect still withdrawn. LABORATORY DATA: Labs reviewed. IMPRESSION: Unchanged from initial note. PLAN: Continue psychotropics mentioned in my initial note. CHANTELLE HECTOR MD DR: CONOR/valente JOB#: [id number] / [id number]
[2017-10-31 06:19] VITALS: BP 130/72
[2017-10-31] MEDS: SUCRALFATE 1 GM/10 ML ORAL.SUSP. PO SCH ×4 (08:03→19:18)
[2017-10-31] MEDS: CHOLECALCIFEROL (VITAMIN D3) 1,000 UNIT TABLET PO SCH (08:03)
[2017-10-31] MEDS: METOPROLOL SUCC 24HR ER 50 MG TAB.ER.24H. PO SCH (08:04)
[2017-10-31] MEDS: CALCIUM CARBONATE 500 MG TABLET PO SCH (08:04)
[2017-10-31] MEDS: DOCUSATE SODIUM 100 MG CAPSULE PO SCH (08:04)
[2017-10-31] MEDS: ASPIRIN 81 MG TAB.CHEW PO SCH (08:04)
[2017-10-31] MEDS: DULoxetine HCL 20 MG CAPSULE.DR PO SCH (08:05)
[2017-10-31] MEDS: ACETAMINOPHEN 500 MG TABLET PO SCH ×2 (08:05→19:19)
[2017-10-31] MEDS: LIDOCAINE (700MG/PATCH) PATCH. TD SCH (08:05)
[2017-10-31] MEDS: LOSARTAN 50 MG TABLET. PO SCH (08:06)
[2017-10-31] MEDS: amLODIPine BESYLATE 10 MG TABLET PO SCH (08:06)
[2017-10-31] MEDS: POTASSIUM CHLORIDE 20 MEQ TABLET.ER. PO SCH ×2 (08:06→12:28)
[2017-10-31 15:19] VITALS: BP 134/79
[2017-10-31] MEDS: MAGNESIUM OXIDE 400 MG TABLET PO SCH (16:52)
[2017-10-31] MEDS: ATORVASTATIN CALCIUM 20 MG TABLET PO SCH (19:19)
[2017-10-31] MEDS: MIRTAZAPINE 7.5 MG TABLET. PO SCH (19:19)
[2017-10-31] MEDS: risperiDONE 0.25 MG TABLET. PO SCH (19:19)
--- NOTE | 2017-10-31 21:00 | PDOC ---
Exam Note: Aj Note: Please also refer to the separate dictated note~for this date of service dictated separately.~Patient seen individually. Discussed the patient with Nursing staff reviewed the chart.~Reviewed interim history and current functioning. Reviewed vital signs,~Labs/ Radiology~and current medications noted below. Continue current treatment with the changes noted in the dictated addendum note Assessment: Vital Signs: Vital Signs Date Time Temp Pulse Resp B/P (MAP) Pulse Ox O2 Delivery O2 Flow Rate FiO2 10/31/17 15:19 97.7 85 16 134/79 (97) 95 Room Air I&O Intake and Output 10/31/17 07:00 Intake Total 1350 ml Balance 1350 ml Intake Oral 1350 ml Current Medications: Meds: Current Medications Metoprolol Tartrate (Lopressor Vial) 5 mg 1X ONCE IV Last administered on at 21:21; Start 10/14/17 at 21:15; Stop 10/14/17 at 21:16; Status DC Clonidine HCl (Catapres) 0.1 mg 1X ONCE PO Last administered on 10/14/17at 22:51 ; Start 10/14/17 at 23:00; Stop 10/14/17 at 23:01; Status DC Multi-Ingredient Ointment (Analgesic [place]) 1 tonya PRN QID PRN TP MUSCLE PAIN Last administered on 10/27/17at 23:58; Start 10/15/17 at 02:30 Al Hydroxide/Mg Hydroxide (Mylanta Plus Xs) 15 ml PRN AFTMEALHC PRN PO DYSPEPSIA Last administered on 10/28/17at 02:26; Start 10/15/17 at 02:30 Clonazepam (KlonoPIN) 0.5 mg PRN DAILY PRN PO ANXIETY / AGITATION; Start at 02:30 Clonazepam (KlonoPIN) 0.5 mg QHS PO Last administered on 10/16/17at 07:38; Start 10/15/17 at 21:00; Stop 10/17/17 at 18:11; Status DC Duloxetine HCl (Cymbalta) 40 mg DAILY PO Last administered on 10/31/17at 08:05; Start 10/15/17 at 09:00 Trazodone HCl (Desyrel) 50 mg PRN QHS PRN PO INSOMNIA; Start 10/15/17 at 02:30 Acetaminophen (Tylenol) 1,000 mg BID PO Last administered on 10/31/17 19:19; Start 10/15/17 at 09:00 Acetaminophen (Tylenol) 650 mg PRN Q4HRS PRN PO MILD PAIN / TEMP Last administered on 10/27/17at 17:22; Start 10/15/17 at 02:45 Aspirin (Children'S Aspirin) 81 mg DAILY PO Last administered on 10/31/17at 08: 04; Start 10/15/17 at 09:00 Carbamide Peroxide (Debrox) 5 drop WEEKLY AU Last administered on 10/29/17at 09: 57; Start 10/15/17 at 21:00 Docusate Sodium (Colace) 100 mg DAILY PO Last administered on 10/31/17at 08:04; Start 10/15/17 at 09:00 Loperamide HCl (Imodium) 2 mg PRN Q4HRS PRN PO DIARRHEA; Start 10/15/17 at 02:45 Magnesium Hydroxide (Milk Of Magnesia) 2,400 mg PRN QHS PRN PO CONSTIPATION; Start 10/15/17 at 02:45 Sucralfate (Carafate) 1 gm QIDACHS PO Last administered on 10/31/17at 19:18; Start 10/15/17 at 07:30 Atorvastatin Calcium (Lipitor) 40 mg QHS PO Last administered on 10/31/17at 19: 19; Start 10/15/17 at 21:00 Calcium Carbonate/ Glycine (Oscal) 500 mg DAILYWBKFT PO Last administered on at 08:04; Start 10/15/17 at 08:00 Guaifenesin (Robitussin Dm) 10 ml PRN Q6HRS PRN PO COUGH; Start 10/15/17 at 02: 45 Lidocaine (Lidoderm) 1 patch PRN DAILY PRN TD CHRONIC PAIN Last administered on 10/25/17at 09:58; Start 10/15/17 at 09:00; Stop 10/25/17 at 15:14; Status DC Metoprolol Succinate (Toprol Xl) 100 mg DAILY PO ; Start 10/15/17 at 09:00; Stop 10/15/17 at 09:00; Status DC Phenylephrine HCl (Hemorrhoidal) 1 supp PRN Q6HRS PRN [place] RECTAL PAIN; Start 10/15/17 at 02:45 Alendronate Sodium (Fosamax) 70 mg WEEKLYAC PO Last administered on 10/16/17at 05 :44; Start 10/16/17 at 07:00; Stop 10/23/17 at 15:50; Status DC Losartan Potassium (Cozaar) 100 mg DAILY PO ; Start 10/15/17 at 09:00; Stop at 09:00; Status DC Losartan Potassium (Cozaar) 100 mg DAILY PO Last administered on 10/31/17at 08: 06; Start 10/15/17 at 05:30 Metoprolol Succinate (Toprol Xl) 100 mg DAILY PO Last administered on at 08:04; Start 10/15/17 at 05:30 Quetiapine Fumarate (SEROquel) 12.5 mg QHS PO Last administered on 10/17/17 19: 19; Start 10/15/17 at 21:00; Stop 10/18/17 at 18:06; Status DC Clonazepam (KlonoPIN) 0.25 mg QHS PO Last administered on 10/19/17at 19:27; Start 10/17/17 at 21:00; Stop 10/19/17 at 21:00; Status DC Mirtazapine (Remeron) 7.5 mg QHS PO Last administered on 10/31/17 19:19; Start 10/17/17 at 21:00 Vitamin D (Vitamin D3) 2,000 unit DAILY PO Last administered on 10/31/17at 08:03 ; Start 10/19/17 at 09:00 Amlodipine Besylate (Norvasc) 10 mg DAILY PO Last administered on 10/31/17at 08: 06; Start 10/18/17 at 13:30 Clonidine HCl (Catapres) 0.1 mg PRN Q1HR PRN PO HYPERTENSION, SEE COMMENTS; Start 10/18/17 at 13:45 Clonidine HCl (Catapres) 0.1 mg 1X ONCE PO Last administered on 10/18/17at 13:47 ; Start 10/18/17 at 13:45; Stop 10/18/17 at 13:46; Status DC Quetiapine Fumarate (SEROquel) 25 mg QHS PO Last administered on 10/21/17at 20:07 ; Start 10/18/17 at 21:00; Stop 10/22/17 at 16:39; Status DC Magnesium Oxide (Magnesium Oxide) 400 mg DAILYBFRSUP PO Last administered on at 16:52; Start 10/21/17 at 17:00 Potassium Chloride (Klor-Con) 20 meq BIDACBL PO Last administered on 10/31/17 12:28; Start 10/22/17 at 07:30 Potassium Chloride (Klor-Con) 40 meq 1X ONCE PO Last administered on 10/21/17 12:34; Start 10/21/17 at 12:30; Stop 10/21/17 at 12:31; Status DC Quetiapine Fumarate (SEROquel) 50 mg QHS PO Last administered on 10/26/17 19: 40; Start 10/22/17 at 21:00; Stop 10/27/17 at 10:23; Status DC Alendronate Sodium (Fosamax) 70 mg WEEKLYAC PO Last administered on 10/25/17at 09:53; Start 10/25/17 at 07:00 Lidocaine (Lidoderm) 1 patch DAILY TD Last administered on 10/31/17at 08:05; Start 10/26/17 at 09:00 Sennosides (Senna) 8.6 mg PRN BID PRN PO CONSTIPATION Last administered on 10/26 12:30; Start 10/26/17 at 12:00 Risperidone (RisperDAL) 0.25 mg QHS PO Last administered on 10/31/17 19:19; Start 10/27/17 at 21:00 Active Scripts Active Reported Icy Hot 4%-1% Patch (Lidocaine/Menthol) 1 Each Adh..patch 1 Patch TP PRN DAILY PRN Robitussin Cough-Chest Dm Liq (Guaifenesin/Dextromethorphan) 237 Ml Liquid 10 Ml PO PRN Q4HRS PRN Carbamide Peroxide 15 Ml Drops 5 Drop EACH EAR WEEKLY Carafate (Sucralfate) 1 Gm/10 Ml Oral.susp 1 Gm PO QIDACHS Tylenol Extra Strength (Acetaminophen) 500 Mg Tablet 1,000 Mg PO BID Clonazepam 0.5 Mg Tablet 0.5 Mg PO QHS Preparation H Cream (Phenyleph/Pramoxin/Glycr/W.pet) 26 Gm Cream..g. 1 Tonya RC PRN Q6HRS PRN Colace (Docusate Sodium) 100 Mg Capsule 100 Mg PO DAILY Imodium A-D (Loperamide HCl) 2 Mg Capsule 2 Mg PO PRN Q4HRS PRN Milk Of Magnesia (Magnesium Hydroxide) 400 Mg/5 Ml Oral.susp 2,400 Mg PO PRN QHS PRN Calcium Carbonate 600 Mg Tablet 600 Mg PO DAILY Trazodone Hcl 50 Mg Tablet 50 Mg PO PRN QHS PRN Cymbalta (Duloxetine Hcl) 20 Mg Capsule.dr 40 Mg PO DAILY Tylenol (Acetaminophen) 325 Mg Tablet 650 Mg PO PRN Q4HRS PRN Diovan (Valsartan) 320 Mg Tablet 320 Mg PO DAILY Actonel (Risedronate Sodium) 35 Mg Tablet 35 Mg PO WEEKLY Metoprolol Succinate ( Xl ) (Metoprolol Succinate) 100 Mg Tab.er.24h 100 Mg PO DAILY Clonazepam 0.5 Mg Tablet 0.5 Mg PO PRN DAILY PRN Atorvastatin Calcium 40 Mg Tablet 40 Mg PO QHS Aspirin 81 Mg Tab.chew 81 Mg PO DAILY I have reviewed the current psychotropics carefully including drug interactions. Risk benefit ratio favors no change other than as noted in my dictated progress note. Diagnosis: Problems: (1) Delirium (2) LISSET (generalized anxiety disorder) (3) Hypertensive urgency (4) MDD (major depressive disorder) (5) Medical clearance for psychiatric admission (6) Mild cognitive disorder CHANTELLE HECTOR MD Oct 31, 2017 21:00
--- NOTE | 2017-10-31 21:18 | PN ---
DATE: 10/30/2017 This late entry 10/30/2017 covers elements not covered in my initial note 10/30/2017. I met with the patient evening of 10/30/2017. The patient remains somewhat confused, withdrawn, but otherwise pleasant. REVIEW OF SYSTEMS: Ambulation impaired. No CV, , pulmonary, eye system symptoms on review. MENTAL STATUS EXAM: Oriented to herself. Insight, judgment, recent and remote memory, attention, concentration, fund of knowledge poor, consistent with her diagnosis mentioned in my initial note. IMPRESSION: Unchanged from initial note. PLAN: Continue current psychotropics including the Risperdal. I prefer not to increase it just yet. MAN Val HECTOR MD DR: CONOR/valente JOB#: [id number] / [id number]
[2017-11-01 06:07] VITALS: BP 121/81
[2017-11-01] MEDS: ALENDRONATE SODIUM 35 MG TABLET PO SCH (06:19)
[2017-11-01] MEDS: SUCRALFATE 1 GM/10 ML ORAL.SUSP. PO SCH ×4 (08:01→19:14)
[2017-11-01] MEDS: POTASSIUM CHLORIDE 20 MEQ TABLET.ER. PO SCH ×2 (08:01→11:54)
[2017-11-01] MEDS: CALCIUM CARBONATE 500 MG TABLET PO SCH (08:01)
[2017-11-01] MEDS: ASPIRIN 81 MG TAB.CHEW PO SCH (08:02)
[2017-11-01] MEDS: DULoxetine HCL 20 MG CAPSULE.DR PO SCH (08:02)
[2017-11-01] MEDS: METOPROLOL SUCC 24HR ER 50 MG TAB.ER.24H. PO SCH (08:03)
[2017-11-01] MEDS: amLODIPine BESYLATE 10 MG TABLET PO SCH (08:03)
[2017-11-01] MEDS: DOCUSATE SODIUM 100 MG CAPSULE PO SCH (08:03)
[2017-11-01] MEDS: ACETAMINOPHEN 500 MG TABLET PO SCH ×2 (08:03→19:15)
[2017-11-01] MEDS: LIDOCAINE (700MG/PATCH) PATCH. TD SCH (08:04)
[2017-11-01] MEDS: CHOLECALCIFEROL (VITAMIN D3) 1,000 UNIT TABLET PO SCH (08:04)
[2017-11-01] MEDS: LOSARTAN 50 MG TABLET. PO SCH (08:04)
[2017-11-01] MEDS: SENNOSIDES 8.6 MG TABLET PO PRN (08:23)
[2017-11-01 15:54] VITALS: BP 123/75
[2017-11-01] MEDS: MAGNESIUM OXIDE 400 MG TABLET PO SCH (16:49)
[2017-11-01] MEDS: MIRTAZAPINE 7.5 MG TABLET. PO SCH (19:15)
[2017-11-01] MEDS: ATORVASTATIN CALCIUM 20 MG TABLET PO SCH (19:15)
[2017-11-01] MEDS: risperiDONE 0.25 MG TABLET. PO SCH (19:15)
--- NOTE | 2017-11-01 20:48 | PDOC ---
Exam Note: Aj Note: Please also refer to the separate dictated note~for this date of service dictated separately.~Patient seen individually. Discussed the patient with Nursing staff reviewed the chart.~Reviewed interim history and current functioning. Reviewed vital signs,~Labs/ Radiology~and current medications noted below. Continue current treatment with the changes noted in the dictated addendum note Assessment: Vital Signs: Vital Signs Date Time Temp Pulse Resp B/P (MAP) Pulse Ox O2 Delivery O2 Flow Rate FiO2 11/01/17 15:54 97.2 84 18 123/75 (91) 96 10/31/17 15:19 Room Air I&O Intake and Output 11/01/17 07:00 Intake Total 1080 ml Balance 1080 ml Intake Oral 1080 ml Current Medications: Meds: Current Medications Metoprolol Tartrate (Lopressor Vial) 5 mg 1X ONCE IV Last administered on at 21:21; Start 10/14/17 at 21:15; Stop 10/14/17 at 21:16; Status DC Clonidine HCl (Catapres) 0.1 mg 1X ONCE PO Last administered on 10/14/17at 22:51 ; Start 10/14/17 at 23:00; Stop 10/14/17 at 23:01; Status DC Multi-Ingredient Ointment (Analgesic [place]) 1 tonya PRN QID PRN TP MUSCLE PAIN Last administered on 10/27/17at 23:58; Start 10/15/17 at 02:30 Al Hydroxide/Mg Hydroxide (Mylanta Plus Xs) 15 ml PRN AFTMEALHC PRN PO DYSPEPSIA Last administered on 10/28/17at 02:26; Start 10/15/17 at 02:30 Clonazepam (KlonoPIN) 0.5 mg PRN DAILY PRN PO ANXIETY / AGITATION; Start at 02:30 Clonazepam (KlonoPIN) 0.5 mg QHS PO Last administered on 10/16/17at 07:38; Start 10/15/17 at 21:00; Stop 10/17/17 at 18:11; Status DC Duloxetine HCl (Cymbalta) 40 mg DAILY PO Last administered on 11/01/17at 08:02; Start 10/15/17 at 09:00 Trazodone HCl (Desyrel) 50 mg PRN QHS PRN PO INSOMNIA; Start 10/15/17 at 02:30 Acetaminophen (Tylenol) 1,000 mg BID PO Last administered on 11/01/17 19:15; Start 10/15/17 at 09:00 Acetaminophen (Tylenol) 650 mg PRN Q4HRS PRN PO MILD PAIN / TEMP Last administered on 10/27/17 17:22; Start 10/15/17 at 02:45 Aspirin (Children'S Aspirin) 81 mg DAILY PO Last administered on 11/01/17at 08: 02; Start 10/15/17 at 09:00 Carbamide Peroxide (Debrox) 5 drop WEEKLY AU Last administered on 10/29/17at 09: 57; Start 10/15/17 at 21:00 Docusate Sodium (Colace) 100 mg DAILY PO Last administered on 11/01/17at 08:03; Start 10/15/17 at 09:00 Loperamide HCl (Imodium) 2 mg PRN Q4HRS PRN PO DIARRHEA; Start 10/15/17 at 02:45 Magnesium Hydroxide (Milk Of Magnesia) 2,400 mg PRN QHS PRN PO CONSTIPATION; Start 10/15/17 at 02:45 Sucralfate (Carafate) 1 gm QIDACHS PO Last administered on 11/01/17 19:14; Start 10/15/17 at 07:30 Atorvastatin Calcium (Lipitor) 40 mg QHS PO Last administered on 11/01/17at 19: 15; Start 10/15/17 at 21:00 Calcium Carbonate/ Glycine (Oscal) 500 mg DAILYWBKFT PO Last administered on at 08:01; Start 10/15/17 at 08:00 Guaifenesin (Robitussin Dm) 10 ml PRN Q6HRS PRN PO COUGH; Start 10/15/17 at 02: 45 Lidocaine (Lidoderm) 1 patch PRN DAILY PRN TD CHRONIC PAIN Last administered on 10/25/17at 09:58; Start 10/15/17 at 09:00; Stop 10/25/17 at 15:14; Status DC Metoprolol Succinate (Toprol Xl) 100 mg DAILY PO ; Start 10/15/17 at 09:00; Stop 10/15/17 at 09:00; Status DC Phenylephrine HCl (Hemorrhoidal) 1 supp PRN Q6HRS PRN [place] RECTAL PAIN; Start 10/15/17 at 02:45 Alendronate Sodium (Fosamax) 70 mg WEEKLYAC PO Last administered on 10/16/17at 05 :44; Start 10/16/17 at 07:00; Stop 10/23/17 at 15:50; Status DC Losartan Potassium (Cozaar) 100 mg DAILY PO ; Start 10/15/17 at 09:00; Stop at 09:00; Status DC Losartan Potassium (Cozaar) 100 mg DAILY PO Last administered on 11/01/17at 08: 04; Start 10/15/17 at 05:30 Metoprolol Succinate (Toprol Xl) 100 mg DAILY PO Last administered on 08:03; Start 10/15/17 at 05:30 Quetiapine Fumarate (SEROquel) 12.5 mg QHS PO Last administered on 10/17/17at 19: 19; Start 10/15/17 at 21:00; Stop 10/18/17 at 18:06; Status DC Clonazepam (KlonoPIN) 0.25 mg QHS PO Last administered on 10/19/17at 19:27; Start 10/17/17 at 21:00; Stop 10/19/17 at 21:00; Status DC Mirtazapine (Remeron) 7.5 mg QHS PO Last administered on 11/01/17at 19:15; Start 10/17/17 at 21:00 Vitamin D (Vitamin D3) 2,000 unit DAILY PO Last administered on 11/01/17at 08:04 ; Start 10/19/17 at 09:00 Amlodipine Besylate (Norvasc) 10 mg DAILY PO Last administered on 11/01/17at 08: 03; Start 10/18/17 at 13:30 Clonidine HCl (Catapres) 0.1 mg PRN Q1HR PRN PO HYPERTENSION, SEE COMMENTS; Start 10/18/17 at 13:45 Clonidine HCl (Catapres) 0.1 mg 1X ONCE PO Last administered on 10/18/17at 13:47 ; Start 10/18/17 at 13:45; Stop 10/18/17 at 13:46; Status DC Quetiapine Fumarate (SEROquel) 25 mg QHS PO Last administered on 10/21/17at 20:07 ; Start 10/18/17 at 21:00; Stop 10/22/17 at 16:39; Status DC Magnesium Oxide (Magnesium Oxide) 400 mg DAILYBFRSUP PO Last administered on 16:49; Start 10/21/17 at 17:00 Potassium Chloride (Klor-Con) 20 meq BIDACBL PO Last administered on 11/01/17 11:54; Start 10/22/17 at 07:30 Potassium Chloride (Klor-Con) 40 meq 1X ONCE PO Last administered on 10/21/17 12:34; Start 10/21/17 at 12:30; Stop 10/21/17 at 12:31; Status DC Quetiapine Fumarate (SEROquel) 50 mg QHS PO Last administered on 10/26/17 19: 40; Start 10/22/17 at 21:00; Stop 10/27/17 at 10:23; Status DC Alendronate Sodium (Fosamax) 70 mg WEEKLYAC PO Last administered on 11/01/17 06:19; Start 10/25/17 at 07:00 Lidocaine (Lidoderm) 1 patch DAILY TD Last administered on 11/01/17 08:04; Start 10/26/17 at 09:00 Sennosides (Senna) 8.6 mg PRN BID PRN PO CONSTIPATION Last administered on 11/01 08:23; Start 10/26/17 at 12:00 Risperidone (RisperDAL) 0.25 mg QHS PO Last administered on 11/01/17 19:15; Start 10/27/17 at 21:00 Active Scripts Active Reported Icy Hot 4%-1% Patch (Lidocaine/Menthol) 1 Each Adh..patch 1 Patch TP PRN DAILY PRN Robitussin Cough-Chest Dm Liq (Guaifenesin/Dextromethorphan) 237 Ml Liquid 10 Ml PO PRN Q4HRS PRN Carbamide Peroxide 15 Ml Drops 5 Drop EACH EAR WEEKLY Carafate (Sucralfate) 1 Gm/10 Ml Oral.susp 1 Gm PO QIDACHS Tylenol Extra Strength (Acetaminophen) 500 Mg Tablet 1,000 Mg PO BID Clonazepam 0.5 Mg Tablet 0.5 Mg PO QHS Preparation H Cream (Phenyleph/Pramoxin/Glycr/W.pet) 26 Gm Cream..g. 1 Tonya RC PRN Q6HRS PRN Colace (Docusate Sodium) 100 Mg Capsule 100 Mg PO DAILY Imodium A-D (Loperamide HCl) 2 Mg Capsule 2 Mg PO PRN Q4HRS PRN Milk Of Magnesia (Magnesium Hydroxide) 400 Mg/5 Ml Oral.susp 2,400 Mg PO PRN QHS PRN Calcium Carbonate 600 Mg Tablet 600 Mg PO DAILY Trazodone Hcl 50 Mg Tablet 50 Mg PO PRN QHS PRN Cymbalta (Duloxetine Hcl) 20 Mg Capsule.dr 40 Mg PO DAILY Tylenol (Acetaminophen) 325 Mg Tablet 650 Mg PO PRN Q4HRS PRN Diovan (Valsartan) 320 Mg Tablet 320 Mg PO DAILY Actonel (Risedronate Sodium) 35 Mg Tablet 35 Mg PO WEEKLY Metoprolol Succinate ( Xl ) (Metoprolol Succinate) 100 Mg Tab.er.24h 100 Mg PO DAILY Clonazepam 0.5 Mg Tablet 0.5 Mg PO PRN DAILY PRN Atorvastatin Calcium 40 Mg Tablet 40 Mg PO QHS Aspirin 81 Mg Tab.chew 81 Mg PO DAILY I have reviewed the current psychotropics carefully including drug interactions. Risk benefit ratio favors no change other than as noted in my dictated progress note. Diagnosis: Problems: (1) Delirium (2) LISSET (generalized anxiety disorder) (3) Hypertensive urgency (4) MDD (major depressive disorder) (5) Medical clearance for psychiatric admission (6) Mild cognitive disorder CHANTELLE HECTOR MD Nov 01, 2017 20:48
[2017-11-02] MEDS: ACETAMINOPHEN 325 MG TABLET PO PRN (03:47)
[2017-11-02 05:53] VITALS: BP 131/68
[2017-11-02] MEDS: DOCUSATE SODIUM 100 MG CAPSULE PO SCH (08:27)
[2017-11-02] MEDS: LOSARTAN 50 MG TABLET. PO SCH (08:28)
[2017-11-02] MEDS: CALCIUM CARBONATE 500 MG TABLET PO SCH (08:28)
[2017-11-02] MEDS: amLODIPine BESYLATE 10 MG TABLET PO SCH (08:28)
[2017-11-02] MEDS: ASPIRIN 81 MG TAB.CHEW PO SCH (08:28)
[2017-11-02] MEDS: POTASSIUM CHLORIDE 20 MEQ TABLET.ER. PO SCH ×2 (08:28→12:58)
[2017-11-02] MEDS: SUCRALFATE 1 GM/10 ML ORAL.SUSP. PO SCH ×4 (08:29→19:32)
[2017-11-02] MEDS: CHOLECALCIFEROL (VITAMIN D3) 1,000 UNIT TABLET PO SCH (08:29)
[2017-11-02] MEDS: METOPROLOL SUCC 24HR ER 50 MG TAB.ER.24H. PO SCH (08:29)
[2017-11-02] MEDS: ACETAMINOPHEN 500 MG TABLET PO SCH ×2 (08:29→19:32)
[2017-11-02] MEDS: DULoxetine HCL 20 MG CAPSULE.DR PO SCH (08:29)
[2017-11-02] MEDS: LIDOCAINE (700MG/PATCH) PATCH. TD SCH (08:30)
[2017-11-02 09:31] LABS: BASO # 0.1 x10^3/uL (0.0-0.2); BASO % 1 % (0-3); EOS # 0.6 x10^3/uL (0.0-0.7); EOS % 9 % (0-3); HEMATOCRIT 40.8 % (36.0-47.0); HEMOGLOBIN 13.6 g/dL (12.0-15.5); LYMPH # 0.9 x10^3/uL (1.0-4.8); LYMPH % 13 % (24-48); MEAN CORPUSCULAR HEMOGLOBIN 31 pg (25-35); MEAN CORPUSCULAR HGB CONC 33 g/dL (31-37); MEAN CORPUSCULAR VOLUME 93 fL (79-100); MONO # 0.5 x10^3/uL (0.0-1.1); MONO % 7 % (0-9); NEUT # 5.1 x10^3uL (1.8-7.7); NEUT % 70 % (31-73); PLATELET COUNT 248 x10^3/uL (140-400); RED BLOOD COUNT 4.39 x10^6/uL (3.50-5.40); RED CELL DISTRIBUTION WIDTH 13.1 % (11.5-14.5); WHITE BLOOD COUNT 7.3 x10^3/uL (4.0-11.0)
[2017-11-02 09:38] LABS: ALBUMIN 3.1 g/dL (3.4-5.0); CALCIUM 8.9 mg/dL (8.5-10.1); CREATININE 1.1 mg/dL (0.6-1.0); GFR 46.9; POTASSIUM 4.6 mmol/L (3.5-5.1); TOTAL BILIRUBIN 0.3 mg/dL (0.2-1.0); TOTAL PROTEIN 6.2 g/dL (6.4-8.2)
[2017-11-02 15:57] VITALS: BP 110/72
[2017-11-02] MEDS: MAGNESIUM OXIDE 400 MG TABLET PO SCH (18:13)
[2017-11-02] MEDS: risperiDONE 0.25 MG TABLET. PO SCH (19:32)
[2017-11-02] MEDS: ATORVASTATIN CALCIUM 20 MG TABLET PO SCH (19:32)
[2017-11-02] MEDS: MIRTAZAPINE 7.5 MG TABLET. PO SCH (19:32)
--- NOTE | 2017-11-02 19:34 | PN ---
DATE: 11/01/2017 This is a late entry for 11/01/2017 and covers the elements not covered in my initial note of 11/01/2017. SUBJECTIVE: I met with the patient in the evening of 11/01/2017. The patient slept 9-3/4 hours previous evening, was quite pleasant in the morning, knew she was at [facility], but felt the year was 1980. She gets confused, tries to chew her medications, somewhat withdrawn later in the day. REVIEW OF SYSTEMS: Hard of hearing, ambulates with walker. No CV, , pulmonary, eye system symptoms on review. She needs new batteries for her hearing aid, son has been called on this. MENTAL STATUS EXAM: Oriented to herself, situation; unaware of the year. Speech coherent, abstraction fair, computation impaired, language function intact. Mood and affect less labile, still anxious, dysphoric at times. No active suicidal or homicidal ideation. IMPRESSION: Unchanged from initial note. PLAN: Continue current psychotropics, may need to increase Risperdal gradually. MAN Val HECTOR MD DR: CONOR/valente JOB#: [id number] / [id number]
--- NOTE | 2017-11-02 20:58 | PDOC ---
Exam Note: Aj Note: Please also refer to the separate dictated note~for this date of service dictated separately.~Patient seen individually. Discussed the patient with Nursing staff reviewed the chart.~Reviewed interim history and current functioning. Reviewed vital signs,~Labs/ Radiology~and current medications noted below. Continue current treatment with the changes noted in the dictated addendum note Assessment: Vital Signs: Vital Signs Date Time Temp Pulse Resp B/P (MAP) Pulse Ox O2 Delivery O2 Flow Rate FiO2 11/02/17 15:57 98.1 86 20 110/72 (85) 95 10/31/17 15:19 Room Air I&O Intake and Output 11/02/17 07:00 Intake Total 600 ml Balance 600 ml Intake Oral 600 ml # Bowel Movements 1 Labs: Laboratory Tests Test 11/02/17 09:09 White Blood Count 7.3 x10^3/uL (4.0-11.0) Red Blood Count 4.39 x10^6/uL (3.50-5.40) Hemoglobin 13.6 g/dL (12.0-15.5) Hematocrit 40.8 % (36.0-47.0) Mean Corpuscular Volume 93 fL (79-100) Mean Corpuscular Hemoglobin 31 pg (25-35) Mean Corpuscular Hemoglobin Concent 33 g/dL (31-37) Red Cell Distribution Width 13.1 % (11.5-14.5) Platelet Count 248 x10^3/uL (140-400) Neutrophils (%) (Auto) 70 % (31-73) Lymphocytes (%) (Auto) 13 % (24-48) L Monocytes (%) (Auto) 7 % (0-9) Eosinophils (%) (Auto) 9 % (0-3) H Basophils (%) (Auto) 1 % (0-3) Neutrophils # (Auto) 5.1 x10^3uL (1.8-7.7) Lymphocytes # (Auto) 0.9 x10^3/uL (1.0-4.8) L Monocytes # (Auto) 0.5 x10^3/uL (0.0-1.1) Eosinophils # (Auto) 0.6 x10^3/uL (0.0-0.7) Basophils # (Auto) 0.1 x10^3/uL (0.0-0.2) Sodium Level 137 mmol/L (136-145) Potassium Level 4.6 mmol/L (3.5-5.1) Chloride Level 100 mmol/L (98-107) Carbon Dioxide Level 26 mmol/L (21-32) Anion Gap 11 (6-14) Blood Urea Nitrogen 23 mg/dL (7-20) H Creatinine 1.1 mg/dL (0.6-1.0) H Estimated GFR (Cockcroft-Gault) 46.9 BUN/Creatinine Ratio 21 (6-20) H Glucose Level 142 mg/dL (70-99) H Calcium Level 8.9 mg/dL (8.5-10.1) Total Bilirubin 0.3 mg/dL (0.2-1.0) Aspartate Amino Transferase (AST) 17 U/L (15-37) Alanine Aminotransferase (ALT) 22 U/L (14-59) Alkaline Phosphatase 58 U/L (46-116) Total Protein 6.2 g/dL (6.4-8.2) L Albumin 3.1 g/dL (3.4-5.0) L Albumin/Globulin Ratio 1.0 (1.0-1.7) Current Medications: Meds: Current Medications Metoprolol Tartrate (Lopressor Vial) 5 mg 1X ONCE IV Last administered on at 21:21; Start 10/14/17 at 21:15; Stop 10/14/17 at 21:16; Status DC Clonidine HCl (Catapres) 0.1 mg 1X ONCE PO Last administered on 10/14/17at 22:51 ; Start 10/14/17 at 23:00; Stop 10/14/17 at 23:01; Status DC Multi-Ingredient Ointment (Analgesic [place]) 1 tonya PRN QID PRN TP MUSCLE PAIN Last administered on 10/27/17at 23:58; Start 10/15/17 at 02:30 Al Hydroxide/Mg Hydroxide (Mylanta Plus Xs) 15 ml PRN AFTMEALHC PRN PO DYSPEPSIA Last administered on 10/28/17at 02:26; Start 10/15/17 at 02:30 Clonazepam (KlonoPIN) 0.5 mg PRN DAILY PRN PO ANXIETY / AGITATION; Start at 02:30 Clonazepam (KlonoPIN) 0.5 mg QHS PO Last administered on 10/16/17 07:38; Start 10/15/17 at 21:00; Stop 10/17/17 at 18:11; Status DC Duloxetine HCl (Cymbalta) 40 mg DAILY PO Last administered on 11/02/17at 08:29; Start 10/15/17 at 09:00 Trazodone HCl (Desyrel) 50 mg PRN QHS PRN PO INSOMNIA; Start 10/15/17 at 02:30 Acetaminophen (Tylenol) 1,000 mg BID PO Last administered on 11/02/17 19:32; Start 10/15/17 at 09:00 Acetaminophen (Tylenol) 650 mg PRN Q4HRS PRN PO MILD PAIN / TEMP Last administered on 11/02/17 03:47; Start 10/15/17 at 02:45 Aspirin (Children'S Aspirin) 81 mg DAILY PO Last administered on 11/02/17 08: 28; Start 10/15/17 at 09:00 Carbamide Peroxide (Debrox) 5 drop WEEKLY AU Last administered on 10/29/17at 09: 57; Start 10/15/17 at 21:00 Docusate Sodium (Colace) 100 mg DAILY PO Last administered on 11/02/17 08:27; Start 10/15/17 at 09:00 Loperamide HCl (Imodium) 2 mg PRN Q4HRS PRN PO DIARRHEA; Start 10/15/17 at 02:45 Magnesium Hydroxide (Milk Of Magnesia) 2,400 mg PRN QHS PRN PO CONSTIPATION; Start 10/15/17 at 02:45 Sucralfate (Carafate) 1 gm QIDACHS PO Last administered on 11/02/17 19:32; Start 10/15/17 at 07:30 Atorvastatin Calcium (Lipitor) 40 mg QHS PO Last administered on 11/02/17 19: 32; Start 10/15/17 at 21:00 Calcium Carbonate/ Glycine (Oscal) 500 mg DAILYWBKFT PO Last administered on at 08:28; Start 10/15/17 at 08:00 Guaifenesin (Robitussin Dm) 10 ml PRN Q6HRS PRN PO COUGH; Start 10/15/17 at 02: 45 Lidocaine (Lidoderm) 1 patch PRN DAILY PRN TD CHRONIC PAIN Last administered on 10/25/17at 09:58; Start 10/15/17 at 09:00; Stop 10/25/17 at 15:14; Status DC Metoprolol Succinate (Toprol Xl) 100 mg DAILY PO ; Start 10/15/17 at 09:00; Stop 10/15/17 at 09:00; Status DC Phenylephrine HCl (Hemorrhoidal) 1 supp PRN Q6HRS PRN MO RECTAL PAIN; Start 10/15/17 at 02:45 Alendronate Sodium (Fosamax) 70 mg WEEKLYAC PO Last administered on 10/16/17at 05 :44; Start 10/16/17 at 07:00; Stop 10/23/17 at 15:50; Status DC Losartan Potassium (Cozaar) 100 mg DAILY PO ; Start 10/15/17 at 09:00; Stop at 09:00; Status DC Losartan Potassium (Cozaar) 100 mg DAILY PO Last administered on 11/02/17at 08: 28; Start 10/15/17 at 05:30 Metoprolol Succinate (Toprol Xl) 100 mg DAILY PO Last administered on at 08:29; Start 10/15/17 at 05:30 Quetiapine Fumarate (SEROquel) 12.5 mg QHS PO Last administered on 10/17/17 19: 19; Start 10/15/17 at 21:00; Stop 10/18/17 at 18:06; Status DC Clonazepam (KlonoPIN) 0.25 mg QHS PO Last administered on 10/19/17at 19:27; Start 10/17/17 at 21:00; Stop 10/19/17 at 21:00; Status DC Mirtazapine (Remeron) 7.5 mg QHS PO Last administered on 11/02/17at 19:32; Start 10/17/17 at 21:00 Vitamin D (Vitamin D3) 2,000 unit DAILY PO Last administered on 11/02/17at 08:29 ; Start 10/19/17 at 09:00 Amlodipine Besylate (Norvasc) 10 mg DAILY PO Last administered on 11/02/17at 08: 28; Start 10/18/17 at 13:30 Clonidine HCl (Catapres) 0.1 mg PRN Q1HR PRN PO HYPERTENSION, SEE COMMENTS; Start 10/18/17 at 13:45 Clonidine HCl (Catapres) 0.1 mg 1X ONCE PO Last administered on 10/18/17at 13:47 ; Start 10/18/17 at 13:45; Stop 10/18/17 at 13:46; Status DC Quetiapine Fumarate (SEROquel) 25 mg QHS PO Last administered on 10/21/17at 20:07 ; Start 10/18/17 at 21:00; Stop 10/22/17 at 16:39; Status DC Magnesium Oxide (Magnesium Oxide) 400 mg DAILYBFRSUP PO Last administered on at 18:13; Start 10/21/17 at 17:00 Potassium Chloride (Klor-Con) 20 meq BIDACBL PO Last administered on 11/02/17at 12:58; Start 10/22/17 at 07:30 Potassium Chloride (Klor-Con) 40 meq 1X ONCE PO Last administered on 10/21/17at 12:34; Start 10/21/17 at 12:30; Stop 10/21/17 at 12:31; Status DC Quetiapine Fumarate (SEROquel) 50 mg QHS PO Last administered on 10/26/17 19: 40; Start 10/22/17 at 21:00; Stop 10/27/17 at 10:23; Status DC Alendronate Sodium (Fosamax) 70 mg WEEKLYAC PO Last administered on 11/01/17 06:19; Start 10/25/17 at 07:00 Lidocaine (Lidoderm) 1 patch DAILY TD Last administered on 11/02/17at 08:30; Start 10/26/17 at 09:00 Sennosides (Senna) 8.6 mg PRN BID PRN PO CONSTIPATION Last administered on 11/01 08:23; Start 10/26/17 at 12:00 Risperidone (RisperDAL) 0.25 mg QHS PO Last administered on 11/02/17at 19:32; Start 10/27/17 at 21:00 Active Scripts Active Reported Icy Hot 4%-1% Patch (Lidocaine/Menthol) 1 Each Adh..patch 1 Patch TP PRN DAILY PRN Robitussin Cough-Chest Dm Liq (Guaifenesin/Dextromethorphan) 237 Ml Liquid 10 Ml PO PRN Q4HRS PRN Carbamide Peroxide 15 Ml Drops 5 Drop EACH EAR WEEKLY Carafate (Sucralfate) 1 Gm/10 Ml Oral.susp 1 Gm PO QIDACHS Tylenol Extra Strength (Acetaminophen) 500 Mg Tablet 1,000 Mg PO BID Clonazepam 0.5 Mg Tablet 0.5 Mg PO QHS Preparation H Cream (Phenyleph/Pramoxin/Glycr/W.pet) 26 Gm Cream..g. 1 Tonya RC PRN Q6HRS PRN Colace (Docusate Sodium) 100 Mg Capsule 100 Mg PO DAILY Imodium A-D (Loperamide HCl) 2 Mg Capsule 2 Mg PO PRN Q4HRS PRN Milk Of Magnesia (Magnesium Hydroxide) 400 Mg/5 Ml Oral.susp 2,400 Mg PO PRN QHS PRN Calcium Carbonate 600 Mg Tablet 600 Mg PO DAILY Trazodone Hcl 50 Mg Tablet 50 Mg PO PRN QHS PRN Cymbalta (Duloxetine Hcl) 20 Mg Capsule.dr 40 Mg PO DAILY Tylenol (Acetaminophen) 325 Mg Tablet 650 Mg PO PRN Q4HRS PRN Diovan (Valsartan) 320 Mg Tablet 320 Mg PO DAILY Actonel (Risedronate Sodium) 35 Mg Tablet 35 Mg PO WEEKLY Metoprolol Succinate ( Xl ) (Metoprolol Succinate) 100 Mg Tab.er.24h 100 Mg PO DAILY Clonazepam 0.5 Mg Tablet 0.5 Mg PO PRN DAILY PRN Atorvastatin Calcium 40 Mg Tablet 40 Mg PO QHS Aspirin 81 Mg Tab.chew 81 Mg PO DAILY I have reviewed the current psychotropics carefully including drug interactions. Risk benefit ratio favors no change other than as noted in my dictated progress note. Diagnosis: Problems: (1) Delirium (2) LISSET (generalized anxiety disorder) (3) Hypertensive urgency (4) MDD (major depressive disorder) (5) Medical clearance for psychiatric admission (6) Mild cognitive disorder CHANTELLE HECTOR MD Nov 02, 2017 20:58
[2017-11-03 05:55] VITALS: BP 142/75
[2017-11-03] MEDS: LIDOCAINE (700MG/PATCH) PATCH. TD SCH (08:58)
[2017-11-03] MEDS: CALCIUM CARBONATE 500 MG TABLET PO SCH (08:58)
[2017-11-03] MEDS: CHOLECALCIFEROL (VITAMIN D3) 1,000 UNIT TABLET PO SCH (08:58)
[2017-11-03] MEDS: POTASSIUM CHLORIDE 20 MEQ TABLET.ER. PO SCH ×2 (08:58→14:06)
[2017-11-03] MEDS: ASPIRIN 81 MG TAB.CHEW PO SCH (08:58)
[2017-11-03] MEDS: DULoxetine HCL 20 MG CAPSULE.DR PO SCH (08:58)
[2017-11-03] MEDS: amLODIPine BESYLATE 10 MG TABLET PO SCH (08:58)
[2017-11-03] MEDS: LOSARTAN 50 MG TABLET. PO SCH (08:58)
[2017-11-03] MEDS: DOCUSATE SODIUM 100 MG CAPSULE PO SCH (08:59)
[2017-11-03] MEDS: METOPROLOL SUCC 24HR ER 50 MG TAB.ER.24H. PO SCH (08:59)
[2017-11-03] MEDS: ACETAMINOPHEN 500 MG TABLET PO SCH ×2 (08:59→20:26)
[2017-11-03] MEDS: SUCRALFATE 1 GM/10 ML ORAL.SUSP. PO SCH ×4 (08:59→20:26)
[2017-11-03 16:04] VITALS: BP 129/79
[2017-11-03] MEDS: MAGNESIUM OXIDE 400 MG TABLET PO SCH (16:49)
[2017-11-03] MEDS: risperiDONE 0.25 MG TABLET. PO SCH (20:26)
[2017-11-03] MEDS: ATORVASTATIN CALCIUM 20 MG TABLET PO SCH (20:26)
[2017-11-03] MEDS: MIRTAZAPINE 7.5 MG TABLET. PO SCH (20:26)
--- NOTE | 2017-11-03 21:03 | PDOC ---
Exam Note: Aj Note: Please also refer to the separate dictated note~for this date of service dictated separately.~Patient seen individually. Discussed the patient with Nursing staff reviewed the chart.~Reviewed interim history and current functioning. Reviewed vital signs,~Labs/ Radiology~and current medications noted below. Continue current treatment with the changes noted in the dictated addendum note Assessment: Vital Signs: Vital Signs Date Time Temp Pulse Resp B/P (MAP) Pulse Ox O2 Delivery O2 Flow Rate FiO2 11/03/17 16:04 99.1 77 18 129/79 (96) 96 10/31/17 15:19 Room Air I&O Intake and Output 11/03/17 07:00 Intake Total 800 ml Balance 800 ml Intake Oral 800 ml Current Medications: Meds: Current Medications Metoprolol Tartrate (Lopressor Vial) 5 mg 1X ONCE IV Last administered on at 21:21; Start 10/14/17 at 21:15; Stop 10/14/17 at 21:16; Status DC Clonidine HCl (Catapres) 0.1 mg 1X ONCE PO Last administered on 10/14/17at 22:51 ; Start 10/14/17 at 23:00; Stop 10/14/17 at 23:01; Status DC Multi-Ingredient Ointment (Analgesic [place]) 1 tonya PRN QID PRN TP MUSCLE PAIN Last administered on 10/27/17at 23:58; Start 10/15/17 at 02:30 Al Hydroxide/Mg Hydroxide (Mylanta Plus Xs) 15 ml PRN AFTMEALHC PRN PO DYSPEPSIA Last administered on 10/28/17at 02:26; Start 10/15/17 at 02:30 Clonazepam (KlonoPIN) 0.5 mg PRN DAILY PRN PO ANXIETY / AGITATION; Start at 02:30 Clonazepam (KlonoPIN) 0.5 mg QHS PO Last administered on 10/16/17at 07:38; Start 10/15/17 at 21:00; Stop 10/17/17 at 18:11; Status DC Duloxetine HCl (Cymbalta) 40 mg DAILY PO Last administered on 11/03/17at 08:58; Start 10/15/17 at 09:00 Trazodone HCl (Desyrel) 50 mg PRN QHS PRN PO INSOMNIA; Start 10/15/17 at 02:30 Acetaminophen (Tylenol) 1,000 mg BID PO Last administered on 11/03/17 20:26; Start 10/15/17 at 09:00 Acetaminophen (Tylenol) 650 mg PRN Q4HRS PRN PO MILD PAIN / TEMP Last administered on 11/02/17 03:47; Start 10/15/17 at 02:45 Aspirin (Children'S Aspirin) 81 mg DAILY PO Last administered on 11/03/17 08: 58; Start 10/15/17 at 09:00 Carbamide Peroxide (Debrox) 5 drop WEEKLY AU Last administered on 10/29/17 09: 57; Start 10/15/17 at 21:00 Docusate Sodium (Colace) 100 mg DAILY PO Last administered on 11/03/17 08:59; Start 10/15/17 at 09:00 Loperamide HCl (Imodium) 2 mg PRN Q4HRS PRN PO DIARRHEA; Start 10/15/17 at 02:45 Magnesium Hydroxide (Milk Of Magnesia) 2,400 mg PRN QHS PRN PO CONSTIPATION Last administered on 11/03/17 09:00; Start 10/15/17 at 02:45 Sucralfate (Carafate) 1 gm QIDACHS PO Last administered on 11/03/17 20:26; Start 10/15/17 at 07:30 Atorvastatin Calcium (Lipitor) 40 mg QHS PO Last administered on 11/03/17 20: 26; Start 10/15/17 at 21:00 Calcium Carbonate/ Glycine (Oscal) 500 mg DAILYWBKFT PO Last administered on 08:58; Start 10/15/17 at 08:00 Guaifenesin (Robitussin Dm) 10 ml PRN Q6HRS PRN PO COUGH; Start 10/15/17 at 02: 45 Lidocaine (Lidoderm) 1 patch PRN DAILY PRN TD CHRONIC PAIN Last administered on 10/25/17 09:58; Start 10/15/17 at 09:00; Stop 10/25/17 at 15:14; Status DC Metoprolol Succinate (Toprol Xl) 100 mg DAILY PO ; Start 10/15/17 at 09:00; Stop 10/15/17 at 09:00; Status DC Phenylephrine HCl (Hemorrhoidal) 1 supp PRN Q6HRS PRN IN RECTAL PAIN; Start 10/15/17 at 02:45 Alendronate Sodium (Fosamax) 70 mg WEEKLYAC PO Last administered on 10/16/17at 05 :44; Start 10/16/17 at 07:00; Stop 10/23/17 at 15:50; Status DC Losartan Potassium (Cozaar) 100 mg DAILY PO ; Start 10/15/17 at 09:00; Stop at 09:00; Status DC Losartan Potassium (Cozaar) 100 mg DAILY PO Last administered on 11/03/17at 08: 58; Start 10/15/17 at 05:30 Metoprolol Succinate (Toprol Xl) 100 mg DAILY PO Last administered on at 08:59; Start 10/15/17 at 05:30 Quetiapine Fumarate (SEROquel) 12.5 mg QHS PO Last administered on 10/17/17at 19: 19; Start 10/15/17 at 21:00; Stop 10/18/17 at 18:06; Status DC Clonazepam (KlonoPIN) 0.25 mg QHS PO Last administered on 10/19/17at 19:27; Start 10/17/17 at 21:00; Stop 10/19/17 at 21:00; Status DC Mirtazapine (Remeron) 7.5 mg QHS PO Last administered on 11/03/17at 20:26; Start 10/17/17 at 21:00 Vitamin D (Vitamin D3) 2,000 unit DAILY PO Last administered on 11/03/17at 08:58 ; Start 10/19/17 at 09:00 Amlodipine Besylate (Norvasc) 10 mg DAILY PO Last administered on 11/03/17at 08: 58; Start 10/18/17 at 13:30 Clonidine HCl (Catapres) 0.1 mg PRN Q1HR PRN PO HYPERTENSION, SEE COMMENTS; Start 10/18/17 at 13:45 Clonidine HCl (Catapres) 0.1 mg 1X ONCE PO Last administered on 10/18/17at 13:47 ; Start 10/18/17 at 13:45; Stop 10/18/17 at 13:46; Status DC Quetiapine Fumarate (SEROquel) 25 mg QHS PO Last administered on 10/21/17 20:07 ; Start 10/18/17 at 21:00; Stop 10/22/17 at 16:39; Status DC Magnesium Oxide (Magnesium Oxide) 400 mg DAILYBFRSUP PO Last administered on 16:49; Start 10/21/17 at 17:00 Potassium Chloride (Klor-Con) 20 meq BIDACBL PO Last administered on 11/03/17 14:06; Start 10/22/17 at 07:30 Potassium Chloride (Klor-Con) 40 meq 1X ONCE PO Last administered on 10/21/17 12:34; Start 10/21/17 at 12:30; Stop 10/21/17 at 12:31; Status DC Quetiapine Fumarate (SEROquel) 50 mg QHS PO Last administered on 10/26/17 19: 40; Start 10/22/17 at 21:00; Stop 10/27/17 at 10:23; Status DC Alendronate Sodium (Fosamax) 70 mg WEEKLYAC PO Last administered on 11/01/17 06:19; Start 10/25/17 at 07:00 Lidocaine (Lidoderm) 1 patch DAILY TD Last administered on 11/03/17 08:58; Start 10/26/17 at 09:00 Sennosides (Senna) 8.6 mg PRN BID PRN PO CONSTIPATION Last administered on 11/01 08:23; Start 10/26/17 at 12:00 Risperidone (RisperDAL) 0.25 mg QHS PO Last administered on 11/03/17 20:26; Start 10/27/17 at 21:00 Active Scripts Active Reported Icy Hot 4%-1% Patch (Lidocaine/Menthol) 1 Each Adh..patch 1 Patch TP PRN DAILY PRN Robitussin Cough-Chest Dm Liq (Guaifenesin/Dextromethorphan) 237 Ml Liquid 10 Ml PO PRN Q4HRS PRN Carbamide Peroxide 15 Ml Drops 5 Drop EACH EAR WEEKLY Carafate (Sucralfate) 1 Gm/10 Ml Oral.susp 1 Gm PO QIDACHS Tylenol Extra Strength (Acetaminophen) 500 Mg Tablet 1,000 Mg PO BID Clonazepam 0.5 Mg Tablet 0.5 Mg PO QHS Preparation H Cream (Phenyleph/Pramoxin/Glycr/W.pet) 26 Gm Cream..g. 1 Tonya RC PRN Q6HRS PRN Colace (Docusate Sodium) 100 Mg Capsule 100 Mg PO DAILY Imodium A-D (Loperamide HCl) 2 Mg Capsule 2 Mg PO PRN Q4HRS PRN Milk Of Magnesia (Magnesium Hydroxide) 400 Mg/5 Ml Oral.susp 2,400 Mg PO PRN QHS PRN Calcium Carbonate 600 Mg Tablet 600 Mg PO DAILY Trazodone Hcl 50 Mg Tablet 50 Mg PO PRN QHS PRN Cymbalta (Duloxetine Hcl) 20 Mg Capsule.dr 40 Mg PO DAILY Tylenol (Acetaminophen) 325 Mg Tablet 650 Mg PO PRN Q4HRS PRN Diovan (Valsartan) 320 Mg Tablet 320 Mg PO DAILY Actonel (Risedronate Sodium) 35 Mg Tablet 35 Mg PO WEEKLY Metoprolol Succinate ( Xl ) (Metoprolol Succinate) 100 Mg Tab.er.24h 100 Mg PO DAILY Clonazepam 0.5 Mg Tablet 0.5 Mg PO PRN DAILY PRN Atorvastatin Calcium 40 Mg Tablet 40 Mg PO QHS Aspirin 81 Mg Tab.chew 81 Mg PO DAILY I have reviewed the current psychotropics carefully including drug interactions. Risk benefit ratio favors no change other than as noted in my dictated progress note. Diagnosis: Problems: (1) Delirium (2) LISSET (generalized anxiety disorder) (3) Hypertensive urgency (4) MDD (major depressive disorder) (5) Medical clearance for psychiatric admission (6) Mild cognitive disorder CHANTELLE HECTOR MD Nov 03, 2017 21:03
[2017-11-04 05:55] VITALS: BP 137/63
[2017-11-04] MEDS: DULoxetine HCL 20 MG CAPSULE.DR PO SCH (09:45)
[2017-11-04] MEDS: amLODIPine BESYLATE 10 MG TABLET PO SCH (09:46)
[2017-11-04] MEDS: ACETAMINOPHEN 500 MG TABLET PO SCH ×2 (09:46→19:47)
[2017-11-04] MEDS: POTASSIUM CHLORIDE 20 MEQ TABLET.ER. PO SCH ×2 (09:46→12:50)
[2017-11-04] MEDS: LOSARTAN 50 MG TABLET. PO SCH (09:47)
[2017-11-04] MEDS: CHOLECALCIFEROL (VITAMIN D3) 1,000 UNIT TABLET PO SCH (09:47)
[2017-11-04] MEDS: DOCUSATE SODIUM 100 MG CAPSULE PO SCH (09:47)
[2017-11-04] MEDS: CALCIUM CARBONATE 500 MG TABLET PO SCH (09:47)
[2017-11-04] MEDS: ASPIRIN 81 MG TAB.CHEW PO SCH (09:47)
[2017-11-04] MEDS: METOPROLOL SUCC 24HR ER 50 MG TAB.ER.24H. PO SCH (09:48)
[2017-11-04] MEDS: SUCRALFATE 1 GM/10 ML ORAL.SUSP. PO SCH ×4 (09:48→19:47)
[2017-11-04] MEDS: LIDOCAINE (700MG/PATCH) PATCH. TD SCH (09:48)
--- NOTE | 2017-11-04 10:17 | PN ---
DATE: 11/02/2017 This is a late entry for 11/02/2017 and covers elements not covered in my initial note of 11/02/2017. I met with the patient individually in her room, evening of 11/02/2017. Met with the son as well. The patient has been withdrawn, does have short-term memory deficits, but little cognitively somewhat more clearer than before. REVIEW OF SYSTEMS: Hard of hearing, impaired ambulation with walker. No CV, , pulmonary, eye system symptoms on review. MENTAL STATUS EXAM: Oriented to herself and situation. Speech has some latency, coherent. Abstraction fair, computation impaired, language function intact, attention span short. Mood and affect somewhat withdrawn, depressed. LABORATORY DATA: Reviewed. IMPRESSION: Major depressive disorder with psychotic features; major neurocognitive disorder, Alzheimer, vascular with delusion, depression. Rest unchanged. PLAN: Continue current psychotropics, Risperdal, Cymbalta, trazodone, Klonopin, and Remeron. Adjust as indicated. CHANTELLE HECTOR MD DR: CONOR/valente JOB#: [id number] / [id number]
--- NOTE | 2017-11-04 13:19 | PN ---
DATE: 11/03/2017 PSYCHIATRIC PROGRESS NOTE This is a late entry, date of service 11/03/2017, covers elements not covered in my initial note 11/03/2017. SUBJECTIVE: I met with the patient the evening of 11/03/2017 and the patient was staffed at treatment team meeting with the entire team morning of 11/03/2017 and the patient's son, Paolo, attended the treatment team meeting. Discussed the patient's history progress, workup at length and her medications. The patient slept 8 hours previous evening, compliant with medications at night, somewhat withdrawn, but no hallucinations noted. Short term memory is impaired. REVIEW OF SYSTEMS: Ambulation impaired with walker, hard of hearing. No CV, , pulmonary, eye system symptoms on review. MENTAL STATUS EXAM: Oriented to herself and situation. Speech has some latency, coherent. Abstraction fair, computation impaired, language function intact. Short term memory is impaired, but confusion appears a little better. She is on still unaware of the year or where she lives. No suicidal or homicidal ideation. LABORATORY DATA: Reviewed. IMPRESSION: Unchanged from initial note. PLAN: Continue current psychotropics, may need to increase Risperdal if psychotic symptoms resurface. Cymbalta is at an adequate dosage of 40 mg a day, Remeron 7.5 at bedtime, trazodone and Klonopin p.r.n. CHANTELLE HECTOR MD DR: CONOR/valente JOB#: [id number] / [id number]
[2017-11-04 16:14] VITALS: BP 130/64
[2017-11-04] MEDS: MAGNESIUM OXIDE 400 MG TABLET PO SCH (17:21)
[2017-11-04] MEDS: risperiDONE 0.25 MG TABLET. PO SCH (19:47)
[2017-11-04] MEDS: ATORVASTATIN CALCIUM 20 MG TABLET PO SCH (19:47)
[2017-11-04] MEDS: MIRTAZAPINE 7.5 MG TABLET. PO SCH (19:47)
--- NOTE | 2017-11-04 21:04 | PDOC ---
Exam Note: Aj Note: Please also refer to the separate dictated note~for this date of service dictated separately.~Patient seen individually. Discussed the patient with Nursing staff reviewed the chart.~Reviewed interim history and current functioning. Reviewed vital signs,~Labs/ Radiology~and current medications noted below. Continue current treatment with the changes noted in the dictated addendum note Assessment: Vital Signs: Vital Signs Date Time Temp Pulse Resp B/P (MAP) Pulse Ox O2 Delivery O2 Flow Rate FiO2 11/04/17 16:14 97.0 83 18 130/64 (86) 97 10/31/17 15:19 Room Air I&O Intake and Output 11/04/17 07:00 Intake Total 840 ml Balance 840 ml Intake Oral 840 ml # Bowel Movements 1 Current Medications: Meds: Current Medications Metoprolol Tartrate (Lopressor Vial) 5 mg 1X ONCE IV Last administered on 21:21; Start 10/14/17 at 21:15; Stop 10/14/17 at 21:16; Status DC Clonidine HCl (Catapres) 0.1 mg 1X ONCE PO Last administered on 10/14/17at 22:51 ; Start 10/14/17 at 23:00; Stop 10/14/17 at 23:01; Status DC Multi-Ingredient Ointment (Analgesic [place]) 1 tonya PRN QID PRN TP MUSCLE PAIN Last administered on 10/27/17at 23:58; Start 10/15/17 at 02:30 Al Hydroxide/Mg Hydroxide (Mylanta Plus Xs) 15 ml PRN AFTMEALHC PRN PO DYSPEPSIA Last administered on 10/28/17at 02:26; Start 10/15/17 at 02:30 Clonazepam (KlonoPIN) 0.5 mg PRN DAILY PRN PO ANXIETY / AGITATION; Start at 02:30 Clonazepam (KlonoPIN) 0.5 mg QHS PO Last administered on 10/16/17at 07:38; Start 10/15/17 at 21:00; Stop 10/17/17 at 18:11; Status DC Duloxetine HCl (Cymbalta) 40 mg DAILY PO Last administered on 11/04/17at 09:45; Start 10/15/17 at 09:00 Trazodone HCl (Desyrel) 50 mg PRN QHS PRN PO INSOMNIA; Start 10/15/17 at 02:30 Acetaminophen (Tylenol) 1,000 mg BID PO Last administered on 11/04/17 19:47; Start 10/15/17 at 09:00 Acetaminophen (Tylenol) 650 mg PRN Q4HRS PRN PO MILD PAIN / TEMP Last administered on 11/02/17 03:47; Start 10/15/17 at 02:45 Aspirin (Children'S Aspirin) 81 mg DAILY PO Last administered on 11/04/17 09: 47; Start 10/15/17 at 09:00 Carbamide Peroxide (Debrox) 5 drop WEEKLY AU Last administered on 10/29/17 09: 57; Start 10/15/17 at 21:00 Docusate Sodium (Colace) 100 mg DAILY PO Last administered on 11/04/17 09:47; Start 10/15/17 at 09:00 Loperamide HCl (Imodium) 2 mg PRN Q4HRS PRN PO DIARRHEA; Start 10/15/17 at 02:45 Magnesium Hydroxide (Milk Of Magnesia) 2,400 mg PRN QHS PRN PO CONSTIPATION Last administered on 11/03/17 09:00; Start 10/15/17 at 02:45 Sucralfate (Carafate) 1 gm QIDACHS PO Last administered on 11/04/17 19:47; Start 10/15/17 at 07:30 Atorvastatin Calcium (Lipitor) 40 mg QHS PO Last administered on 11/04/17 19: 47; Start 10/15/17 at 21:00 Calcium Carbonate/ Glycine (Oscal) 500 mg DAILYWBKFT PO Last administered on 09:47; Start 10/15/17 at 08:00 Guaifenesin (Robitussin Dm) 10 ml PRN Q6HRS PRN PO COUGH; Start 10/15/17 at 02: 45 Lidocaine (Lidoderm) 1 patch PRN DAILY PRN TD CHRONIC PAIN Last administered on 10/25/17 09:58; Start 10/15/17 at 09:00; Stop 10/25/17 at 15:14; Status DC Metoprolol Succinate (Toprol Xl) 100 mg DAILY PO ; Start 10/15/17 at 09:00; Stop 10/15/17 at 09:00; Status DC Phenylephrine HCl (Hemorrhoidal) 1 supp PRN Q6HRS PRN NV RECTAL PAIN; Start 10/15/17 at 02:45 Alendronate Sodium (Fosamax) 70 mg WEEKLYAC PO Last administered on 10/16/17at 05 :44; Start 10/16/17 at 07:00; Stop 10/23/17 at 15:50; Status DC Losartan Potassium (Cozaar) 100 mg DAILY PO ; Start 10/15/17 at 09:00; Stop at 09:00; Status DC Losartan Potassium (Cozaar) 100 mg DAILY PO Last administered on 11/04/17at 09: 47; Start 10/15/17 at 05:30 Metoprolol Succinate (Toprol Xl) 100 mg DAILY PO Last administered on at 09:48; Start 10/15/17 at 05:30 Quetiapine Fumarate (SEROquel) 12.5 mg QHS PO Last administered on 10/17/17at 19: 19; Start 10/15/17 at 21:00; Stop 10/18/17 at 18:06; Status DC Clonazepam (KlonoPIN) 0.25 mg QHS PO Last administered on 10/19/17at 19:27; Start 10/17/17 at 21:00; Stop 10/19/17 at 21:00; Status DC Mirtazapine (Remeron) 7.5 mg QHS PO Last administered on 11/04/17at 19:47; Start 10/17/17 at 21:00 Vitamin D (Vitamin D3) 2,000 unit DAILY PO Last administered on 11/04/17at 09:47 ; Start 10/19/17 at 09:00 Amlodipine Besylate (Norvasc) 10 mg DAILY PO Last administered on 11/04/17at 09: 46; Start 10/18/17 at 13:30 Clonidine HCl (Catapres) 0.1 mg PRN Q1HR PRN PO HYPERTENSION, SEE COMMENTS; Start 10/18/17 at 13:45 Clonidine HCl (Catapres) 0.1 mg 1X ONCE PO Last administered on 10/18/17at 13:47 ; Start 10/18/17 at 13:45; Stop 10/18/17 at 13:46; Status DC Quetiapine Fumarate (SEROquel) 25 mg QHS PO Last administered on 10/21/17 20:07 ; Start 10/18/17 at 21:00; Stop 10/22/17 at 16:39; Status DC Magnesium Oxide (Magnesium Oxide) 400 mg DAILYBFRSUP PO Last administered on 17:21; Start 10/21/17 at 17:00 Potassium Chloride (Klor-Con) 20 meq BIDACBL PO Last administered on 11/04/17 12:50; Start 10/22/17 at 07:30 Potassium Chloride (Klor-Con) 40 meq 1X ONCE PO Last administered on 10/21/17 12:34; Start 10/21/17 at 12:30; Stop 10/21/17 at 12:31; Status DC Quetiapine Fumarate (SEROquel) 50 mg QHS PO Last administered on 10/26/17 19: 40; Start 10/22/17 at 21:00; Stop 10/27/17 at 10:23; Status DC Alendronate Sodium (Fosamax) 70 mg WEEKLYAC PO Last administered on 11/01/17 06:19; Start 10/25/17 at 07:00 Lidocaine (Lidoderm) 1 patch DAILY TD Last administered on 11/04/17 09:48; Start 10/26/17 at 09:00 Sennosides (Senna) 8.6 mg PRN BID PRN PO CONSTIPATION Last administered on 11/01 08:23; Start 10/26/17 at 12:00 Risperidone (RisperDAL) 0.25 mg QHS PO Last administered on 11/04/17 19:47; Start 10/27/17 at 21:00 Active Scripts Active Reported Icy Hot 4%-1% Patch (Lidocaine/Menthol) 1 Each Adh..patch 1 Patch TP PRN DAILY PRN Robitussin Cough-Chest Dm Liq (Guaifenesin/Dextromethorphan) 237 Ml Liquid 10 Ml PO PRN Q4HRS PRN Carbamide Peroxide 15 Ml Drops 5 Drop EACH EAR WEEKLY Carafate (Sucralfate) 1 Gm/10 Ml Oral.susp 1 Gm PO QIDACHS Tylenol Extra Strength (Acetaminophen) 500 Mg Tablet 1,000 Mg PO BID Clonazepam 0.5 Mg Tablet 0.5 Mg PO QHS Preparation H Cream (Phenyleph/Pramoxin/Glycr/W.pet) 26 Gm Cream..g. 1 Tonya RC PRN Q6HRS PRN Colace (Docusate Sodium) 100 Mg Capsule 100 Mg PO DAILY Imodium A-D (Loperamide HCl) 2 Mg Capsule 2 Mg PO PRN Q4HRS PRN Milk Of Magnesia (Magnesium Hydroxide) 400 Mg/5 Ml Oral.susp 2,400 Mg PO PRN QHS PRN Calcium Carbonate 600 Mg Tablet 600 Mg PO DAILY Trazodone Hcl 50 Mg Tablet 50 Mg PO PRN QHS PRN Cymbalta (Duloxetine Hcl) 20 Mg Capsule.dr 40 Mg PO DAILY Tylenol (Acetaminophen) 325 Mg Tablet 650 Mg PO PRN Q4HRS PRN Diovan (Valsartan) 320 Mg Tablet 320 Mg PO DAILY Actonel (Risedronate Sodium) 35 Mg Tablet 35 Mg PO WEEKLY Metoprolol Succinate ( Xl ) (Metoprolol Succinate) 100 Mg Tab.er.24h 100 Mg PO DAILY Clonazepam 0.5 Mg Tablet 0.5 Mg PO PRN DAILY PRN Atorvastatin Calcium 40 Mg Tablet 40 Mg PO QHS Aspirin 81 Mg Tab.chew 81 Mg PO DAILY I have reviewed the current psychotropics carefully including drug interactions. Risk benefit ratio favors no change other than as noted in my dictated progress note. Diagnosis: Problems: (1) Delirium (2) LISSET (generalized anxiety disorder) (3) Hypertensive urgency (4) MDD (major depressive disorder) (5) Medical clearance for psychiatric admission (6) Mild cognitive disorder CHANTELLE HECTOR MD Nov 04, 2017 21:04
[2017-11-05 05:52] VITALS: BP 13/71
[2017-11-05] MEDS: SUCRALFATE 1 GM/10 ML ORAL.SUSP. PO SCH ×4 (07:58→19:57)
[2017-11-05] MEDS: POTASSIUM CHLORIDE 20 MEQ TABLET.ER. PO SCH ×2 (07:59→12:51)
[2017-11-05] MEDS: DULoxetine HCL 20 MG CAPSULE.DR PO SCH (07:59)
[2017-11-05] MEDS: ACETAMINOPHEN 500 MG TABLET PO SCH ×2 (07:59→19:58)
[2017-11-05] MEDS: METOPROLOL SUCC 24HR ER 50 MG TAB.ER.24H. PO SCH (07:59)
[2017-11-05] MEDS: CHOLECALCIFEROL (VITAMIN D3) 1,000 UNIT TABLET PO SCH (08:00)
[2017-11-05] MEDS: LOSARTAN 50 MG TABLET. PO SCH (08:00)
[2017-11-05] MEDS: ASPIRIN 81 MG TAB.CHEW PO SCH (08:00)
[2017-11-05] MEDS: CALCIUM CARBONATE 500 MG TABLET PO SCH (08:01)
[2017-11-05] MEDS: LIDOCAINE (700MG/PATCH) PATCH. TD SCH (08:01)
[2017-11-05] MEDS: DOCUSATE SODIUM 100 MG CAPSULE PO SCH (08:01)
[2017-11-05] MEDS: amLODIPine BESYLATE 10 MG TABLET PO SCH (08:01)
[2017-11-05] MEDS: CARBAMIDE PEROXIDE 6.5% OTIC SOLUTION 15ML BOTTLE. AU SCH (08:04)
[2017-11-05 16:05] VITALS: BP 157/59
[2017-11-05] MEDS: MAGNESIUM OXIDE 400 MG TABLET PO SCH (16:52)
--- NOTE | 2017-11-05 18:02 | PN ---
DATE: 11/04/2017 This is a late entry 11/04/2017 covers elements not covered in my initial note 11/04/2017. Met with the patient in the evening of 11/04/2017 and also met with Paolo, her son, who was visiting her. The patient has done little better, still gets confused. States she has some fleeting visions in her peripheral vision, but no active hallucinations. REVIEW OF SYSTEMS: Hard of hearing, impaired ambulation with walker. No CV, , pulmonary, eye system symptoms on review. MENTAL STATUS EXAM: Oriented to herself and situation. Speech has some latency, coherent. Abstraction fair, computation impaired, language function intact, attention span short. Mood and affect somewhat withdrawn. LABORATORY DATA: Reviewed. IMPRESSION: Unchanged from my initial note. PLAN: Continue psychotropics mentioned in my initial note. MAN Val HECTOR MD DR: CONOR/valente JOB#: [id number] / [id number]
[2017-11-05] MEDS: ATORVASTATIN CALCIUM 20 MG TABLET PO SCH (19:57)
[2017-11-05] MEDS: MIRTAZAPINE 7.5 MG TABLET. PO SCH (19:58)
[2017-11-05] MEDS: risperiDONE 0.25 MG TABLET. PO SCH (19:58)
--- NOTE | 2017-11-05 22:05 | PDOC ---
Exam Note: Aj Note: Please also refer to the separate dictated note~for this date of service dictated separately.~Patient seen individually. Discussed the patient with Nursing staff reviewed the chart.~Reviewed interim history and current functioning. Reviewed vital signs,~Labs/ Radiology~and current medications noted below. Continue current treatment with the changes noted in the dictated addendum note Assessment: Vital Signs: Vital Signs Date Time Temp Pulse Resp B/P (MAP) Pulse Ox O2 Delivery O2 Flow Rate FiO2 11/05/17 16:05 97.5 76 20 157/59 (91) 97 10/31/17 15:19 Room Air I&O Intake and Output 11/05/17 07:00 Intake Total 840 ml Balance 840 ml Intake Oral 840 ml Current Medications: Meds: Current Medications Metoprolol Tartrate (Lopressor Vial) 5 mg 1X ONCE IV Last administered on 21:21; Start 10/14/17 at 21:15; Stop 10/14/17 at 21:16; Status DC Clonidine HCl (Catapres) 0.1 mg 1X ONCE PO Last administered on 10/14/17at 22:51 ; Start 10/14/17 at 23:00; Stop 10/14/17 at 23:01; Status DC Multi-Ingredient Ointment (Analgesic [place]) 1 tonya PRN QID PRN TP MUSCLE PAIN Last administered on 10/27/17at 23:58; Start 10/15/17 at 02:30 Al Hydroxide/Mg Hydroxide (Mylanta Plus Xs) 15 ml PRN AFTMEALHC PRN PO DYSPEPSIA Last administered on 10/28/17at 02:26; Start 10/15/17 at 02:30 Clonazepam (KlonoPIN) 0.5 mg PRN DAILY PRN PO ANXIETY / AGITATION; Start at 02:30 Clonazepam (KlonoPIN) 0.5 mg QHS PO Last administered on 10/16/17at 07:38; Start 10/15/17 at 21:00; Stop 10/17/17 at 18:11; Status DC Duloxetine HCl (Cymbalta) 40 mg DAILY PO Last administered on 11/05/17at 07:59; Start 10/15/17 at 09:00 Trazodone HCl (Desyrel) 50 mg PRN QHS PRN PO INSOMNIA; Start 10/15/17 at 02:30 Acetaminophen (Tylenol) 1,000 mg BID PO Last administered on 11/05/17 19:58; Start 10/15/17 at 09:00 Acetaminophen (Tylenol) 650 mg PRN Q4HRS PRN PO MILD PAIN / TEMP Last administered on 11/02/17 03:47; Start 10/15/17 at 02:45 Aspirin (Children'S Aspirin) 81 mg DAILY PO Last administered on 11/05/17 08: 00; Start 10/15/17 at 09:00 Carbamide Peroxide (Debrox) 5 drop WEEKLY AU Last administered on 11/05/17 08: 04; Start 10/15/17 at 21:00 Docusate Sodium (Colace) 100 mg DAILY PO Last administered on 11/05/17 08:01; Start 10/15/17 at 09:00 Loperamide HCl (Imodium) 2 mg PRN Q4HRS PRN PO DIARRHEA; Start 10/15/17 at 02:45 Magnesium Hydroxide (Milk Of Magnesia) 2,400 mg PRN QHS PRN PO CONSTIPATION Last administered on 11/03/17 09:00; Start 10/15/17 at 02:45 Sucralfate (Carafate) 1 gm QIDACHS PO Last administered on 11/05/17 19:57; Start 10/15/17 at 07:30 Atorvastatin Calcium (Lipitor) 40 mg QHS PO Last administered on 11/05/17 19: 57; Start 10/15/17 at 21:00 Calcium Carbonate/ Glycine (Oscal) 500 mg DAILYWBKFT PO Last administered on 08:01; Start 10/15/17 at 08:00 Guaifenesin (Robitussin Dm) 10 ml PRN Q6HRS PRN PO COUGH; Start 10/15/17 at 02: 45 Lidocaine (Lidoderm) 1 patch PRN DAILY PRN TD CHRONIC PAIN Last administered on 10/25/17 09:58; Start 10/15/17 at 09:00; Stop 10/25/17 at 15:14; Status DC Metoprolol Succinate (Toprol Xl) 100 mg DAILY PO ; Start 10/15/17 at 09:00; Stop 10/15/17 at 09:00; Status DC Phenylephrine HCl (Hemorrhoidal) 1 supp PRN Q6HRS PRN IN RECTAL PAIN; Start 10/15/17 at 02:45 Alendronate Sodium (Fosamax) 70 mg WEEKLYAC PO Last administered on 10/16/17at 05 :44; Start 10/16/17 at 07:00; Stop 10/23/17 at 15:50; Status DC Losartan Potassium (Cozaar) 100 mg DAILY PO ; Start 10/15/17 at 09:00; Stop at 09:00; Status DC Losartan Potassium (Cozaar) 100 mg DAILY PO Last administered on 11/05/17at 08: 00; Start 10/15/17 at 05:30 Metoprolol Succinate (Toprol Xl) 100 mg DAILY PO Last administered on at 07:59; Start 10/15/17 at 05:30 Quetiapine Fumarate (SEROquel) 12.5 mg QHS PO Last administered on 10/17/17at 19: 19; Start 10/15/17 at 21:00; Stop 10/18/17 at 18:06; Status DC Clonazepam (KlonoPIN) 0.25 mg QHS PO Last administered on 10/19/17at 19:27; Start 10/17/17 at 21:00; Stop 10/19/17 at 21:00; Status DC Mirtazapine (Remeron) 7.5 mg QHS PO Last administered on 11/05/17at 19:58; Start 10/17/17 at 21:00 Vitamin D (Vitamin D3) 2,000 unit DAILY PO Last administered on 11/05/17at 08:00 ; Start 10/19/17 at 09:00 Amlodipine Besylate (Norvasc) 10 mg DAILY PO Last administered on 11/05/17at 08: 01; Start 10/18/17 at 13:30 Clonidine HCl (Catapres) 0.1 mg PRN Q1HR PRN PO HYPERTENSION, SEE COMMENTS; Start 10/18/17 at 13:45 Clonidine HCl (Catapres) 0.1 mg 1X ONCE PO Last administered on 10/18/17at 13:47 ; Start 10/18/17 at 13:45; Stop 10/18/17 at 13:46; Status DC Quetiapine Fumarate (SEROquel) 25 mg QHS PO Last administered on 10/21/17 20:07 ; Start 10/18/17 at 21:00; Stop 10/22/17 at 16:39; Status DC Magnesium Oxide (Magnesium Oxide) 400 mg DAILYBFRSUP PO Last administered on 16:52; Start 10/21/17 at 17:00 Potassium Chloride (Klor-Con) 20 meq BIDACBL PO Last administered on 11/05/17 12:51; Start 10/22/17 at 07:30 Potassium Chloride (Klor-Con) 40 meq 1X ONCE PO Last administered on 10/21/17 12:34; Start 10/21/17 at 12:30; Stop 10/21/17 at 12:31; Status DC Quetiapine Fumarate (SEROquel) 50 mg QHS PO Last administered on 10/26/17 19: 40; Start 10/22/17 at 21:00; Stop 10/27/17 at 10:23; Status DC Alendronate Sodium (Fosamax) 70 mg WEEKLYAC PO Last administered on 11/01/17 06:19; Start 10/25/17 at 07:00 Lidocaine (Lidoderm) 1 patch DAILY TD Last administered on 11/05/17 08:01; Start 10/26/17 at 09:00 Sennosides (Senna) 8.6 mg PRN BID PRN PO CONSTIPATION Last administered on 11/01 08:23; Start 10/26/17 at 12:00 Risperidone (RisperDAL) 0.25 mg QHS PO Last administered on 11/05/17 19:58; Start 10/27/17 at 21:00 Active Scripts Active Reported Icy Hot 4%-1% Patch (Lidocaine/Menthol) 1 Each Adh..patch 1 Patch TP PRN DAILY PRN Robitussin Cough-Chest Dm Liq (Guaifenesin/Dextromethorphan) 237 Ml Liquid 10 Ml PO PRN Q4HRS PRN Carbamide Peroxide 15 Ml Drops 5 Drop EACH EAR WEEKLY Carafate (Sucralfate) 1 Gm/10 Ml Oral.susp 1 Gm PO QIDACHS Tylenol Extra Strength (Acetaminophen) 500 Mg Tablet 1,000 Mg PO BID Clonazepam 0.5 Mg Tablet 0.5 Mg PO QHS Preparation H Cream (Phenyleph/Pramoxin/Glycr/W.pet) 26 Gm Cream..g. 1 Tonya RC PRN Q6HRS PRN Colace (Docusate Sodium) 100 Mg Capsule 100 Mg PO DAILY Imodium A-D (Loperamide HCl) 2 Mg Capsule 2 Mg PO PRN Q4HRS PRN Milk Of Magnesia (Magnesium Hydroxide) 400 Mg/5 Ml Oral.susp 2,400 Mg PO PRN QHS PRN Calcium Carbonate 600 Mg Tablet 600 Mg PO DAILY Trazodone Hcl 50 Mg Tablet 50 Mg PO PRN QHS PRN Cymbalta (Duloxetine Hcl) 20 Mg Capsule.dr 40 Mg PO DAILY Tylenol (Acetaminophen) 325 Mg Tablet 650 Mg PO PRN Q4HRS PRN Diovan (Valsartan) 320 Mg Tablet 320 Mg PO DAILY Actonel (Risedronate Sodium) 35 Mg Tablet 35 Mg PO WEEKLY Metoprolol Succinate ( Xl ) (Metoprolol Succinate) 100 Mg Tab.er.24h 100 Mg PO DAILY Clonazepam 0.5 Mg Tablet 0.5 Mg PO PRN DAILY PRN Atorvastatin Calcium 40 Mg Tablet 40 Mg PO QHS Aspirin 81 Mg Tab.chew 81 Mg PO DAILY I have reviewed the current psychotropics carefully including drug interactions. Risk benefit ratio favors no change other than as noted in my dictated progress note. Diagnosis: Problems: (1) Delirium (2) LISSET (generalized anxiety disorder) (3) Hypertensive urgency (4) MDD (major depressive disorder) (5) Medical clearance for psychiatric admission (6) Mild cognitive disorder CHANTELLE HECTOR MD Nov 05, 2017 22:04
[2017-11-06 05:54] VITALS: BP 153/73
[2017-11-06] MEDS: DULoxetine HCL 20 MG CAPSULE.DR PO SCH (07:13)
[2017-11-06] MEDS: ASPIRIN 81 MG TAB.CHEW PO SCH (07:13)
[2017-11-06] MEDS: CHOLECALCIFEROL (VITAMIN D3) 1,000 UNIT TABLET PO SCH (07:13)
[2017-11-06] MEDS: SUCRALFATE 1 GM/10 ML ORAL.SUSP. PO SCH ×4 (07:13→20:53)
[2017-11-06] MEDS: CALCIUM CARBONATE 500 MG TABLET PO SCH (07:14)
[2017-11-06] MEDS: ACETAMINOPHEN 500 MG TABLET PO SCH ×2 (07:14→20:52)
[2017-11-06] MEDS: POTASSIUM CHLORIDE 20 MEQ TABLET.ER. PO SCH ×2 (07:14→12:37)
[2017-11-06] MEDS: METOPROLOL SUCC 24HR ER 50 MG TAB.ER.24H. PO SCH (07:14)
[2017-11-06] MEDS: DOCUSATE SODIUM 100 MG CAPSULE PO SCH (07:15)
[2017-11-06] MEDS: amLODIPine BESYLATE 10 MG TABLET PO SCH (07:15)
[2017-11-06] MEDS: LOSARTAN 50 MG TABLET. PO SCH (07:15)
[2017-11-06] MEDS: LIDOCAINE (700MG/PATCH) PATCH. TD SCH (07:16)
[2017-11-06 16:10] VITALS: BP 129/66
[2017-11-06] MEDS: MAGNESIUM OXIDE 400 MG TABLET PO SCH (17:18)
[2017-11-06] MEDS: ATORVASTATIN CALCIUM 20 MG TABLET PO SCH (20:52)
[2017-11-06] MEDS: risperiDONE 0.25 MG TABLET. PO SCH (20:52)
[2017-11-06] MEDS: MIRTAZAPINE 7.5 MG TABLET. PO SCH (20:52)
--- NOTE | 2017-11-06 21:03 | PDOC ---
Exam Note: Aj Note: Please also refer to the separate dictated note~for this date of service dictated separately.~Patient seen individually. Discussed the patient with Nursing staff reviewed the chart.~Reviewed interim history and current functioning. Reviewed vital signs,~Labs/ Radiology~and current medications noted below. Continue current treatment with the changes noted in the dictated addendum note Assessment: Vital Signs: Vital Signs Date Time Temp Pulse Resp B/P (MAP) Pulse Ox O2 Delivery O2 Flow Rate FiO2 11/06/17 16:10 97.8 78 16 129/66 (87) 95 10/31/17 15:19 Room Air I&O Intake and Output 11/06/17 07:00 Intake Total 480 ml Balance 480 ml Intake Oral 480 ml # Voids 1 Current Medications: Meds: Current Medications Metoprolol Tartrate (Lopressor Vial) 5 mg 1X ONCE IV Last administered on 21:21; Start 10/14/17 at 21:15; Stop 10/14/17 at 21:16; Status DC Clonidine HCl (Catapres) 0.1 mg 1X ONCE PO Last administered on 10/14/17at 22:51 ; Start 10/14/17 at 23:00; Stop 10/14/17 at 23:01; Status DC Multi-Ingredient Ointment (Analgesic [place]) 1 tonya PRN QID PRN TP MUSCLE PAIN Last administered on 10/27/17at 23:58; Start 10/15/17 at 02:30 Al Hydroxide/Mg Hydroxide (Mylanta Plus Xs) 15 ml PRN AFTMEALHC PRN PO DYSPEPSIA Last administered on 10/28/17at 02:26; Start 10/15/17 at 02:30 Clonazepam (KlonoPIN) 0.5 mg PRN DAILY PRN PO ANXIETY / AGITATION; Start at 02:30 Clonazepam (KlonoPIN) 0.5 mg QHS PO Last administered on 10/16/17at 07:38; Start 10/15/17 at 21:00; Stop 10/17/17 at 18:11; Status DC Duloxetine HCl (Cymbalta) 40 mg DAILY PO Last administered on 11/06/17at 07:13; Start 10/15/17 at 09:00 Trazodone HCl (Desyrel) 50 mg PRN QHS PRN PO INSOMNIA; Start 10/15/17 at 02:30 Acetaminophen (Tylenol) 1,000 mg BID PO Last administered on 11/06/17 20:52; Start 10/15/17 at 09:00 Acetaminophen (Tylenol) 650 mg PRN Q4HRS PRN PO MILD PAIN / TEMP Last administered on 11/02/17 03:47; Start 10/15/17 at 02:45 Aspirin (Children'S Aspirin) 81 mg DAILY PO Last administered on 11/06/17 07: 13; Start 10/15/17 at 09:00 Carbamide Peroxide (Debrox) 5 drop WEEKLY AU Last administered on 11/05/17 08: 04; Start 10/15/17 at 21:00 Docusate Sodium (Colace) 100 mg DAILY PO Last administered on 11/06/17 07:15; Start 10/15/17 at 09:00 Loperamide HCl (Imodium) 2 mg PRN Q4HRS PRN PO DIARRHEA; Start 10/15/17 at 02:45 Magnesium Hydroxide (Milk Of Magnesia) 2,400 mg PRN QHS PRN PO CONSTIPATION Last administered on 11/03/17 09:00; Start 10/15/17 at 02:45 Sucralfate (Carafate) 1 gm QIDACHS PO Last administered on 11/06/17 20:53; Start 10/15/17 at 07:30 Atorvastatin Calcium (Lipitor) 40 mg QHS PO Last administered on 11/06/17 20: 52; Start 10/15/17 at 21:00 Calcium Carbonate/ Glycine (Oscal) 500 mg DAILYWBKFT PO Last administered on 07:14; Start 10/15/17 at 08:00 Guaifenesin (Robitussin Dm) 10 ml PRN Q6HRS PRN PO COUGH; Start 10/15/17 at 02: 45 Lidocaine (Lidoderm) 1 patch PRN DAILY PRN TD CHRONIC PAIN Last administered on 10/25/17at 09:58; Start 10/15/17 at 09:00; Stop 10/25/17 at 15:14; Status DC Metoprolol Succinate (Toprol Xl) 100 mg DAILY PO ; Start 10/15/17 at 09:00; Stop 10/15/17 at 09:00; Status DC Phenylephrine HCl (Hemorrhoidal) 1 supp PRN Q6HRS PRN [place] RECTAL PAIN; Start 10/15/17 at 02:45 Alendronate Sodium (Fosamax) 70 mg WEEKLYAC PO Last administered on 10/16/17at 05 :44; Start 10/16/17 at 07:00; Stop 10/23/17 at 15:50; Status DC Losartan Potassium (Cozaar) 100 mg DAILY PO ; Start 10/15/17 at 09:00; Stop at 09:00; Status DC Losartan Potassium (Cozaar) 100 mg DAILY PO Last administered on 11/06/17at 07: 15; Start 10/15/17 at 05:30 Metoprolol Succinate (Toprol Xl) 100 mg DAILY PO Last administered on at 07:14; Start 10/15/17 at 05:30 Quetiapine Fumarate (SEROquel) 12.5 mg QHS PO Last administered on 10/17/17at 19: 19; Start 10/15/17 at 21:00; Stop 10/18/17 at 18:06; Status DC Clonazepam (KlonoPIN) 0.25 mg QHS PO Last administered on 10/19/17at 19:27; Start 10/17/17 at 21:00; Stop 10/19/17 at 21:00; Status DC Mirtazapine (Remeron) 7.5 mg QHS PO Last administered on 11/06/17at 20:52; Start 10/17/17 at 21:00 Vitamin D (Vitamin D3) 2,000 unit DAILY PO Last administered on 11/06/17at 07:13 ; Start 10/19/17 at 09:00 Amlodipine Besylate (Norvasc) 10 mg DAILY PO Last administered on 11/06/17at 07: 15; Start 10/18/17 at 13:30 Clonidine HCl (Catapres) 0.1 mg PRN Q1HR PRN PO HYPERTENSION, SEE COMMENTS; Start 10/18/17 at 13:45 Clonidine HCl (Catapres) 0.1 mg 1X ONCE PO Last administered on 10/18/17at 13:47 ; Start 10/18/17 at 13:45; Stop 10/18/17 at 13:46; Status DC Quetiapine Fumarate (SEROquel) 25 mg QHS PO Last administered on 10/21/17 20:07 ; Start 10/18/17 at 21:00; Stop 10/22/17 at 16:39; Status DC Magnesium Oxide (Magnesium Oxide) 400 mg DAILYBFRSUP PO Last administered on 17:18; Start 10/21/17 at 17:00 Potassium Chloride (Klor-Con) 20 meq BIDACBL PO Last administered on 11/06/17 12:37; Start 10/22/17 at 07:30 Potassium Chloride (Klor-Con) 40 meq 1X ONCE PO Last administered on 10/21/17 12:34; Start 10/21/17 at 12:30; Stop 10/21/17 at 12:31; Status DC Quetiapine Fumarate (SEROquel) 50 mg QHS PO Last administered on 10/26/17 19: 40; Start 10/22/17 at 21:00; Stop 10/27/17 at 10:23; Status DC Alendronate Sodium (Fosamax) 70 mg WEEKLYAC PO Last administered on 11/01/17 06:19; Start 10/25/17 at 07:00 Lidocaine (Lidoderm) 1 patch DAILY TD Last administered on 11/06/17 07:16; Start 10/26/17 at 09:00 Sennosides (Senna) 8.6 mg PRN BID PRN PO CONSTIPATION Last administered on 11/01 08:23; Start 10/26/17 at 12:00 Risperidone (RisperDAL) 0.25 mg QHS PO Last administered on 11/06/17 20:52; Start 10/27/17 at 21:00 Active Scripts Active Reported Icy Hot 4%-1% Patch (Lidocaine/Menthol) 1 Each Adh..patch 1 Patch TP PRN DAILY PRN Robitussin Cough-Chest Dm Liq (Guaifenesin/Dextromethorphan) 237 Ml Liquid 10 Ml PO PRN Q4HRS PRN Carbamide Peroxide 15 Ml Drops 5 Drop EACH EAR WEEKLY Carafate (Sucralfate) 1 Gm/10 Ml Oral.susp 1 Gm PO QIDACHS Tylenol Extra Strength (Acetaminophen) 500 Mg Tablet 1,000 Mg PO BID Clonazepam 0.5 Mg Tablet 0.5 Mg PO QHS Preparation H Cream (Phenyleph/Pramoxin/Glycr/W.pet) 26 Gm Cream..g. 1 Tonya RC PRN Q6HRS PRN Colace (Docusate Sodium) 100 Mg Capsule 100 Mg PO DAILY Imodium A-D (Loperamide HCl) 2 Mg Capsule 2 Mg PO PRN Q4HRS PRN Milk Of Magnesia (Magnesium Hydroxide) 400 Mg/5 Ml Oral.susp 2,400 Mg PO PRN QHS PRN Calcium Carbonate 600 Mg Tablet 600 Mg PO DAILY Trazodone Hcl 50 Mg Tablet 50 Mg PO PRN QHS PRN Cymbalta (Duloxetine Hcl) 20 Mg Capsule.dr 40 Mg PO DAILY Tylenol (Acetaminophen) 325 Mg Tablet 650 Mg PO PRN Q4HRS PRN Diovan (Valsartan) 320 Mg Tablet 320 Mg PO DAILY Actonel (Risedronate Sodium) 35 Mg Tablet 35 Mg PO WEEKLY Metoprolol Succinate ( Xl ) (Metoprolol Succinate) 100 Mg Tab.er.24h 100 Mg PO DAILY Clonazepam 0.5 Mg Tablet 0.5 Mg PO PRN DAILY PRN Atorvastatin Calcium 40 Mg Tablet 40 Mg PO QHS Aspirin 81 Mg Tab.chew 81 Mg PO DAILY I have reviewed the current psychotropics carefully including drug interactions. Risk benefit ratio favors no change other than as noted in my dictated progress note. Diagnosis: Problems: (1) Delirium (2) LISSET (generalized anxiety disorder) (3) Hypertensive urgency (4) MDD (major depressive disorder) (5) Medical clearance for psychiatric admission (6) Mild cognitive disorder CHANTELLE HECTOR MD Nov 06, 2017 21:03
[2017-11-07] MEDS ORDERED: POTA10TA10 PO ×2 (00:40→00:41)
[2017-11-07] MEDS ORDERED: AMLO10TA2 PO (00:50)
[2017-11-07] MEDS ORDERED: CHOL10003 PO (01:03)
[2017-11-07] MEDS ORDERED: MIRT15TA3 PO (01:17)
[2017-11-07] MEDS ORDERED: RISP0.5T3 PO (01:23)
[2017-11-07] MEDS: ACETAMINOPHEN 325 MG TABLET PO PRN (01:36)
[2017-11-07 06:04] VITALS: BP 165/80
[2017-11-07] MEDS ORDERED: MAGN400T3 PO (07:47)
[2017-11-07] MEDS: SUCRALFATE 1 GM/10 ML ORAL.SUSP. PO SCH (07:53)
[2017-11-07] MEDS: CHOLECALCIFEROL (VITAMIN D3) 1,000 UNIT TABLET PO SCH (07:55)
[2017-11-07] MEDS: DOCUSATE SODIUM 100 MG CAPSULE PO SCH (07:55)
[2017-11-07 07:56] VITALS: BP 165/80
[2017-11-07] MEDS: POTASSIUM CHLORIDE 20 MEQ TABLET.ER. PO SCH (07:56)
[2017-11-07] MEDS: amLODIPine BESYLATE 10 MG TABLET PO SCH (07:56)
[2017-11-07] MEDS: CALCIUM CARBONATE 500 MG TABLET PO SCH (07:56)
[2017-11-07] MEDS: ASPIRIN 81 MG TAB.CHEW PO SCH (07:56)
[2017-11-07] MEDS: ACETAMINOPHEN 500 MG TABLET PO SCH (07:56)
[2017-11-07] MEDS: LOSARTAN 50 MG TABLET. PO SCH (07:56)
[2017-11-07] MEDS: METOPROLOL SUCC 24HR ER 50 MG TAB.ER.24H. PO SCH (07:56)
[2017-11-07] MEDS: DULoxetine HCL 20 MG CAPSULE.DR PO SCH (07:57)
[2017-11-07] MEDS: LIDOCAINE (700MG/PATCH) PATCH. TD SCH (07:57)
--- NOTE | 2017-11-07 18:34 | PDOC ---
Exam Note: Aj Note: Please also refer to the separate dictated note~for this date of service dictated separately.~Patient seen individually. Discussed the patient with Nursing staff reviewed the chart.~Reviewed interim history and current functioning. Reviewed vital signs,~Labs/ Radiology~and current medications noted below. Continue current treatment with the changes noted in the dictated addendum note Assessment: Vital Signs: Vital Signs Date Time Temp Pulse Resp B/P (MAP) Pulse Ox O2 Delivery O2 Flow Rate FiO2 11/07/17 07:56 75 165/80 11/07/17 06:04 97.7 16 96 I&O Intake and Output 11/07/17 07:00 Intake Total 960 ml Balance 960 ml Intake Oral 960 ml Current Medications: Meds: Current Medications Metoprolol Tartrate (Lopressor Vial) 5 mg 1X ONCE IV Last administered on 21:21; Start 10/14/17 at 21:15; Stop 10/14/17 at 21:16; Status DC Clonidine HCl (Catapres) 0.1 mg 1X ONCE PO Last administered on 10/14/17at 22:51 ; Start 10/14/17 at 23:00; Stop 10/14/17 at 23:01; Status DC Multi-Ingredient Ointment (Analgesic [place]) 1 tonya PRN QID PRN TP MUSCLE PAIN Last administered on 10/27/17at 23:58; Start 10/15/17 at 02:30; Stop 11/07/17 at 10:17; Status DC Al Hydroxide/Mg Hydroxide (Mylanta Plus Xs) 15 ml PRN AFTMEALHC PRN PO DYSPEPSIA Last administered on 10/28/17at 02:26; Start 10/15/17 at 02:30; Stop at 10:17; Status DC Clonazepam (KlonoPIN) 0.5 mg PRN DAILY PRN PO ANXIETY / AGITATION; Start at 02:30; Stop 11/07/17 at 10:17; Status DC Clonazepam (KlonoPIN) 0.5 mg QHS PO Last administered on 10/16/17at 07:38; Start 10/15/17 at 21:00; Stop 10/17/17 at 18:11; Status DC Duloxetine HCl (Cymbalta) 40 mg DAILY PO Last administered on 11/07/17at 07:57; Start 10/15/17 at 09:00; Stop 11/07/17 at 10:17; Status DC Trazodone HCl (Desyrel) 50 mg PRN QHS PRN PO INSOMNIA; Start 10/15/17 at 02:30; Stop 11/07/17 at 10:17; Status DC Acetaminophen (Tylenol) 1,000 mg BID PO Last administered on 11/07/17at 07:56; Start 10/15/17 at 09:00; Stop 11/07/17 at 10:17; Status DC Acetaminophen (Tylenol) 650 mg PRN Q4HRS PRN PO MILD PAIN / TEMP Last administered on 11/07/17at 01:36; Start 10/15/17 at 02:45; Stop 11/07/17 at 10:17 ; Status DC Aspirin (Children'S Aspirin) 81 mg DAILY PO Last administered on 11/07/17at 07: 56; Start 10/15/17 at 09:00; Stop 11/07/17 at 10:17; Status DC Carbamide Peroxide (Debrox) 5 drop WEEKLY AU Last administered on 11/05/17at 08: 04; Start 10/15/17 at 21:00; Stop 11/07/17 at 10:17; Status DC Docusate Sodium (Colace) 100 mg DAILY PO Last administered on 11/07/17at 07:55; Start 10/15/17 at 09:00; Stop 11/07/17 at 10:17; Status DC Loperamide HCl (Imodium) 2 mg PRN Q4HRS PRN PO DIARRHEA; Start 10/15/17 at 02:45 ; Stop 11/07/17 at 10:17; Status DC Magnesium Hydroxide (Milk Of Magnesia) 2,400 mg PRN QHS PRN PO CONSTIPATION Last administered on 11/03/17at 09:00; Start 10/15/17 at 02:45; Stop 11/07/17 at 10:17; Status DC Sucralfate (Carafate) 1 gm QIDACHS PO Last administered on 11/07/17at 07:53; Start 10/15/17 at 07:30; Stop 11/07/17 at 10:17; Status DC Atorvastatin Calcium (Lipitor) 40 mg QHS PO Last administered on 11/06/17at 20: 52; Start 10/15/17 at 21:00; Stop 11/07/17 at 10:17; Status DC Calcium Carbonate/ Glycine (Oscal) 500 mg DAILYWBKFT PO Last administered on at 07:56; Start 10/15/17 at 08:00; Stop 11/07/17 at 10:17; Status DC Guaifenesin (Robitussin Dm) 10 ml PRN Q6HRS PRN PO COUGH; Start 10/15/17 at 02: 45; Stop 11/07/17 at 10:17; Status DC Lidocaine (Lidoderm) 1 patch PRN DAILY PRN TD CHRONIC PAIN Last administered on 10/25/17at 09:58; Start 10/15/17 at 09:00; Stop 10/25/17 at 15:14; Status DC Metoprolol Succinate (Toprol Xl) 100 mg DAILY PO ; Start 10/15/17 at 09:00; Stop 10/15/17 at 09:00; Status DC Phenylephrine HCl (Hemorrhoidal) 1 supp PRN Q6HRS PRN SD RECTAL PAIN; Start 10/15/17 at 02:45; Stop 11/07/17 at 10:17; Status DC Alendronate Sodium (Fosamax) 70 mg WEEKLYAC PO Last administered on 10/16/17at 05 :44; Start 10/16/17 at 07:00; Stop 10/23/17 at 15:50; Status DC Losartan Potassium (Cozaar) 100 mg DAILY PO ; Start 10/15/17 at 09:00; Stop at 09:00; Status DC Losartan Potassium (Cozaar) 100 mg DAILY PO Last administered on 11/07/17at 07: 56; Start 10/15/17 at 05:30; Stop 11/07/17 at 10:17; Status DC Metoprolol Succinate (Toprol Xl) 100 mg DAILY PO Last administered on at 07:56; Start 10/15/17 at 05:30; Stop 11/07/17 at 10:17; Status DC Quetiapine Fumarate (SEROquel) 12.5 mg QHS PO Last administered on 10/17/17at 19: 19; Start 10/15/17 at 21:00; Stop 10/18/17 at 18:06; Status DC Clonazepam (KlonoPIN) 0.25 mg QHS PO Last administered on 10/19/17at 19:27; Start 10/17/17 at 21:00; Stop 10/19/17 at 21:00; Status DC Mirtazapine (Remeron) 7.5 mg QHS PO Last administered on 11/06/17at 20:52; Start 10/17/17 at 21:00; Stop 11/07/17 at 10:17; Status DC Vitamin D (Vitamin D3) 2,000 unit DAILY PO Last administered on 11/07/17at 07:55 ; Start 10/19/17 at 09:00; Stop 11/07/17 at 10:17; Status DC Amlodipine Besylate (Norvasc) 10 mg DAILY PO Last administered on 11/07/17at 07: 56; Start 10/18/17 at 13:30; Stop 11/07/17 at 10:17; Status DC Clonidine HCl (Catapres) 0.1 mg PRN Q1HR PRN PO HYPERTENSION, SEE COMMENTS; Start 10/18/17 at 13:45; Stop 11/07/17 at 10:17; Status DC Clonidine HCl (Catapres) 0.1 mg 1X ONCE PO Last administered on 10/18/17at 13:47 ; Start 10/18/17 at 13:45; Stop 10/18/17 at 13:46; Status DC Quetiapine Fumarate (SEROquel) 25 mg QHS PO Last administered on 10/21/17at 20:07 ; Start 10/18/17 at 21:00; Stop 10/22/17 at 16:39; Status DC Magnesium Oxide (Magnesium Oxide) 400 mg DAILYBFRSUP PO Last administered on at 17:18; Start 10/21/17 at 17:00; Stop 11/07/17 at 10:17; Status DC Potassium Chloride (Klor-Con) 20 meq BIDACBL PO Last administered on 11/07/17at 07:56; Start 10/22/17 at 07:30; Stop 11/07/17 at 10:17; Status DC Potassium Chloride (Klor-Con) 40 meq 1X ONCE PO Last administered on 10/21/17at 12:34; Start 10/21/17 at 12:30; Stop 10/21/17 at 12:31; Status DC Quetiapine Fumarate (SEROquel) 50 mg QHS PO Last administered on 10/26/17at 19: 40; Start 10/22/17 at 21:00; Stop 10/27/17 at 10:23; Status DC Alendronate Sodium (Fosamax) 70 mg WEEKLYAC PO Last administered on 11/01/17at 06:19; Start 10/25/17 at 07:00; Stop 11/07/17 at 10:17; Status DC Lidocaine (Lidoderm) 1 patch DAILY TD Last administered on 11/07/17at 07:57; Start 10/26/17 at 09:00; Stop 11/07/17 at 10:17; Status DC Sennosides (Senna) 8.6 mg PRN BID PRN PO CONSTIPATION Last administered on 11/01at 08:23; Start 10/26/17 at 12:00; Stop 11/07/17 at 10:17; Status DC Risperidone (RisperDAL) 0.25 mg QHS PO Last administered on 11/06/17at 20:52; Start 10/27/17 at 21:00; Stop 11/07/17 at 10:17; Status DC Active Scripts Active Reported Magnesium Oxide 400 Mg Tablet 1 Tab PO DAILYBFRSUP Risperidone 0.5 Mg Tablet 0.25 Tab PO QHS Mirtazapine 15 Mg Tablet 0.5 Tab PO QHS Vitamin D3 (Cholecalciferol (Vitamin D3)) 1,000 Unit Tablet 2,000 Units PO DAILY Amlodipine Besylate 10 Mg Tablet 10 Mg PO DAILY Potassium Chloride 10 Meq Tablet.er 20 Meq PO BIDACBL Carbamide Peroxide 15 Ml Drops 5 Drop EACH EAR WEEKLY Carafate (Sucralfate) 1 Gm/10 Ml Oral.susp 1 Gm PO QIDACHS Tylenol Extra Strength (Acetaminophen) 500 Mg Tablet 1,000 Mg PO BID Preparation H Cream (Phenyleph/Pramoxin/Glycr/W.pet) 26 Gm Cream..g. 1 Tonya RC PRN Q6HRS PRN Colace (Docusate Sodium) 100 Mg Capsule 100 Mg PO DAILY Imodium A-D (Loperamide HCl) 2 Mg Capsule 2 Mg PO PRN Q4HRS PRN Milk Of Magnesia (Magnesium Hydroxide) 400 Mg/5 Ml Oral.susp 2,400 Mg PO PRN QHS PRN Calcium Carbonate 600 Mg Tablet 500 Mg PO DAILY Trazodone Hcl 50 Mg Tablet 50 Mg PO PRN QHS PRN Cymbalta (Duloxetine Hcl) 20 Mg Capsule.dr 40 Mg PO DAILY Tylenol (Acetaminophen) 325 Mg Tablet 650 Mg PO PRN Q4HRS PRN Metoprolol Succinate ( Xl ) (Metoprolol Succinate) 100 Mg Tab.er.24h 100 Mg PO DAILY Clonazepam 0.5 Mg Tablet 0.5 Mg PO PRN DAILY PRN Atorvastatin Calcium 40 Mg Tablet 40 Mg PO QHS Aspirin 81 Mg Tab.chew 81 Mg PO DAILY I have reviewed the current psychotropics carefully including drug interactions. Risk benefit ratio favors no change other than as noted in my dictated progress note. Diagnosis: Problems: (1) Mild cognitive disorder (2) MDD (major depressive disorder) (3) LISSET (generalized anxiety disorder) CHANTELLE HECTOR MD Nov 07, 2017 18:34
--- NOTE | 2017-11-07 23:41 | PN ---
DATE: 11/06/2017 This is a late entry for 11/06/2017 covers elements not covered in my initial note of 11/06/2017. SUBJECTIVE: I met with the patient in the evening of 11/06/2017. The patient remains somewhat withdrawn, has short-term memory deficits, but otherwise more cooperative, more oriented than a few days back. REVIEW OF SYSTEMS: Hard of hearing, impaired ambulation with walker. No CV, , pulmonary, eye system symptoms on review. MENTAL STATUS EXAM: Oriented to herself and situation. Speech has some latency, coherent. Abstraction fair, computation impaired, language function intact, attention span short. Mood and affect, less anxious, less labile. LABORATORY DATA: Reviewed. IMPRESSION: Unchanged from initial note, major depressive disorder with psychotic features; major neurocognitive disorder, early Alzheimer, vascular with delusion, depression. PLAN: Continue psychotropics mentioned in my initial note. Transition to assisted living on 11/07/2017. CHANTELLE HECTOR MD DR: CONOR/valente JOB#: [id number] / [id number]
--- NOTE | 2017-11-08 02:37 | PN ---
DATE: 11/05/2017 This is a late entry for 11/05/2017 and covers the elements not covered in my initial note of 11/05/2017. SUBJECTIVE: I met with the patient at some length in her room in the evening of 11/05/2017. Overall, the patient has had some short-term memory deficits, but cooperative, coming out more for groups. REVIEW OF SYSTEMS: Ambulation impaired with walker hard of hearing. No CV, , pulmonary, eye system symptoms on review. MENTAL STATUS EXAM: Oriented to herself and situation. Speech has some latency, coherent, very pleasant, smiling as I sat with her. Abstraction fair, computation impaired, language function intact, attention span short. Mood and affect somewhat withdrawn, but better than before, less psychotic. LABORATORY DATA: Reviewed. IMPRESSION: Major neurocognitive disorder, early Alzheimer, vascular with delusion, depression. Rest unchanged. History of major depressive disorder with psychotic features. PLAN: Continue psychotropics mentioned in my initial note. We will not increase Risperdal just yet. MAN Val HECTOR MD DR: CONOR/valente JOB#: [id number] / [id number]
--- NOTE | 2017-11-08 14:54 | DS ---
DATE OF DISCHARGE: 11/07/2017 DISCHARGE SUMMARY/PSYCHIATRIC PROGRESS NOTE. This late entry 11/07/2017, covers elements not covered in my initial note on 11/07/2017. REASON FOR ADMISSION: Please refer to the admission history for details. Briefly, the patient is an 86-year-old female, referred to us from [facility] after she presented to the ER on account of increased confusion, psychosis, agitation, having active hallucinations, refusing to eat. She is paranoid, thinking that the facility was poisoning and that at the staff had cut off her phone line. She was much more confused, had failed outpatient psychiatric interventions with myself resulting in this referral. SIGNIFICANT FINDINGS AND CLINICAL COURSE: Following admission, the patient was seen daily individually by myself from a psychiatric standpoint medical followup per ____/Dr. Tom/Dr. Ferrer. Initially, she was extremely confused, paranoid, not even oriented to where she was or the date or the year and quite psychotic. At times, she did not quite remember me even though I have followed her outpatient for many years. Adjustments were made in her psychotropics, she seemed to respond to a combination of Risperdal 0.25 mg at bedtime, Cymbalta 40 mg a day, trazodone 50 mg at bedtime p.r.n., Klonopin p.r.n., Remeron 7.5 mg p.o. at bedtime. Prior to discharge on 11/07/2017, ambulation impaired with walker hard of hearing with hearing aid. REVIEW OF SYSTEMS: No CV, , pulmonary, eye system symptoms on review. MENTAL STATUS EXAM: Oriented to herself, situation aware of the year and where she was, name of the hospital. Abstraction fair, computation impaired, language function intact, attention span short. Mood and affect is improved, less labile, psychotic symptoms much improved. CONDITION AT DISCHARGE: Improved. FINAL DIAGNOSES: Major depressive disorder with psychotic features in partial remission; major neurocognitive disorder, early Alzheimer, vascular with delusion, depression; anxiety disorder, unspecified; impulse control disorder, unspecified. Rest unchanged from admission. DISCHARGE MEDICATIONS: Please refer to the EMRAD. DISCHARGE INSTRUCTIONS: Outpatient psychiatric and medical followup at the [facility]. CHANTELLE Val HECTOR MD DR: CONOR/valente JOB#: [id number] / [id number]
== END 2017-11-07 10:00 | disposition home or self-care (01) | DRG 885 ==
LOC: ER 20:44 → GEROPSY 10-15 02:21
PROVIDERS: ADMIT Psychiatry & Neurology Psychiatry; ATTEND Psychiatry & Neurology Psychiatry
DX: F32.3 Major depressive disorder, single episode, severe with psychotic features (principal); H90.5 Unspecified sensorineural hearing loss; F02.80 Dementia in other diseases classified elsewhere, unspecified severity, without behavioral disturbance, psychotic disturbance, mood disturbance, and anxiety; G30.9 Alzheimer's disease, unspecified; I49.5 Sick sinus syndrome; F01.50 Vascular dementia, unspecified severity, without behavioral disturbance, psychotic disturbance, mood disturbance, and anxiety; K21.9 Gastro-esophageal reflux disease without esophagitis; I10 Essential (primary) hypertension; E78.5 Hyperlipidemia, unspecified; F41.1 Generalized anxiety disorder; F63.9 Impulse disorder, unspecified; E55.9 Vitamin D deficiency, unspecified; I16.0 Hypertensive urgency; I73.00 Raynaud's syndrome without gangrene; K59.09 Other constipation; M81.0 Age-related osteoporosis without current pathological fracture; M43.10 Spondylolisthesis, site unspecified; Z85.038 Personal history of other malignant neoplasm of large intestine; Z95.0 Presence of cardiac pacemaker
CPT/HCPCS: 36415; 70450; 71045; 72125; 80053; 80061; 81001; 82306; 82607; 83036; 83540; 83550; 83735; 83880; 84436; 84443; 84480; 84484; 85025; 85027; 85610; 85730; 86593; 93005; 96374; J3490; 97110; 97116; 97530; 99285-25